=== PATIENT | male | born 1940 | race Caucasian/White ===

== ENCOUNTER 2018-11-22 15:42 | Inpatient (IN) | payer OTHER ==
[~2018-11-22] VITALS: Ht 175.3 cm; Wt 72.1 kg
[~2018-11-22 15:42] MED LIST: ASA81 MG; Acetaminophen PO; Acetaminophen/Hydrocodone PO; Albuterol Sulf NEB; Aspirin PO; BP; CEFAZOLIN1 GM/50 ML IVP; CRESTOR; DIABETES; GLIPIZIDE; INSULIN REGULAR HUMAN SQ; Insulin Detemir SQ; Ipratropium Bromide NEB; METFORMIN; METFORMIN HCL500 MG PO; NORVASC5 MG PO; Z NIACIN PO; Z.0.LISINOPRIL10 MG PO; Z.0.LYRICA150 MG PO; Z.0.METOPROLOL SUCC5 PO; Z.0.PLAVIX75 MG PO; Z.0.VASOTEC10 MG PO; Z.0.ZOCOR40 MG PO; [UNRECOGNIZED DRUG - OTHER] PO
--- OUTSIDE RECORDS SUMMARY | 2018-11-22 15:49 | XMS REPORT ---
Author Author [facility] [place] Address Unknown Phone Unavailable Care Team Providers Care Field Agent Name Role Phone JAS ABREUILLOMICHAEL Unavailable Unavailable Payers Payer Name Policy Type Policy Number Effective Date Expiration Date Problems This patient has no known problems. Allergies, Adverse Reactions, Alerts Allergy Name Allergy Type Status Severity Reaction(s) Onset Date Inactive Date Treating Clinician Comments No Known Allergies DA Active U 2018-07-27 00:00:00 No Known Allergies DA Active U 2017-10-23 00:00:00 No Known Allergies DA Active U 2016-10-13 00:00:00 Medications This patient has no known medications. Results Test Description Test Time Test Comments Text Results Atomic Results Result Comments BLOOD CULTURE 2018-10-14 02:00:00 CULTURE (BEAKER) (test rrim=9677) No growth in 5 days BLOOD [id number] 02:00:00* Test Item Value Reference Range Comments CULTURE (BEAKER) (test juxt=3765) No growth in 5 days [id number] 11:39:00* Test Item Value Reference Range Comments PROSTATE SPECIFIC ANTIGEN (BEAKER) (test rkaa=725) 1.2 ng/mL 0.0-4.0 CBC W/PLT COUNT & AUTO [id number] 10:01:00* Test Item Value Reference Range Comments WHITE BLOOD CELL COUNT (BEAKER) (test rkcl=923) 104.4 K/ L 3.5-10.5 RED BLOOD CELL COUNT (BEAKER) (test ziaj=960) 2.55 M/ L 4.63-6.08 HEMOGLOBIN (BEAKER) (test vrzq=396) 7.5 GM/DL 13.7-17.5 HEMATOCRIT (BEAKER) (test admx=182) 25.4 % 40.1-51.0 MEAN CORPUSCULAR VOLUME (BEAKER) (test ednz=810) 99.6 fL 79.0-92.2 MEAN CORPUSCULAR HEMOGLOBIN (BEAKER) (test zxmy=492) 29.4 pg 25.7-32.2 MEAN CORPUSCULAR HEMOGLOBIN CONC (BEAKER) (test jfxb=817) 29.5 GM/DL 32.3-36.5 RED CELL DISTRIBUTION WIDTH (BEAKER) (test lxgs=929) 16.6 % 11.6-14.4 PLATELET COUNT (BEAKER) (test szlo=180) 217 K/CU MM 150-450 MEAN PLATELET VOLUME (BEAKER) (test acss=944) 10.5 fL 9.4-12.4 NUCLEATED RED BLOOD CELLS (BEAKER) (test gifw=021) 0 /100 WBC 0-0 (MANUAL DIFFERENTIAL)2018-10-11 10:01:00* Test Item Value Reference Range Comments NEUTROPHILS - REL (DIFF) (BEAKER) (test oexl=0684) 5 % LYMPHOCYTES - REL (DIFF) (BEAKER) (test jpwd=9146) 94 % MONOCYTES - REL (DIFF) (BEAKER) (test xlma=2462) 1 % NEUTROPHILS - ABS (DIFF) (BEAKER) (test alet=4148) 5.22 K/ L 1.80-8.00 LYMPHOCYTES - ABS (DIFF) (BEAKER) (test cflh=9365) 98.14 K/ L 1.48-4.50 MONOCYTES - ABS (DIFF) (BEAKER) (test gtzy=5541) 1.04 K/ L 0.00-1.30 TOTAL COUNTED (BEAKER) (test wixc=1445) 100 PLT MORPHOLOGY (BEAKER) (test xwrp=389) Normal ATYPICAL LYMPHS(BEAKER) (test xrbm=1420) Present SMUDGE CELLS (BEAKER) (test fgwl=9081) Present STOMATOCYTES (BEAKER) (test fiki=481) Present POCT-GLUCOSE [id number] 08:48:00* Test Item Value Reference Range Comments POC-GLUCOSE METER (BEAKER) (test fhmj=0071) 167 mg/dL 70-110 TESTED AT [address] [address] [id number] 06:41:00* Test Item Value Reference Range Comments PHOSPHORUS (BEAKER) (test aeoj=418) 3.0 mg/dL 2.3-4.7 BASIC METABOLIC [id number] 06:41:00* Test Item Value Reference Range Comments SODIUM (BEAKER) (test rltx=007) 133 meq/L 136-145 POTASSIUM (BEAKER) (test zekw=978) 4.8 meq/L 3.5-5.1 CHLORIDE (BEAKER) (test hmjw=365) 99 meq/L 98-107 CO2 (BEAKER) (test eqoj=193) 25 meq/L 22-29 BLOOD UREA NITROGEN (BEAKER) (test ahbk=755) 14 mg/dL 7-21 CREATININE (BEAKER) (test ohev=162) 0.97 mg/dL 0.57-1.25 GLUCOSE RANDOM (BEAKER) (test xugj=689) 119 mg/dL 70-105 CALCIUM (BEAKER) (test dgrb=848) 8.4 mg/dL 8.4-10.2 EGFR (BEAKER) (test urmh=7676) 75 mL/min/1.73 sq m ESTIMATED GFR IS NOT ACCURATE CREATININE CLEARANCE IN PREDICTING GLOMERULAR FILTRATION RATE. ESTIMATED GFR IS NOT APPLICABLE FOR DIALYSIS PATIENTS. POCT-GLUCOSE [id number] 22:24:00* Test Item Value Reference Range Comments POC-GLUCOSE METER (BEAKER) (test uezi=5249) 264 mg/dL 70-110 TESTED AT [address] [address] POCT-GLUCOSE [id number] 21:43:00* Test Item Value Reference Range Comments POC-GLUCOSE METER (BEAKER) (test bvdd=1841) 273 mg/dL 70-110 TESTED AT [address] [address] POCT-GLUCOSE [id number] 18:09:00* Test Item Value Reference Range Comments POC-GLUCOSE METER (BEAKER) (test chao=4958) 85 mg/dL 70-110 TESTED AT [address] [address] POCT-GLUCOSE [id number] 12:11:00* Test Item Value Reference Range Comments POC-GLUCOSE METER (BEAKER) (test bxzv=4024) 273 mg/dL 70-110 TESTED AT [facility] [address] [address] POCT-GLUCOSE [id number] 09:34:00* Test Item Value Reference Range Comments POC-GLUCOSE METER (BEAKER) (test nffx=6279) 114 mg/dL 70-110 TESTED AT [facility] [address] [facility] [address] CBC W/PLT COUNT & AUTO [id number] 09:20:00* Test Item Value Reference Range Comments WHITE BLOOD CELL COUNT (BEAKER) (test lack=355) 72.9 K/ L 3.5-10.5 RED BLOOD CELL COUNT (BEAKER) (test kiej=484) 3.41 M/ L 4.63-6.08 HEMOGLOBIN (BEAKER) (test mkwv=697) 10.3 GM/DL 13.7-17.5 HEMATOCRIT (BEAKER) (test uwbl=090) 32.6 % 40.1-51.0 MEAN CORPUSCULAR VOLUME (BEAKER) (test mgti=682) 95.6 fL 79.0-92.2 MEAN CORPUSCULAR HEMOGLOBIN (BEAKER) (test mbse=113) 30.2 pg 25.7-32.2 MEAN CORPUSCULAR HEMOGLOBIN CONC (BEAKER) (test nzlm=550) 31.6 GM/DL 32.3-36.5 RED CELL DISTRIBUTION WIDTH (BEAKER) (test mzwc=880) 16.4 % 11.6-14.4 PLATELET COUNT (BEAKER) (test essy=029) 145 K/CU MM 150-450 MEAN PLATELET VOLUME (BEAKER) (test fhgj=298) 10.3 fL 9.4-12.4 NUCLEATED RED BLOOD CELLS (BEAKER) (test bpuz=200) 0 /100 WBC 0-0 (CELLAVISION MANUAL DIFF)2018 09:20:00* Test Item Value Reference Range Comments NEUTROPHILS - REL (CELLAVISION)(BEAKER) (test ykbi=4839) 1 % LYMPHOCYTES - REL (CELLAVISION)(BEAKER) (test okqo=6689) 98 % MONOCYTES - REL (CELLAVISION)(BEAKER) (test qtjj=6013) 1 % NEUTROPHILS - ABS (CELLAVISION)(BEAKER) (test gdpq=4210) 0.73 K/ul 1.78-5.38 LYMPHOCYTES - ABS (CELLAVISION)(BEAKER) (test zxes=4846) 71.44 K/ul 1.32-3.57 MONOCYTES - ABS (CELLAVISION)(BEAKER) (test ceqb=6734) 0.73 K/uL 0.30-0.82 TOTAL COUNTED (BEAKER) (test bnij=1957) 100 RBC MORPHOLOGY (BEAKER) (test cjgi=604) Normal WBC MORPHOLOGY (BEAKER) (test eqhb=474) Normal PLT MORPHOLOGY (BEAKER) (test zjtv=109) Normal MISCELLANEOUS LAB [id number] 08:08:00* Test Item Value Reference Range Comments SCAN RESULT (test woam=7487146) BLOOD GAS, [id number] 06:27:00* Test Item Value Reference Range Comments PH VENOUS (BEAKER) (test eggx=477) 7.44 7.32-7.42 PCO2 VENOUS (BEAKER) (test bfoa=757) 45 mmHg 41-51 PO2 VENOUS (BEAKER) (test gkhv=341) 45 mmHg 25-40 O2 SATURATION VENOUS (BEAKER) (test foke=183) 82.5 % 40.0-70.0 HCO3 VENOUS (BEAKER) (test ujhd=018) 30 mmol/L 21-29 BASE EXCESS VENOUS (BEAKER) (test ysry=119) 4.9 mmol/L -2.0-3.0 PATIENT TEMPERATURE (BEAKER) (test tpiy=4679) 37.0 C FIO2 (BEAKER) (test clkx=1652) 21.0 % BASIC METABOLIC [id number] 05:20:00* Test Item Value Reference Range Comments SODIUM (BEAKER) (test fumy=633) 133 meq/L 136-145 POTASSIUM (BEAKER) (test hyxu=691) 4.2 meq/L 3.5-5.1 CHLORIDE (BEAKER) (test tsyq=243) 98 meq/L 98-107 CO2 (BEAKER) (test yhui=315) 26 meq/L 22-29 BLOOD UREA NITROGEN (BEAKER) (test gehs=279) 15 mg/dL 7-21 CREATININE (BEAKER) (test sjko=515) 0.92 mg/dL 0.57-1.25 GLUCOSE RANDOM (BEAKER) (test yjpb=868) 87 mg/dL 70-105 CALCIUM (BEAKER) (test vuff=199) 7.8 mg/dL 8.4-10.2 EGFR (BEAKER) (test gdtl=0315) 80 mL/min/1.73 sq m ESTIMATED GFR IS NOT ACCURATE CREATININE CLEARANCE IN PREDICTING GLOMERULAR FILTRATION RATE. ESTIMATED GFR IS NOT APPLICABLE FOR DIALYSIS PATIENTS. [id number] 05:14:00* Test Item Value Reference Range Comments PHOSPHORUS (BEAKER) (test qpmd=990) 2.7 mg/dL 2.3-4.7 IMMUNOGLOBULIN G (IGG)2018 05:12:00* Test Item Value Reference Range Comments IMMUNOGLOBULIN G (IGG) (BEAKER) (test hamu=460) 397 mg/dL 540-1,822 IMMUNOGLOBULIN M (IGM)2018 05:12:00* Test Item Value Reference Range Comments IMMUNOGLOBULIN M (IGM) (BEAKER) (test rzzp=130) 29 mg/dL 22-293 IMMUNOGLOBULIN A (IGA)2018 05:12:00* Test Item Value Reference Range Comments IMMUNOGLOBULIN A (IGA) (BEAKER) (test ddey=087) 47 mg/dL 63-484 VANCOMYCIN LEVEL, [id number] 04:58:00* Test Item Value Reference Range Comments VANCOMYCIN RANDOM (BEAKER) (test lxzb=857) 18.2 ug/mL Reference Range: No NormalsBASIC METABOLIC [id number] 00:41:00* Test Item Value Reference Range Comments SODIUM (BEAKER) (test evci=666) 132 meq/L 136-145 POTASSIUM (BEAKER) (test insh=934) 3.8 meq/L 3.5-5.1 CHLORIDE (BEAKER) (test peqv=154) 97 meq/L 98-107 CO2 (BEAKER) (test cevf=762) 27 meq/L 22-29 BLOOD UREA NITROGEN (BEAKER) (test ybqd=440) 17 mg/dL 7-21 CREATININE (BEAKER) (test rian=918) 0.99 mg/dL 0.57-1.25 GLUCOSE RANDOM (BEAKER) (test xzms=181) 114 mg/dL 70-105 CALCIUM (BEAKER) (test avsr=048) 7.8 mg/dL 8.4-10.2 EGFR (BEAKER) (test hxwd=5551) 73 mL/min/1.73 sq m ESTIMATED GFR IS NOT ACCURATE CREATININE CLEARANCE IN PREDICTING GLOMERULAR FILTRATION RATE. ESTIMATED GFR IS NOT APPLICABLE FOR DIALYSIS PATIENTS. HEMOGLOBIN [id number] 19:51:00* Test Item Value Reference Range Comments HEMOGLOBIN A1C (BEAKER) (test lspe=834) 10.5 % 4.3-6.1 POCT-GLUCOSE [id number] 17:36:00* Test Item Value Reference Range Comments POC-GLUCOSE METER (BEAKER) (test uvwe=1164) 240 mg/dL 70-110 TESTED AT [address] [address] BASIC METABOLIC [id number] 15:36:00* Test Item Value Reference Range Comments SODIUM (BEAKER) (test sgkw=523) 131 meq/L 136-145 POTASSIUM (BEAKER) (test imws=550) 4.3 meq/L 3.5-5.1 CHLORIDE (BEAKER) (test skvg=741) 97 meq/L 98-107 CO2 (BEAKER) (test dqdz=821) 27 meq/L 22-29 BLOOD UREA NITROGEN (BEAKER) (test nkmp=915) 16 mg/dL 7-21 CREATININE (BEAKER) (test atio=686) 1.09 mg/dL 0.57-1.25 GLUCOSE RANDOM (BEAKER) (test gstr=050) 283 mg/dL 70-105 CALCIUM (BEAKER) (test vmwo=877) 7.8 mg/dL 8.4-10.2 EGFR (BEAKER) (test gowj=2444) 66 mL/min/1.73 sq m ESTIMATED GFR IS NOT ACCURATE CREATININE CLEARANCE IN PREDICTING GLOMERULAR FILTRATION RATE. ESTIMATED GFR IS NOT APPLICABLE FOR DIALYSIS PATIENTS. POCT-GLUCOSE [id number] 14:58:00* Test Item Value Reference Range Comments POC-GLUCOSE METER (BEAKER) (test ucwm=2525) 325 mg/dL 70-110 Notified [facility]EN [place]/TESTED AT [address] [address] CBC W/PLT COUNT & AUTO [id number] 12:38:00* Test Item Value Reference Range Comments WHITE BLOOD CELL COUNT (BEAKER) (test dymy=256) 109.8 K/ L 3.5-10.5 RED BLOOD CELL COUNT (BEAKER) (test flfe=905) 2.60 M/ L 4.63-6.08 HEMOGLOBIN (BEAKER) (test yvyw=169) 7.8 GM/DL 13.7-17.5 HEMATOCRIT (BEAKER) (test kdjm=771) 25.6 % 40.1-51.0 MEAN CORPUSCULAR VOLUME (BEAKER) (test yniz=790) 98.5 fL 79.0-92.2 MEAN CORPUSCULAR HEMOGLOBIN (BEAKER) (test gfzu=420) 30.0 pg 25.7-32.2 MEAN CORPUSCULAR HEMOGLOBIN CONC (BEAKER) (test zijn=487) 30.5 GM/DL 32.3-36.5 RED CELL DISTRIBUTION WIDTH (BEAKER) (test ndlu=273) 17.5 % 11.6-14.4 PLATELET COUNT (BEAKER) (test qeki=065) 189 K/CU MM 150-450 MEAN PLATELET VOLUME (BEAKER) (test mfvh=479) 9.9 fL 9.4-12.4 NUCLEATED RED BLOOD CELLS (BEAKER) (test wcph=521) 0 /100 WBC 0-0 (CELLAVISION MANUAL DIFF)2018-10-09 12:38:00* Test Item Value Reference Range Comments NEUTROPHILS - REL (CELLAVISION)(BEAKER) (test ahms=1822) 7 % LYMPHOCYTES - REL (CELLAVISION)(BEAKER) (test uoap=5363) 91 % MONOCYTES - REL (CELLAVISION)(BEAKER) (test rfqw=1316) 1 % BANDS - REL (CELLAVISION)(BEAKER) (test pwit=2077) 1 % 0-10 NEUTROPHILS - ABS (CELLAVISION)(BEAKER) (test ahod=4040) 7.69 K/ul 1.78-5.38 LYMPHOCYTES - ABS (CELLAVISION)(BEAKER) (test nkyw=4968) 99.92 K/ul 1.32-3.57 MONOCYTES - ABS (CELLAVISION)(BEAKER) (test aioo=5230) 1.10 K/uL 0.30-0.82 BANDS - ABS (CELLAVISION)(BEAKER) (test qnuk=0079) 1.10 K/uL 0.00-0.80 TOTAL COUNTED (BEAKER) (test ztuh=2464) 100 PLT MORPHOLOGY (BEAKER) (test uqnb=886) Normal SMUDGE CELLS (BEAKER) (test ydmd=1964) Present ANISOCYTOSIS (BEAKER) (test pyjp=658) 1+ few MICROCYTES (BEAKER) (test fqxk=913) 1+ few ARTIFACT (CELLAVISION)(BEAKER) (test rdpe=6724) Present PLATELET CONCENTRATION (CELLAVISION)(BEAKER) (test zexe=6488) Adequate Received comment: User comments: Slide comments: POCT-GLUCOSE [id number] 12:36:00* Test Item Value Reference Range Comments POC-GLUCOSE METER (BEAKER) (test ufep=7519) 297 mg/dL 70-110 TESTED AT [place] [id number] POCT-GLUCOSE [id number] 09:24:00* Test Item Value Reference Range Comments POC-GLUCOSE METER (BEAKER) (test yspq=0524) 180 mg/dL 70-110 TESTED AT [address] [address] POCT-LACTIC ACID, [id number] 08:12:00* Test Item Value Reference Range Comments POC-LACTIC ACID, ARTERIAL (BEAKER) (test nagn=7091) 0.6 mmol/L 0.4-1.3 TESTED AT [address] [address] [id number] 08:12:00* Test Item Value Reference Range Comments POC-GLUCOSE (BEAKER) (test lxfa=8155) 148 mg/dL 70-110 TESTED AT [address] [address] POCT-CALCIUM [id number] 08:12:00* Test Item Value Reference Range Comments POC-CALCIUM IONIZED (BEAKER) (test ntue=4519) 1.13 mmol/L 1.12-1.27 TESTED AT [address] [address] [id number] 08:12:00* Test Item Value Reference Range Comments POC-HEMATOCRIT (BEAKER) (test jjzi=0817) 24 % 40-50 TESTED AT [place] [address] [id number] 08:12:00* Test Item Value Reference Range Comments POC-HEMOGLOBIN (BEAKER) (test wqrf=2925) 8.2 g/dL 13.0-16.8 TESTED AT [place] [id number] AT [place] [address] POCT-GLUCOSE [id number] 08:12:00* Test Item Value Reference Range Comments POC-GLUCOSE METER (BEAKER) (test dpjt=9785) 168 mg/dL 70-110 TESTED AT [place] [address] POCT-BLOOD GASES, [id number] 08:11:00* Test Item Value Reference Range Comments TEMP, CELSIUS-POC (BEAKER) (test ymow=8777) 37.0 FIO2-POC (BEAKER) (test vykz=4857) TESTED AT [place] [address] PH, ARTERIAL-POC (BEAKER) (test ibad=2175) 7.538 7.350-7.450 PCO2, ARTERIAL-POC (BEAKER) (test jvnd=8623) 37.8 mm Hg 35.0-45.0 PO2, ARTERIAL-POC (BEAKER) (test vvfn=2172) 96.0 mm Hg 80.0-90.0 SO2, ARTERIAL-POC (BEAKER) (test ouao=9688) 98.0 % 96.0-97.0 HCO3, ARTERIAL-POC (BEAKER) (test ctan=3207) 32.1 meq/L 21.0-29.0 BASE EXCESS, ARTERIAL-POC (BEAKER) (test rbsz=1637) 10.0 meq/L -2.0-3.0 [id number] 08:11:00* Test Item Value Reference Range Comments POC-SODIUM (BEAKER) (test hxny=2689) 133 meq/L 135-148 TESTED AT [place] [address] [id number] 08:11:00* Test Item Value Reference Range Comments POC-POTASSIUM (BEAKER) (test hoco=7940) 4.0 meq/L 3.6-5.5 TESTED AT [place] [address] BASIC METABOLIC [id number] 07:55:00* Test Item Value Reference Range Comments SODIUM (BEAKER) (test gavn=394) 134 meq/L 136-145 POTASSIUM (BEAKER) (test ogyt=948) 4.2 meq/L 3.5-5.1 CHLORIDE (BEAKER) (test ximm=168) 99 meq/L 98-107 CO2 (BEAKER) (test chnt=689) 28 meq/L 22-29 BLOOD UREA NITROGEN (BEAKER) (test tnsj=945) 14 mg/dL 7-21 CREATININE (BEAKER) (test andx=956) 0.97 mg/dL 0.57-1.25 GLUCOSE RANDOM (BEAKER) (test druf=877) 145 mg/dL 70-105 CALCIUM (BEAKER) (test obtn=358) 7.9 mg/dL 8.4-10.2 EGFR (BEAKER) (test uzbt=4429) 75 mL/min/1.73 sq m ESTIMATED GFR IS NOT ACCURATE CREATININE CLEARANCE IN PREDICTING GLOMERULAR FILTRATION RATE. ESTIMATED GFR IS NOT APPLICABLE FOR DIALYSIS PATIENTS. KETONE, [id number] 07:51:00* Test Item Value Reference Range Comments KETONES, BLOOD (BEAKER) (test rurk=2836) < mmol/L <0.4 0.3 [id number] 07:51:00* Test Item Value Reference Range Comments PHOSPHORUS (BEAKER) (test zuax=771) 2.3 mg/dL 2.3-4.7 URINALYSIS W/ REFLEX URINE [id number] 07:46:00* Test Item Value Reference Range Comments COLOR (BEAKER) (test gxam=331) Yellow CLARITY (BEAKER) (test ojgf=847) Cloudy SPECIFIC GRAVITY UA (BEAKER) (test htuj=457) 1.018 1.001-1.035 PH UA (BEAKER) (test qdnf=747) 6.5 5.0-8.0 PROTEIN UA (BEAKER) (test uqhw=424) 100 mg/dL Negative GLUCOSE UA (BEAKER) (test btjz=892) 500 mg/dL Negative KETONES UA (BEAKER) (test kxgl=419) Negative Negative BILIRUBIN UA (BEAKER) (test qaba=631) Negative Negative BLOOD UA (BEAKER) (test rdup=285) Moderate Negative NITRITE UA (BEAKER) (test qdyp=243) Negative Negative LEUKOCYTE ESTERASE UA (BEAKER) (test plzz=138) Large Negative UROBILINOGEN UA (BEAKER) (test kyin=058) 0.2 mg/dL 0.2-1.0 RBC UA (BEAKER) (test sgoe=837) 0 /HPF WBC UA (BEAKER) (test dqti=066) 3969 /HPF SOURCE(BEAKER) (test ssuz=8004) BASIC METABOLIC [id number] 01:03:00* Test Item Value Reference Range Comments SODIUM (BEAKER) (test ckfn=110) 133 meq/L 136-145 POTASSIUM (BEAKER) (test ixwb=115) 3.7 meq/L 3.5-5.1 CHLORIDE (BEAKER) (test olpw=685) 97 meq/L 98-107 CO2 (BEAKER) (test tarc=636) 27 meq/L 22-29 BLOOD UREA NITROGEN (BEAKER) (test xtfx=431) 17 mg/dL 7-21 CREATININE (BEAKER) (test cfuh=202) 1.04 mg/dL 0.57-1.25 GLUCOSE RANDOM (BEAKER) (test mmci=150) 218 mg/dL 70-105 CALCIUM (BEAKER) (test otly=131) 7.9 mg/dL 8.4-10.2 EGFR (BEAKER) (test uxxo=9369) 69 mL/min/1.73 sq m ESTIMATED GFR IS NOT ACCURATE CREATININE CLEARANCE IN PREDICTING GLOMERULAR FILTRATION RATE. ESTIMATED GFR IS NOT APPLICABLE FOR DIALYSIS PATIENTS. RAD, CHEST, 1 VIEW, NON [id number] 00:06:00Reason for exam:->assess lungs- hypoxiaShould this be performed at the bedside?->YesFINAL REPORT RAD, CHEST, 1 VIEW, NON DEPT INDICATION: assess lungs- hypoxia COMPARISON: Plain radiograph the chest dated 10/04/2018. FINDINGS: Portable frontal view of the chest. IMPRESSION: Patient is rotated.Lungs and pleura: Bandlike airspace opacity of the left base may represent atelectasis. Small bilateral pleural effusions, increased in size in the interval. No pneum othorax.Heart and mediastinum: Exaggerated by technique however grossly unchange d. Additional findings: Gaseous distention of the stomach. Postsurgical changes of the left shoulder arthroplasty. Signed: Cori [place] Verified Date/Time: 10/09/2018 00:06:41 GLOBIN AND [id number] 23:40:00* Test Item Value Reference Range Comments HEMOGLOBIN (BEAKER) (test hjjx=242) 6.9 GM/DL 13.7-17.5 HEMATOCRIT (BEAKER) (test ncmj=087) 23.1 % 40.1-51.0 LACTIC ACID, [id number] 23:31:00* Test Item Value Reference Range Comments LACTATE BLOOD VENOUS (2) (BEAKER) (test thxz=3521) 0.8 mmol/L 0.5-2.2 POCT-GLUCOSE [id number] 21:55:00* Test Item Value Reference Range Comments POC-GLUCOSE METER (BEAKER) (test ldke=6993) 230 mg/dL 70-110 TESTED AT [address] [address] BASIC METABOLIC [id number] 21:21:00* Test Item Value Reference Range Comments SODIUM (BEAKER) (test hkhy=976) 134 meq/L 136-145 POTASSIUM (BEAKER) (test zpgm=287) 4.5 meq/L 3.5-5.1 CHLORIDE (BEAKER) (test jfgt=038) 98 meq/L 98-107 CO2 (BEAKER) (test xczl=987) 27 meq/L 22-29 BLOOD UREA NITROGEN (BEAKER) (test vppm=360) 15 mg/dL 7-21 CREATININE (BEAKER) (test ytus=104) 0.99 mg/dL 0.57-1.25 GLUCOSE RANDOM (BEAKER) (test lykr=078) 177 mg/dL 70-105 CALCIUM (BEAKER) (test bttp=598) 8.1 mg/dL 8.4-10.2 EGFR (BEAKER) (test odvk=5973) 73 mL/min/1.73 sq m ESTIMATED GFR IS NOT ACCURATE CREATININE CLEARANCE IN PREDICTING GLOMERULAR FILTRATION RATE. ESTIMATED GFR IS NOT APPLICABLE FOR DIALYSIS PATIENTS. POCT-GLUCOSE [id number] 18:28:00* Test Item Value Reference Range Comments POC-GLUCOSE METER (BEAKER) (test dfmn=6414) 198 mg/dL 70-110 TESTED AT [facility] [address] [address] CBC W/PLT COUNT & AUTO [id number] 12:38:00* Test Item Value Reference Range Comments WHITE BLOOD CELL COUNT (BEAKER) (test wtlx=012) 95.8 K/ L 3.5-10.5 RED BLOOD CELL COUNT (BEAKER) (test epgq=254) 2.43 M/ L 4.63-6.08 HEMOGLOBIN (BEAKER) (test bzan=084) 7.3 GM/DL 13.7-17.5 HEMATOCRIT (BEAKER) (test rbyx=473) 24.3 % 40.1-51.0 MEAN CORPUSCULAR VOLUME (BEAKER) (test xoov=752) 100.0 fL 79.0-92.2 MEAN CORPUSCULAR HEMOGLOBIN (BEAKER) (test tzuj=014) 30.0 pg 25.7-32.2 MEAN CORPUSCULAR HEMOGLOBIN CONC (BEAKER) (test lzcq=740) 30.0 GM/DL 32.3-36.5 RED CELL DISTRIBUTION WIDTH (BEAKER) (test tjtt=869) 16.3 % 11.6-14.4 PLATELET COUNT (BEAKER) (test vxuw=397) 167 K/CU MM 150-450 MEAN PLATELET VOLUME (BEAKER) (test ytoo=960) 9.9 fL 9.4-12.4 NUCLEATED RED BLOOD CELLS (BEAKER) (test fvqo=116) 0 /100 WBC 0-0 (MANUAL DIFFERENTIAL)2018-10-08 12:38:00* Test Item Value Reference Range Comments NEUTROPHILS - REL (DIFF) (BEAKER) (test rlxx=3521) 2 % LYMPHOCYTES - REL (DIFF) (BEAKER) (test ycrx=6835) 97 % MONOCYTES - REL (DIFF) (BEAKER) (test rohz=3744) 1 % EOSINOPHILS - REL (DIFF) (BEAKER) (test doqf=9230) 0 % BASOPHILS - REL (DIFF) (BEAKER) (test pako=7386) 0 % NEUTROPHILS - ABS (DIFF) (BEAKER) (test fnju=4508) 1.92 K/ L 1.80-8.00 LYMPHOCYTES - ABS (DIFF) (BEAKER) (test itdv=6406) 92.93 K/ L 1.48-4.50 MONOCYTES - ABS (DIFF) (BEAKER) (test boyf=8239) 0.96 K/ L 0.00-1.30 EOSINOPHILS - ABS (DIFF) (BEAKER) (test xuyo=3029) 0.00 K/ L 0.00-0.50 BASOPHILS - ABS (DIFF) (BEAKER) (test ttlh=6162) 0.00 K/ L 0.00-0.20 TOTAL COUNTED (BEAKER) (test ksga=3134) 100 PLT MORPHOLOGY (BEAKER) (test dzps=866) Normal RBC MORPHOLOGY (BEAKER) (test jgep=810) Normal SMUDGE CELLS (BEAKER) (test giow=9552) Present Many smudge cells present. Albumin slide indicated. Differential performed on an albumin slide.POCT-GLUCOSE [id number] 12:22:00 * Test Item Value Reference Range Comments POC-GLUCOSE METER (BEAKER) (test rjzn=5101) 206 mg/dL 70-110 TESTED AT [address] [address] POCT-GLUCOSE [id number] 08:44:00* Test Item Value Reference Range Comments POC-GLUCOSE METER (BEAKER) (test gndg=9830) 194 mg/dL 70-110 TESTED AT [address] [address] [id number] 08:25:00* Test Item Value Reference Range Comments PHOSPHORUS (BEAKER) (test ticj=181) 2.3 mg/dL 2.3-4.7 VANCOMYCIN LEVEL, [id number] 07:25:00* Test Item Value Reference Range Comments VANCOMYCIN TROUGH (BEAKER) (test mqui=993) 13.4 ug/mL 10.0-20.0 BASIC METABOLIC [id number] 07:23:00* Test Item Value Reference Range Comments SODIUM (BEAKER) (test vuxx=389) 136 meq/L 136-145 POTASSIUM (BEAKER) (test tkru=920) 4.1 meq/L 3.5-5.1 CHLORIDE (BEAKER) (test kygl=025) 101 meq/L 98-107 CO2 (BEAKER) (test gemy=553) 24 meq/L 22-29 BLOOD UREA NITROGEN (BEAKER) (test jdgr=842) 15 mg/dL 7-21 CREATININE (BEAKER) (test ctmy=384) 0.99 mg/dL 0.57-1.25 GLUCOSE RANDOM (BEAKER) (test cwru=829) 202 mg/dL 70-105 CALCIUM (BEAKER) (test gwfs=418) 8.0 mg/dL 8.4-10.2 EGFR (BEAKER) (test fuub=4057) 73 mL/min/1.73 sq m ESTIMATED GFR IS NOT ACCURATE CREATININE CLEARANCE IN PREDICTING GLOMERULAR FILTRATION RATE. ESTIMATED GFR IS NOT APPLICABLE FOR DIALYSIS PATIENTS. KETONE, [id number] 06:18:00* Test Item Value Reference Range Comments KETONES, BLOOD (BEAKER) (test xyjl=8591) 2.3 mmol/L <0.4 BLOOD GAS, [id number] 06:00:00* Test Item Value Reference Range Comments PH VENOUS (BEAKER) (test stvp=678) 7.48 7.32-7.42 PCO2 VENOUS (BEAKER) (test umdz=232) 36 mmHg 41-51 PO2 VENOUS (BEAKER) (test kcaa=280) 155 mmHg 25-40 O2 SATURATION VENOUS (BEAKER) (test iczk=394) 99.1 % 40.0-70.0 HCO3 VENOUS (BEAKER) (test mqwc=523) 26 mmol/L 21-29 BASE EXCESS VENOUS (BEAKER) (test kazg=369) 2.1 mmol/L -2.0-3.0 PATIENT TEMPERATURE (BEAKER) (test usqc=6445) 37.0 C FIO2 (BEAKER) (test rwle=0001) 28.0 % BASIC METABOLIC [id number] 21:57:00* Test Item Value Reference Range Comments SODIUM (BEAKER) (test ifqa=765) 136 meq/L 136-145 POTASSIUM (BEAKER) (test uzds=858) 3.9 meq/L 3.5-5.1 CHLORIDE (BEAKER) (test musn=295) 103 meq/L 98-107 CO2 (BEAKER) (test gftx=241) 25 meq/L 22-29 BLOOD UREA NITROGEN (BEAKER) (test lxzn=708) 17 mg/dL 7-21 CREATININE (BEAKER) (test ubcx=293) 0.98 mg/dL 0.57-1.25 GLUCOSE RANDOM (BEAKER) (test betf=442) 203 mg/dL 70-105 CALCIUM (BEAKER) (test xofa=150) 7.9 mg/dL 8.4-10.2 EGFR (BEAKER) (test puap=9651) 74 mL/min/1.73 sq m ESTIMATED GFR IS NOT ACCURATE CREATININE CLEARANCE IN PREDICTING GLOMERULAR FILTRATION RATE. ESTIMATED GFR IS NOT APPLICABLE FOR DIALYSIS PATIENTS. POCT-GLUCOSE [id number] 21:38:00* Test Item Value Reference Range Comments POC-GLUCOSE METER (BEAKER) (test ysof=2591) 201 mg/dL 70-110 TESTED AT [facility] [address] [address] POCT-GLUCOSE [id number] 17:54:00* Test Item Value Reference Range Comments POC-GLUCOSE METER (BEAKER) (test ndhj=6711) 168 mg/dL 70-110 TESTED AT [place] [id number] [facility] [address] [id number] 15:20:00* Test Item Value Reference Range Comments PHOSPHORUS (BEAKER) (test sehe=620) 0.9 mg/dL 2.3-4.7 BASIC METABOLIC [id number] 15:17:00* Test Item Value Reference Range Comments SODIUM (BEAKER) (test uopm=751) 137 meq/L 136-145 POTASSIUM (BEAKER) (test ryzi=124) 4.0 meq/L 3.5-5.1 CHLORIDE (BEAKER) (test unvq=276) 100 meq/L 98-107 CO2 (BEAKER) (test uxsl=220) 25 meq/L 22-29 BLOOD UREA NITROGEN (BEAKER) (test jgjd=347) 15 mg/dL 7-21 CREATININE (BEAKER) (test tvxv=417) 1.09 mg/dL 0.57-1.25 GLUCOSE RANDOM (BEAKER) (test glcp=426) 199 mg/dL 70-105 CALCIUM (BEAKER) (test uvqd=326) 8.2 mg/dL 8.4-10.2 EGFR (BEAKER) (test qlwi=4183) 66 mL/min/1.73 sq m ESTIMATED GFR IS NOT ACCURATE CREATININE CLEARANCE IN PREDICTING GLOMERULAR FILTRATION RATE. ESTIMATED GFR IS NOT APPLICABLE FOR DIALYSIS PATIENTS. CBC W/PLT COUNT & AUTO [id number] 14:38:00* Test Item Value Reference Range Comments WHITE BLOOD CELL COUNT (BEAKER) (test qbuj=493) 98.2 K/ L 3.5-10.5 RED BLOOD CELL COUNT (BEAKER) (test pzgf=707) 2.41 M/ L 4.63-6.08 HEMOGLOBIN (BEAKER) (test tjlh=221) 7.2 GM/DL 13.7-17.5 HEMATOCRIT (BEAKER) (test lkim=497) 23.9 % 40.1-51.0 MEAN CORPUSCULAR VOLUME (BEAKER) (test eyuh=073) 99.2 fL 79.0-92.2 MEAN CORPUSCULAR HEMOGLOBIN (BEAKER) (test jucx=842) 29.9 pg 25.7-32.2 MEAN CORPUSCULAR HEMOGLOBIN CONC (BEAKER) (test mjbv=180) 30.1 GM/DL 32.3-36.5 RED CELL DISTRIBUTION WIDTH (BEAKER) (test mfwh=125) 16.1 % 11.6-14.4 PLATELET COUNT (BEAKER) (test ynbm=301) 169 K/CU MM 150-450 MEAN PLATELET VOLUME (BEAKER) (test nkir=049) 10.2 fL 9.4-12.4 NUCLEATED RED BLOOD CELLS (BEAKER) (test bjbc=701) 0 /100 WBC 0-0 (CELLAVISION MANUAL DIFF)2018-10-07 14:38:00* Test Item Value Reference Range Comments NEUTROPHILS - REL (CELLAVISION)(BEAKER) (test vxra=9442) 4 % LYMPHOCYTES - REL (CELLAVISION)(BEAKER) (test vlnl=0582) 93 % EOSINOPHILS - REL (CELLAVISION)(BEAKER) (test irwm=2203) 1 % BANDS - REL (CELLAVISION)(BEAKER) (test lfjs=4372) 2 % 0-10 NEUTROPHILS - ABS (CELLAVISION)(BEAKER) (test kudt=8903) 3.93 K/ul 1.78-5.38 LYMPHOCYTES - ABS (CELLAVISION)(BEAKER) (test srax=3106) 91.33 K/ul 1.32-3.57 EOSINOPHILS - ABS (CELLAVISION)(BEAKER) (test jivy=9994) 0.98 K/uL 0.04-0.54 BANDS - ABS (CELLAVISION)(BEAKER) (test zvsu=5369) 1.96 K/uL 0.00-0.80 TOTAL COUNTED (BEAKER) (test rxrh=8769) 100 PLT MORPHOLOGY (BEAKER) (test kfvq=278) Normal SMUDGE CELLS (BEAKER) (test hnhz=0842) Present HYPOCHROMIA (BEAKER) (test fdfa=548) 1+ few ANISOCYTOSIS (BEAKER) (test crbg=165) 1+ few MACROCYTES (BEAKER) (test rhuo=181) 1+ few BASOPHILIC STIPPLING (BEAKER) (test jocu=625) Present PLATELET CONCENTRATION (CELLAVISION)(BEAKER) (test engp=0926) Adequate Received comment: User comments: Slide comments: WBC: Smudge cell presentCell di fferential performed on albumin slideC. DIFFICILE GDH [id number] 13:26:00* Test Item Value Reference Range Comments CDT TOXIN (test zupd=[id number]) Negative Negative CDT GDH ANTIGEN (test oqrv=[id number]) Negative Negative No indication of Clostridium difficile infection and no colonization. Discontinue enteric isolation and therapy. Testing performed by [employer] Rapid Cassette Assay. For GDH, published sensitivity of the assay is 98.7% compared to cytotoxicity testing. For Toxin AB, published sensitivity is 87.8% and specificity 99.4% compared to cytotoxicity testing.Ve rification of kit performance was done by the [facility] prior to cl inical use.POCT-GLUCOSE [id number] 12:18:00* Test Item Value Reference Range Comments POC-GLUCOSE METER (BEAKER) (test ivkh=6195) 261 mg/dL 70-110 TESTED AT [facility] [address] [address] POCT-GLUCOSE [id number] 09:05:00* Test Item Value Reference Range Comments POC-GLUCOSE METER (BEAKER) (test nqzn=6972) 163 mg/dL 70-110 TESTED AT [facility] [address] [address] BLOOD [id number] 08:01:00* Test Item Value Reference Range Comments CULTURE (BEAKER) (test ammt=1438) No growth in 5 days BLOOD [id number] 08:01:00* Test Item Value Reference Range Comments CULTURE (BEAKER) (test bkfj=0727) No growth in 5 days IMMUNOGLOBULIN A (IGA)2018-10-07 07:12:00* Test Item Value Reference Range Comments IMMUNOGLOBULIN A (IGA) (BEAKER) (test qkww=989) 49 mg/dL 63-484 LIPID [id number] 07:08:00* Test Item Value Reference Range Comments TRIGLYCERIDES (BEAKER) (test choo=835) 220 mg/dL CHOLESTEROL (BEAKER) (test fjki=886) 107 mg/dL HDL CHOLESTEROL (BEAKER) (test nwuq=464) 17 mg/dL LDL CHOLESTEROL CALCULATED (BEAKER) (test tump=673) 46 mg/dL Triglyceride Reference Range: Low Risk <150 Borderline 150-199 High Risk 200-499 Very High Risk >=500Cholesterol Reference Range: Low Risk <200 Borderline 200-239 High Risk >240HDL Cholesterol Reference Range: Low Risk >=60 High Risk <40LDL Cholesterol Reference Range: Optimal <100 Near Optimal 100-129 Borderline 130-159 High 160-189 Very High >=190 BASIC METABOLIC [id number] 07:08:00* Test Item Value Reference Range Comments SODIUM (BEAKER) (test sehf=283) 136 meq/L 136-145 POTASSIUM (BEAKER) (test ftfr=040) 3.1 meq/L 3.5-5.1 CHLORIDE (BEAKER) (test ohrn=705) 101 meq/L 98-107 CO2 (BEAKER) (test mrsm=815) 23 meq/L 22-29 BLOOD UREA NITROGEN (BEAKER) (test idzs=233) 13 mg/dL 7-21 CREATININE (BEAKER) (test pbhi=509) 0.97 mg/dL 0.57-1.25 GLUCOSE RANDOM (BEAKER) (test enpe=530) 156 mg/dL 70-105 CALCIUM (BEAKER) (test jtlw=543) 8.0 mg/dL 8.4-10.2 EGFR (BEAKER) (test knqz=1996) 75 mL/min/1.73 sq m ESTIMATED GFR IS NOT ACCURATE CREATININE CLEARANCE IN PREDICTING GLOMERULAR FILTRATION RATE. ESTIMATED GFR IS NOT APPLICABLE FOR DIALYSIS PATIENTS. KETONE, [id number] 06:16:00* Test Item Value Reference Range Comments KETONES, BLOOD (BEAKER) (test wuhq=8904) 3.4 mmol/L <0.4 PH, [id number] 05:43:00* Test Item Value Reference Range Comments PH VENOUS (BEAKER) (test pttc=400) 7.45 7.32-7.42 BLOOD GAS, [id number] 05:40:00* Test Item Value Reference Range Comments PH VENOUS (BEAKER) (test fkls=635) 7.44 7.32-7.42 PCO2 VENOUS (BEAKER) (test tauh=845) 39 mmHg 41-51 PO2 VENOUS (BEAKER) (test mlsx=156) 60 mmHg 25-40 O2 SATURATION VENOUS (BEAKER) (test nxqt=727) 91.0 % 40.0-70.0 HCO3 VENOUS (BEAKER) (test unhw=847) 25 mmol/L 21-29 BASE EXCESS VENOUS (BEAKER) (test eqfd=826) 1.3 mmol/L -2.0-3.0 PATIENT TEMPERATURE (BEAKER) (test kxzz=9333) 37.6 C FIO2 (BEAKER) (test pike=2899) 28.0 % BASIC METABOLIC [id number] 00:11:00* Test Item Value Reference Range Comments SODIUM (BEAKER) (test cscj=346) 137 meq/L 136-145 POTASSIUM (BEAKER) (test qrfk=483) 3.2 meq/L 3.5-5.1 CHLORIDE (BEAKER) (test gfnl=490) 102 meq/L 98-107 CO2 (BEAKER) (test ysix=859) 22 meq/L 22-29 BLOOD UREA NITROGEN (BEAKER) (test reoy=485) 15 mg/dL 7-21 CREATININE (BEAKER) (test ebyn=492) 1.01 mg/dL 0.57-1.25 GLUCOSE RANDOM (BEAKER) (test tbld=499) 194 mg/dL 70-105 CALCIUM (BEAKER) (test zhkf=899) 8.0 mg/dL 8.4-10.2 EGFR (BEAKER) (test myuf=0733) 72 mL/min/1.73 sq m ESTIMATED GFR IS NOT ACCURATE CREATININE CLEARANCE IN PREDICTING GLOMERULAR FILTRATION RATE. ESTIMATED GFR IS NOT APPLICABLE FOR DIALYSIS PATIENTS. POCT-GLUCOSE [id number] 21:00:00* Test Item Value Reference Range Comments POC-GLUCOSE METER (BEAKER) (test vzbv=3532) 219 mg/dL 70-110 TESTED AT [facility] [address] [address] BASIC METABOLIC [id number] 17:54:00* Test Item Value Reference Range Comments SODIUM (BEAKER) (test axss=650) 134 meq/L 136-145 POTASSIUM (BEAKER) (test uxkj=025) 3.8 meq/L 3.5-5.1 Specimen moderately hemolyzed CHLORIDE (BEAKER) (test zajk=699) 102 meq/L 98-107 CO2 (BEAKER) (test pnpw=900) 21 meq/L 22-29 BLOOD UREA NITROGEN (BEAKER) (test rbmc=381) 16 mg/dL 7-21 CREATININE (BEAKER) (test wrhg=524) 1.04 mg/dL 0.57-1.25 Specimen moderately hemolyzed GLUCOSE RANDOM (BEAKER) (test xaze=284) 212 mg/dL 70-105 CALCIUM (BEAKER) (test wpog=985) 7.9 mg/dL 8.4-10.2 EGFR (BEAKER) (test qrka=1163) 69 mL/min/1.73 sq m ESTIMATED GFR IS NOT ACCURATE CREATININE CLEARANCE IN PREDICTING GLOMERULAR FILTRATION RATE. ESTIMATED GFR IS NOT APPLICABLE FOR DIALYSIS PATIENTS. POCT-GLUCOSE [id number] 17:02:00* Test Item Value Reference Range Comments POC-GLUCOSE METER (BEAKER) (test ywea=9205) 249 mg/dL 70-110 TESTED AT [facility] [address] [address] URINALYSIS W/ REFLEX URINE [id number] 16:39:00* Test Item Value Reference Range Comments COLOR (BEAKER) (test fxyq=383) Red CLARITY (BEAKER) (test acjk=948) Cloudy SPECIFIC GRAVITY UA (BEAKER) (test hdic=847) 1.024 1.001-1.035 PH UA (BEAKER) (test hkya=698) 5.5 5.0-8.0 PROTEIN UA (BEAKER) (test myld=491) 200 mg/dL Negative GLUCOSE UA (BEAKER) (test mrjn=180) 50 mg/dL Negative KETONES UA (BEAKER) (test rdld=215) Negative Negative BILIRUBIN UA (BEAKER) (test zaza=785) Negative Negative BLOOD UA (BEAKER) (test kisg=514) Small Negative NITRITE UA (BEAKER) (test zudc=221) Negative Negative LEUKOCYTE ESTERASE UA (BEAKER) (test xtvj=097) Large Negative UROBILINOGEN UA (BEAKER) (test btgc=463) 0.2 mg/dL 0.2-1.0 RBC UA (BEAKER) (test oliu=041) 27 /HPF WBC UA (BEAKER) (test gfru=782) 945 /HPF BACTERIA (BEAKER) (test yiwk=243) Occasional SOURCE(BEAKER) (test puag=6120) POCT-GLUCOSE [id number] 13:19:00* Test Item Value Reference Range Comments POC-GLUCOSE METER (BEAKER) (test fbca=3892) 223 mg/dL 70-110 TESTED AT [facility] [address] [address] CBC W/PLT COUNT & AUTO [id number] 12:16:00* Test Item Value Reference Range Comments WHITE BLOOD CELL COUNT (BEAKER) (test ktco=370) 97.5 K/ L 3.5-10.5 RED BLOOD CELL COUNT (BEAKER) (test qiak=738) 2.58 M/ L 4.63-6.08 HEMOGLOBIN (BEAKER) (test jjxy=218) 7.6 GM/DL 13.7-17.5 HEMATOCRIT (BEAKER) (test awsh=171) 25.8 % 40.1-51.0 MEAN CORPUSCULAR VOLUME (BEAKER) (test font=674) 100.0 fL 79.0-92.2 MEAN CORPUSCULAR HEMOGLOBIN (BEAKER) (test ajwn=746) 29.5 pg 25.7-32.2 MEAN CORPUSCULAR HEMOGLOBIN CONC (BEAKER) (test gbup=572) 29.5 GM/DL 32.3-36.5 RED CELL DISTRIBUTION WIDTH (BEAKER) (test umhq=899) 16.4 % 11.6-14.4 PLATELET COUNT (BEAKER) (test tgud=172) 144 K/CU MM 150-450 MEAN PLATELET VOLUME (BEAKER) (test ijqp=374) 9.7 fL 9.4-12.4 NUCLEATED RED BLOOD CELLS (BEAKER) (test eqlm=194) 0 /100 WBC 0-0 (CELLAVISION MANUAL DIFF)2018-10-06 12:16:00* Test Item Value Reference Range Comments NEUTROPHILS - REL (CELLAVISION)(BEAKER) (test ttir=8816) 2 % LYMPHOCYTES - REL (CELLAVISION)(BEAKER) (test cthk=1174) 98 % NEUTROPHILS - ABS (CELLAVISION)(BEAKER) (test ggkf=4006) 1.95 K/ul 1.78-5.38 LYMPHOCYTES - ABS (CELLAVISION)(BEAKER) (test fpih=1962) 95.55 K/ul 1.32-3.57 TOTAL COUNTED (BEAKER) (test bmyd=9692) 100 RBC MORPHOLOGY (BEAKER) (test ilnj=091) Normal WBC MORPHOLOGY (BEAKER) (test qlhu=531) Normal PLT MORPHOLOGY (BEAKER) (test qorl=884) Normal BASIC METABOLIC [id number] 12:15:00* Test Item Value Reference Range Comments SODIUM (BEAKER) (test zmml=159) 137 meq/L 136-145 POTASSIUM (BEAKER) (test ctmo=724) 3.5 meq/L 3.5-5.1 CHLORIDE (BEAKER) (test cesz=816) 105 meq/L 98-107 CO2 (BEAKER) (test gofx=097) 18 meq/L 22-29 BLOOD UREA NITROGEN (BEAKER) (test pbgz=539) 13 mg/dL 7-21 CREATININE (BEAKER) (test eagq=558) 1.09 mg/dL 0.57-1.25 GLUCOSE RANDOM (BEAKER) (test jdlh=714) 233 mg/dL 70-105 CALCIUM (BEAKER) (test fdgu=629) 8.1 mg/dL 8.4-10.2 EGFR (BEAKER) (test pvlf=9893) 66 mL/min/1.73 sq m ESTIMATED GFR IS NOT ACCURATE CREATININE CLEARANCE IN PREDICTING GLOMERULAR FILTRATION RATE. ESTIMATED GFR IS NOT APPLICABLE FOR DIALYSIS PATIENTS. URINALYSIS W/ REFLEX URINE [id number] 12:05:00* Test Item Value Reference Range Comments COLOR (BEAKER) (test mkhx=379) Yellow CLARITY (BEAKER) (test zlgn=796) Cloudy SPECIFIC GRAVITY UA (BEAKER) (test zysj=042) 1.010 1.001-1.035 PH UA (BEAKER) (test lcgz=497) 6.0 5.0-8.0 PROTEIN UA (BEAKER) (test oxxf=656) 100 mg/dL Negative GLUCOSE UA (BEAKER) (test gqif=131) >1000 mg/dL Negative KETONES UA (BEAKER) (test cbeh=799) 80 mg/dL Negative BILIRUBIN UA (BEAKER) (test rste=854) Negative Negative BLOOD UA (BEAKER) (test fgps=349) Moderate Negative NITRITE UA (BEAKER) (test kbmf=850) Negative Negative LEUKOCYTE ESTERASE UA (BEAKER) (test tirb=125) Large Negative UROBILINOGEN UA (BEAKER) (test qmbb=586) 0.2 mg/dL 0.2-1.0 RBC UA (BEAKER) (test mckx=977) 19 /HPF WBC UA (BEAKER) (test rcss=143) 3503 /HPF YEAST (BEAKER) (test ntbl=8599) Many SOURCE(BEAKER) (test ulqr=0140) POCT-GLUCOSE [id number] 09:20:00* Test Item Value Reference Range Comments POC-GLUCOSE METER (BEAKER) (test mzxf=5294) 143 mg/dL 70-110 TESTED AT [facility] [address] [address] BASIC METABOLIC [id number] 07:53:00* Test Item Value Reference Range Comments SODIUM (BEAKER) (test xdjm=305) 139 meq/L 136-145 POTASSIUM (BEAKER) (test udhz=678) 3.6 meq/L 3.5-5.1 CHLORIDE (BEAKER) (test mvdr=148) 106 meq/L 98-107 CO2 (BEAKER) (test yymj=130) 16 meq/L 22-29 BLOOD UREA NITROGEN (BEAKER) (test qcee=917) 11 mg/dL 7-21 CREATININE (BEAKER) (test zgkd=263) 0.98 mg/dL 0.57-1.25 GLUCOSE RANDOM (BEAKER) (test ldoe=181) 139 mg/dL 70-105 CALCIUM (BEAKER) (test cvrl=354) 8.2 mg/dL 8.4-10.2 EGFR (BEAKER) (test mizk=4839) 74 mL/min/1.73 sq m ESTIMATED GFR IS NOT ACCURATE CREATININE CLEARANCE IN PREDICTING GLOMERULAR FILTRATION RATE. ESTIMATED GFR IS NOT APPLICABLE FOR DIALYSIS PATIENTS. VANCOMYCIN LEVEL, [id number] 06:50:00* Test Item Value Reference Range Comments VANCOMYCIN TROUGH (BEAKER) (test iwon=039) 14.1 ug/mL 10.0-20.0 PH, [id number] 06:36:00* Test Item Value Reference Range Comments PH VENOUS (BEAKER) (test hsuo=679) 7.38 7.32-7.42 BLOOD GAS, [id number] 06:06:00* Test Item Value Reference Range Comments PH VENOUS (BEAKER) (test xtag=480) 7.39 7.32-7.42 PCO2 VENOUS (BEAKER) (test qyyk=287) 30 mmHg 41-51 PO2 VENOUS (BEAKER) (test buum=032) 61 mmHg 25-40 O2 SATURATION VENOUS (BEAKER) (test ibgl=903) 92.0 % 40.0-70.0 HCO3 VENOUS (BEAKER) (test ydhl=917) 18 mmol/L 21-29 BASE EXCESS VENOUS (BEAKER) (test xaey=163) -6.6 mmol/L -2.0-3.0 PATIENT TEMPERATURE (BEAKER) (test ibxi=2401) 36.8 C FIO2 (BEAKER) (test iwji=5187) 28.0 % [id number] 23:00:00* Test Item Value Reference Range Comments PHOSPHORUS (BEAKER) (test jlmw=050) 1.3 mg/dL 2.3-4.7 LACTIC ACID, [id number] 22:53:00* Test Item Value Reference Range Comments LACTATE BLOOD VENOUS (2) (BEAKER) (test wvhp=8048) 0.5 mmol/L 0.5-2.2 BASIC METABOLIC [id number] 21:36:00* Test Item Value Reference Range Comments SODIUM (BEAKER) (test wxxx=239) 137 meq/L 136-145 POTASSIUM (BEAKER) (test zwks=051) 3.5 meq/L 3.5-5.1 CHLORIDE (BEAKER) (test jfjw=663) 106 meq/L 98-107 CO2 (BEAKER) (test rlnl=759) 14 meq/L 22-29 BLOOD UREA NITROGEN (BEAKER) (test iuwc=745) 13 mg/dL 7-21 CREATININE (BEAKER) (test djzl=828) 1.04 mg/dL 0.57-1.25 GLUCOSE RANDOM (BEAKER) (test dzyz=191) 162 mg/dL 70-105 CALCIUM (BEAKER) (test krjo=270) 7.8 mg/dL 8.4-10.2 EGFR (BEAKER) (test tdfe=9652) 69 mL/min/1.73 sq m ESTIMATED GFR IS NOT ACCURATE CREATININE CLEARANCE IN PREDICTING GLOMERULAR FILTRATION RATE. ESTIMATED GFR IS NOT APPLICABLE FOR DIALYSIS PATIENTS. POCT-GLUCOSE [id number] 21:15:00* Test Item Value Reference Range Comments POC-GLUCOSE METER (BEAKER) (test ypzg=2929) 200 mg/dL 70-110 TESTED AT [address] [address] POCT-GLUCOSE [id number] 19:04:00* Test Item Value Reference Range Comments POC-GLUCOSE METER (BEAKER) (test dnyr=7929) 155 mg/dL 70-110 TESTED AT [address] [address] POCT-GLUCOSE [id number] 11:42:00* Test Item Value Reference Range Comments POC-GLUCOSE METER (BEAKER) (test woux=7831) 226 mg/dL 70-110 TESTED AT [address] [address] BASIC METABOLIC [id number] 11:36:00* Test Item Value Reference Range Comments SODIUM (BEAKER) (test vzga=797) 139 meq/L 136-145 POTASSIUM (BEAKER) (test syrn=485) 3.6 meq/L 3.5-5.1 CHLORIDE (BEAKER) (test cfge=785) 106 meq/L 98-107 CO2 (BEAKER) (test tcpi=781) 16 meq/L 22-29 BLOOD UREA NITROGEN (BEAKER) (test dxkl=963) 15 mg/dL 7-21 CREATININE (BEAKER) (test nwgt=631) 1.02 mg/dL 0.57-1.25 GLUCOSE RANDOM (BEAKER) (test dxuz=798) 231 mg/dL 70-105 CALCIUM (BEAKER) (test oxzr=010) 7.9 mg/dL 8.4-10.2 EGFR (BEAKER) (test zfrf=5777) 71 mL/min/1.73 sq m ESTIMATED GFR IS NOT ACCURATE CREATININE CLEARANCE IN PREDICTING GLOMERULAR FILTRATION RATE. ESTIMATED GFR IS NOT APPLICABLE FOR DIALYSIS PATIENTS. CBC W/PLT COUNT & AUTO [id number] 10:57:00* Test Item Value Reference Range Comments WHITE BLOOD CELL COUNT (BEAKER) (test kkhn=421) 94.9 K/ L 3.5-10.5 RED BLOOD CELL COUNT (BEAKER) (test wnlv=151) 2.47 M/ L 4.63-6.08 HEMOGLOBIN (BEAKER) (test fvty=816) 7.3 GM/DL 13.7-17.5 HEMATOCRIT (BEAKER) (test gkvg=760) 24.0 % 40.1-51.0 MEAN CORPUSCULAR VOLUME (BEAKER) (test twbh=188) 97.2 fL 79.0-92.2 MEAN CORPUSCULAR HEMOGLOBIN (BEAKER) (test gyyu=397) 29.6 pg 25.7-32.2 MEAN CORPUSCULAR HEMOGLOBIN CONC (BEAKER) (test qlic=120) 30.4 GM/DL 32.3-36.5 RED CELL DISTRIBUTION WIDTH (BEAKER) (test xsop=204) 15.5 % 11.6-14.4 PLATELET COUNT (BEAKER) (test ogmb=153) 124 K/CU MM 150-450 MEAN PLATELET VOLUME (BEAKER) (test dvsn=370) 9.5 fL 9.4-12.4 NUCLEATED RED BLOOD CELLS (BEAKER) (test uxol=854) 0 /100 WBC 0-0 (MANUAL DIFFERENTIAL)2018-10-05 10:57:00* Test Item Value Reference Range Comments NEUTROPHILS - REL (DIFF) (BEAKER) (test sybe=8334) 3 % LYMPHOCYTES - REL (DIFF) (BEAKER) (test hvcu=7760) 95 % MONOCYTES - REL (DIFF) (BEAKER) (test gapv=3478) 2 % NEUTROPHILS - ABS (DIFF) (BEAKER) (test zmlg=2182) 2.85 K/ L 1.80-8.00 LYMPHOCYTES - ABS (DIFF) (BEAKER) (test zape=9425) 90.16 K/ L 1.48-4.50 MONOCYTES - ABS (DIFF) (BEAKER) (test avbw=2755) 1.90 K/ L 0.00-1.30 TOTAL COUNTED (BEAKER) (test bwlb=2087) 100 PLT MORPHOLOGY (BEAKER) (test ahgh=047) Normal RBC MORPHOLOGY (BEAKER) (test cbkl=536) Normal ATYPICAL LYMPHS(BEAKER) (test abci=2447) Present SMUDGE CELLS (BEAKER) (test ruqk=7083) Present WOUND CULTURE + GRAM [id number] 08:56:00* Test Item Value Reference Range Comments CULTURE (BEAKER) (test nmob=6954) 4+ Same organism has been isolated from cultures(s) of the same body site within 3 days. Repeat identification and susceptibility testing performed only after consultation with the clinical microbiology laboratory.Refer to previous culture ofEnterococcus species POCT-GLUCOSE [id number] 08:18:00* Test Item Value Reference Range Comments POC-GLUCOSE METER (BEAKER) (test wtlw=2966) 123 mg/dL 70-110 TESTED AT [facility] [address] [address] BASIC METABOLIC [id number] 05:54:00* Test Item Value Reference Range Comments SODIUM (BEAKER) (test jsyk=091) 141 meq/L 136-145 POTASSIUM (BEAKER) (test oept=803) 3.8 meq/L 3.5-5.1 Specimen slightly hemolyzed CHLORIDE (BEAKER) (test ibik=168) 108 meq/L 98-107 CO2 (BEAKER) (test rtlz=500) 20 meq/L 22-29 BLOOD UREA NITROGEN (BEAKER) (test ypya=893) 16 mg/dL 7-21 CREATININE (BEAKER) (test zdzk=100) 1.00 mg/dL 0.57-1.25 Specimen slightly hemolyzed GLUCOSE RANDOM (BEAKER) (test dhbs=095) 130 mg/dL 70-105 CALCIUM (BEAKER) (test wuln=108) 7.9 mg/dL 8.4-10.2 EGFR (BEAKER) (test pfbk=4434) 73 mL/min/1.73 sq m ESTIMATED GFR IS NOT ACCURATE CREATININE CLEARANCE IN PREDICTING GLOMERULAR FILTRATION RATE. ESTIMATED GFR IS NOT APPLICABLE FOR DIALYSIS PATIENTS. [id number] 05:43:00* Test Item Value Reference Range Comments PHOSPHORUS (BEAKER) (test gnfk=218) 1.8 mg/dL 2.3-4.7 Specimen slightly hemolyzed PH, [id number] 04:43:00* Test Item Value Reference Range Comments PH VENOUS (BEAKER) (test pztb=730) 7.44 7.32-7.42 POCT-GLUCOSE [id number] 02:13:00* Test Item Value Reference Range Comments POC-GLUCOSE METER (BEAKER) (test vvhc=4453) 173 mg/dL 70-110 TESTED AT [place] [id number] [facility] [id number] POCT-GLUCOSE [id number] 22:33:00* Test Item Value Reference Range Comments POC-GLUCOSE METER (BEAKER) (test lqvh=6654) 167 mg/dL 70-110 TESTED AT [address] [address] BASIC METABOLIC [id number] 21:01:00* Test Item Value Reference Range Comments SODIUM (BEAKER) (test dqfs=123) 140 meq/L 136-145 POTASSIUM (BEAKER) (test gvxi=306) 4.4 meq/L 3.5-5.1 Specimen slightly hemolyzed CHLORIDE (BEAKER) (test btbl=502) 110 meq/L 98-107 CO2 (BEAKER) (test fiwh=519) 22 meq/L 22-29 BLOOD UREA NITROGEN (BEAKER) (test sujg=015) 16 mg/dL 7-21 CREATININE (BEAKER) (test dgta=346) 0.98 mg/dL 0.57-1.25 Specimen slightly hemolyzed GLUCOSE RANDOM (BEAKER) (test htzr=211) 154 mg/dL 70-105 CALCIUM (BEAKER) (test bdap=648) 7.5 mg/dL 8.4-10.2 EGFR (BEAKER) (test jvoq=3270) 74 mL/min/1.73 sq m ESTIMATED GFR IS NOT ACCURATE CREATININE CLEARANCE IN PREDICTING GLOMERULAR FILTRATION RATE. ESTIMATED GFR IS NOT APPLICABLE FOR DIALYSIS PATIENTS. PH, [id number] 18:47:00* Test Item Value Reference Range Comments PH VENOUS (BEAKER) (test osyo=497) 7.44 7.32-7.42 POCT-GLUCOSE [id number] 13:47:00* Test Item Value Reference Range Comments POC-GLUCOSE METER (BEAKER) (test nfes=4694) 245 mg/dL 70-110 TESTED AT [address] [address] BASIC METABOLIC [id number] 13:41:00* Test Item Value Reference Range Comments SODIUM (BEAKER) (test qjxj=020) 134 meq/L 136-145 POTASSIUM (BEAKER) (test pwbd=491) 3.8 meq/L 3.5-5.1 Specimen slightly hemolyzed CHLORIDE (BEAKER) (test vcck=247) 107 meq/L 98-107 CO2 (BEAKER) (test pkug=284) 14 meq/L 22-29 BLOOD UREA NITROGEN (BEAKER) (test mvvd=393) 15 mg/dL 7-21 CREATININE (BEAKER) (test iwka=823) 1.15 mg/dL 0.57-1.25 Specimen slightly hemolyzed GLUCOSE RANDOM (BEAKER) (test mqmm=340) 285 mg/dL 70-105 CALCIUM (BEAKER) (test hbpn=139) 7.6 mg/dL 8.4-10.2 EGFR (BEAKER) (test nsab=7559) 62 mL/min/1.73 sq m ESTIMATED GFR IS NOT ACCURATE CREATININE CLEARANCE IN PREDICTING GLOMERULAR FILTRATION RATE. ESTIMATED GFR IS NOT APPLICABLE FOR DIALYSIS PATIENTS. CBC W/PLT COUNT & AUTO [id number] 13:07:00* Test Item Value Reference Range Comments WHITE BLOOD CELL COUNT (BEAKER) (test cnae=293) 97.8 K/ L 3.5-10.5 RED BLOOD CELL COUNT (BEAKER) (test ttva=742) 2.53 M/ L 4.63-6.08 HEMOGLOBIN (BEAKER) (test lepc=306) 7.6 GM/DL 13.7-17.5 HEMATOCRIT (BEAKER) (test taxf=522) 24.9 % 40.1-51.0 MEAN CORPUSCULAR VOLUME (BEAKER) (test vhhp=455) 98.4 fL 79.0-92.2 MEAN CORPUSCULAR HEMOGLOBIN (BEAKER) (test thct=051) 30.0 pg 25.7-32.2 MEAN CORPUSCULAR HEMOGLOBIN CONC (BEAKER) (test fzwq=897) 30.5 GM/DL 32.3-36.5 RED CELL DISTRIBUTION WIDTH (BEAKER) (test iube=655) 15.9 % 11.6-14.4 PLATELET COUNT (BEAKER) (test jxfl=903) 131 K/CU MM 150-450 MEAN PLATELET VOLUME (BEAKER) (test dzbn=675) 9.4 fL 9.4-12.4 NUCLEATED RED BLOOD CELLS (BEAKER) (test xdnt=761) 0 /100 WBC 0-0 (MANUAL DIFFERENTIAL)2018-10-04 13:07:00* Test Item Value Reference Range Comments NEUTROPHILS - REL (DIFF) (BEAKER) (test gxci=9983) 5 % LYMPHOCYTES - REL (DIFF) (BEAKER) (test mzyu=2462) 95 % MONOCYTES - REL (DIFF) (BEAKER) (test nhys=5777) 0 % EOSINOPHILS - REL (DIFF) (BEAKER) (test xqtx=2957) 0 % BASOPHILS - REL (DIFF) (BEAKER) (test cyaf=9507) 0 % NEUTROPHILS - ABS (DIFF) (BEAKER) (test yrap=3445) 4.89 K/ L 1.80-8.00 LYMPHOCYTES - ABS (DIFF) (BEAKER) (test rzek=1367) 92.91 K/ L 1.48-4.50 MONOCYTES - ABS (DIFF) (BEAKER) (test jfyv=5111) 0.00 K/ L 0.00-1.30 EOSINOPHILS - ABS (DIFF) (BEAKER) (test ghhb=6799) 0.00 K/ L 0.00-0.50 BASOPHILS - ABS (DIFF) (BEAKER) (test wfrh=7882) 0.00 K/ L 0.00-0.20 TOTAL COUNTED (BEAKER) (test drld=2835) 100 PLT MORPHOLOGY (BEAKER) (test ksvh=090) Normal RBC MORPHOLOGY (BEAKER) (test crzj=601) Normal SMUDGE CELLS (BEAKER) (test vpps=8479) Present Differential performed on an albumin slide.WOUND CULTURE + GRAM [id number] 12:32:00* Test Item Value Reference Range Comments CULTURE (BEAKER) (test auze=6096) STAPHYLOCOCCUS AUREUS 3+ Staphylococcus aureus Clindamycin (test code=10) Erythromycin (test code=4) Linezolid (test code=40) Nitrofurantoin (test code=23) Oxacillin (test code=14) Rifampin (test code=43) Tetracycline (test code=2) Trimethoprim + Sulfamethoxazole (test code=47) Vancomycin (test code=13) CULTURE (BEAKER) (test yyyb=1906) ENTEROCOCCUS SPECIES 3+ Enterococcus species Ampicillin (test code=26) Linezolid (test code=40) Vancomycin (test code=13) GRAM STAIN RESULT (BEAKER) (test hgdm=6037) 3+ WBCs GRAM STAIN RESULT (BEAKER) (test mapp=672548) 2+ gram positive cocci in pairs and clusters GRAM STAIN RESULT (BEAKER) (test ykmo=007406) 2+ yeast Please disregard yeast reported on gram stain. No yeast present on gram stain no r growing on culture. HEMOGLOBIN AND [id number] 12:26:00* Test Item Value Reference Range Comments HEMOGLOBIN (BEAKER) (test jjba=896) 7.9 GM/DL 13.7-17.5 HEMATOCRIT (BEAKER) (test jqai=640) 25.8 % 40.1-51.0 POCT-GLUCOSE [id number] 09:35:00* Test Item Value Reference Range Comments POC-GLUCOSE METER (BEAKER) (test jaxe=0597) 195 mg/dL 70-110 TESTED AT [address] [address] SPUTUM CULTURE + GRAM [id number] 09:22:00* Test Item Value Reference Range Comments CULTURE (BEAKER) (test ltgv=5495) No growth GRAM STAIN RESULT (BEAKER) (test fcfz=7854) 2+ WBCs GRAM STAIN RESULT (BEAKER) (test nsvg=08268) 0-5 epithelial cells GRAM STAIN RESULT (BEAKER) (test vzbk=44121) No organisms seen POCT-GLUCOSE [id number] 08:12:00* Test Item Value Reference Range Comments POC-GLUCOSE METER (BEAKER) (test jxgb=4372) 168 mg/dL 70-110 TESTED AT [address] [address] RAD, CHEST, 1 VIEW, NON [id number] 08:08:00Reason for exam:->ETTShould this be performed at the bedside?->YesFINAL REPORT RAD, CHEST, 1 VIEW, NON DEPT INDICATION: ETT COMPARISON: Prior day's exam FINDINGS: Portable frontal view of the chest. IMPRESSION: Support Lines: Endotracheal and enteric tubes have been removed. Left IJ central venous catheter is no longer present. Lungs and pleura: No consolidation or effusion. No pneumothorax.Heart and mediastinum: Stable contours. Additional findings: None. Signed: JR Praful, Eve CARROLLeport Verified Date/Time: 10/04/2018 08:08:53 Reading Location: [facility] Reading Room -GLUCOSE [id number] 06:34:00* Test Item Value Reference Range Comments POC-GLUCOSE METER (BEAKER) (test ddnz=0854) 133 mg/dL 70-110 TESTED AT [address] [address] BASIC METABOLIC [id number] 06:04:00* Test Item Value Reference Range Comments SODIUM (BEAKER) (test eqrr=991) 136 meq/L 136-145 POTASSIUM (BEAKER) (test xdqf=246) 3.8 meq/L 3.5-5.1 CHLORIDE (BEAKER) (test qfsq=631) 109 meq/L 98-107 CO2 (BEAKER) (test gnru=990) 18 meq/L 22-29 BLOOD UREA NITROGEN (BEAKER) (test gpfv=212) 15 mg/dL 7-21 CREATININE (BEAKER) (test hemf=068) 1.05 mg/dL 0.57-1.25 GLUCOSE RANDOM (BEAKER) (test nwsx=944) 133 mg/dL 70-105 CALCIUM (BEAKER) (test uqmv=266) 7.7 mg/dL 8.4-10.2 EGFR (BEAKER) (test brdg=7126) 69 mL/min/1.73 sq m ESTIMATED GFR IS NOT ACCURATE CREATININE CLEARANCE IN PREDICTING GLOMERULAR FILTRATION RATE. ESTIMATED GFR IS NOT APPLICABLE FOR DIALYSIS PATIENTS. VANCOMYCIN LEVEL, [id number] 05:43:00* Test Item Value Reference Range Comments VANCOMYCIN TROUGH (BEAKER) (test ajgr=504) 5.7 ug/mL 10.0-20.0 POCT-GLUCOSE [id number] 05:18:00* Test Item Value Reference Range Comments POC-GLUCOSE METER (BEAKER) (test weez=3409) 258 mg/dL 70-110 TESTED AT [address] [address] POCT-GLUCOSE [id number] 02:02:00* Test Item Value Reference Range Comments POC-GLUCOSE METER (BEAKER) (test eoke=3888) 168 mg/dL 70-110 TESTED AT [facility] [address] [facility] [address] POCT-GLUCOSE [id number] 00:07:00* Test Item Value Reference Range Comments POC-GLUCOSE METER (BEAKER) (test xfpd=1600) 188 mg/dL 70-110 TESTED AT [address] [address] BASIC METABOLIC [id number] 22:32:00* Test Item Value Reference Range Comments SODIUM (BEAKER) (test mmtn=110) 137 meq/L 136-145 POTASSIUM (BEAKER) (test rmcd=125) 4.3 meq/L 3.5-5.1 CHLORIDE (BEAKER) (test dvpw=948) 109 meq/L 98-107 CO2 (BEAKER) (test jkgy=931) 12 meq/L 22-29 BLOOD UREA NITROGEN (BEAKER) (test tqgk=122) 19 mg/dL 7-21 CREATININE (BEAKER) (test jxbv=723) 1.31 mg/dL 0.57-1.25 GLUCOSE RANDOM (BEAKER) (test zqcq=083) 177 mg/dL 70-105 CALCIUM (BEAKER) (test rqld=114) 7.7 mg/dL 8.4-10.2 EGFR (BEAKER) (test jltc=2501) 53 mL/min/1.73 sq m ESTIMATED GFR IS NOT ACCURATE CREATININE CLEARANCE IN PREDICTING GLOMERULAR FILTRATION RATE. ESTIMATED GFR IS NOT APPLICABLE FOR DIALYSIS PATIENTS. POCT-GLUCOSE [id number] 22:06:00* Test Item Value Reference Range Comments POC-GLUCOSE METER (BEAKER) (test yihk=9779) 182 mg/dL 70-110 TESTED AT [place] [id number] [facility] [address] POCT-GLUCOSE [id number] 21:11:00* Test Item Value Reference Range Comments POC-GLUCOSE METER (BEAKER) (test sfwo=9097) 179 mg/dL 70-110 TESTED AT [place] [id number] [facility] [address] U/S, ABDOMINAL, [id number] 20:54:00Reason for exam:->RUQ US to eval for gallstones Should this be performed at the bedside?->YesFINAL REPORT Abdominal ultrasound dated 10/03/2018 Comment: Real-time transabdominal ultrasound of the right upper quadrant abdomen was performed. Liver is enlarged and measures 18 cm in length. The echogenicity of the liver is increased. No focal lesion is noted in the liver. Gallbladder is surgically absent. No biliary dilatation is seen. Common bile duct measures 6 mm in diameter. Main portal vein measures 12 mm in diameter. Pancreas is suboptimally visualized. Right kidney measures 11.8 x 5.6 x 5.6 cm. Echogenicity of the right kidney is normal. No ascites is present in the abdomen. Abdominal aorta is normal in caliber. IVC and Hepatic veins are patent. Impression: 1. Hepatome luis alfredo with fatty hepatic infiltrate.2. Suboptimal visualization the pancreas seco ndary to overlying gas. Signed: Qamar Florez Verified Date/Time: 2018 20:54:14 Reading Location: [address] Consult Reading Room [facility] signed by: QAMAR FLOREZ M.D. on 10/03/2018 08:54 PM POCT-GLUCOSE METER 2018-10-03 20:15:00* Test Item Value Reference Range Comments POC-GLUCOSE METER (BEAKER) (test uncm=6941) 156 mg/dL 70-110 TESTED AT [place] [id number] [facility] [address] POCT-GLUCOSE [id number] 18:33:00* Test Item Value Reference Range Comments POC-GLUCOSE METER (BEAKER) (test krlw=0507) 142 mg/dL 70-110 TESTED AT [place] [id number] [facility] [address] POCT-GLUCOSE [id number] 17:40:00* Test Item Value Reference Range Comments POC-GLUCOSE METER (BEAKER) (test ohhq=4871) 126 mg/dL 70-110 TESTED AT [place] [id number] [facility] [address] POCT-GLUCOSE [id number] 17:05:00* Test Item Value Reference Range Comments POC-GLUCOSE METER (BEAKER) (test kqdd=4066) 142 mg/dL 70-110 TESTED AT [place] [id number] [facility] [address] POCT-GLUCOSE [id number] 16:07:00* Test Item Value Reference Range Comments POC-GLUCOSE METER (BEAKER) (test lxvf=7852) 154 mg/dL 70-110 TESTED AT [facility] [address] [facility] [address] POCT-GLUCOSE [id number] 14:50:00* Test Item Value Reference Range Comments POC-GLUCOSE METER (BEAKER) (test qhem=4981) 177 mg/dL 70-110 TESTED AT [place] [id number] [facility] [address] BASIC METABOLIC [id number] 13:58:00* Test Item Value Reference Range Comments SODIUM (BEAKER) (test ncpp=995) 139 meq/L 136-145 POTASSIUM (BEAKER) (test drrz=009) 4.5 meq/L 3.5-5.1 CHLORIDE (BEAKER) (test nywn=683) 113 meq/L 98-107 CO2 (BEAKER) (test lxyp=622) 10 meq/L 22-29 BLOOD UREA NITROGEN (BEAKER) (test vccm=205) 19 mg/dL 7-21 CREATININE (BEAKER) (test afro=760) 1.30 mg/dL 0.57-1.25 GLUCOSE RANDOM (BEAKER) (test cjdy=509) 170 mg/dL 70-105 CALCIUM (BEAKER) (test esxb=556) 8.3 mg/dL 8.4-10.2 EGFR (BEAKER) (test oyff=5413) 54 mL/min/1.73 sq m ESTIMATED GFR IS NOT ACCURATE CREATININE CLEARANCE IN PREDICTING GLOMERULAR FILTRATION RATE. ESTIMATED GFR IS NOT APPLICABLE FOR DIALYSIS PATIENTS. Please add [id number] 13:58:00* Test Item Value Reference Range Comments PHOSPHORUS (BEAKER) (test izci=899) 1.5 mg/dL 2.3-4.7 Please add onPOCT-GLUCOSE [id number] 13:57:00* Test Item Value Reference Range Comments POC-GLUCOSE METER (BEAKER) (test cwwq=9383) 162 mg/dL 70-110 TESTED AT [facility] [address] [facility] [address] CBC W/PLT COUNT & AUTO [id number] 13:06:00* Test Item Value Reference Range Comments WHITE BLOOD CELL COUNT (BEAKER) (test haqt=984) 133.3 K/ L 3.5-10.5 RED BLOOD CELL COUNT (BEAKER) (test vbhr=800) 3.09 M/ L 4.63-6.08 HEMOGLOBIN (BEAKER) (test viru=829) 9.2 GM/DL 13.7-17.5 HEMATOCRIT (BEAKER) (test nmgp=118) 31.0 % 40.1-51.0 MEAN CORPUSCULAR VOLUME (BEAKER) (test fvvv=254) 100.3 fL 79.0-92.2 MEAN CORPUSCULAR HEMOGLOBIN (BEAKER) (test wols=380) 29.8 pg 25.7-32.2 MEAN CORPUSCULAR HEMOGLOBIN CONC (BEAKER) (test uzpi=265) 29.7 GM/DL 32.3-36.5 RED CELL DISTRIBUTION WIDTH (BEAKER) (test hxvj=252) 16.6 % 11.6-14.4 PLATELET COUNT (BEAKER) (test gnci=102) 177 K/CU MM 150-450 MEAN PLATELET VOLUME (BEAKER) (test evij=828) 9.3 fL 9.4-12.4 NUCLEATED RED BLOOD CELLS (BEAKER) (test uplz=429) 0 /100 WBC 0-0 (CELLAVISION MANUAL DIFF)2018-10-03 13:06:00* Test Item Value Reference Range Comments NEUTROPHILS - REL (CELLAVISION)(BEAKER) (test nytu=2945) 4 % LYMPHOCYTES - REL (CELLAVISION)(BEAKER) (test xrwi=1792) 95 % MONOCYTES - REL (CELLAVISION)(BEAKER) (test nlwx=8459) 1 % NEUTROPHILS - ABS (CELLAVISION)(BEAKER) (test zrgq=6493) 5.33 K/ul 1.78-5.38 LYMPHOCYTES - ABS (CELLAVISION)(BEAKER) (test sekf=2424) 126.64 K/ul 1.32-3.57 MONOCYTES - ABS (CELLAVISION)(BEAKER) (test apmj=5658) 1.33 K/uL 0.30-0.82 TOTAL COUNTED (BEAKER) (test wcvp=4591) 100 RBC MORPHOLOGY (BEAKER) (test anye=070) Normal WBC MORPHOLOGY (BEAKER) (test pplo=573) Normal PLT MORPHOLOGY (BEAKER) (test foda=102) Normal BLOOD GAS, [id number] 12:50:00* Test Item Value Reference Range Comments PH ARTERIAL (BEAKER) (test ziyv=942) 7.38 7.35-7.45 PCO2 ARTERIAL (BEAKER) (test tpmx=386) 19 mmHg 35-45 PO2 ARTERIAL (BEAKER) (test llxl=531) 96 mmHg 80-90 O2 SATURATION ARTERIAL (BEAKER) (test blvy=183) 97.2 % 96.0-97.0 HCO3 ARTERIAL (BEAKER) (test rhix=550) 11 mmol/L 21-29 BASE EXCESS ARTERIAL (BEAKER) (test eqlg=911) -11.9 mmol/L -2.0-3.0 PATIENT TEMPERATURE (BEAKER) (test snhk=6862) 37.8 C FIO2 (BEAKER) (test poup=2500) 30.0 % CREATINE KINASE (CK)2018-10-03 12:22:00* Test Item Value Reference Range Comments CREATINE KINASE TOTAL (BEAKER) (test rruy=278) 67 U/L 29-200 POCT-GLUCOSE [id number] 12:02:00* Test Item Value Reference Range Comments POC-GLUCOSE METER (BEAKER) (test uler=8872) 162 mg/dL 70-110 TESTED AT [facility] [address] [facility] [address] KETONE, [id number] 10:16:00* Test Item Value Reference Range Comments KETONES, BLOOD (BEAKER) (test pumr=4568) 4.1 mmol/L <0.4 BASIC METABOLIC [id number] 10:08:00* Test Item Value Reference Range Comments SODIUM (BEAKER) (test edbu=811) 140 meq/L 136-145 POTASSIUM (BEAKER) (test uoqf=164) 4.6 meq/L 3.5-5.1 CHLORIDE (BEAKER) (test iovf=799) 113 meq/L 98-107 CO2 (BEAKER) (test vsqo=458) 9 meq/L 22-29 BLOOD UREA NITROGEN (BEAKER) (test isey=102) 20 mg/dL 7-21 CREATININE (BEAKER) (test mkrr=252) 1.39 mg/dL 0.57-1.25 GLUCOSE RANDOM (BEAKER) (test evzf=135) 239 mg/dL 70-105 CALCIUM (BEAKER) (test ntnd=444) 8.1 mg/dL 8.4-10.2 EGFR (BEAKER) (test hnpj=0556) 50 mL/min/1.73 sq m ESTIMATED GFR IS NOT ACCURATE CREATININE CLEARANCE IN PREDICTING GLOMERULAR FILTRATION RATE. ESTIMATED GFR IS NOT APPLICABLE FOR DIALYSIS PATIENTS. POCT-GLUCOSE [id number] 10:04:00* Test Item Value Reference Range Comments POC-GLUCOSE METER (LULU) (test kvda=8890) 207 mg/dL 70-110 TESTED AT [facility] [address] [facility] [address] FLOW CYTOMETRY [id number] 09:32:00* Test Item Value Reference Range Comments FLOW CYTOMETRY RESULT POINTER (LULU) (test tbzo=7083) See Separate Report FLOW CYTOMETRY AP CASE # (LULU) (test ffen=4810) [id number] POCT-GLUCOSE [id number] 08:57:00* Test Item Value Reference Range Comments POC-GLUCOSE METER (LULU) (test opie=0782) 215 mg/dL 70-110 TESTED AT [facility] [address] [facility] [address] POCT-GLUCOSE [id number] 08:32:00* Test Item Value Reference Range Comments POC-GLUCOSE METER (LULU) (test tbyy=9515) 208 mg/dL 70-110 TESTED AT [facility] [address] [facility] [address] RAD, CHEST, 1 VIEW, NON [id number] 07:00:00Reason for exam:->ETTShould this be performed at the bedside?->YesFINAL REPORT RAD, CHEST, 1 VIEW, NON DEPT INDICATION: ETT COMPARISON: Prior day's exam FINDINGS: Portable frontal view of the chest. IMPRESSION: Support Lines: Endotracheal tube has been advanced, now projecting 6 cm above the moy. Enteric tube and left IJ central venous catheters are stable. Lungs and pleura: No consolidation has developed. Costophrenic sulci are sharp. No pneumothorax.Heart and mediastinum: Stable contours.Additional findings: None. Signed: JR Basilio Robert MDReport Verified Date/Time: 10/03/2018 07:00:29 Reading Location: [facility] Radiology Reading Room C METABOLIC [id number] 06:51:00* Test Item Value Reference Range Comments SODIUM (BEAKER) (test qmtq=081) 139 meq/L 136-145 POTASSIUM (BEAKER) (test tuib=679) 4.0 meq/L 3.5-5.1 CHLORIDE (BEAKER) (test gzjd=499) 114 meq/L 98-107 CO2 (BEAKER) (test bpws=402) 8 meq/L 22-29 BLOOD UREA NITROGEN (BEAKER) (test womt=911) 22 mg/dL 7-21 CREATININE (BEAKER) (test qdwe=360) 1.31 mg/dL 0.57-1.25 GLUCOSE RANDOM (BEAKER) (test tqeg=944) 165 mg/dL 70-105 CALCIUM (BEAKER) (test wpvs=052) 8.2 mg/dL 8.4-10.2 EGFR (BEAKER) (test eluq=8052) 53 mL/min/1.73 sq m ESTIMATED GFR IS NOT ACCURATE CREATININE CLEARANCE IN PREDICTING GLOMERULAR FILTRATION RATE. ESTIMATED GFR IS NOT APPLICABLE FOR DIALYSIS PATIENTS. [id number] 06:48:00* Test Item Value Reference Range Comments LIPASE (BEAKER) (test glpc=293) 406 U/L 8-78 POCT-GLUCOSE [id number] 06:46:00* Test Item Value Reference Range Comments POC-GLUCOSE METER (BEAKER) (test axeq=0383) 165 mg/dL 70-110 TESTED AT [address] [address] BLOOD GAS, [id number] 05:31:00* Test Item Value Reference Range Comments PH ARTERIAL (BEAKER) (test krlj=868) 7.37 7.35-7.45 PCO2 ARTERIAL (BEAKER) (test ylii=813) 16 mmHg 35-45 PO2 ARTERIAL (BEAKER) (test njng=744) 166 mmHg 80-90 O2 SATURATION ARTERIAL (BEAKER) (test klsg=368) 99.1 % 96.0-97.0 HCO3 ARTERIAL (BEAKER) (test qcev=876) 9 mmol/L 21-29 BASE EXCESS ARTERIAL (BEAKER) (test ehgg=548) -13.8 mmol/L -2.0-3.0 PATIENT TEMPERATURE (BEAKER) (test cfde=0982) 37.5 C FIO2 (BEAKER) (test aqbq=4773) 30.0 % POCT-GLUCOSE [id number] 05:20:00* Test Item Value Reference Range Comments POC-GLUCOSE METER (BEAKER) (test axxz=5721) 149 mg/dL 70-110 TESTED AT [address] [address] POCT-GLUCOSE [id number] 03:47:00* Test Item Value Reference Range Comments POC-GLUCOSE METER (BEAKER) (test ladr=5224) 117 mg/dL 70-110 TESTED AT [address] [address] POCT-GLUCOSE [id number] 02:15:00* Test Item Value Reference Range Comments POC-GLUCOSE METER (BEAKER) (test inin=2284) 132 mg/dL 70-110 TESTED AT [address] [address] POCT-GLUCOSE [id number] 02:15:00* Test Item Value Reference Range Comments POC-GLUCOSE METER (BEAKER) (test ycpx=7466) 156 mg/dL 70-110 TESTED AT [address] [address] POCT-GLUCOSE [id number] 00:21:00* Test Item Value Reference Range Comments POC-GLUCOSE METER (BEAKER) (test ivha=9696) 134 mg/dL 70-110 TESTED AT [address] [address] BASIC METABOLIC [id number] 00:11:00* Test Item Value Reference Range Comments SODIUM (BEAKER) (test zfgo=471) 138 meq/L 136-145 POTASSIUM (BEAKER) (test vnyq=137) 4.6 meq/L 3.5-5.1 CHLORIDE (BEAKER) (test daqw=341) 113 meq/L 98-107 CO2 (BEAKER) (test xpbs=395) 10 meq/L 22-29 BLOOD UREA NITROGEN (BEAKER) (test eejk=707) 22 mg/dL 7-21 CREATININE (BEAKER) (test vzgf=158) 1.34 mg/dL 0.57-1.25 GLUCOSE RANDOM (BEAKER) (test exdl=503) 149 mg/dL 70-105 CALCIUM (BEAKER) (test ymsh=317) 7.9 mg/dL 8.4-10.2 EGFR (BEAKER) (test bwdg=2556) 52 mL/min/1.73 sq m ESTIMATED GFR IS NOT ACCURATE CREATININE CLEARANCE IN PREDICTING GLOMERULAR FILTRATION RATE. ESTIMATED GFR IS NOT APPLICABLE FOR DIALYSIS PATIENTS. POCT-GLUCOSE [id number] 22:27:00* Test Item Value Reference Range Comments POC-GLUCOSE METER (BEAKER) (test xkoy=4583) 154 mg/dL 70-110 TESTED AT [address] [address] BASIC METABOLIC [id number] 22:24:00* Test Item Value Reference Range Comments SODIUM (BEAKER) (test paxl=263) 138 meq/L 136-145 POTASSIUM (BEAKER) (test grgn=050) 4.4 meq/L 3.5-5.1 CHLORIDE (BEAKER) (test ddki=519) 113 meq/L 98-107 CO2 (BEAKER) (test slyz=934) 11 meq/L 22-29 BLOOD UREA NITROGEN (BEAKER) (test ffwy=640) 23 mg/dL 7-21 CREATININE (BEAKER) (test wezw=335) 1.35 mg/dL 0.57-1.25 GLUCOSE RANDOM (BEAKER) (test dmkx=656) 150 mg/dL 70-105 CALCIUM (BEAKER) (test ohcl=089) 8.1 mg/dL 8.4-10.2 EGFR (BEAKER) (test wcti=1259) 51 mL/min/1.73 sq m ESTIMATED GFR IS NOT ACCURATE CREATININE CLEARANCE IN PREDICTING GLOMERULAR FILTRATION RATE. ESTIMATED GFR IS NOT APPLICABLE FOR DIALYSIS PATIENTS. POCT-GLUCOSE [id number] 21:56:00* Test Item Value Reference Range Comments POC-GLUCOSE METER (BEAKER) (test ldtq=0917) 140 mg/dL 70-110 TESTED AT [address] [address] POCT-GLUCOSE [id number] 21:23:00* Test Item Value Reference Range Comments POC-GLUCOSE METER (BEAKER) (test mewg=5481) 151 mg/dL 70-110 TESTED AT [address] [address] POCT-GLUCOSE [id number] 20:10:00* Test Item Value Reference Range Comments POC-GLUCOSE METER (BEAKER) (test sybg=6962) 176 mg/dL 70-110 TESTED AT [address] [address] POCT-GLUCOSE [id number] 20:01:00* Test Item Value Reference Range Comments POC-GLUCOSE METER (BEAKER) (test nwor=8938) 172 mg/dL 70-110 TESTED AT [facility] [address] [facility] [address] POCT-GLUCOSE [id number] 19:18:00* Test Item Value Reference Range Comments POC-GLUCOSE METER (BEAKER) (test xgjq=8458) 185 mg/dL 70-110 TESTED AT [address] [address] BASIC METABOLIC [id number] 17:54:00* Test Item Value Reference Range Comments SODIUM (BEAKER) (test wjlf=972) 141 meq/L 136-145 POTASSIUM (BEAKER) (test dwfn=842) 4.7 meq/L 3.5-5.1 Specimen slightly hemolyzed CHLORIDE (BEAKER) (test lppu=680) 115 meq/L 98-107 CO2 (BEAKER) (test biuu=298) 10 meq/L 22-29 BLOOD UREA NITROGEN (BEAKER) (test ebsy=446) 27 mg/dL 7-21 CREATININE (BEAKER) (test isms=264) 1.43 mg/dL 0.57-1.25 Specimen slightly hemolyzed GLUCOSE RANDOM (BEAKER) (test fkus=253) 210 mg/dL 70-105 CALCIUM (BEAKER) (test bjbf=925) 8.3 mg/dL 8.4-10.2 EGFR (BEAKER) (test pghh=8798) 48 mL/min/1.73 sq m ESTIMATED GFR IS NOT ACCURATE CREATININE CLEARANCE IN PREDICTING GLOMERULAR FILTRATION RATE. ESTIMATED GFR IS NOT APPLICABLE FOR DIALYSIS PATIENTS. POCT-GLUCOSE [id number] 16:26:00* Test Item Value Reference Range Comments POC-GLUCOSE METER (BEAKER) (test akmp=8465) 214 mg/dL 70-110 TESTED AT [facility] [address] [facility] [address] U/S, RENAL, [id number] 16:21:00Reason for exam:->AKIFINAL REPORT Renal ultrasound, 10/02/2018. History: Acute kidney injury. Findings:Sonographic evaluation of the kidneys was performed. Right kidney: 11.3 cm in length, normal in size, with cortical thickness of 1.0 cm. Normal cortical echogenicity. A 2.1 cm anechoic cyst is present in the interpolar aspect of the right kidney. No calculus. No hydronephrosis. Left kidney: 11.9 cm in length, normal in size, with cortical thickness of 1.1 cm. Normal cortical echogenicity. A 1.1 cm anechoic cyst is present in the lower pole left kidney. No calculus. No hydronephrosis. Urinary bladder: Unremarkable. Vascu lature: Color Doppler survey demonstrates patency of main renal artery and vein bilaterally. Impression:Renal cysts. Otherwise unremarkable renal ultrasound. 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 The morphologic findings of the peripheral smear as well as the values of the automated CBC analyzer were inclu ded in the overall evaluation of this flow cytometry studies. The peripheral sme ar demonstrates numerous small mature lymphocytes with occasional larger forms. Abundant smudge cells are presence. The CBC analyzer identifies a white cell cou nt of over 100 k/ul. The morphologic and immunophenotypic findings are those of peripheral blood involvement by a CD5 positive B cell lymphoma. The high white c ount and large proportion of monoclonal B cells in the flow cytometry studies ex clude the presence of a monoclonal B cell lymphocytosis. The immunoprofile is mo st compatible with and likely represents a chronic lymphocytic leukemia/small ly mphocytic lymphoma, however the presence of a peripheralized CD5 positive lympho ma of a different etiology cannot be completely excluded.The findings of this ca se were discussed with Dr. Shaun Varghese, clinical cisco certified network professional. [id number] osis. Peripheral bloodCD8, surface-[place], CD56, surface-Lambda, CD5, CD19, CD10, CD3, CD20, CD4, CD45, CD14, CD13, CD33, CD117, CD34, CD23, CD49d, CD38, [id number] ecimen Viability: 93.6%Abnormal B cell population identified (85.20% of total c ellularity)POSITIVE: CD19, CD20, CD5 (DIM), KAPPA, CD200, [id number]: CD10, LA MBDA, CD38, CD49In addition, the following populations are identified:Blasts: No t identified. Lymphocytes: Bright CD45+ lymphocytes comprise 91.3% of total cell s. T cells show a CD4:CD8 ratio of 1.5. B cells population as described above. M yeloid/monocytic populations: As identified by CD45 and light scatter characteri stics, granulocytes comprise the majority of cells analyzed, and monocytes compr ise 0.20% of total cells.The remaining events analyzed represent nonviable cells , non-hematolymphoid cells, and debrisThese tests were developed and their perfo rmance characteristics determined by [facility]. They have not been cleared or approved by the U.S. Food and Drug Administration. The FDA has determined th at such clearance or approval is not necessary. It should not be regarded as inv estigational or for research. This laboratory is certified under the Clinical La boratory Improvement Amendments of 1988 ("CLIA") as qualified to perform high-co mplexity clinical testing.POCT-GLUCOSE [id number] 15:07:00* Test Item Value Reference Range Comments POC-GLUCOSE METER ([employer]) (test gyqf=2393) 180 mg/dL 70-110 TESTED AT [facility] [address] [id number] CREATININE, RANDOM [id number] 14:30:00* Test Item Value Reference Range Comments CREATININE URINE ([employer]) (test fhbi=729) 44.8 mg/dL Reference Range: No NormalsSODIUM, RANDOM [id number] 14:30:00* Test Item Value Reference Range Comments SODIUM URINE ([employer]) (test ernu=789) 55 meq/L Reference Range: No NormalsPOCT-GLUCOSE [id number] 14:04:00* Test Item Value Reference Range Comments POC-GLUCOSE METER (BEAKER) (test jyke=8380) 140 mg/dL 70-110 TESTED AT [facility] [address] [address] OSMOLALITY, [id number] 14:00:00* Test Item Value Reference Range Comments OSMOLALITY URINE (BEAKER) (test arpj=397) 549 mOsm/kg 40-1,400 UREA NITROGEN, RANDOM [id number] 13:46:00* Test Item Value Reference Range Comments UREA NITROGEN URINE (BEAKER) (test alwg=032) 505 mg/dL Reference Range: No NormalsPOCT-GLUCOSE [id number] 13:17:00* Test Item Value Reference Range Comments POC-GLUCOSE METER (BEAKER) (test tmzs=4903) 173 mg/dL 70-110 TESTED AT [facility] [address] [address] CBC W/MANUAL [id number] 13:04:00* Test Item Value Reference Range Comments WHITE BLOOD CELL (test code=WBC) 295.4 K/mm3 4.5-12.5 RESULT VERIFIED BY REPEAT ANALYSIS"Path Review" been performed on patient's currentadmission?If yes, please insert path review specimen here N If not, please order "Path Review" for the followingcriteria:1/ WBC count over 40,000/mm3 or below 2,000/mm32/ Platelet counts over 1,000,000/mm3, or below 10,000/mm3, or with abnormal morphology.3/ Abnormal red cell morphology or inclusions which are severe (> 3+) , widespread, or difficult to classify.4/ Abnormal white blood cell morphology: Blasts present in peripheral blood of any patient as a new finding. Abnormal cells suspected of being blasts. Patients with large numbers of immature cells in peripheral blood. Unusual cells or cells not easily classified in peripheral blood.5/ Any smear in which the technologist is uncertain of the classification or the disease. RED BLOOD CELL (test code=RBC) 4.34 mill/mm3 4.0-5.8 HEMOGLOBIN (test code=HGB) 12.4 gram/dL 13.0-17.5 HEMATOCRIT (test code=HCT) 47.5 % 42.0-52.0 MEAN CELL VOLUME (test code=MCV) 109.4 fL 80-98 MEAN CELL HGB (test code=MCH) 28.6 picogram 27.0-33.0 MEAN CELL HGB CONCETRATION (test code=MCHC) 26.1 gram/dL 33.0-36.0 RED CELL DISTRIBUTION WIDTH (test code=RDW) 17.7 % 11.6-16.2 RED CELL DISTRIBUTION WIDTH SD (test code=RDW-SD) 60.2 fL 37.0-51.0 PLATELET COUNT (test code=PLT) 401 K/mm3 150-450 MEAN PLATELET VOLUME (test code=MPV) 9.5 fL 6.7-11.0 IMMATURE GRANULOCYTE % (test code=IG%) 0.6 % 0.0-5.0 NUCLEATED RBC % (test code=NRBC%) 0.0 % 0-0 NEUTROPHIL # (test code=NT#) 11.06 K/mm3 1.8-7.7 IMMATURE GRANULOCYTE # (test code=IG#) 1.72 x10 3/uL 0-0.03 LYMPHOCYTE # (test code=LY#) 281.56 K/mm3 1.0-5.0 MONOCYTE # (test code=MO#) 0.97 K/mm3 0-0.8 EOSINOPHIL # (test code=EO#) 0.00 K/mm3 0.0-0.5 BASOPHIL # (test code=BA#) 0.04 K/mm3 0.0-0.2 NUCLEATED RBC # (test code=NRBC#) 0.00 K/mm3 0.0-0.1 MANUAL DIFF REQUIRED (test code=MDIFF) YES STAIN ACCEPTABILITY (test code=STN ACCEPTABLE) STAIN ACCEPTABLE TOTAL CELLS COUNTED (test code=TCC) 115 #CELLS SEGMENTED NEUTROPHILS (test code=SEG) 2.6 % 39-69 BAND NEUTROPHIL (test code=BAND) 0 % 0-10 LYMPHOCYTE (test code=LYMPH) 93.9 % 25-55 REACTIVE LYMPH (test code=RELYMPH) 0 % MONOCYTE (test code=MON) 0 % 0-10 EOSINOPHIL (test code=EOS) 0 % 0.0-5.0 BASOPHIL (test code=BASO) 0 % 0-1.0 METAMYELOCYTE (test code=META) 0 % 0-0 MYELOCYTE (test code=MYELO) 0 % 0.0-0.0 PROMYELOCYTE (test code=PROM) 0 % 0-0 POIKILOCYTOSIS (test code=POIK) 3+ ANISOCYTOSIS (test code=ANISO) 2+ MACROCYTOSIS (test code=MACR) 1+ JOSY CELLS (test code=JOSY) 1+ NONE OVALOCYTES (test code=OVAL) 1+ SMUDGE CELLS (test code=SMUDG) 3+ PLATELET ESTIMATE (test code=PLTEST) ADEQUATE PLATELET MORPHOLOGY (test code=PLTMORPH) NORMAL IMMATURE FORMS (test code=IMMAT) 3.5 % 0-0 PATHOLOGISTS [id number] 13:04:00* Test Item Value Reference Range Comments PATHOLOGISTS FINDINGS (test code=PATH) YES PATH NOTES LEUKOCYTOSIS, MARKEDLYMPHOCYTOSIS, MARKED (CLL) SUGGEST FLOW CYTOMETRY IF CLINICALLY INDICATED. REVIEWED BY CHEYANNE GRANGER M.D.10/02/18SLITAE REVIEWED BY PATHOLOGIST [id number] 12:40:00* Test Item Value Reference Range Comments POTASSIUM (BEAKER) (test ador=656) 5.3 meq/L 3.5-5.1 BASIC METABOLIC [id number] 12:40:00* Test Item Value Reference Range Comments SODIUM (BEAKER) (test pbrc=904) 138 meq/L 136-145 POTASSIUM (BEAKER) (test ppen=179) 5.3 meq/L 3.5-5.1 CHLORIDE (BEAKER) (test vqoq=206) 114 meq/L 98-107 CO2 (BEAKER) (test ungv=985) 12 meq/L 22-29 BLOOD UREA NITROGEN (BEAKER) (test cuoj=373) 30 mg/dL 7-21 CREATININE (BEAKER) (test ovdq=714) 1.41 mg/dL 0.57-1.25 GLUCOSE RANDOM (BEAKER) (test sflf=222) 154 mg/dL 70-105 CALCIUM (BEAKER) (test indz=128) 8.2 mg/dL 8.4-10.2 EGFR (BEAKER) (test nqwm=0874) 49 mL/min/1.73 sq m ESTIMATED GFR IS NOT ACCURATE CREATININE CLEARANCE IN PREDICTING GLOMERULAR FILTRATION RATE. ESTIMATED GFR IS NOT APPLICABLE FOR DIALYSIS PATIENTS. PERIPHERAL BLOOD SMEAR - HOLD [id number] 12:09:00* Test Item Value Reference Range Comments PERIPHERAL SMEAR SAVE (BEAKER) (test qqle=2291) saved POCT-GLUCOSE [id number] 12:06:00* Test Item Value Reference Range Comments POC-GLUCOSE METER (BEAKER) (test xsmb=6825) 187 mg/dL 70-110 TESTED AT [address] [address] POCT-GLUCOSE [id number] 11:40:00* Test Item Value Reference Range Comments POC-GLUCOSE METER (BEAKER) (test ozkh=1684) 182 mg/dL 70-110 TESTED AT [address] [address] [id number] 10:41:00* Test Item Value Reference Range Comments TRIGLYCERIDES (BEAKER) (test athh=369) 188 mg/dL TRIGLYCERIDE REFERENCE RANGELow Risk <150Borderline Risk 150-199High Risk 200- 499Very High Risk >=500POCT-GLUCOSE [id number] 10:09:00* Test Item Value Reference Range Comments POC-GLUCOSE METER (BEAKER) (test eeev=5165) 226 mg/dL 70-110 TESTED AT [address] [address] POCT-GLUCOSE [id number] 10:09:00* Test Item Value Reference Range Comments POC-GLUCOSE METER (BEAKER) (test ujsd=8394) 212 mg/dL 70-110 TESTED AT [address] [address] [id number] 09:20:00* Test Item Value Reference Range Comments MAGNESIUM (BEAKER) (test zwow=291) 2.2 mg/dL 1.6-2.6 [id number] 09:20:00* Test Item Value Reference Range Comments PHOSPHORUS (BEAKER) (test jhrq=726) 2.3 mg/dL 2.3-4.7 POCT-GLUCOSE [id number] 08:04:00* Test Item Value Reference Range Comments POC-GLUCOSE METER (BEAKER) (test adxo=5607) 211 mg/dL 70-110 TESTED AT [address] [address] CBC W/PLT COUNT & AUTO [id number] 07:52:00* Test Item Value Reference Range Comments WHITE BLOOD CELL COUNT (BEAKER) (test jxff=110) 130.0 K/ L 3.5-10.5 RED BLOOD CELL COUNT (BEAKER) (test przc=839) 3.02 M/ L 4.63-6.08 HEMOGLOBIN (BEAKER) (test yrmo=906) 8.9 GM/DL 13.7-17.5 HEMATOCRIT (BEAKER) (test ffkr=853) 30.1 % 40.1-51.0 MEAN CORPUSCULAR VOLUME (BEAKER) (test ckro=840) 99.7 fL 79.0-92.2 MEAN CORPUSCULAR HEMOGLOBIN (BEAKER) (test vqtn=421) 29.5 pg 25.7-32.2 MEAN CORPUSCULAR HEMOGLOBIN CONC (BEAKER) (test wuey=764) 29.6 GM/DL 32.3-36.5 RED CELL DISTRIBUTION WIDTH (BEAKER) (test mbbf=823) 15.6 % 11.6-14.4 PLATELET COUNT (BEAKER) (test lyxt=422) 208 K/CU MM 150-450 MEAN PLATELET VOLUME (BEAKER) (test wwmh=949) 9.4 fL 9.4-12.4 NUCLEATED RED BLOOD CELLS (BEAKER) (test ryxc=367) 0 /100 WBC 0-0 (CELLAVISION MANUAL DIFF)2018-10-02 07:52:00* Test Item Value Reference Range Comments NEUTROPHILS - REL (CELLAVISION)(BEAKER) (test zobz=4569) 19 % LYMPHOCYTES - REL (CELLAVISION)(BEAKER) (test ckcc=0664) 79 % MONOCYTES - REL (CELLAVISION)(BEAKER) (test lfjg=3786) 2 % NEUTROPHILS - ABS (CELLAVISION)(BEAKER) (test mzzw=4806) 24.70 K/ul 1.78-5.38 LYMPHOCYTES - ABS (CELLAVISION)(BEAKER) (test whdr=9764) 102.70 K/ul 1.32-3.57 MONOCYTES - ABS (CELLAVISION)(BEAKER) (test ijuo=5645) 2.60 K/uL 0.30-0.82 TOTAL COUNTED (BEAKER) (test mocv=6694) 100 RBC MORPHOLOGY (BEAKER) (test iglh=636) Normal PLT MORPHOLOGY (BEAKER) (test bwrz=872) Normal SMUDGE CELLS (BEAKER) (test yeiq=1095) Present PLATELET CONCENTRATION (CELLAVISION)(BEAKER) (test eidk=0408) Adequate Received comment: User comments: Slide comments: POCT-GLUCOSE [id number] 07:33:00* Test Item Value Reference Range Comments POC-GLUCOSE METER (BEAKER) (test jjgx=3529) 200 mg/dL 70-110 TESTED AT [facility] [address] [facility] [address] POCT-GLUCOSE [id number] 06:05:00* Test Item Value Reference Range Comments POC-GLUCOSE METER (BEAKER) (test swqc=1903) 187 mg/dL 70-110 TESTED AT [place] [id number] [facility] [address] POCT-GLUCOSE [id number] 05:38:00* Test Item Value Reference Range Comments POC-GLUCOSE METER (BEAKER) (test sutg=7958) 145 mg/dL 70-110 TESTED AT [place] [id number] [facility] [address] [id number] 04:28:00* Test Item Value Reference Range Comments LIPASE (BEAKER) (test vzxz=409) 904 U/L 8-78 BASIC METABOLIC [id number] 04:28:00* Test Item Value Reference Range Comments SODIUM (BEAKER) (test ampz=780) 145 meq/L 136-145 POTASSIUM (BEAKER) (test kfbl=387) 3.4 meq/L 3.5-5.1 CHLORIDE (BEAKER) (test jgen=213) 118 meq/L 98-107 CO2 (BEAKER) (test ucyu=757) 12 meq/L 22-29 BLOOD UREA NITROGEN (BEAKER) (test qrig=414) 39 mg/dL 7-21 CREATININE (BEAKER) (test gcse=469) 1.58 mg/dL 0.57-1.25 GLUCOSE RANDOM (BEAKER) (test ebof=879) 141 mg/dL 70-105 CALCIUM (BEAKER) (test wstq=891) 8.5 mg/dL 8.4-10.2 EGFR (BEAKER) (test eovc=5467) 43 mL/min/1.73 sq m ESTIMATED GFR IS NOT ACCURATE CREATININE CLEARANCE IN PREDICTING GLOMERULAR FILTRATION RATE. ESTIMATED GFR IS NOT APPLICABLE FOR DIALYSIS PATIENTS. LACTIC ACID, [id number] 04:23:00* Test Item Value Reference Range Comments LACTATE BLOOD VENOUS (2) (BEAKER) (test opwx=5128) 1.1 mmol/L 0.5-2.2 Collect with next bmpPOCT-GLUCOSE [id number] 04:18:00* Test Item Value Reference Range Comments POC-GLUCOSE METER (BEAKER) (test rdtl=0306) 153 mg/dL 70-110 TESTED AT [facility] [address] [facility] [address] POCT-GLUCOSE [id number] 04:10:00* Test Item Value Reference Range Comments POC-GLUCOSE METER (BEAKER) (test urgb=7532) 144 mg/dL 70-110 TESTED AT [place] [id number] [facility] [address] POCT-GLUCOSE [id number] 04:10:00* Test Item Value Reference Range Comments POC-GLUCOSE METER (BEAKER) (test yvrt=8513) 119 mg/dL 70-110 TESTED AT [address] [address] BLOOD GAS, [id number] 03:59:00* Test Item Value Reference Range Comments PH VENOUS (BEAKER) (test kbwr=692) 7.37 7.32-7.42 PCO2 VENOUS (BEAKER) (test ueoa=550) 20 mmHg 41-51 PO2 VENOUS (BEAKER) (test wljs=542) 74 mmHg 25-40 O2 SATURATION VENOUS (BEAKER) (test awwb=192) 94.9 % 40.0-70.0 HCO3 VENOUS (BEAKER) (test otez=306) 11 mmol/L 21-29 BASE EXCESS VENOUS (BEAKER) (test uykl=399) -12.1 mmol/L -2.0-3.0 PATIENT TEMPERATURE (BEAKER) (test ucmg=3552) 37.2 C FIO2 (BEAKER) (test mvrn=7381) 30.0 % Collect with next [facility] W/PLT COUNT & AUTO [id number] 02:35:00* Test Item Value Reference Range Comments WHITE BLOOD CELL COUNT (BEAKER) (test wlgl=361) 169.9 K/ L 3.5-10.5 RED BLOOD CELL COUNT (BEAKER) (test nzjf=535) 3.38 M/ L 4.63-6.08 HEMOGLOBIN (BEAKER) (test ijqs=080) 10.6 GM/DL 13.7-17.5 HEMATOCRIT (BEAKER) (test jcym=189) 34.4 % 40.1-51.0 MEAN CORPUSCULAR VOLUME (BEAKER) (test qhzr=220) 101.8 fL 79.0-92.2 MEAN CORPUSCULAR HEMOGLOBIN (BEAKER) (test fbgw=815) 31.4 pg 25.7-32.2 MEAN CORPUSCULAR HEMOGLOBIN CONC (BEAKER) (test xgzh=389) 30.8 GM/DL 32.3-36.5 RED CELL DISTRIBUTION WIDTH (BEAKER) (test onzj=383) 16.0 % 11.6-14.4 PLATELET COUNT (BEAKER) (test zmqy=647) 235 K/CU MM 150-450 MEAN PLATELET VOLUME (BEAKER) (test cdoi=209) 9.3 fL 9.4-12.4 NUCLEATED RED BLOOD CELLS (BEAKER) (test jift=994) 0 /100 WBC 0-0 (CELLAVISION MANUAL DIFF)2018-10-02 02:35:00* Test Item Value Reference Range Comments NEUTROPHILS - REL (CELLAVISION)(BEAKER) (test gjrd=0091) 11 % LYMPHOCYTES - REL (CELLAVISION)(BEAKER) (test jpdj=2034) 83 % MONOCYTES - REL (CELLAVISION)(BEAKER) (test rldx=0551) 1 % BANDS - REL (CELLAVISION)(BEAKER) (test ztfl=8122) 2 % 0-10 BLASTS - REL (CELLAVISION)(BEAKER) (test mdlo=7123) 3 % 0-0 NEUTROPHILS - ABS (CELLAVISION)(BEAKER) (test roze=3741) 18.69 K/ul 1.78-5.38 LYMPHOCYTES - ABS (CELLAVISION)(BEAKER) (test jwnx=0508) 141.02 K/ul 1.32-3.57 MONOCYTES - ABS (CELLAVISION)(BEAKER) (test buko=5739) 1.70 K/uL 0.30-0.82 BANDS - ABS (CELLAVISION)(BEAKER) (test xyzm=4763) 3.40 K/uL 0.00-0.80 BLASTS - ABS (CELLAVISION)(BEAKER) (test eqix=6307) 5.10 K/uL 0.00-0.00 TOTAL COUNTED (BEAKER) (test duks=7024) 100 SMUDGE CELLS (BEAKER) (test jhhh=6048) Present GIANT PLATELETS (BEAKER) (test uvbc=238) Present POLYCHROMATOPHILLIC RBCS(BEAKER) (test xmhh=414) 1+ few HYPOCHROMIA (BEAKER) (test iqyl=124) 1+ few ANISOCYTOSIS (BEAKER) (test rgex=605) 1+ few MICROCYTES (BEAKER) (test ucyb=186) 1+ few MACROCYTES (BEAKER) (test vspu=339) 1+ few POIKILOCYTES (BEAKER) (test fven=300) 2+ moderate SCHISTOCYTES (BEAKER) (test ozyn=143) 1+ few SPHEROCYTES (BEAKER) (test jsec=383) 1+ few ELLIPTOCYTES (BEAKER) (test vapr=699) 1+ few OVALOCYTES (BEAKER) (test hkvq=788) 1+ few STOMATOCYTES (BEAKER) (test hiwl=482) 1+ few ACANTHOCYTES (BEAKER) (test lyig=423) 1+ few JOSY CELLS (BEAKER) (test zewf=789) 1+ few ARTIFACT (CELLAVISION)(BEAKER) (test xacb=8903) Present PLATELET CONCENTRATION (CELLAVISION)(BEAKER) (test ioqr=8130) Adequate Received comment: User comments: Slide comments: RAD, CHEST, 1 VIEW, NON DEPT 2018-10-02 01:57:00Reason for exam:->New admission ICU IntubatedShould this be performed at the bedside?->YesFINAL REPORT EXAMINATION: AP PORTABLE CHEST RADIOGRAPH CLINICAL INDICATION: Intubated IMPRESSION: No comparison studies are available. The tip of the endotracheal tube projects over the midline at the level the clavicles approximately 8 cm superior to the moy. The tip of the nasogastric tube extends below the diaphragm and inferior margin of today's study. Tip of the left jugular central line projects over the junction of the left innominate vein and superior vena cava. Thin curvilinear opacities are noted in both lungs, most conspicuous along the heart borders, atelectasis favored. No evidence of a discrete pneumonia, pulmonary edema, large pleural effusion or pneumothorax. The heart size is normal. Mediastinal contours are sharp and smooth. Left shoulder incompletely visualized arthroplasty. No definite evidence of an acute osseous abnormality. Signed: Stan Isidro MDReport Verified Date/Time: 10/02/2018 01:57:34 Reading Location: [address] Reading Room -GLUCOSE [id number] 01:46:00* Test Item Value Reference Range Comments POC-GLUCOSE METER (RENNYAKER) (test xrbm=6866) 126 mg/dL 70-110 TESTED AT [facility] [address] [address] CT, BRAIN, WITHOUT [id number] 01:38:00FINAL REPORT EXAMINATION NONCONTRAST HEAD CT SCAN CLINICAL HISTORY:Focal neurologic deficit COMPARISON CT: None EPISODE OF CARE: Initial TECHNIQUE: Axial tomographic images were obtained through the brain from the vertex to the skull base without intravenous contrast. The exam was performed according to our departmental dose optimization program which includes automated exposure control, adjustment of the mA and/or kV according to patient's size and/or use of iterative reconstructive technique. FINDINGS: No evidence of acute int racranial hemorrhage, mass effect, midline shift, hydrocephalus or abnormal extr a-axial fluid collection. No definitive findings to suggest evolving ischemia, however, CT is not sensitive for the detection of early or small infarcts. Intra cranial calcific atherosclerosis and generalized volume loss are noted. Mild per iventricular deep white matter changes are also noted, nonspecific but likely re lated to chronic microvascular disease. Small scattered subcortical radiolucenc ies are also noted, chronicity indeterminate but also possibly reflecting sequel a from chronic ischemia. Acute ischemia cannot be excluded. No definite evidence of an acute orbital process. The paranasal sinuses, tympanic cavities and masto id air cells are well pneumatized. The mandibular condyles project anatomically . No evidence of an acute skull fracture. Debris within the posterior nasopharyn x and oral pharynx is likely related to the indwelling endotracheal and nasogast murphy tubes. Consider suction if appropriate. IMPRESSION: No evidence of acute int racranial hemorrhage, mass effect or hydrocephalus. Deep white matter and subco rtical radiolucencies as detailed. If there is persistent clinical concern, cons ider MRI. Results discussed with Dr. Shrestha the ICU class b driver caring for the patient at the time of dictation. Signed: Stan Isidro MDReport Verified Date/Ti me: 10/02/2018 01:38:34 Reading Location: [address] Reading Room [place], [id number] 01:13:00* Test Item Value Reference Range Comments KETONES, BLOOD (BEAKER) (test kvzn=0195) 0.1 mmol/L <0.4 COMPREHENSIVE METABOLIC [id number] 00:51:00* Test Item Value Reference Range Comments TOTAL PROTEIN (BEAKER) (test wxhv=451) 6.9 gm/dL 6.0-8.3 ALBUMIN (BEAKER) (test umnn=5954) 4.0 g/dL 3.5-5.0 ALKALINE PHOSPHATASE (BEAKER) (test bikp=461) 93 U/L 40-150 BILIRUBIN TOTAL (BEAKER) (test wwpm=099) 0.2 mg/dL 0.2-1.2 SODIUM (BEAKER) (test weoq=999) 144 meq/L 136-145 POTASSIUM (BEAKER) (test rnev=867) 4.1 meq/L 3.5-5.1 CHLORIDE (BEAKER) (test xfcw=757) 116 meq/L 98-107 CO2 (BEAKER) (test xiat=175) 9 meq/L 22-29 BLOOD UREA NITROGEN (BEAKER) (test cufn=219) 44 mg/dL 7-21 CREATININE (BEAKER) (test mmuq=475) 1.96 mg/dL 0.57-1.25 GLUCOSE RANDOM (BEAKER) (test milo=514) 149 mg/dL 70-105 CALCIUM (BEAKER) (test qrcb=993) 9.0 mg/dL 8.4-10.2 AST (SGOT) (BEAKER) (test qstz=439) 17 U/L 5-34 ALT (SGPT) (BEAKER) (test pzbf=409) 11 U/L 6-55 EGFR (BEAKER) (test qjhi=3700) 33 mL/min/1.73 sq m ESTIMATED GFR IS NOT ACCURATE CREATININE CLEARANCE IN PREDICTING GLOMERULAR FILTRATION RATE. ESTIMATED GFR IS NOT APPLICABLE FOR DIALYSIS PATIENTS. If last glucose was less than 500, may do bedside glucose instead of serum gluco se.POCT-GLUCOSE [id number] 00:47:00* Test Item Value Reference Range Comments POC-GLUCOSE METER (LULU) (test dpgu=4157) 121 mg/dL 70-110 TESTED AT [facility] [address] [facility] [facility] [address] URIC [id number] 00:43:00* Test Item Value Reference Range Comments URIC ACID (BEAKER) (test hguu=947) 5.8 mg/dL 2.6-7.2 If last glucose was less than 500, may do bedside glucose instead of serum gluco se.[id number] 00:43:00* Test Item Value Reference Range Comments POTASSIUM (BEAKER) (test vieb=028) 4.1 meq/L 3.5-5.1 If last glucose was less than 500, may do bedside glucose instead of serum gluco se.[id number] 00:43:00* Test Item Value Reference Range Comments GLUCOSE RANDOM (RENNYAKER) (test xodv=448) 149 mg/dL 70-105 If last glucose was less than 500, may do bedside glucose instead of serum gluco se.LACTATE DEHYDROGENASE (LDH)2018-10-02 00:43:00* Test Item Value Reference Range Comments LACTATE DEHYDROGENASE (RENNYAKER) (test kkde=148) 179 U/L 125-220 If last glucose was less than 500, may do bedside glucose instead of serum gluco se.PROTHROMBIN TIME/[id number] 00:30:00* Test Item Value Reference Range Comments PROTIME (LULU) (test fnpn=827) 15.6 seconds 11.9-14.2 INR (BEAKER) (test pnjd=337) 1.3 <=5.9 Effective 07/19/2018: PT Reference Range ChangeNew: 11.9-14.2 Previous: 11.7-14. 7RECOMMENDED COUMADIN/WARFARIN INR THERAPY RANGESSTANDARD DOSE: 2.0-3.0 Include s: PROPHYLAXIS for venous thrombosis, systemic embolization; TREATMENT for venou s thrombosis and/or pulmonary embolus.HIGH RISK: Target INR is 2.5-3.5 for patie nts wiht mechanical heart valves.BLOOD GAS, [id number] 00:28:00* Test Item Value Reference Range Comments PH ARTERIAL (BEAKER) (test xfvg=074) 7.34 7.35-7.45 PCO2 ARTERIAL (BEAKER) (test qyti=605) 19 mmHg 35-45 PO2 ARTERIAL (BEAKER) (test xthf=213) 198 mmHg 80-90 O2 SATURATION ARTERIAL (BEAKER) (test mdae=554) 99.3 % 96.0-97.0 HCO3 ARTERIAL (BEAKER) (test lijy=483) 10 mmol/L 21-29 BASE EXCESS ARTERIAL (BEAKER) (test utgp=533) -13.6 mmol/L -2.0-3.0 PATIENT TEMPERATURE (BEAKER) (test jrow=5162) 37.5 C FIO2 (BEAKER) (test xwqa=5115) 40.0 % POCT-GLUCOSE [id number] 23:02:00* Test Item Value Reference Range Comments POC-GLUCOSE METER (BEAKER) (test rufz=0552) 233 mg/dL 70-110 TESTED AT [facility] [address] [facility] [address] [id number] 20:34:00* Test Item Value Reference Range Comments GLUBED (test code=GLUBED) 340 mg/dL 74-106 Performed by certified news wire photo operator at [facility] [id number] 20:34:00* Test Item Value Reference Range Comments GLUBED (test code=GLUBED) 413 mg/dL 74-106 Performed by certified news wire photo operator at [facility] BASIC METABOLIC [id number] 19:52:00* Test Item Value Reference Range Comments SODIUM (test code=NA) 141 mmol/L 136-145 RESULT VERIFIED BY REPEAT ANALYSIS POTASSIUM (test code=K) 4.8 mmol/L 3.5-5.1 RESULT VERIFIED BY REPEAT ANALYSIS CHLORIDE (test code=CL) 113.0 mmol/L 98-107 CARBON DIOXIDE (test code=CO2) 7.0 mmol/L 21-32 Previously reported result: 7.0 mmol/LEdited by: RUBI on 10/01/18:1951 ANION GAP (test code=GAP) 25.8 10-20 GLUCOSE (test code=GLU) 542 mg/dL 74-106 Results called to [place] [id number] by RUBI 10/01/181918Critical results verified and read back by Nurse? Y BLOOD UREA NITROGEN (test code=BUN) 52 mg/dL 7-18 GLOMERULAR FILTRATION RATE (test code=GFR) 24 mL/min >=60 Estimated GFR by using Modified MDRD formula.Chronic kidney disease is defined as either kidney damageor GFR <60 mL/min/1.73 m2 for >3 months. CREATININE (test code=CREAT) 2.60 mg/dL 0.7-1.3 BUN/CREATININE RATIO (test code=BUN/CREA) 19.9 10-20 CALCIUM (test code=CA) 9.6 mg/dL 8.5-10.1 SPECIMEN COMMENTS: Q4H while on insulin dripBASIC METABOLIC [id number] 19:19:00* Test Item Value Reference Range Comments SODIUM (test code=NA) 141 mmol/L 136-145 RESULT VERIFIED BY REPEAT ANALYSIS POTASSIUM (test code=K) 4.8 mmol/L 3.5-5.1 RESULT VERIFIED BY REPEAT ANALYSIS CHLORIDE (test code=CL) 113.0 mmol/L 98-107 CARBON DIOXIDE (test code=CO2) 7.0 mmol/L 21-32 ANION GAP (test code=GAP) 10-20 GLUCOSE (test code=GLU) 542 mg/dL 74-106 Results called to [id number] by [email or web address] 10/01/181918Critical results verified and read back by Nurse? Y BLOOD UREA NITROGEN (test code=BUN) 52 mg/dL 7-18 GLOMERULAR FILTRATION RATE (test code=GFR) 24 mL/min >=60 Estimated GFR by using Modified MDRD formula.Chronic kidney disease is defined as either kidney damageor GFR <60 mL/min/1.73 m2 for >3 months. CREATININE (test code=CREAT) 2.60 mg/dL 0.7-1.3 BUN/CREATININE RATIO (test code=BUN/CREA) 19.9 10-20 CALCIUM (test code=CA) 9.6 mg/dL 8.5-10.1 SPECIMEN COMMENTS: Q4H while on insulin drip- CT ABD PELVIS W/O [id number] 19:08:00 Name: YANIQUE DYE J [facility] : 1940 Age/S: 77 / M [address] [facility] Unit #: [id number] Loc: [place] [address] Phys: Ulisses Jones MD Acct: [id number] Dis Date: Status: REG ER PHONE #: [phone] Exam Date: 10/01/20181899 FAX #: [phone] Reason: CODE SEPSIS EXAMS: CPT CODE: [id number] CT ABD PELVIS W/O CONT 10809 EXAM: CT of the abdomen and pelvis without contrast; INFORMATION: Code sepsis; TECHNIQUE AND FINDINGS: CT dose reduction protocol; 5 mm cuts through the abdomen and pelvis without contrast. Liver and spleen are of normal size and shape; no focal lesions. Status post cholecystectomy; no biliary dilatation. Pancreas, adrenal glands and kidneys unremarkable; no hydronephrosis or stones. No acute bowel abnormalities. Sigmoid diverticula are present; no evidence of diverticulitis. Calcified plaques in the abdominal aorta, visceral arteries and iliofemoral arteries. Lung bases are clear with mild bilateral pleural thickening. IMPRESSION: 1. No acute abdominal or pelvic abnormalities. 2. Mild wall thickening of the urinary bladder. This could be due to cystitis; recommend clinical correlation. A Maldonado catheter is positioned within the urinary bladder. There is mild wall thickening of the bladder. at 1908 Reported and signed by: Warren Zayas M.D. CC: Lane Vela Jr, MD; Reyes Mercedes; Ulisses Jones MD Technologist:Kamille James RT(R),CT CTDI: DLP: Trnscb Date/Time: 10/01/2018 (1907) MikeW Orig Print D/T: S: 10/01/2018 (1911) PAGE 1 Signed Report - CT HEAD/BRAIN W/O [id number] 19:05:00 Name: YANIQUE DYE [facility] : 1940 Age/S: 77 [facility] [address] [facility] [id number] Loc: [place] [address] Phys: Virginia Jones MD Acct: [id number] Di s Date: Status: REG ER PHONE #: [phone] Exam Date: 10/01/20181899 FAX #: Reason: Hyperviscosity SRO, AMS EXAMS: CPT CODE: [id number] CT HEAD/BRAIN W/O CONT 34691 EXAM: CT of the head with out contrast; INFORMATION: Altered mental status; TE CHNIQUE AND FINDINGS: CT dose reduction protocol; 2.5 mm axial scans . There is no evidence of intra or extra-axial hemorrhage, mass lesions or midline shift. Mild periventricular and deep white matter hypodensi ties; otherwise, unremarkable murguia/white matter differentiation. Melvin tricles are symmetric and of normal diameter; sulci and basilar cisterns a re intact. Calcifications of the internal carotid and vertebral arteries. The calvarium is intact. Paranasal sinuses and mastoid air cells are well aerated. IMPRESSION: 1. No evidence of intracrani al hemorrhage or acute territorial infarction. 2. Mild chronic ischemic white matter changes. at 1905 Reported and signed by: Warren Zayas M.D. CC: Lane Vela Jr, MD; Reyes Belcher; Uilsses Jones MD Technologist:Mariposa James RT(R),CT CTDI: DLP: Trnscb Date/Time: 2018 (1904) Divine Orig Print D/T: S: 10/01/2018 (1907 ) PAGE 1 Signed Report CBC W/MANUAL [id number] 19:01:00* Test Item Value Reference Range Comments WHITE BLOOD CELL (test code=WBC) 295.4 K/mm3 4.5-12.5 RESULT VERIFIED BY REPEAT ANALYSIS"Path Review" been performed on patient's currentadmission?If yes, please insert path review specimen here N If not, please order "Path Review" for the followingcriteria:1/ WBC count over 40,000/mm3 or below 2,000/mm32/ Platelet counts over 1,000,000/mm3, or below 10,000/mm3, or with abnormal morphology.3/ Abnormal red cell morphology or inclusions which are severe (> 3+) , widespread, or difficult to classify.4/ Abnormal white blood cell morphology: Blasts present in peripheral blood of any patient as a new finding. Abnormal cells suspected of being blasts. Patients with large numbers of immature cells in peripheral blood. Unusual cells or cells not easily classified in peripheral blood.5/ Any smear in which the technologist is uncertain of the classification or the disease. RED BLOOD CELL (test code=RBC) 4.34 mill/mm3 4.0-5.8 HEMOGLOBIN (test code=HGB) 12.4 gram/dL 13.0-17.5 HEMATOCRIT (test code=HCT) 47.5 % 42.0-52.0 MEAN CELL VOLUME (test code=MCV) 109.4 fL 80-98 MEAN CELL HGB (test code=MCH) 28.6 picogram 27.0-33.0 MEAN CELL HGB CONCETRATION (test code=MCHC) 26.1 gram/dL 33.0-36.0 RED CELL DISTRIBUTION WIDTH (test code=RDW) 17.7 % 11.6-16.2 RED CELL DISTRIBUTION WIDTH SD (test code=RDW-SD) 60.2 fL 37.0-51.0 PLATELET COUNT (test code=PLT) 401 K/mm3 150-450 MEAN PLATELET VOLUME (test code=MPV) 9.5 fL 6.7-11.0 IMMATURE GRANULOCYTE % (test code=IG%) 0.6 % 0.0-5.0 NUCLEATED RBC % (test code=NRBC%) 0.0 % 0-0 NEUTROPHIL # (test code=NT#) 11.06 K/mm3 1.8-7.7 IMMATURE GRANULOCYTE # (test code=IG#) 1.72 x10 3/uL 0-0.03 LYMPHOCYTE # (test code=LY#) 281.56 K/mm3 1.0-5.0 MONOCYTE # (test code=MO#) 0.97 K/mm3 0-0.8 EOSINOPHIL # (test code=EO#) 0.00 K/mm3 0.0-0.5 BASOPHIL # (test code=BA#) 0.04 K/mm3 0.0-0.2 NUCLEATED RBC # (test code=NRBC#) 0.00 K/mm3 0.0-0.1 MANUAL DIFF REQUIRED (test code=MDIFF) YES STAIN ACCEPTABILITY (test code=STN ACCEPTABLE) STAIN ACCEPTABLE TOTAL CELLS COUNTED (test code=TCC) 115 #CELLS SEGMENTED NEUTROPHILS (test code=SEG) 2.6 % 39-69 BAND NEUTROPHIL (test code=BAND) 0 % 0-10 LYMPHOCYTE (test code=LYMPH) 93.9 % 25-55 REACTIVE LYMPH (test code=RELYMPH) 0 % MONOCYTE (test code=MON) 0 % 0-10 EOSINOPHIL (test code=EOS) 0 % 0.0-5.0 BASOPHIL (test code=BASO) 0 % 0-1.0 METAMYELOCYTE (test code=META) 0 % 0-0 MYELOCYTE (test code=MYELO) 0 % 0.0-0.0 PROMYELOCYTE (test code=PROM) 0 % 0-0 POIKILOCYTOSIS (test code=POIK) 3+ ANISOCYTOSIS (test code=ANISO) 2+ MACROCYTOSIS (test code=MACR) 1+ JOSY CELLS (test code=JOSY) 1+ NONE OVALOCYTES (test code=OVAL) 1+ SMUDGE CELLS (test code=SMUDG) 3+ PLATELET ESTIMATE (test code=PLTEST) ADEQUATE PLATELET MORPHOLOGY (test code=PLTMORPH) NORMAL IMMATURE FORMS (test code=IMMAT) 3.5 % 0-0 PATHOLOGISTS [id number] 19:01:00* Test Item Value Reference Range Comments PATHOLOGISTS FINDINGS (test code=PATH) PATH NOTES BASIC METABOLIC [id number] 18:39:00* Test Item Value Reference Range Comments SODIUM (test code=NA) 141 mmol/L 136-145 RESULT VERIFIED BY REPEAT ANALYSIS POTASSIUM (test code=K) 4.8 mmol/L 3.5-5.1 RESULT VERIFIED BY REPEAT ANALYSIS CHLORIDE (test code=CL) 113.0 mmol/L 98-107 CARBON DIOXIDE (test code=CO2) mmol/L 21-32 ANION GAP (test code=GAP) 10-20 GLUCOSE (test code=GLU) mg/dL 74-106 BLOOD UREA NITROGEN (test code=BUN) mg/dL 7-18 GLOMERULAR FILTRATION RATE (test code=GFR) mL/min >=60 CREATININE (test code=CREAT) mg/dL 0.7-1.3 BUN/CREATININE RATIO (test code=BUN/CREA) 10-20 CALCIUM (test code=CA) mg/dL 8.5-10.1 SPECIMEN COMMENTS: Q4H while on insulin drip- XR CHEST 1 [id number] 17:59:00 FAX: Lane Corbin Jr [phone] [place]: St: REG FAX: Reyes Hobson [phone] FAX: Ulisses Jones MD --------- Name: YANIQUE DYE [facility] : 1940 Age/S: 77/M [address] [facility] it #: [id number] Loc: [place] [address] Phys: Ulisses Jones MD Acct: [id number] Dis Date: Status: REG ER PH ONE #: [phone] Exam Date: 10/01/2018 174 FAX #: [phone] Reason: RESPIRATORY FAILURE EXAMS: CPT CODE: [id number] XR CHEST 1 V 20291 EXAM: Chest x- ray, one view; INFORMATION: Respiratory failure; I MPRESSION: 1. The tip of an endotracheal tube is positioned 6 cm above the moy. 2. Nasogastric tube has been advanced into the stom ach; its tip is in the gastric fundus. 3. The tip of a left IJ central line/temp HD cath is positioned in the SVC. 4. Otherwis e, no change compared with the study obtained earlier today. No evidenc e of acute cardiothoracic abnormalities. Electronically Sig chavo by Priyanka Zayas on 10/01/2018 at 1759 Reported and signed by: Warren Zayas M.D. CC: Lane Vela Jr, MD; Reyes Belcher; Ulisses Jones MD Technologist: Eve LEVY(R) Trnscrd Date/Time/By: 10/01/2018 (9900) : By: Divine Orig Print D/T: S: 12/2018 (6095) PAGE 1 Signed Repo rt BASIC METABOLIC [id number] 17:57:00* Test Item Value Reference Range Comments SODIUM (test code=NA) 134 mmol/L 136-145 POTASSIUM (test code=K) 6.2 mmol/L 3.5-5.1 Results called to [id number] by [facility] 10/01/18 1756Critical results verified and read back by Nurse? Y CHLORIDE (test code=CL) 108.0 mmol/L 98-107 CARBON DIOXIDE (test code=CO2) 5.0 mmol/L 21-32 ANION GAP (test code=GAP) 27.2 10-20 GLUCOSE (test code=GLU) 592 mg/dL 74-106 Results called to [id number] by [facility] 10/01/18 1757Critical results verified and read back by Nurse? Y BLOOD UREA NITROGEN (test code=BUN) 55 mg/dL 7-18 GLOMERULAR FILTRATION RATE (test code=GFR) 22 mL/min >=60 Estimated GFR by using Modified MDRD formula.Chronic kidney disease is defined as either kidney damageor GFR <60 mL/min/1.73 m2 for >3 months. CREATININE (test code=CREAT) 2.80 mg/dL 0.7-1.3 BUN/CREATININE RATIO (test code=BUN/CREA) 19.6 10-20 CALCIUM (test code=CA) 10.2 mg/dL 8.5-10.1 SPECIMEN COMMENTS: Q4H while on insulin dripSPECIMEN COMMENTS: Q8H while on insu aakash [id number] 17:57:00* Test Item Value Reference Range Comments MAGNESIUM (test code=MAG) 3.0 mg/dL 1.8-2.4 SPECIMEN COMMENTS: Q4H while on insulin dripSPECIMEN COMMENTS: Q8H while on insu aakash dripLACTIC [id number] 17:56:00* Test Item Value Reference Range Comments LACTIC ACID (test code=LACT) 2.8 mmol/L 0.4-1.9 Results called to [id number] by [facility] 10/01/18 1754Critical results verified and read back by Nurse? Y VENOUS BLOOD [id number] 17:54:00* Test Item Value Reference Range Comments VENOUS BLOOD GAS PH (test code=PHV) 6.95 7.30-7.40 Results called to and read back by 17:47 - 10/01/2018; by OLIVA VENOUS BLOOD GAS PCO2 (test code=PCO2V) 29.7 mm Hg 39.0-51.0 Results called to and read back by 17:47 - 10/01/2018; by OLIVA VENOUS BLOOD GAS PO2 (test code=PO2V) 102.4 mm Hg 30.0-50.0 VBG HCO3 (test code=HCO3V) 6.4 mmol/L 17.0-30.0 Results called to and read back by 17:47 - 10/01/2018; by OLIVA VBG BASE EXCESS (test code=SANJAY) -24.6 mmol/L -5.0-5.0 VENOUS BLOOD GAS O2 SAT. (test code=O2SATV) 96 % 94-98 VENOUS BLOOD GAS FIO2 (test code=FIO2V) 60.0 VBG VENT MODE (test code=MODEV) Assist Control MELVIN. BLOOD GAS RESP. RATE (test code=RRV) 20.0 per min VBG TIDAL VOLUME (test code=TVV) 450.0 VENOUS BLOOD GAS PEEP (test code=PEEPV) 5.0 cmH2O PT. HGB (test code=PHGBVBG) 12.0 gram/dL 13.0-17.5 VENOUS BLOOD GAS SITE (test code=SITEV) IVC HEMATOCRIT (test code=HCT/VBG) 35 % 42-52 HGB O2 SAT (test code=HBOSAT) 95.2 % 94.00-98.00 CARBOXYHEMOGLOBIN (test code=HOHGBT) 0.9 %totalHg 0.5-1.5 METHEMOGLOBIN (test code=METHGB) 0.3 % 0.0-1.50 CHEMISTRY 8 [id number] 17:50:00* Test Item Value Reference Range Comments ISTAT-SODIUM (test code=NAP) mmol/L 135-148 ISTAT-POTASSIUM (test code=KP) mmol/L 3.5-5.5 ISTAT-CHLORIDE (test code=CLP) mmol/L 101-109 ISTAT CARBON DIOXIDE (test code=ISTAT-CO2) mmol/L 21-32 ISTAT CALCIUM IONIZED (test code=ISTAT-ADNREW) mg/dL 1.12-1.32 ISTAT-ANION GAP (test code=GAPP) MEQ/L 10-20 ISTAT-GLUCOSE (test code=GLUP) mg/dL 74-106 ISTAT-BUN (test code=BUNP) mg/dL 3-21 BEDSIDE CREATININE (test code=CREATBED) mg/dL 0.7-1.3 GLOMERULAR FILTRATION RATE POC (test code=GFRBED) 29 >60 CHEMISTRY 8 [id number] 17:50:00* Test Item Value Reference Range Comments ISTAT-SODIUM (test code=NAP) 141 mmol/L 135-148 ISTAT-POTASSIUM (test code=KP) 4.9 mmol/L 3.5-5.5 ISTAT-CHLORIDE (test code=CLP) 114 mmol/L 101-109 ISTAT CARBON DIOXIDE (test code=ISTAT-CO2) 11.0 mmol/L 21-32 ISTAT CALCIUM IONIZED (test code=ISTAT-ANDREW) 1.44 mg/dL 1.12-1.32 ISTAT-ANION GAP (test code=GAPP) 22.0 MEQ/L 10-20 ISTAT-GLUCOSE (test code=GLUP) 539 mg/dL 74-106 ISTAT-BUN (test code=BUNP) 49 mg/dL 3-21 BEDSIDE CREATININE (test code=CREATBED) 2.2 mg/dL 0.7-1.3 GLOMERULAR FILTRATION RATE POC (test code=GFRBED) 29 >60 [id number] 16:50:00* Test Item Value Reference Range Comments SALICYLATE (test code=ROWAN) < 1.7 mg/dL 2.8-20.0 B-TYPE NATRIURETIC [id number] 16:07:00* Test Item Value Reference Range Comments B-TYPE NATRIURETIC PEPTIDE (test code=BNP) 58.27 pgram/mL 0-100 BASIC METABOLIC [id number] 16:02:00* Test Item Value Reference Range Comments SODIUM (test code=NA) 134 mmol/L 136-145 POTASSIUM (test code=K) 6.7 mmol/L 3.5-5.1 Results called to [id number] by RUBI 10/01/18 1524Critical results verified and read back by Nurse? Y CHLORIDE (test code=CL) 105.0 mmol/L 98-107 CARBON DIOXIDE (test code=CO2) 5.0 mmol/L 21-32 Previously reported result: 5.0 mmol/LEdited by: RUBI on 10/01/18:1602 ANION GAP (test code=GAP) 30.7 10-20 GLUCOSE (test code=GLU) 556 mg/dL 74-106 Results called to [id number] by RUBI 10/01/18 1553Critical results verified and read back by Nurse? Y BLOOD UREA NITROGEN (test code=BUN) 56 mg/dL 7-18 GLOMERULAR FILTRATION RATE (test code=GFR) 21 mL/min >=60 Estimated GFR by using Modified MDRD formula.Chronic kidney disease is defined as either kidney damageor GFR <60 mL/min/1.73 m2 for >3 months. CREATININE (test code=CREAT) 2.90 mg/dL 0.7-1.3 BUN/CREATININE RATIO (test code=BUN/CREA) 19.6 10-20 CALCIUM (test code=CA) 9.9 mg/dL 8.5-10.1 HEPATIC FUNCTION [id number] 16:02:00* Test Item Value Reference Range Comments TOTAL PROTEIN (test code=PROT) 9.7 gram/dL 6.4-8.2 ALBUMIN (test code=ALB) 4.6 g/dL 3.4-5.0 GLOBULIN (test code=GLOB) 5.1 gram/dL 2.7-4.2 ALBUMIN/GLOBULIN RATIO (test code=A/G) 0.9 0.75-1.50 BILIRUBIN TOTAL (test code=BILT) 0.20 mg/dL 0.0-1.0 BILIRUBIN DIRECT (test code=BILD) 0.12 mg/dL 0.0-0.20 SGOT/AST (test code=AST) 17 IUnit/L 15-37 SGPT/ALT (test code=ALT) 22 IUnit/L 12-78 ALKALINE PHOSPHATASE TOTAL (test code=ALKP) 144 IUnit/L 45-117 Note change in reference range due to change in reagent. [id number] 16:02:00* Test Item Value Reference Range Comments LIPASE (test code=LIP) 2916 U/L 73.0-393.0 [id number] 16:02:00* Test Item Value Reference Range Comments TROPONIN-I (test code=TROPI) <0.015 ng/mL 0-0.045 BASIC METABOLIC [id number] 15:53:00* Test Item Value Reference Range Comments SODIUM (test code=NA) 134 mmol/L 136-145 POTASSIUM (test code=K) 6.7 mmol/L 3.5-5.1 Results called to [id number] by V.LAB.NM 10/01/18 1524Critical results verified and read back by Nurse? Y CHLORIDE (test code=CL) 105.0 mmol/L 98-107 CARBON DIOXIDE (test code=CO2) 5.0 mmol/L 21-32 ANION GAP (test code=GAP) 10-20 GLUCOSE (test code=GLU) 556 mg/dL 74-106 Results called to [id number] by V.LAB.[facility] 10/01/18 1553Critical results verified and read back by Nurse? Y BLOOD UREA NITROGEN (test code=BUN) 56 mg/dL 7-18 GLOMERULAR FILTRATION RATE (test code=GFR) 21 mL/min >=60 Estimated GFR by using Modified MDRD formula.Chronic kidney disease is defined as either kidney damageor GFR <60 mL/min/1.73 m2 for >3 months. CREATININE (test code=CREAT) 2.90 mg/dL 0.7-1.3 BUN/CREATININE RATIO (test code=BUN/CREA) 19.6 10-20 CALCIUM (test code=CA) 9.9 mg/dL 8.5-10.1 HEPATIC FUNCTION [id number] 15:53:00* Test Item Value Reference Range Comments TOTAL PROTEIN (test code=PROT) 9.7 gram/dL 6.4-8.2 ALBUMIN (test code=ALB) 4.6 g/dL 3.4-5.0 GLOBULIN (test code=GLOB) 5.1 gram/dL 2.7-4.2 ALBUMIN/GLOBULIN RATIO (test code=A/G) 0.9 0.75-1.50 BILIRUBIN TOTAL (test code=BILT) 0.20 mg/dL 0.0-1.0 BILIRUBIN DIRECT (test code=BILD) 0.12 mg/dL 0.0-0.20 SGOT/AST (test code=AST) 17 IUnit/L 15-37 SGPT/ALT (test code=ALT) 22 IUnit/L 12-78 ALKALINE PHOSPHATASE TOTAL (test code=ALKP) 144 IUnit/L 45-117 Note change in reference range due to change in reagent. [id number] 15:53:00* Test Item Value Reference Range Comments LIPASE (test code=LIP) 2916 U/L 73.0-393.0 [id number] 15:53:00* Test Item Value Reference Range Comments TROPONIN-I (test code=TROPI) <0.015 ng/mL 0-0.045 PROCALCITONIN (PCT)2018-10-01 15:46:00* Test Item Value Reference Range Comments PROCALCITONIN (PCT) (test code=PROCAL) 23.12 ng/ml Concentration Interpretation (ng/mL) <0.51 Sepsis is not likely. Local bacterial infection is possible. (LOW RISK for progression to Sepsis) 0.51 - 2.00 Sepsis is possible, but other conditions are known to elevate PCT as well. (MODERATE RISK for progression to Sepsis) > 2.00 Sepsis is likely, unless other causes are known. (HIGH RISK for progression to Severe Sepsis or Septic Shock) 10.00 High likelihood of Severe Sepsis or Septic or higher Shock. *Increased PCT levels may not always be related to systemic bacterial infection.*Low PCT levels do not automatically exclude the presence of bacterial infection.*All results should be interpreted taking into account the patients history. LACTIC [id number] 15:36:00* Test Item Value Reference Range Comments LACTIC ACID (test code=LACT) 2.5 mmol/L 0.4-1.9 Results called to [id number] by RUBI 10/01/18 1535Critical results verified and read back by Nurse? Y - XR CHEST 1 [id number] 15:36:00 FAX: Lane Corbin Jr [phone] [place]: B St: REG FAX: Reyes Hobson [phone] FAX: Ulisses Jones MD Name: YANIQUE DYE [facility] : 1940 Age/S: 77/M [address] [facility] Unit #: [id number] Loc: [place] [address] Phys: Ulisses Jones MD Acct: [id number] Dis Date: Status: REG ER PH ONE #: [phone] Exam Date: 10/01/2018 1451 FAX #: [phone] Reason: CODE SEPSIS EXAMS: CPT CODE: [id number] XR CHEST 1 V 70299 EXAM: Chest X- ray, 1 view; CLINICAL HISTORY: Code sepsis; FINDINGS : The lungs are clear, no infiltrates, no edema; no effusions; no pneumothorax; normal cardiomediastinal silhouette. IMPRESS ION: Normal chest x-ray. 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 at 1536 Reported and signed by: Warren Zayas M.D. CC: Beau Vela Jr, MD; Reyes Belcher; Ulisses Jones MD Technologist: Florin Llanos RT(R); PAT HEIN RT(R) Trnscrd Date/Time/By: 10/01/2018 (1535) : By: Clyde RandleGRW PAGE 1 Signed Report ARTERIAL BLOOD [id number] 15:29:00* Test Item Value Reference Range Comments ARTERIAL BLOOD GAS PH (test code=PHA) 7.06 7.35-7.45 Results called to and read back by 15:27 - 10/01/2018; by OLIVA ARTERIAL BLOOD GAS PCO2 (test code=PCO2A) < 11.9 mm Hg 35-45 Results called to and read back by 15: - 10/01/2018; by OLIVA ARTERIAL BLOOD GAS PO2 (test code=PO2A) 270.5 mmHg 80-100 ABG O2 SATURATION (test code=SATA) 99.6 % 90.0-98.0 ABG TYPE (test code=TYPEA) Arterial FIO2 (test code=FIO2A) 70.0 ABG VENT MODE (test code=MODEA) BiPAP ABG VENT RESP RATE (test code=RRA) 18.0 per min ABG PEEP (test code=PEEPA) 6.0 cmH2O ABG SITE (test code=SITEA) Rt RADIAL ARTERY MODIFIED ALLENS (test code=MODALL) Yes CHECK PERFORMED SODIUM (test code=NA/ABG) 135.4 mEq/L 135-148 POTASSIUM (test code=K/ABG) 6.5 mEq/L 3.5-4.5 CHLORIDE (test code=CL/ABG) 105 mEq/L 98-106 GLUCOSE (test code=GLU/ABG) 546 mg/dL 74-99 Results called to and read back by 15: - 10/01/2018; by OLIVA HEMATOCRIT (test code=HCT/ABG) 38 % 42-52 IONIZED CALCIUM (test code=CAIABG) 1.47 mmol/L 1.1-1.37 TOTAL HGB (test code=THB) 12.8 gram/dL 13.0-17.5 HGB O2 SAT (test code=HBOSAT) 98.6 % 94.00-98.00 CARBOXYHEMOGLOBIN (test code=HOHGBT) 0.9 %totalHg 0.5-1.5 METHEMOGLOBIN (test code=METHGB) 0.1 % 0.0-1.50 O2 CONTENT (test code=O2CT) 18.4 % vol 18.0-22.0 BASIC METABOLIC [id number] 15:24:00* Test Item Value Reference Range Comments SODIUM (test code=NA) 134 mmol/L 136-145 POTASSIUM (test code=K) 6.7 mmol/L 3.5-5.1 Results called to [id number] by [facility] 10/01/18 1524Critical results verified and read back by Nurse? Y CHLORIDE (test code=CL) 105.0 mmol/L 98-107 CARBON DIOXIDE (test code=CO2) mmol/L 21-32 ANION GAP (test code=GAP) 10-20 GLUCOSE (test code=GLU) mg/dL 74-106 BLOOD UREA NITROGEN (test code=BUN) mg/dL 7-18 GLOMERULAR FILTRATION RATE (test code=GFR) mL/min >=60 CREATININE (test code=CREAT) mg/dL 0.7-1.3 BUN/CREATININE RATIO (test code=BUN/CREA) 10-20 CALCIUM (test code=CA) mg/dL 8.5-10.1 HEPATIC FUNCTION [id number] 15:24:00* Test Item Value Reference Range Comments TOTAL PROTEIN (test code=PROT) gram/dL 6.4-8.2 ALBUMIN (test code=ALB) g/dL 3.4-5.0 GLOBULIN (test code=GLOB) gram/dL 2.7-4.2 ALBUMIN/GLOBULIN RATIO (test code=A/G) 0.75-1.50 BILIRUBIN TOTAL (test code=BILT) mg/dL 0.0-1.0 BILIRUBIN DIRECT (test code=BILD) mg/dL 0.0-0.20 SGOT/AST (test code=AST) IUnit/L 15-37 SGPT/ALT (test code=ALT) IUnit/L 12-78 ALKALINE PHOSPHATASE TOTAL (test code=ALKP) IUnit/L 45-117 [id number] 15:24:00* Test Item Value Reference Range Comments LIPASE (test code=LIP) U/L 73.0-393.0 [id number] 15:24:00* Test Item Value Reference Range Comments TROPONIN-I (test code=TROPI) ng/mL 0-0.045 PROTHROMBIN [id number] 15:22:00* Test Item Value Reference Range Comments PROTHROMBIN TIME PATIENT (test code=PTP) 13.3 seconds 9.0-14.0 INTERNATIONAL NORMAL RATIO (test code=INR) 1.1 0.8-1.2 The therapeutic range for oral anticoagulant therapy formost indications is an international normalized ratio (INR)of between 2.0 and 3.0. The recommended therapeutic INRrange for various clinical situations is listed below: Clinical Situation INR range Pulmonary e mbolism treatment (2.0-3.0)Venous thrombosis treatmentVenous thrombosis prophylaxis (high risk surgery)Prevention of systemic embolism from: Acute myocardial infarction Valvular heart disease Atrial fibrillation Mechanical prosthetic heart valves (2.5-3.5) IS PATIENT ON ANTICOAGULANTS? NTHROMBOPLASTIN TIME [id number] 15:22:00* Test Item Value Reference Range Comments THROMBOPLASTIN TIME PARTIAL (test code=PTT) 42.2 seconds 25.0-36.5 IS PATIENT ON ANTICOAGULANTS? NCBC W/MANUAL [id number] 15:10:00* Test Item Value Reference Range Comments WHITE BLOOD CELL (test code=WBC) 295.4 K/mm3 4.5-12.5 RESULT VERIFIED BY REPEAT ANALYSIS"Path Review" been performed on patient's currentadmission?If yes, please insert path review specimen here N If not, please order "Path Review" for the followingcriteria:1/ WBC count over 40,000/mm3 or below 2,000/mm32/ Platelet counts over 1,000,000/mm3, or below 10,000/mm3, or with abnormal morphology.3/ Abnormal red cell morphology or inclusions which are severe (> 3+) , widespread, or difficult to classify.4/ Abnormal white blood cell morphology: Blasts present in peripheral blood of any patient as a new finding. Abnormal cells suspected of being blasts. Patients with large numbers of immature cells in peripheral blood. Unusual cells or cells not easily classified in peripheral blood.5/ Any smear in which the technologist is uncertain of the classification or the disease. RED BLOOD CELL (test code=RBC) 4.34 mill/mm3 4.0-5.8 HEMOGLOBIN (test code=HGB) 12.4 gram/dL 13.0-17.5 HEMATOCRIT (test code=HCT) 47.5 % 42.0-52.0 MEAN CELL VOLUME (test code=MCV) 109.4 fL 80-98 MEAN CELL HGB (test code=MCH) 28.6 picogram 27.0-33.0 MEAN CELL HGB CONCETRATION (test code=MCHC) 26.1 gram/dL 33.0-36.0 RED CELL DISTRIBUTION WIDTH (test code=RDW) 17.7 % 11.6-16.2 RED CELL DISTRIBUTION WIDTH SD (test code=RDW-SD) 60.2 fL 37.0-51.0 PLATELET COUNT (test code=PLT) 401 K/mm3 150-450 MEAN PLATELET VOLUME (test code=MPV) 9.5 fL 6.7-11.0 IMMATURE GRANULOCYTE % (test code=IG%) 0.6 % 0.0-5.0 NUCLEATED RBC % (test code=NRBC%) 0.0 % 0-0 NEUTROPHIL # (test code=NT#) 11.06 K/mm3 1.8-7.7 IMMATURE GRANULOCYTE # (test code=IG#) 1.72 x10 3/uL 0-0.03 LYMPHOCYTE # (test code=LY#) 281.56 K/mm3 1.0-5.0 MONOCYTE # (test code=MO#) 0.97 K/mm3 0-0.8 EOSINOPHIL # (test code=EO#) 0.00 K/mm3 0.0-0.5 BASOPHIL # (test code=BA#) 0.04 K/mm3 0.0-0.2 NUCLEATED RBC # (test code=NRBC#) 0.00 K/mm3 0.0-0.1 MANUAL DIFF REQUIRED (test code=MDIFF) YES STAIN ACCEPTABILITY (test code=STN ACCEPTABLE) TOTAL CELLS COUNTED (test code=TCC) #CELLS SEGMENTED NEUTROPHILS (test code=SEG) % 39-69 LYMPHOCYTE (test code=LYMPH) % 25-55 MONOCYTE (test code=MON) % 0-10 MORPHOLOGY COMMENT (test code=MOC) PLATELET ESTIMATE (test code=PLTEST) PLATELET MORPHOLOGY (test code=PLTMORPH) CBC W/MANUAL [id number] 15:10:00* Test Item Value Reference Range Comments WHITE BLOOD CELL (test code=WBC) 295.4 K/mm3 4.5-12.5 RESULT VERIFIED BY REPEAT ANALYSIS"Path Review" been performed on patient's currentadmission?If yes, please insert path review specimen here N If not, please order "Path Review" for the followingcriteria:1/ WBC count over 40,000/mm3 or below 2,000/mm32/ Platelet counts over 1,000,000/mm3, or below 10,000/mm3, or with abnormal morphology.3/ Abnormal red cell morphology or inclusions which are severe (> 3+) , widespread, or difficult to classify.4/ Abnormal white blood cell morphology: Blasts present in peripheral blood of any patient as a new finding. Abnormal cells suspected of being blasts. Patients with large numbers of immature cells in peripheral blood. Unusual cells or cells not easily classified in peripheral blood.5/ Any smear in which the technologist is uncertain of the classification or the disease. RED BLOOD CELL (test code=RBC) 4.34 mill/mm3 4.0-5.8 HEMOGLOBIN (test code=HGB) 12.4 gram/dL 13.0-17.5 HEMATOCRIT (test code=HCT) 47.5 % 42.0-52.0 MEAN CELL VOLUME (test code=MCV) 109.4 fL 80-98 MEAN CELL HGB (test code=MCH) 28.6 picogram 27.0-33.0 MEAN CELL HGB CONCETRATION (test code=MCHC) 26.1 gram/dL 33.0-36.0 RED CELL DISTRIBUTION WIDTH (test code=RDW) 17.7 % 11.6-16.2 RED CELL DISTRIBUTION WIDTH SD (test code=RDW-SD) 60.2 fL 37.0-51.0 PLATELET COUNT (test code=PLT) 401 K/mm3 150-450 MEAN PLATELET VOLUME (test code=MPV) 9.5 fL 6.7-11.0 IMMATURE GRANULOCYTE % (test code=IG%) 0.6 % 0.0-5.0 NUCLEATED RBC % (test code=NRBC%) 0.0 % 0-0 NEUTROPHIL # (test code=NT#) 11.06 K/mm3 1.8-7.7 IMMATURE GRANULOCYTE # (test code=IG#) 1.72 x10 3/uL 0-0.03 LYMPHOCYTE # (test code=LY#) 281.56 K/mm3 1.0-5.0 MONOCYTE # (test code=MO#) 0.97 K/mm3 0-0.8 EOSINOPHIL # (test code=EO#) 0.00 K/mm3 0.0-0.5 BASOPHIL # (test code=BA#) 0.04 K/mm3 0.0-0.2 NUCLEATED RBC # (test code=NRBC#) 0.00 K/mm3 0.0-0.1 MANUAL DIFF REQUIRED (test code=MDIFF) YES STAIN ACCEPTABILITY (test code=STN ACCEPTABLE) TOTAL CELLS COUNTED (test code=TCC) #CELLS SEGMENTED NEUTROPHILS (test code=SEG) % 39-69 LYMPHOCYTE (test code=LYMPH) % 25-55 MONOCYTE (test code=MON) % 0-10 MORPHOLOGY COMMENT (test code=MOC) PLATELET ESTIMATE (test code=PLTEST) PLATELET MORPHOLOGY (test code=PLTMORPH) PATHOLOGISTS [id number] 15:10:00* Test Item Value Reference Range Comments PATHOLOGISTS FINDINGS (test code=PATH) PATH NOTES CBC W/MANUAL [id number] 15:06:00* Test Item Value Reference Range Comments WHITE BLOOD CELL (test code=WBC) 295.4 K/mm3 4.5-12.5 Has "Path Review" been performed on patient's currentadmission?If yes, please insert path review specimen here N If not, please order "Path Review" for the followingcriteria:1/ WBC count over 40,000/mm3 or below 2,000/mm32/ Platelet counts over 1,000,000/mm3, or below 10,000/mm3, or with abnormal morphology.3/ Abnormal red cell morphology or inclusions which are severe (> 3+) , widespread, or d ifficult to classify.4/ Abnormal white blood cell morphology: Blasts present in peripheral blood of any patient as a new finding. Abnormal cells suspected of being blasts. Patients with large numbers of immature cells in peripheral blood. Unusual cells or cells not easily classified in peripheral blood.5/ Any smear in which the technologist is uncertain of the classification or the disease. RED BLOOD CELL (test code=RBC) 4.34 mill/mm3 4.0-5.8 HEMOGLOBIN (test code=HGB) 12.4 gram/dL 13.0-17.5 HEMATOCRIT (test code=HCT) 47.5 % 42.0-52.0 MEAN CELL VOLUME (test code=MCV) 109.4 fL 80-98 MEAN CELL HGB (test code=MCH) 28.6 picogram 27.0-33.0 MEAN CELL HGB CONCETRATION (test code=MCHC) 26.1 gram/dL 33.0-36.0 RED CELL DISTRIBUTION WIDTH (test code=RDW) 17.7 % 11.6-16.2 RED CELL DISTRIBUTION WIDTH SD (test code=RDW-SD) 60.2 fL 37.0-51.0 PLATELET COUNT (test code=PLT) 401 K/mm3 150-450 MEAN PLATELET VOLUME (test code=MPV) 9.5 fL 6.7-11.0 IMMATURE GRANULOCYTE % (test code=IG%) 0.6 % 0.0-5.0 NUCLEATED RBC % (test code=NRBC%) 0.0 % 0-0 NEUTROPHIL # (test code=NT#) 11.06 K/mm3 1.8-7.7 IMMATURE GRANULOCYTE # (test code=IG#) 1.72 x10 3/uL 0-0.03 LYMPHOCYTE # (test code=LY#) 281.56 K/mm3 1.0-5.0 MONOCYTE # (test code=MO#) 0.97 K/mm3 0-0.8 EOSINOPHIL # (test code=EO#) 0.00 K/mm3 0.0-0.5 BASOPHIL # (test code=BA#) 0.04 K/mm3 0.0-0.2 NUCLEATED RBC # (test code=NRBC#) 0.00 K/mm3 0.0-0.1 MANUAL DIFF REQUIRED (test code=MDIFF) YES STAIN ACCEPTABILITY (test code=STN ACCEPTABLE) TOTAL CELLS COUNTED (test code=TCC) #CELLS SEGMENTED NEUTROPHILS (test code=SEG) % 39-69 LYMPHOCYTE (test code=LYMPH) % 25-55 MONOCYTE (test code=MON) % 0-10 EOSINOPHIL (test code=EOS) % 0.0-5.0 CABOT RINGS (test code=CAB) MORPHOLOGY COMMENT (test code=MOC) PLATELET ESTIMATE (test code=PLTEST) PLATELET MORPHOLOGY (test code=PLTMORPH) CBC W/MANUAL [id number] 15:06:00* Test Item Value Reference Range Comments WHITE BLOOD CELL (test code=WBC) 295.4 K/mm3 4.5-12.5 Has "Path Review" been performed on patient's currentadmission?If yes, please insert path review specimen here N If not, please order "Path Review" for the followingcriteria:1/ WBC count over 40,000/mm3 or below 2,000/mm32/ Platelet counts over 1,000,000/mm3, or below 10,000/mm3, or with abnormal morphology.3/ Abnormal red cell morphology or inclusions which are severe (> 3+) , widespread, or d ifficult to classify.4/ Abnormal white blood cell morphology: Blasts present in peripheral blood of any patient as a new finding. Abnormal cells suspected of being blasts. Patients with large numbers of immature cells in peripheral blood. Unusual cells or cells not easily classified in peripheral blood.5/ Any smear in which the technologist is uncertain of the classification or the disease. RED BLOOD CELL (test code=RBC) 4.34 mill/mm3 4.0-5.8 HEMOGLOBIN (test code=HGB) 12.4 gram/dL 13.0-17.5 HEMATOCRIT (test code=HCT) 47.5 % 42.0-52.0 MEAN CELL VOLUME (test code=MCV) 109.4 fL 80-98 MEAN CELL HGB (test code=MCH) 28.6 picogram 27.0-33.0 MEAN CELL HGB CONCETRATION (test code=MCHC) 26.1 gram/dL 33.0-36.0 RED CELL DISTRIBUTION WIDTH (test code=RDW) 17.7 % 11.6-16.2 RED CELL DISTRIBUTION WIDTH SD (test code=RDW-SD) 60.2 fL 37.0-51.0 PLATELET COUNT (test code=PLT) 401 K/mm3 150-450 MEAN PLATELET VOLUME (test code=MPV) 9.5 fL 6.7-11.0 IMMATURE GRANULOCYTE % (test code=IG%) 0.6 % 0.0-5.0 NUCLEATED RBC % (test code=NRBC%) 0.0 % 0-0 NEUTROPHIL # (test code=NT#) 11.06 K/mm3 1.8-7.7 IMMATURE GRANULOCYTE # (test code=IG#) 1.72 x10 3/uL 0-0.03 LYMPHOCYTE # (test code=LY#) 281.56 K/mm3 1.0-5.0 MONOCYTE # (test code=MO#) 0.97 K/mm3 0-0.8 EOSINOPHIL # (test code=EO#) 0.00 K/mm3 0.0-0.5 BASOPHIL # (test code=BA#) 0.04 K/mm3 0.0-0.2 NUCLEATED RBC # (test code=NRBC#) 0.00 K/mm3 0.0-0.1 MANUAL DIFF REQUIRED (test code=MDIFF) YES STAIN ACCEPTABILITY (test code=STN ACCEPTABLE) TOTAL CELLS COUNTED (test code=TCC) #CELLS SEGMENTED NEUTROPHILS (test code=SEG) % 39-69 LYMPHOCYTE (test code=LYMPH) % 25-55 MONOCYTE (test code=MON) % 0-10 EOSINOPHIL (test code=EOS) % 0.0-5.0 CAB[place]INGS (test code=CAB) MORPHOLOGY COMMENT (test code=MOC) PLATELET ESTIMATE (test code=PLTEST) PLATELET MORPHOLOGY (test code=PLTMORPH) CBC W/MANUAL [id number] 15:06:00* Test Item Value Reference Range Comments WHITE BLOOD CELL (test code=WBC) 295.4 K/mm3 4.5-12.5 Has "Path Review" been performed on patient's currentadmission?If yes, please insert path review specimen here N If not, please order "Path Review" for the followingcriteria:1/ WBC count over 40,000/mm3 or below 2,000/mm32/ Platelet counts over 1,000,000/mm3, or below 10,000/mm3, or with abnormal morphology.3/ Abnormal red cell morphology or inclusions which are severe (> 3+) , widespread, or d ifficult to classify.4/ Abnormal white blood cell morphology: Blasts present in peripheral blood of any patient as a new finding. Abnormal cells suspected of being blasts. Patients with large numbers of immature cells in peripheral blood. Unusual cells or cells not easily classified in peripheral blood.5/ Any smear in which the technologist is uncertain of the classification or the disease. RED BLOOD CELL (test code=RBC) 4.34 mill/mm3 4.0-5.8 HEMOGLOBIN (test code=HGB) 12.4 gram/dL 13.0-17.5 HEMATOCRIT (test code=HCT) 47.5 % 42.0-52.0 MEAN CELL VOLUME (test code=MCV) 109.4 fL 80-98 MEAN CELL HGB (test code=MCH) 28.6 picogram 27.0-33.0 MEAN CELL HGB CONCETRATION (test code=MCHC) 26.1 gram/dL 33.0-36.0 RED CELL DISTRIBUTION WIDTH (test code=RDW) 17.7 % 11.6-16.2 RED CELL DISTRIBUTION WIDTH SD (test code=RDW-SD) 60.2 fL 37.0-51.0 PLATELET COUNT (test code=PLT) 401 K/mm3 150-450 MEAN PLATELET VOLUME (test code=MPV) 9.5 fL 6.7-11.0 IMMATURE GRANULOCYTE % (test code=IG%) 0.6 % 0.0-5.0 NUCLEATED RBC % (test code=NRBC%) 0.0 % 0-0 NEUTROPHIL # (test code=NT#) 11.06 K/mm3 1.8-7.7 IMMATURE GRANULOCYTE # (test code=IG#) 1.72 x10 3/uL 0-0.03 LYMPHOCYTE # (test code=LY#) 281.56 K/mm3 1.0-5.0 MONOCYTE # (test code=MO#) 0.97 K/mm3 0-0.8 EOSINOPHIL # (test code=EO#) 0.00 K/mm3 0.0-0.5 BASOPHIL # (test code=BA#) 0.04 K/mm3 0.0-0.2 NUCLEATED RBC # (test code=NRBC#) 0.00 K/mm3 0.0-0.1 MANUAL DIFF REQUIRED (test code=MDIFF) YES STAIN ACCEPTABILITY (test code=STN ACCEPTABLE) TOTAL CELLS COUNTED (test code=TCC) #CELLS SEGMENTED NEUTROPHILS (test code=SEG) % 39-69 LYMPHOCYTE (test code=LYMPH) % 25-55 MONOCYTE (test code=MON) % 0-10 EOSINOPHIL (test code=EOS) % 0.0-5.0 MORPHOLOGY COMMENT (test code=MOC) PLATELET ESTIMATE (test code=PLTEST) PLATELET MORPHOLOGY (test code=PLTMORPH) CBC W/MANUAL [id number] 15:06:00* Test Item Value Reference Range Comments WHITE BLOOD CELL (test code=WBC) 295.4 K/mm3 4.5-12.5 Has "Path Review" been performed on patient's currentadmission?If yes, please insert path review specimen here N If not, please order "Path Review" for the followingcriteria:1/ WBC count over 40,000/mm3 or below 2,000/mm32/ Platelet counts over 1,000,000/mm3, or below 10,000/mm3, or with abnormal morphology.3/ Abnormal red cell morphology or inclusions which are severe (> 3+) , widespread, or d ifficult to classify.4/ Abnormal white blood cell morphology: Blasts present in peripheral blood of any patient as a new finding. Abnormal cells suspected of being blasts. Patients with large numbers of immature cells in peripheral blood. Unusual cells or cells not easily classified in peripheral blood.5/ Any smear in which the technologist is uncertain of the classification or the disease. RED BLOOD CELL (test code=RBC) 4.34 mill/mm3 4.0-5.8 HEMOGLOBIN (test code=HGB) 12.4 gram/dL 13.0-17.5 HEMATOCRIT (test code=HCT) 47.5 % 42.0-52.0 MEAN CELL VOLUME (test code=MCV) 109.4 fL 80-98 MEAN CELL HGB (test code=MCH) 28.6 picogram 27.0-33.0 MEAN CELL HGB CONCETRATION (test code=MCHC) 26.1 gram/dL 33.0-36.0 RED CELL DISTRIBUTION WIDTH (test code=RDW) 17.7 % 11.6-16.2 RED CELL DISTRIBUTION WIDTH SD (test code=RDW-SD) 60.2 fL 37.0-51.0 PLATELET COUNT (test code=PLT) 401 K/mm3 150-450 MEAN PLATELET VOLUME (test code=MPV) 9.5 fL 6.7-11.0 IMMATURE GRANULOCYTE % (test code=IG%) 0.6 % 0.0-5.0 NUCLEATED RBC % (test code=NRBC%) 0.0 % 0-0 NEUTROPHIL # (test code=NT#) 11.06 K/mm3 1.8-7.7 IMMATURE GRANULOCYTE # (test code=IG#) 1.72 x10 3/uL 0-0.03 LYMPHOCYTE # (test code=LY#) 281.56 K/mm3 1.0-5.0 MONOCYTE # (test code=MO#) 0.97 K/mm3 0-0.8 EOSINOPHIL # (test code=EO#) 0.00 K/mm3 0.0-0.5 BASOPHIL # (test code=BA#) 0.04 K/mm3 0.0-0.2 NUCLEATED RBC # (test code=NRBC#) 0.00 K/mm3 0.0-0.1 MANUAL DIFF REQUIRED (test code=MDIFF) YES STAIN ACCEPTABILITY (test code=STN ACCEPTABLE) TOTAL CELLS COUNTED (test code=TCC) #CELLS SEGMENTED NEUTROPHILS (test code=SEG) % 39-69 LYMPHOCYTE (test code=LYMPH) % 25-55 MONOCYTE (test code=MON) % 0-10 MORPHOLOGY COMMENT (test code=MOC) PLATELET ESTIMATE (test code=PLTEST) PLATELET MORPHOLOGY (test code=PLTMORPH) CBC W/MANUAL [id number] 15:06:00* Test Item Value Reference Range Comments WHITE BLOOD CELL (test code=WBC) 295.4 K/mm3 4.5-12.5 Has "Path Review" been performed on patient's currentadmission?If yes, please insert path review specimen here N If not, please order "Path Review" for the followingcriteria:1/ WBC count over 40,000/mm3 or below 2,000/mm32/ Platelet counts over 1,000,000/mm3, or below 10,000/mm3, or with abnormal morphology.3/ Abnormal red cell morphology or inclusions which are severe (> 3+) , widespread, or d ifficult to classify.4/ Abnormal white blood cell morphology: Blasts present in peripheral blood of any patient as a new finding. Abnormal cells suspected of being blasts. Patients with large numbers of immature cells in peripheral blood. Unusual cells or cells not easily classified in peripheral blood.5/ Any smear in which the technologist is uncertain of the classification or the disease. RED BLOOD CELL (test code=RBC) 4.34 mill/mm3 4.0-5.8 HEMOGLOBIN (test code=HGB) 12.4 gram/dL 13.0-17.5 HEMATOCRIT (test code=HCT) 47.5 % 42.0-52.0 MEAN CELL VOLUME (test code=MCV) 109.4 fL 80-98 MEAN CELL HGB (test code=MCH) 28.6 picogram 27.0-33.0 MEAN CELL HGB CONCETRATION (test code=MCHC) 26.1 gram/dL 33.0-36.0 RED CELL DISTRIBUTION WIDTH (test code=RDW) 17.7 % 11.6-16.2 RED CELL DISTRIBUTION WIDTH SD (test code=RDW-SD) 60.2 fL 37.0-51.0 PLATELET COUNT (test code=PLT) 401 K/mm3 150-450 MEAN PLATELET VOLUME (test code=MPV) 9.5 fL 6.7-11.0 IMMATURE GRANULOCYTE % (test code=IG%) 0.6 % 0.0-5.0 NUCLEATED RBC % (test code=NRBC%) 0.0 % 0-0 NEUTROPHIL # (test code=NT#) 11.06 K/mm3 1.8-7.7 IMMATURE GRANULOCYTE # (test code=IG#) 1.72 x10 3/uL 0-0.03 LYMPHOCYTE # (test code=LY#) 281.56 K/mm3 1.0-5.0 MONOCYTE # (test code=MO#) 0.97 K/mm3 0-0.8 EOSINOPHIL # (test code=EO#) 0.00 K/mm3 0.0-0.5 BASOPHIL # (test code=BA#) 0.04 K/mm3 0.0-0.2 NUCLEATED RBC # (test code=NRBC#) 0.00 K/mm3 0.0-0.1 MANUAL DIFF REQUIRED (test code=MDIFF) YES STAIN ACCEPTABILITY (test code=STN ACCEPTABLE) TOTAL CELLS COUNTED (test code=TCC) #CELLS SEGMENTED NEUTROPHILS (test code=SEG) % 39-69 LYMPHOCYTE (test code=LYMPH) % 25-55 MONOCYTE (test code=MON) % 0-10 EOSINOPHIL (test code=EOS) % 0.0-5.0 CABOT RINGS (test code=CAB) MORPHOLOGY COMMENT (test code=MOC) PLATELET ESTIMATE (test code=PLTEST) PLATELET MORPHOLOGY (test code=PLTMORPH) CHEMISTRY 8 [id number] 15:00:00* Test Item Value Reference Range Comments ISTAT-SODIUM (test code=NAP) mmol/L 135-148 ISTAT-POTASSIUM (test code=KP) mmol/L 3.5-5.5 ISTAT-CHLORIDE (test code=CLP) mmol/L 101-109 ISTAT CARBON DIOXIDE (test code=ISTAT-CO2) mmol/L 21-32 ISTAT CALCIUM IONIZED (test code=ISTAT-ANDREW) mg/dL 1.12-1.32 ISTAT-ANION GAP (test code=GAPP) MEQ/L 10-20 ISTAT-GLUCOSE (test code=GLUP) mg/dL 74-106 ISTAT-BUN (test code=BUNP) mg/dL 3-21 BEDSIDE CREATININE (test code=CREATBED) mg/dL 0.7-1.3 GLOMERULAR FILTRATION RATE POC (test code=GFRBED) 25 >60 CHEMISTRY 8 [id number] 15:00:00* Test Item Value Reference Range Comments ISTAT-SODIUM (test code=NAP) 133 mmol/L 135-148 ISTAT-POTASSIUM (test code=KP) 7.1 mmol/L 3.5-5.5 ISTAT-CHLORIDE (test code=CLP) 111 mmol/L 101-109 ISTAT CARBON DIOXIDE (test code=ISTAT-CO2) 7.0 mmol/L 21-32 ISTAT CALCIUM IONIZED (test code=ISTAT-ANDREW) 1.37 mg/dL 1.12-1.32 ISTAT-ANION GAP (test code=GAPP) 23.0 MEQ/L 10-20 ISTAT-GLUCOSE (test code=GLUP) 551 mg/dL 74-106 ISTAT-BUN (test code=BUNP) 53 mg/dL 3-21 BEDSIDE CREATININE (test code=CREATBED) 2.5 mg/dL 0.7-1.3 GLOMERULAR FILTRATION RATE POC (test code=GFRBED) 25 >60 [id number] 12:16:00* Test Item Value Reference Range Comments GLUBED (test code=GLUBED) 222 mg/dL 74-106 Performed by certified news wire photo operator at [facility] [id number] 07:54:00* Test Item Value Reference Range Comments GLUBED (test code=GLUBED) 205 mg/dL 74-106 Performed by certified news wire photo operator at [facility] CBC W/MANUAL [id number] 06:47:00* Test Item Value Reference Range Comments WHITE BLOOD CELL (test code=WBC) 54.1 K/mm3 4.5-12.5 RESULT VERIFIED BY REPEAT ANALYSISHas "Path Review" been performed on patient's currentadmission?YESIf yes, please insert path review specimen here [id number] If not, please order "Path Review" for the followingcriteria:1/ WBC count over 40,000/mm3 or below 2,000/mm32/ Platelet counts over 1,000,000/mm3, or below 10,000/mm3, or with abnormal morphology.3/ Abnormal red cell morphology or inclusions which are severe (> 3+) , widespread, or difficult to classify.4/ Abnormal white blood cell morphology: Blasts present in peripheral blood of any patient as a new finding. Abnormal cells suspected of being blasts. Patients with large numbers of immature cells in peripheral blood. Unusual cells or cells not easily classified in peripheral blood.5/ Any smear in which the technologist is uncertain of the classification or the disease. RED BLOOD CELL (test code=RBC) 3.10 mill/mm3 4.0-5.8 HEMOGLOBIN (test code=HGB) 9.6 gram/dL 13.0-17.5 HEMATOCRIT (test code=HCT) 30.7 % 42.0-52.0 MEAN CELL VOLUME (test code=MCV) 99.0 fL 80-98 MEAN CELL HGB (test code=MCH) 31.0 picogram 27.0-33.0 MEAN CELL HGB CONCETRATION (test code=MCHC) 31.3 gram/dL 33.0-36.0 RED CELL DISTRIBUTION WIDTH (test code=RDW) 12.6 % 11.6-16.2 RED CELL DISTRIBUTION WIDTH SD (test code=RDW-SD) 45.1 fL 37.0-51.0 PLATELET COUNT (test code=PLT) 134 K/mm3 150-450 MEAN PLATELET VOLUME (test code=MPV) 11.3 fL 6.7-11.0 IMMATURE GRANULOCYTE % (test code=IG%) 0.2 % 0.0-5.0 NUCLEATED RBC % (test code=NRBC%) 0.0 % 0-0 NEUTROPHIL # (test code=NT#) 2.62 K/mm3 1.8-7.7 IMMATURE GRANULOCYTE # (test code=IG#) 0.09 x10 3/uL 0-0.03 LYMPHOCYTE # (test code=LY#) 50.85 K/mm3 1.0-5.0 MONOCYTE # (test code=MO#) 0.25 K/mm3 0-0.8 EOSINOPHIL # (test code=EO#) 0.20 K/mm3 0.0-0.5 BASOPHIL # (test code=BA#) 0.06 K/mm3 0.0-0.2 NUCLEATED RBC # (test code=NRBC#) 0.00 K/mm3 0.0-0.1 MANUAL DIFF REQUIRED (test code=MDIFF) YES STAIN ACCEPTABILITY (test code=STN ACCEPTABLE) STAIN ACCEPTABLE TOTAL CELLS COUNTED (test code=TCC) 113 #CELLS SEGMENTED NEUTROPHILS (test code=SEG) 9.7 % 39-69 BAND NEUTROPHIL (test code=BAND) 0 % 0-10 LYMPHOCYTE (test code=LYMPH) 88.5 % 25-55 REACTIVE LYMPH (test code=RELYMPH) 0 % MONOCYTE (test code=MON) 1.8 % 0-10 EOSINOPHIL (test code=EOS) 0 % 0.0-5.0 BASOPHIL (test code=BASO) 0 % 0-1.0 METAMYELOCYTE (test code=META) 0 % 0-0 MYELOCYTE (test code=MYELO) 0 % 0.0-0.0 PROMYELOCYTE (test code=PROM) 0 % 0-0 MORPHOLOGY COMMENT (test code=MOC) NORMAL PLATELET ESTIMATE (test code=PLTEST) DECREASED PLATELET MORPHOLOGY (test code=PLTMORPH) NORMAL IMMATURE FORMS (test code=IMMAT) 0 % 0-0 CBC W/MANUAL [id number] 06:24:00* Test Item Value Reference Range Comments WHITE BLOOD CELL (test code=WBC) 54.1 K/mm3 4.5-12.5 RESULT VERIFIED BY REPEAT ANALYSISHas "Path Review" been performed on patient's currentadmission?YESIf yes, please insert path review specimen here [id number] If not, please order "Path Review" for the followingcriteria:1/ WBC count over 40,000/mm3 or below 2,000/mm32/ Platelet counts over 1,000,000/mm3, or below 10,000/mm3, or with abnormal morphology.3/ Abnormal red cell morphology or inclusions which are severe (> 3+) , widespread, or difficult to classify.4/ Abnormal white blood cell morphology: Blasts present in peripheral blood of any patient as a new finding. Abnormal cells suspected of being blasts. Patients with large numbers of immature cells in peripheral blood. Unusual cells or cells not easily classified in peripheral blood.5/ Any smear in which the technologist is uncertain of the classification or the disease. RED BLOOD CELL (test code=RBC) 3.10 mill/mm3 4.0-5.8 HEMOGLOBIN (test code=HGB) 9.6 gram/dL 13.0-17.5 HEMATOCRIT (test code=HCT) 30.7 % 42.0-52.0 MEAN CELL VOLUME (test code=MCV) 99.0 fL 80-98 MEAN CELL HGB (test code=MCH) 31.0 picogram 27.0-33.0 MEAN CELL HGB CONCETRATION (test code=MCHC) 31.3 gram/dL 33.0-36.0 RED CELL DISTRIBUTION WIDTH (test code=RDW) 12.6 % 11.6-16.2 RED CELL DISTRIBUTION WIDTH SD (test code=RDW-SD) 45.1 fL 37.0-51.0 PLATELET COUNT (test code=PLT) 134 K/mm3 150-450 MEAN PLATELET VOLUME (test code=MPV) 11.3 fL 6.7-11.0 IMMATURE GRANULOCYTE % (test code=IG%) 0.2 % 0.0-5.0 NUCLEATED RBC % (test code=NRBC%) 0.0 % 0-0 NEUTROPHIL # (test code=NT#) 2.62 K/mm3 1.8-7.7 IMMATURE GRANULOCYTE # (test code=IG#) 0.09 x10 3/uL 0-0.03 LYMPHOCYTE # (test code=LY#) 50.85 K/mm3 1.0-5.0 MONOCYTE # (test code=MO#) 0.25 K/mm3 0-0.8 EOSINOPHIL # (test code=EO#) 0.20 K/mm3 0.0-0.5 BASOPHIL # (test code=BA#) 0.06 K/mm3 0.0-0.2 NUCLEATED RBC # (test code=NRBC#) 0.00 K/mm3 0.0-0.1 MANUAL DIFF REQUIRED (test code=MDIFF) YES STAIN ACCEPTABILITY (test code=STN ACCEPTABLE) TOTAL CELLS COUNTED (test code=TCC) #CELLS SEGMENTED NEUTROPHILS (test code=SEG) % 39-69 LYMPHOCYTE (test code=LYMPH) % 25-55 MONOCYTE (test code=MON) % 0-10 EOSINOPHIL (test code=EOS) % 0.0-5.0 CABOT RINGS (test code=CAB) MORPHOLOGY COMMENT (test code=MOC) PLATELET ESTIMATE (test code=PLTEST) PLATELET MORPHOLOGY (test code=PLTMORPH) CBC W/MANUAL [id number] 06:24:00* Test Item Value Reference Range Comments WHITE BLOOD CELL (test code=WBC) 54.1 K/mm3 4.5-12.5 RESULT VERIFIED BY REPEAT ANALYSISHas "Path Review" been performed on patient's currentadmission?YESIf yes, please insert path review specimen here [id number] If not, please order "Path Review" for the followingcriteria:1/ WBC count over 40,000/mm3 or below 2,000/mm32/ Platelet counts over 1,000,000/mm3, or below 10,000/mm3, or with abnormal morphology.3/ Abnormal red cell morphology or inclusions which are severe (> 3+) , widespread, or difficult to classify.4/ Abnormal white blood cell morphology: Blasts present in peripheral blood of any patient as a new finding. Abnormal cells suspected of being blasts. Patients with large numbers of immature cells in peripheral blood. Unusual cells or cells not easily classified in peripheral blood.5/ Any smear in which the technologist is uncertain of the classification or the disease. RED BLOOD CELL (test code=RBC) 3.10 mill/mm3 4.0-5.8 HEMOGLOBIN (test code=HGB) 9.6 gram/dL 13.0-17.5 HEMATOCRIT (test code=HCT) 30.7 % 42.0-52.0 MEAN CELL VOLUME (test code=MCV) 99.0 fL 80-98 MEAN CELL HGB (test code=MCH) 31.0 picogram 27.0-33.0 MEAN CELL HGB CONCETRATION (test code=MCHC) 31.3 gram/dL 33.0-36.0 RED CELL DISTRIBUTION WIDTH (test code=RDW) 12.6 % 11.6-16.2 RED CELL DISTRIBUTION WIDTH SD (test code=RDW-SD) 45.1 fL 37.0-51.0 PLATELET COUNT (test code=PLT) 134 K/mm3 150-450 MEAN PLATELET VOLUME (test code=MPV) 11.3 fL 6.7-11.0 IMMATURE GRANULOCYTE % (test code=IG%) 0.2 % 0.0-5.0 NUCLEATED RBC % (test code=NRBC%) 0.0 % 0-0 NEUTROPHIL # (test code=NT#) 2.62 K/mm3 1.8-7.7 IMMATURE GRANULOCYTE # (test code=IG#) 0.09 x10 3/uL 0-0.03 LYMPHOCYTE # (test code=LY#) 50.85 K/mm3 1.0-5.0 MONOCYTE # (test code=MO#) 0.25 K/mm3 0-0.8 EOSINOPHIL # (test code=EO#) 0.20 K/mm3 0.0-0.5 BASOPHIL # (test code=BA#) 0.06 K/mm3 0.0-0.2 NUCLEATED RBC # (test code=NRBC#) 0.00 K/mm3 0.0-0.1 MANUAL DIFF REQUIRED (test code=MDIFF) YES STAIN ACCEPTABILITY (test code=STN ACCEPTABLE) TOTAL CELLS COUNTED (test code=TCC) #CELLS SEGMENTED NEUTROPHILS (test code=SEG) % 39-69 LYMPHOCYTE (test code=LYMPH) % 25-55 MONOCYTE (test code=MON) % 0-10 EOSINOPHIL (test code=EOS) % 0.0-5.0 CABOT RINGS (test code=CAB) MORPHOLOGY COMMENT (test code=MOC) PLATELET ESTIMATE (test code=PLTEST) PLATELET MORPHOLOGY (test code=PLTMORPH) CBC W/MANUAL [id number] 06:24:00* Test Item Value Reference Range Comments WHITE BLOOD CELL (test code=WBC) 54.1 K/mm3 4.5-12.5 RESULT VERIFIED BY REPEAT ANALYSISHas "Path Review" been performed on patient's currentadmission?YESIf yes, please insert path review specimen here [id number] If not, please order "Path Review" for the followingcriteria:1/ WBC count over 40,000/mm3 or below 2,000/mm32/ Platelet counts over 1,000,000/mm3, or below 10,000/mm3, or with abnormal morphology.3/ Abnormal red cell morphology or inclusions which are severe (> 3+) , widespread, or difficult to classify.4/ Abnormal white blood cell morphology: Blasts present in peripheral blood of any patient as a new finding. Abnormal cells suspected of being blasts. Patients with large numbers of immature cells in peripheral blood. Unusual cells or cells not easily classified in peripheral blood.5/ Any smear in which the technologist is uncertain of the classification or the disease. RED BLOOD CELL (test code=RBC) 3.10 mill/mm3 4.0-5.8 HEMOGLOBIN (test code=HGB) 9.6 gram/dL 13.0-17.5 HEMATOCRIT (test code=HCT) 30.7 % 42.0-52.0 MEAN CELL VOLUME (test code=MCV) 99.0 fL 80-98 MEAN CELL HGB (test code=MCH) 31.0 picogram 27.0-33.0 MEAN CELL HGB CONCETRATION (test code=MCHC) 31.3 gram/dL 33.0-36.0 RED CELL DISTRIBUTION WIDTH (test code=RDW) 12.6 % 11.6-16.2 RED CELL DISTRIBUTION WIDTH SD (test code=RDW-SD) 45.1 fL 37.0-51.0 PLATELET COUNT (test code=PLT) 134 K/mm3 150-450 MEAN PLATELET VOLUME (test code=MPV) 11.3 fL 6.7-11.0 IMMATURE GRANULOCYTE % (test code=IG%) 0.2 % 0.0-5.0 NUCLEATED RBC % (test code=NRBC%) 0.0 % 0-0 NEUTROPHIL # (test code=NT#) 2.62 K/mm3 1.8-7.7 IMMATURE GRANULOCYTE # (test code=IG#) 0.09 x10 3/uL 0-0.03 LYMPHOCYTE # (test code=LY#) 50.85 K/mm3 1.0-5.0 MONOCYTE # (test code=MO#) 0.25 K/mm3 0-0.8 EOSINOPHIL # (test code=EO#) 0.20 K/mm3 0.0-0.5 BASOPHIL # (test code=BA#) 0.06 K/mm3 0.0-0.2 NUCLEATED RBC # (test code=NRBC#) 0.00 K/mm3 0.0-0.1 MANUAL DIFF REQUIRED (test code=MDIFF) YES STAIN ACCEPTABILITY (test code=STN ACCEPTABLE) TOTAL CELLS COUNTED (test code=TCC) #CELLS SEGMENTED NEUTROPHILS (test code=SEG) % 39-69 LYMPHOCYTE (test code=LYMPH) % 25-55 MONOCYTE (test code=MON) % 0-10 EOSINOPHIL (test code=EOS) % 0.0-5.0 MORPHOLOGY COMMENT (test code=MOC) PLATELET ESTIMATE (test code=PLTEST) PLATELET MORPHOLOGY (test code=PLTMORPH) CBC W/MANUAL [id number] 06:24:00* Test Item Value Reference Range Comments WHITE BLOOD CELL (test code=WBC) 54.1 K/mm3 4.5-12.5 RESULT VERIFIED BY REPEAT ANALYSISHas "Path Review" been performed on patient's currentadmission?YESIf yes, please insert path review specimen here [id number] If not, please order "Path Review" for the followingcriteria:1/ WBC count over 40,000/mm3 or below 2,000/mm32/ Platelet counts over 1,000,000/mm3, or below 10,000/mm3, or with abnormal morphology.3/ Abnormal red cell morphology or inclusions which are severe (> 3+) , widespread, or difficult to classify.4/ Abnormal white blood cell morphology: Blasts present in peripheral blood of any patient as a new finding. Abnormal cells suspected of being blasts. Patients with large numbers of immature cells in peripheral blood. Unusual cells or cells not easily classified in peripheral blood.5/ Any smear in which the technologist is uncertain of the classification or the disease. RED BLOOD CELL (test code=RBC) 3.10 mill/mm3 4.0-5.8 HEMOGLOBIN (test code=HGB) 9.6 gram/dL 13.0-17.5 HEMATOCRIT (test code=HCT) 30.7 % 42.0-52.0 MEAN CELL VOLUME (test code=MCV) 99.0 fL 80-98 MEAN CELL HGB (test code=MCH) 31.0 picogram 27.0-33.0 MEAN CELL HGB CONCETRATION (test code=MCHC) 31.3 gram/dL 33.0-36.0 RED CELL DISTRIBUTION WIDTH (test code=RDW) 12.6 % 11.6-16.2 RED CELL DISTRIBUTION WIDTH SD (test code=RDW-SD) 45.1 fL 37.0-51.0 PLATELET COUNT (test code=PLT) 134 K/mm3 150-450 MEAN PLATELET VOLUME (test code=MPV) 11.3 fL 6.7-11.0 IMMATURE GRANULOCYTE % (test code=IG%) 0.2 % 0.0-5.0 NUCLEATED RBC % (test code=NRBC%) 0.0 % 0-0 NEUTROPHIL # (test code=NT#) 2.62 K/mm3 1.8-7.7 IMMATURE GRANULOCYTE # (test code=IG#) 0.09 x10 3/uL 0-0.03 LYMPHOCYTE # (test code=LY#) 50.85 K/mm3 1.0-5.0 MONOCYTE # (test code=MO#) 0.25 K/mm3 0-0.8 EOSINOPHIL # (test code=EO#) 0.20 K/mm3 0.0-0.5 BASOPHIL # (test code=BA#) 0.06 K/mm3 0.0-0.2 NUCLEATED RBC # (test code=NRBC#) 0.00 K/mm3 0.0-0.1 MANUAL DIFF REQUIRED (test code=MDIFF) YES STAIN ACCEPTABILITY (test code=STN ACCEPTABLE) TOTAL CELLS COUNTED (test code=TCC) #CELLS SEGMENTED NEUTROPHILS (test code=SEG) % 39-69 LYMPHOCYTE (test code=LYMPH) % 25-55 MONOCYTE (test code=MON) % 0-10 MORPHOLOGY COMMENT (test code=MOC) PLATELET ESTIMATE (test code=PLTEST) PLATELET MORPHOLOGY (test code=PLTMORPH) CBC W/MANUAL [id number] 06:24:00* Test Item Value Reference Range Comments WHITE BLOOD CELL (test code=WBC) 54.1 K/mm3 4.5-12.5 RESULT VERIFIED BY REPEAT ANALYSISHas "Path Review" been performed on patient's currentadmission?YESIf yes, please insert path review specimen here [id number];H291 If not, please order "Path Review" for the followingcriteria:1/ WBC count over 40,000/mm3 or below 2,000/mm32/ Platelet counts over 1,000,000/mm3, or below 10,000/mm3, or with abnormal morphology.3/ Abnormal red cell morphology or inclusions which are severe (> 3+) , widespread, or difficult to classify.4/ Abnormal white blood cell morphology: Blasts present in peripheral blood of any patient as a new finding. Abnormal cells suspected of being blasts. Patients with large numbers of immature cells in peripheral blood. Unusual cells or cells not easily classified in peripheral blood.5/ Any smear in which the technologist is uncertain of the classification or the disease. RED BLOOD CELL (test code=RBC) 3.10 mill/mm3 4.0-5.8 HEMOGLOBIN (test code=HGB) 9.6 gram/dL 13.0-17.5 HEMATOCRIT (test code=HCT) 30.7 % 42.0-52.0 MEAN CELL VOLUME (test code=MCV) 99.0 fL 80-98 MEAN CELL HGB (test code=MCH) 31.0 picogram 27.0-33.0 MEAN CELL HGB CONCETRATION (test code=MCHC) 31.3 gram/dL 33.0-36.0 RED CELL DISTRIBUTION WIDTH (test code=RDW) 12.6 % 11.6-16.2 RED CELL DISTRIBUTION WIDTH SD (test code=RDW-SD) 45.1 fL 37.0-51.0 PLATELET COUNT (test code=PLT) 134 K/mm3 150-450 MEAN PLATELET VOLUME (test code=MPV) 11.3 fL 6.7-11.0 IMMATURE GRANULOCYTE % (test code=IG%) 0.2 % 0.0-5.0 NUCLEATED RBC % (test code=NRBC%) 0.0 % 0-0 NEUTROPHIL # (test code=NT#) 2.62 K/mm3 1.8-7.7 IMMATURE GRANULOCYTE # (test code=IG#) 0.09 x10 3/uL 0-0.03 LYMPHOCYTE # (test code=LY#) 50.85 K/mm3 1.0-5.0 MONOCYTE # (test code=MO#) 0.25 K/mm3 0-0.8 EOSINOPHIL # (test code=EO#) 0.20 K/mm3 0.0-0.5 BASOPHIL # (test code=BA#) 0.06 K/mm3 0.0-0.2 NUCLEATED RBC # (test code=NRBC#) 0.00 K/mm3 0.0-0.1 MANUAL DIFF REQUIRED (test code=MDIFF) YES STAIN ACCEPTABILITY (test code=STN ACCEPTABLE) TOTAL CELLS COUNTED (test code=TCC) #CELLS SEGMENTED NEUTROPHILS (test code=SEG) % 39-69 LYMPHOCYTE (test code=LYMPH) % 25-55 MONOCYTE (test code=MON) % 0-10 EOSINOPHIL (test code=EOS) % 0.0-5.0 CABOT RINGS (test code=CAB) MORPHOLOGY COMMENT (test code=MOC) PLATELET ESTIMATE (test code=PLTEST) PLATELET MORPHOLOGY (test code=PLTMORPH) BASIC METABOLIC [id number] 06:21:00* Test Item Value Reference Range Comments SODIUM (test code=NA) 137 mmol/L 136-145 POTASSIUM (test code=K) 4.1 mmol/L 3.5-5.1 CHLORIDE (test code=CL) 105.0 mmol/L 98-107 CARBON DIOXIDE (test code=CO2) 26.0 mmol/L 21-32 ANION GAP (test code=GAP) 10.1 10-20 GLUCOSE (test code=GLU) 248 mg/dL 74-106 BLOOD UREA NITROGEN (test code=BUN) 13 mg/dL 7-18 GLOMERULAR FILTRATION RATE (test code=GFR) 54 mL/min >=60 Estimated GFR by using Modified MDRD formula.Chronic kidney disease is defined as either kidney damageor GFR <60 mL/min/1.73 m2 for >3 months. CREATININE (test code=CREAT) 1.30 mg/dL 0.7-1.3 BUN/CREATININE RATIO (test code=BUN/CREA) 10.0 10-20 CALCIUM (test code=CA) 8.3 mg/dL 8.5-10.1 BASIC METABOLIC [id number] 06:17:00* Test Item Value Reference Range Comments SODIUM (test code=NA) 137 mmol/L 136-145 POTASSIUM (test code=K) 4.1 mmol/L 3.5-5.1 CHLORIDE (test code=CL) 105.0 mmol/L 98-107 CARBON DIOXIDE (test code=CO2) mmol/L 21-32 ANION GAP (test code=GAP) 10-20 GLUCOSE (test code=GLU) mg/dL 74-106 BLOOD UREA NITROGEN (test code=BUN) mg/dL 7-18 GLOMERULAR FILTRATION RATE (test code=GFR) mL/min >=60 CREATININE (test code=CREAT) mg/dL 0.7-1.3 BUN/CREATININE RATIO (test code=BUN/CREA) 10-20 CALCIUM (test code=CA) mg/dL 8.5-10.1 [id number] 21:20:00* Test Item Value Reference Range Comments GLUBED (test code=GLUBED) 181 mg/dL 74-106 Performed by certified news wire photo operator at [facility] [id number] 21:19:00* Test Item Value Reference Range Comments GLUPITER (test code=GLUBED) 94 mg/dL 74-106 Performed by certified news wire photo operator at [facility] ALANNAH,[id number] 16:40:00 RUN DATE: 08/04/18 [place] - Lab PAGE 1 RUN TIME: 1640 Specimen Inqui ry RUN USER: INTERFACE PATIENT: MARNIEYANIQUE Monge ACCT #: [id number] LOC: EthelPROSPER U #: [id number] AGE/SX: 77/M ROOM: [facility] [id number] DR: Qamar Mooney MD : 41 BED: B DIS: STATUS: ADM IN TLOC: SPEC #: [id number] RECD: 08/03/18 STATUS: SOUT REQ #: [id number] KRISTEL: 08/02/[address] [facility] [address]: Bethanie Kee MD ENTERED: 06/13/19-1042 SP TYPE: BX DUODEN OTHR DR: Bety philip Jr,Reyes Liu MD, MD, Daniel Haryanto MD Gelber, David MD Hamer, David S MD Liu, Dongxin MDORDERED: [place]: [place] [address] [place] [address] Dane Swift,Lane Vega MD [address], [address] [place] [address] Reyes Belcher MD [address] [place] [address] Delbert Balderas MD [address] [place] [address] Sherman Reyes [address] [place] [address] Sherman Vyas MD [address] [place] [address] [place] [address] [facility], [address] [place] [address] * * CONTINUED ON NEXT PAGE RUN DATE: 08/04/18 [facility] PAGE 2 RUN TIME: 1640 Specimen Inquiry RUN USER: INTERFACE SPEC #: [id number] PATIENT: YANIQUE DYE #[id number] (Continued)-------- ---- PROCEDURES: GROSS (08/04/18-1320) TISSUES: 1. DUODENUM, NOS - BX 2. GASTRIC CORPUS - BX CLINICAL HISTORY COLLECTION DATE: 08/02 ABDOMINAL PAIN, NAUSEA AND VOMITING FINAL DIAGNOSIS Duodenu m, biopsy: DUODENAL MUCOSA, NO PATHOLOGIC ALTERATION Gastric bi opsy: REACTIVE GASTROPATHY NO INTESTINAL METAPLASIA SEEN N EGATIVE FOR HELICOBACTER PYLORI NEGATIVE FOR MALIGNANCY DMW/sm D [id number], [id number] MACROSCOPIC The first specimen is received in f ormalin, labeled with the patient's name, identified as "duodenum", and consis ts of downey biopsy tissue measuring 0.35 cm in aggregate, submitted as (1). The second specimen is received in formalin, labeled with the patient's name, identified as "gastric", and consists of pink-downey biopsy tissue measuring 0.3 cm in aggregate, submitted as (2) for H E and Giemsa stains. GROSS P ERFORMED AT [facility] [address] [place] [phone])[phone] MICROSCOPI C All of the stains, including any controls performed, stain appropriately. MICROSCOPIC PERFORMED AT [facility] CONTINUED ON NEXT PAGE RUN DATE: 08/04/18 [place] - Lab PAGE 3 RUN TIME: 1 640 Specimen Inquiry RUN USER: ALEKSEY VEGA ARELI Alonso #: [id number] PATIENT: YANIQUE DYE #[id number] (Gavin ontinued) MICROSCOPIC ([facility] [address] [place] [address] (P)[phone] PERFORMING SITE Diagnosis performed at: [facility], [place] [address] [place] [address] Signed SIGNATURE ON FILE Colette Wetzel MD 08/04/18 1640 END OF REPORT GLUBED 2018-08-04 11:47:00* Test Item Value Reference Range Comments GLUBED (test code=GLUBED) 106 mg/dL 74-106 Performed by certified news wire photo operator at [facility] [id number] 08:00:00* Test Item Value Reference Range Comments GLUBED (test code=GLUBED) 63 mg/dL 74-106 Performed by certified news wire photo operator at [facility] [id number] 20:44:00* Test Item Value Reference Range Comments GLUBED (test code=GLUBED) 98 mg/dL 74-106 Performed by certified news wire photo operator at [facility] [id number] 17:08:00* Test Item Value Reference Range Comments GLUBED (test code=GLUBED) 74 mg/dL 74-106 Performed by certified news wire photo operator at [facility] [id number] 11:35:00* Test Item Value Reference Range Comments GLUBED (test code=GLUBED) 71 mg/dL 74-106 Performed by certified news wire photo operator at [facility] [id number] 07:48:00* Test Item Value Reference Range Comments GLUBED (test code=GLUBED) 94 mg/dL 74-106 Performed by certified news wire photo operator at [facility] CBC W/MANUAL [id number] 07:08:00* Test Item Value Reference Range Comments WHITE BLOOD CELL (test code=WBC) 57.3 K/mm3 4.5-12.5 Has "Path Review" been performed on patient's currentadmission?If yes, please insert path review specimen here:07/27/2018;H291 If not, please order "Path Review" for the followingcriteria:1/ WBC count over 40,000/mm3 or below 2,000/mm32/ Platelet counts over 1,000,000/mm3, or below 10,000/mm3, or with abnormal morphology.3/ Abnormal red cell morphology or inclusions which are severe (> 3+) , wi despread, or difficult to classify.4/ Abnormal white blood cell morphology: Blasts present in peripheral blood of any patient as a new finding. Abnormal cells suspected of being blasts. Patients with large numbers of immature cells in peripheral blood. Unusual cells or cells not easily classified in peripheral blood.5/ Any smear in which the technologist is uncertain of the classification or the disease. RED BLOOD CELL (test code=RBC) 3.06 mill/mm3 4.0-5.8 HEMOGLOBIN (test code=HGB) 9.5 gram/dL 13.0-17.5 HEMATOCRIT (test code=HCT) 30.9 % 42.0-52.0 MEAN CELL VOLUME (test code=MCV) 101.0 fL 80-98 MEAN CELL HGB (test code=MCH) 31.0 picogram 27.0-33.0 MEAN CELL HGB CONCETRATION (test code=MCHC) 30.7 gram/dL 33.0-36.0 RED CELL DISTRIBUTION WIDTH (test code=RDW) 12.8 % 11.6-16.2 RED CELL DISTRIBUTION WIDTH SD (test code=RDW-SD) 46.6 fL 37.0-51.0 PLATELET COUNT (test code=PLT) 132 K/mm3 150-450 MEAN PLATELET VOLUME (test code=MPV) 11.1 fL 6.7-11.0 IMMATURE GRANULOCYTE % (test code=IG%) 0.1 % 0.0-5.0 NUCLEATED RBC % (test code=NRBC%) 0.0 % 0-0 NEUTROPHIL # (test code=NT#) 3.36 K/mm3 1.8-7.7 IMMATURE GRANULOCYTE # (test code=IG#) 0.08 x10 3/uL 0-0.03 LYMPHOCYTE # (test code=LY#) 53.30 K/mm3 1.0-5.0 MONOCYTE # (test code=MO#) 0.35 K/mm3 0-0.8 EOSINOPHIL # (test code=EO#) 0.19 K/mm3 0.0-0.5 BASOPHIL # (test code=BA#) 0.05 K/mm3 0.0-0.2 NUCLEATED RBC # (test code=NRBC#) 0.00 K/mm3 0.0-0.1 MANUAL DIFF REQUIRED (test code=MDIFF) YES STAIN ACCEPTABILITY (test code=STN ACCEPTABLE) STAIN ACCEPTABLE TOTAL CELLS COUNTED (test code=TCC) 115 #CELLS SEGMENTED NEUTROPHILS (test code=SEG) 6.1 % 39-69 BAND NEUTROPHIL (test code=BAND) 0 % 0-10 LYMPHOCYTE (test code=LYMPH) 91.3 % 25-55 REACTIVE LYMPH (test code=RELYMPH) 0 % MONOCYTE (test code=MON) 0.9 % 0-10 EOSINOPHIL (test code=EOS) 0.8 % 0.0-5.0 BASOPHIL (test code=BASO) 0 % 0-1.0 METAMYELOCYTE (test code=META) 0 % 0-0 MYELOCYTE (test code=MYELO) 0 % 0.0-0.0 PROMYELOCYTE (test code=PROM) 0 % 0-0 MORPHOLOGY COMMENT (test code=MOC) NORMAL PLATELET ESTIMATE (test code=PLTEST) DECREASED PLATELET MORPHOLOGY (test code=PLTMORPH) NORMAL IMMATURE FORMS (test code=IMMAT) 0.9 % 0-0 CBC W/MANUAL [id number] 06:55:00* Test Item Value Reference Range Comments WHITE BLOOD CELL (test code=WBC) 57.3 K/mm3 4.5-12.5 Has "Path Review" been performed on patient's currentadmission?If yes, please insert path review specimen here If not, please order "Path Review" for the followingcriteria:1/ WBC count over 40,000/mm3 or below 2,000/mm32/ Platelet counts over 1,000,000/mm3, or below 10,000/mm3, or with abnormal morphology.3/ Abnormal red cell morphology or inclusions which are severe (> 3+) , widespread, or difficult to classify.4/ Abnormal white blood cell morphology: Blasts present in peripheral blood of any patient as a new finding. Abnormal cells suspected of being blasts. Patients with large numbers of immature cells in peripheral blood. Unusual cells or cells not easily classified in peripheral blood.5/ Any smear in which the technologist is uncertain of the classification or the disease. RED BLOOD CELL (test code=RBC) 3.06 mill/mm3 4.0-5.8 HEMOGLOBIN (test code=HGB) 9.5 gram/dL 13.0-17.5 HEMATOCRIT (test code=HCT) 30.9 % 42.0-52.0 MEAN CELL VOLUME (test code=MCV) 101.0 fL 80-98 MEAN CELL HGB (test code=MCH) 31.0 picogram 27.0-33.0 MEAN CELL HGB CONCETRATION (test code=MCHC) 30.7 gram/dL 33.0-36.0 RED CELL DISTRIBUTION WIDTH (test code=RDW) 12.8 % 11.6-16.2 RED CELL DISTRIBUTION WIDTH SD (test code=RDW-SD) 46.6 fL 37.0-51.0 PLATELET COUNT (test code=PLT) 132 K/mm3 150-450 MEAN PLATELET VOLUME (test code=MPV) 11.1 fL 6.7-11.0 IMMATURE GRANULOCYTE % (test code=IG%) 0.1 % 0.0-5.0 NUCLEATED RBC % (test code=NRBC%) 0.0 % 0-0 NEUTROPHIL # (test code=NT#) 3.36 K/mm3 1.8-7.7 IMMATURE GRANULOCYTE # (test code=IG#) 0.08 x10 3/uL 0-0.03 LYMPHOCYTE # (test code=LY#) 53.30 K/mm3 1.0-5.0 MONOCYTE # (test code=MO#) 0.35 K/mm3 0-0.8 EOSINOPHIL # (test code=EO#) 0.19 K/mm3 0.0-0.5 BASOPHIL # (test code=BA#) 0.05 K/mm3 0.0-0.2 NUCLEATED RBC # (test code=NRBC#) 0.00 K/mm3 0.0-0.1 MANUAL DIFF REQUIRED (test code=MDIFF) YES STAIN ACCEPTABILITY (test code=STN ACCEPTABLE) STAIN ACCEPTABLE TOTAL CELLS COUNTED (test code=TCC) 115 #CELLS SEGMENTED NEUTROPHILS (test code=SEG) 6.1 % 39-69 BAND NEUTROPHIL (test code=BAND) 0 % 0-10 LYMPHOCYTE (test code=LYMPH) 91.3 % 25-55 REACTIVE LYMPH (test code=RELYMPH) 0 % MONOCYTE (test code=MON) 0.9 % 0-10 EOSINOPHIL (test code=EOS) 0.8 % 0.0-5.0 BASOPHIL (test code=BASO) 0 % 0-1.0 METAMYELOCYTE (test code=META) 0 % 0-0 MYELOCYTE (test code=MYELO) 0 % 0.0-0.0 PROMYELOCYTE (test code=PROM) 0 % 0-0 MORPHOLOGY COMMENT (test code=MOC) NORMAL PLATELET ESTIMATE (test code=PLTEST) DECREASED PLATELET MORPHOLOGY (test code=PLTMORPH) NORMAL IMMATURE FORMS (test code=IMMAT) 0.9 % 0-0 COMPREHENSIVE METABOLIC [id number] 06:36:00* Test Item Value Reference Range Comments SODIUM (test code=NA) 140 mmol/L 136-145 POTASSIUM (test code=K) 4.2 mmol/L 3.5-5.1 CHLORIDE (test code=CL) 107.0 mmol/L 98-107 CARBON DIOXIDE (test code=CO2) 26.0 mmol/L 21-32 ANION GAP (test code=GAP) 11.2 10-20 GLUCOSE (test code=GLU) 106 mg/dL 74-106 BLOOD UREA NITROGEN (test code=BUN) 12 mg/dL 7-18 GLOMERULAR FILTRATION RATE (test code=GFR) > 60 mL/min >=60 Estimated GFR by using Modified MDRD formula.Chronic kidney disease is defined as either kidney damageor GFR <60 mL/min/1.73 m2 for >3 months. CREATININE (test code=CREAT) 1.10 mg/dL 0.7-1.3 BUN/CREATININE RATIO (test code=BUN/CREA) 10.9 10-20 TOTAL PROTEIN (test code=PROT) 5.9 gram/dL 6.4-8.2 ALBUMIN (test code=ALB) 3.0 g/dL 3.4-5.0 GLOBULIN (test code=GLOB) 2.9 gram/dL 2.7-4.2 ALBUMIN/GLOBULIN RATIO (test code=A/G) 1.0 0.75-1.50 CALCIUM (test code=CA) 7.9 mg/dL 8.5-10.1 BILIRUBIN TOTAL (test code=BILT) 0.40 mg/dL 0.0-1.0 SGOT/AST (test code=AST) 21 IUnit/L 15-37 SGPT/ALT (test code=ALT) 22 IUnit/L 12-78 ALKALINE PHOSPHATASE TOTAL (test code=ALKP) 82 IUnit/L 45-117 Note change in reference range due to change in reagent. COMPREHENSIVE METABOLIC [id number] 06:25:00* Test Item Value Reference Range Comments SODIUM (test code=NA) 140 mmol/L 136-145 POTASSIUM (test code=K) 4.2 mmol/L 3.5-5.1 CHLORIDE (test code=CL) 107.0 mmol/L 98-107 CARBON DIOXIDE (test code=CO2) mmol/L 21-32 ANION GAP (test code=GAP) 10-20 GLUCOSE (test code=GLU) mg/dL 74-106 BLOOD UREA NITROGEN (test code=BUN) mg/dL 7-18 GLOMERULAR FILTRATION RATE (test code=GFR) mL/min >=60 CREATININE (test code=CREAT) mg/dL 0.7-1.3 BUN/CREATININE RATIO (test code=BUN/CREA) 10-20 TOTAL PROTEIN (test code=PROT) gram/dL 6.4-8.2 ALBUMIN (test code=ALB) g/dL 3.4-5.0 GLOBULIN (test code=GLOB) gram/dL 2.7-4.2 ALBUMIN/GLOBULIN RATIO (test code=A/G) 0.75-1.50 CALCIUM (test code=CA) mg/dL 8.5-10.1 BILIRUBIN TOTAL (test code=BILT) mg/dL 0.0-1.0 SGOT/AST (test code=AST) IUnit/L 15-37 SGPT/ALT (test code=ALT) IUnit/L 12-78 ALKALINE PHOSPHATASE TOTAL (test code=ALKP) IUnit/L 45-117 CBC W/MANUAL [id number] 06:19:00* Test Item Value Reference Range Comments WHITE BLOOD CELL (test code=WBC) 57.3 K/mm3 4.5-12.5 Has "Path Review" been performed on patient's currentadmission?If yes, please insert path review specimen here If not, please order "Path Review" for the followingcriteria:1/ WBC count over 40,000/mm3 or below 2,000/mm32/ Platelet counts over 1,000,000/mm3, or below 10,000/mm3, or with abnormal morphology.3/ Abnormal red cell morphology or inclusions which are severe (> 3+) , widespread, or difficult to classify.4/ Abnormal white blood cell morphology: Blasts present in peripheral blood of any patient as a new finding. Abnormal cells suspected of being blasts. Patients with large numbers of immature cells in peripheral blood. Unusual cells or cells not easily classified in peripheral blood.5/ Any smear in which the technologist is uncertain of the classification or the disease. RED BLOOD CELL (test code=RBC) 3.06 mill/mm3 4.0-5.8 HEMOGLOBIN (test code=HGB) 9.5 gram/dL 13.0-17.5 HEMATOCRIT (test code=HCT) 30.9 % 42.0-52.0 MEAN CELL VOLUME (test code=MCV) 101.0 fL 80-98 MEAN CELL HGB (test code=MCH) 31.0 picogram 27.0-33.0 MEAN CELL HGB CONCETRATION (test code=MCHC) 30.7 gram/dL 33.0-36.0 RED CELL DISTRIBUTION WIDTH (test code=RDW) 12.8 % 11.6-16.2 RED CELL DISTRIBUTION WIDTH SD (test code=RDW-SD) 46.6 fL 37.0-51.0 PLATELET COUNT (test code=PLT) 132 K/mm3 150-450 MEAN PLATELET VOLUME (test code=MPV) 11.1 fL 6.7-11.0 IMMATURE GRANULOCYTE % (test code=IG%) 0.1 % 0.0-5.0 NUCLEATED RBC % (test code=NRBC%) 0.0 % 0-0 NEUTROPHIL # (test code=NT#) 3.36 K/mm3 1.8-7.7 IMMATURE GRANULOCYTE # (test code=IG#) 0.08 x10 3/uL 0-0.03 LYMPHOCYTE # (test code=LY#) 53.30 K/mm3 1.0-5.0 MONOCYTE # (test code=MO#) 0.35 K/mm3 0-0.8 EOSINOPHIL # (test code=EO#) 0.19 K/mm3 0.0-0.5 BASOPHIL # (test code=BA#) 0.05 K/mm3 0.0-0.2 NUCLEATED RBC # (test code=NRBC#) 0.00 K/mm3 0.0-0.1 MANUAL DIFF REQUIRED (test code=MDIFF) YES STAIN ACCEPTABILITY (test code=STN ACCEPTABLE) TOTAL CELLS COUNTED (test code=TCC) #CELLS SEGMENTED NEUTROPHILS (test code=SEG) % 39-69 LYMPHOCYTE (test code=LYMPH) % 25-55 MONOCYTE (test code=MON) % 0-10 EOSINOPHIL (test code=EOS) % 0.0-5.0 CABOT RINGS (test code=CAB) MORPHOLOGY COMMENT (test code=MOC) PLATELET ESTIMATE (test code=PLTEST) PLATELET MORPHOLOGY (test code=PLTMORPH) CBC W/MANUAL [id number] 06:19:00* Test Item Value Reference Range Comments WHITE BLOOD CELL (test code=WBC) 57.3 K/mm3 4.5-12.5 Has "Path Review" been performed on patient's currentadmission?If yes, please insert path review specimen here If not, please order "Path Review" for the followingcriteria:1/ WBC count over 40,000/mm3 or below 2,000/mm32/ Platelet counts over 1,000,000/mm3, or below 10,000/mm3, or with abnormal morphology.3/ Abnormal red cell morphology or inclusions which are severe (> 3+) , widespread, or difficult to classify.4/ Abnormal white blood cell morphology: Blasts present in peripheral blood of any patient as a new finding. Abnormal cells suspected of being blasts. Patients with large numbers of immature cells in peripheral blood. Unusual cells or cells not easily classified in peripheral blood.5/ Any smear in which the technologist is uncertain of the classification or the disease. RED BLOOD CELL (test code=RBC) 3.06 mill/mm3 4.0-5.8 HEMOGLOBIN (test code=HGB) 9.5 gram/dL 13.0-17.5 HEMATOCRIT (test code=HCT) 30.9 % 42.0-52.0 MEAN CELL VOLUME (test code=MCV) 101.0 fL 80-98 MEAN CELL HGB (test code=MCH) 31.0 picogram 27.0-33.0 MEAN CELL HGB CONCETRATION (test code=MCHC) 30.7 gram/dL 33.0-36.0 RED CELL DISTRIBUTION WIDTH (test code=RDW) 12.8 % 11.6-16.2 RED CELL DISTRIBUTION WIDTH SD (test code=RDW-SD) 46.6 fL 37.0-51.0 PLATELET COUNT (test code=PLT) 132 K/mm3 150-450 MEAN PLATELET VOLUME (test code=MPV) 11.1 fL 6.7-11.0 IMMATURE GRANULOCYTE % (test code=IG%) 0.1 % 0.0-5.0 NUCLEATED RBC % (test code=NRBC%) 0.0 % 0-0 NEUTROPHIL # (test code=NT#) 3.36 K/mm3 1.8-7.7 IMMATURE GRANULOCYTE # (test code=IG#) 0.08 x10 3/uL 0-0.03 LYMPHOCYTE # (test code=LY#) 53.30 K/mm3 1.0-5.0 MONOCYTE # (test code=MO#) 0.35 K/mm3 0-0.8 EOSINOPHIL # (test code=EO#) 0.19 K/mm3 0.0-0.5 BASOPHIL # (test code=BA#) 0.05 K/mm3 0.0-0.2 NUCLEATED RBC # (test code=NRBC#) 0.00 K/mm3 0.0-0.1 MANUAL DIFF REQUIRED (test code=MDIFF) YES STAIN ACCEPTABILITY (test code=STN ACCEPTABLE) TOTAL CELLS COUNTED (test code=TCC) #CELLS SEGMENTED NEUTROPHILS (test code=SEG) % 39-69 LYMPHOCYTE (test code=LYMPH) % 25-55 MONOCYTE (test code=MON) % 0-10 EOSINOPHIL (test code=EOS) % 0.0-5.0 CABOT RINGS (test code=CAB) MORPHOLOGY COMMENT (test code=MOC) PLATELET ESTIMATE (test code=PLTEST) PLATELET MORPHOLOGY (test code=PLTMORPH) CBC W/MANUAL [id number] 06:19:00* Test Item Value Reference Range Comments WHITE BLOOD CELL (test code=WBC) 57.3 K/mm3 4.5-12.5 Has "Path Review" been performed on patient's currentadmission?If yes, please insert path review specimen here If not, please order "Path Review" for the followingcriteria:1/ WBC count over 40,000/mm3 or below 2,000/mm32/ Platelet counts over 1,000,000/mm3, or below 10,000/mm3, or with abnormal morphology.3/ Abnormal red cell morphology or inclusions which are severe (> 3+) , widespread, or difficult to classify.4/ Abnormal white blood cell morphology: Blasts present in peripheral blood of any patient as a new finding. Abnormal cells suspected of being blasts. Patients with large numbers of immature cells in peripheral blood. Unusual cells or cells not easily classified in peripheral blood.5/ Any smear in which the technologist is uncertain of the classification or the disease. RED BLOOD CELL (test code=RBC) 3.06 mill/mm3 4.0-5.8 HEMOGLOBIN (test code=HGB) 9.5 gram/dL 13.0-17.5 HEMATOCRIT (test code=HCT) 30.9 % 42.0-52.0 MEAN CELL VOLUME (test code=MCV) 101.0 fL 80-98 MEAN CELL HGB (test code=MCH) 31.0 picogram 27.0-33.0 MEAN CELL HGB CONCETRATION (test code=MCHC) 30.7 gram/dL 33.0-36.0 RED CELL DISTRIBUTION WIDTH (test code=RDW) 12.8 % 11.6-16.2 RED CELL DISTRIBUTION WIDTH SD (test code=RDW-SD) 46.6 fL 37.0-51.0 PLATELET COUNT (test code=PLT) 132 K/mm3 150-450 MEAN PLATELET VOLUME (test code=MPV) 11.1 fL 6.7-11.0 IMMATURE GRANULOCYTE % (test code=IG%) 0.1 % 0.0-5.0 NUCLEATED RBC % (test code=NRBC%) 0.0 % 0-0 NEUTROPHIL # (test code=NT#) 3.36 K/mm3 1.8-7.7 IMMATURE GRANULOCYTE # (test code=IG#) 0.08 x10 3/uL 0-0.03 LYMPHOCYTE # (test code=LY#) 53.30 K/mm3 1.0-5.0 MONOCYTE # (test code=MO#) 0.35 K/mm3 0-0.8 EOSINOPHIL # (test code=EO#) 0.19 K/mm3 0.0-0.5 BASOPHIL # (test code=BA#) 0.05 K/mm3 0.0-0.2 NUCLEATED RBC # (test code=NRBC#) 0.00 K/mm3 0.0-0.1 MANUAL DIFF REQUIRED (test code=MDIFF) YES STAIN ACCEPTABILITY (test code=STN ACCEPTABLE) TOTAL CELLS COUNTED (test code=TCC) #CELLS SEGMENTED NEUTROPHILS (test code=SEG) % 39-69 LYMPHOCYTE (test code=LYMPH) % 25-55 MONOCYTE (test code=MON) % 0-10 EOSINOPHIL (test code=EOS) % 0.0-5.0 MORPHOLOGY COMMENT (test code=MOC) PLATELET ESTIMATE (test code=PLTEST) PLATELET MORPHOLOGY (test code=PLTMORPH) CBC W/MANUAL [id number] 06:19:00* Test Item Value Reference Range Comments WHITE BLOOD CELL (test code=WBC) 57.3 K/mm3 4.5-12.5 Has "Path Review" been performed on patient's currentadmission?If yes, please insert path review specimen here If not, please order "Path Review" for the followingcriteria:1/ WBC count over 40,000/mm3 or below 2,000/mm32/ Platelet counts over 1,000,000/mm3, or below 10,000/mm3, or with abnormal morphology.3/ Abnormal red cell morphology or inclusions which are severe (> 3+) , widespread, or difficult to classify.4/ Abnormal white blood cell morphology: Blasts present in peripheral blood of any patient as a new finding. Abnormal cells suspected of being blasts. Patients with large numbers of immature cells in peripheral blood. Unusual cells or cells not easily classified in peripheral blood.5/ Any smear in which the technologist is uncertain of the classification or the disease. RED BLOOD CELL (test code=RBC) 3.06 mill/mm3 4.0-5.8 HEMOGLOBIN (test code=HGB) 9.5 gram/dL 13.0-17.5 HEMATOCRIT (test code=HCT) 30.9 % 42.0-52.0 MEAN CELL VOLUME (test code=MCV) 101.0 fL 80-98 MEAN CELL HGB (test code=MCH) 31.0 picogram 27.0-33.0 MEAN CELL HGB CONCETRATION (test code=MCHC) 30.7 gram/dL 33.0-36.0 RED CELL DISTRIBUTION WIDTH (test code=RDW) 12.8 % 11.6-16.2 RED CELL DISTRIBUTION WIDTH SD (test code=RDW-SD) 46.6 fL 37.0-51.0 PLATELET COUNT (test code=PLT) 132 K/mm3 150-450 MEAN PLATELET VOLUME (test code=MPV) 11.1 fL 6.7-11.0 IMMATURE GRANULOCYTE % (test code=IG%) 0.1 % 0.0-5.0 NUCLEATED RBC % (test code=NRBC%) 0.0 % 0-0 NEUTROPHIL # (test code=NT#) 3.36 K/mm3 1.8-7.7 IMMATURE GRANULOCYTE # (test code=IG#) 0.08 x10 3/uL 0-0.03 LYMPHOCYTE # (test code=LY#) 53.30 K/mm3 1.0-5.0 MONOCYTE # (test code=MO#) 0.35 K/mm3 0-0.8 EOSINOPHIL # (test code=EO#) 0.19 K/mm3 0.0-0.5 BASOPHIL # (test code=BA#) 0.05 K/mm3 0.0-0.2 NUCLEATED RBC # (test code=NRBC#) 0.00 K/mm3 0.0-0.1 MANUAL DIFF REQUIRED (test code=MDIFF) YES STAIN ACCEPTABILITY (test code=STN ACCEPTABLE) TOTAL CELLS COUNTED (test code=TCC) #CELLS SEGMENTED NEUTROPHILS (test code=SEG) % 39-69 LYMPHOCYTE (test code=LYMPH) % 25-55 MONOCYTE (test code=MON) % 0-10 MORPHOLOGY COMMENT (test code=MOC) PLATELET ESTIMATE (test code=PLTEST) PLATELET MORPHOLOGY (test code=PLTMORPH) CBC W/MANUAL [id number] 06:19:00* Test Item Value Reference Range Comments WHITE BLOOD CELL (test code=WBC) 57.3 K/mm3 4.5-12.5 Has "Path Review" been performed on patient's currentadmission?If yes, please insert path review specimen here If not, please order "Path Review" for the followingcriteria:1/ WBC count over 40,000/mm3 or below 2,000/mm32/ Platelet counts over 1,000,000/mm3, or below 10,000/mm3, or with abnormal morphology.3/ Abnormal red cell morphology or inclusions which are severe (> 3+) , widespread, or difficult to classify.4/ Abnormal white blood cell morphology: Blasts present in peripheral blood of any patient as a new finding. Abnormal cells suspected of being blasts. Patients with large numbers of immature cells in peripheral blood. Unusual cells or cells not easily classified in peripheral blood.5/ Any smear in which the technologist is uncertain of the classification or the disease. RED BLOOD CELL (test code=RBC) 3.06 mill/mm3 4.0-5.8 HEMOGLOBIN (test code=HGB) 9.5 gram/dL 13.0-17.5 HEMATOCRIT (test code=HCT) 30.9 % 42.0-52.0 MEAN CELL VOLUME (test code=MCV) 101.0 fL 80-98 MEAN CELL HGB (test code=MCH) 31.0 picogram 27.0-33.0 MEAN CELL HGB CONCETRATION (test code=MCHC) 30.7 gram/dL 33.0-36.0 RED CELL DISTRIBUTION WIDTH (test code=RDW) 12.8 % 11.6-16.2 RED CELL DISTRIBUTION WIDTH SD (test code=RDW-SD) 46.6 fL 37.0-51.0 PLATELET COUNT (test code=PLT) 132 K/mm3 150-450 MEAN PLATELET VOLUME (test code=MPV) 11.1 fL 6.7-11.0 IMMATURE GRANULOCYTE % (test code=IG%) 0.1 % 0.0-5.0 NUCLEATED RBC % (test code=NRBC%) 0.0 % 0-0 NEUTROPHIL # (test code=NT#) 3.36 K/mm3 1.8-7.7 IMMATURE GRANULOCYTE # (test code=IG#) 0.08 x10 3/uL 0-0.03 LYMPHOCYTE # (test code=LY#) 53.30 K/mm3 1.0-5.0 MONOCYTE # (test code=MO#) 0.35 K/mm3 0-0.8 EOSINOPHIL # (test code=EO#) 0.19 K/mm3 0.0-0.5 BASOPHIL # (test code=BA#) 0.05 K/mm3 0.0-0.2 NUCLEATED RBC # (test code=NRBC#) 0.00 K/mm3 0.0-0.1 MANUAL DIFF REQUIRED (test code=MDIFF) YES STAIN ACCEPTABILITY (test code=STN ACCEPTABLE) TOTAL CELLS COUNTED (test code=TCC) #CELLS SEGMENTED NEUTROPHILS (test code=SEG) % 39-69 LYMPHOCYTE (test code=LYMPH) % 25-55 MONOCYTE (test code=MON) % 0-10 EOSINOPHIL (test code=EOS) % 0.0-5.0 CABOT RINGS (test code=CAB) MORPHOLOGY COMMENT (test code=MOC) PLATELET ESTIMATE (test code=PLTEST) PLATELET MORPHOLOGY (test code=PLTMORPH) [id number] 20:28:00* Test Item Value Reference Range Comments GLUBED (test code=GLUBED) 144 mg/dL 74-106 Performed by certified news wire photo operator at [facility] - CT ABD PELVIS W/O [id number] 16:25:00 Name: YANIQUE DYE [facility] : 1940 Age/S: 77 / M [address] Unit #: [id number] Loc: [place] [address] Phys: Ann Yeh Acct: [id number] Dis Date: Status: ADM IN PHONE #: [phone] Exam Date: 08/02/2018 1611 FAX #: [phone] Reason: ABD PAIN, POSSIBLE TOXIC MEGACOLON? EXAMS: CPT CODE: [id number] CT ABD PELVIS W/O CONT 95217 REASON FOR EXAM: ABD PAIN, POSSIBLE TOXIC MEGACOLON? EXAM ORDER DATE: 08/02/2018 11:01 AM Ordering MGodwin: PATI Nash PROCEDURE: - CT ABD PELVIS W/O CONT COMPARISON: 07/29/2018 FINDINGS: CT images of the abdomen and pelvis were obtained without IV and with oral contrast at 5mm. Dose modulation, iterative reconstruction, and/or weight based adjustment of the MA/KV was utilized to reduce the radiation dose to as low as reasonably achievable. The pancreas is grossly within normal limits. The liver is nodular in appearance suggestive of cirrhosis. The spleen is slightly enlarged measuring 13 cm The patient is status post cholecystectomy The kidneys are within norm al limits. The urinary bladder is severely distended The sm all bowel and stomach are within normal limits without evidence of obstruc tion. The appendix is not seen. Previously distended stomach has resolve d. No evidence of free air or free fluid. IMPRESSI ON: Diffuse gaseous distention of the transverse colon with largest diam eter measuring 10 cm. Fluid filled slightly distended cecum with a diam eter of 8.5 cm. The wall of the colon is not inflamed or thickened. No evidence of pneumatosis. At this point, findings are not consistent wi th toxic megacolon. Severe enlargement of the urinary bladder. Recomme nd placement of Maldonado catheter and short interval follow-up. at 1625 Reported and signed by: Scott Domniguez M.D. PAGE 1 Signed Report (CONTINUED) Name: YANIQUE DYE [facility] : 1940 Age/S: 77 / M [address] Unit #: [id number] Loc: N[place]varez [address] Phys: Ann Yeh Acct: [id number] Dis Date: Status: ADM IN PHONE #: [phone] Exam Date: 08/02/2018 1611 FAX #: [phone] Reason: ABD PAIN, POSSIBLE TOXIC MEGACOLON? EXAMS: CPT CODE: [id number] CT ABD PELVIS W/O CONT 72651 <Continued> CC: Lane Vela Jr, MD; Reyes Belcher; Ann Yeh James Le Thanh Technologist:Johnna Rosales CTDI: DLP: Trnscb Date/Time: 08/02/2018 (988) t.SDR.VTL Orig Print D/T: S: 08/02/2018 (6880) PAGE 2 Signed Report [id number] 16:14:00* Test Item Value Reference Range Comments GLUBED (test code=GLUBED) 136 mg/dL 74-106 Performed by certified news wire photo operator at [facility] [id number] 11:51:00* Test Item Value Reference Range Comments GLUBED (test code=GLUBED) 159 mg/dL 74-106 Performed by certified news wire photo operator at [facility] [id number] 07:47:00* Test Item Value Reference Range Comments GLUBED (test code=GLUBED) 159 mg/dL 74-106 Performed by certified news wire photo operator at [facility] [id number] 21:24:00* Test Item Value Reference Range Comments GLUBED (test code=GLUBED) 215 mg/dL 74-106 Performed by certified news wire photo operator at [facility] [id number] 16:33:00* Test Item Value Reference Range Comments GLUBED (test code=GLUBED) 71 mg/dL 74-106 Performed by certified news wire photo operator at [facility] - XR ABDOMEN AP 1 [id number] 14:21:00 FAX: Lane Corbin Jr [phone] [place]: B St: ADM FAX: Reyes Hobson [phone] FAX: Ann Yeh [phone] FAX: Qamar Mooney [phone] Name: ROGELIO DYE [facility] : 1940 Age/S: 77/M [address] Unit #: [id number] Loc: V.3 [address] [place] [address] Phys: Ann Yeh Acct: [id number] Dis Date: Status: ADM IN PHONE #: [phone] Exam D ate: 08/01/2018 1340 FAX #: [phone] Reason: I LEUS - CHECK STATUS EXAMS: CPT CODE: [id number] XR ABDOMEN AP 1 V 19074 HISTORY: Ileus COMPARISON: Pre vious day. Worsening distention of the transverse colon. This coul d represent toxic megacolon. Mild distention of the small bowel. The pelvi s is incompletely included. Patient is post cholecystectomy. IMPRESSION: Worsening transverse colonic distention with st ool and air which could represent toxic megacolon. Mild small bowel dist ention noted as well. at 1421 Reported and signed by: Varinder De Oliveira M.D. CC: Lane Vela Jr, MD; Reyes Belcher; Ann Yeh James Le Thanh Technologist: RT NNEKA(R) T rnscrd Date/Time/By: 08/01/2018 (1421) : By: [email or web address] Orig Print D/T: S: 08/01/2018 (5050) PAGE 1 Sign ed Report [id number] 11:43:00* Test Item Value Reference Range Comments GLUBED (test code=GLUBED) 220 mg/dL 74-106 Performed by certified news wire photo operator at [facility] [id number] 07:51:00* Test Item Value Reference Range Comments GLUBED (test code=GLUBED) 214 mg/dL 74-106 Performed by certified news wire photo operator at [facility] CBC W/MANUAL [id number] 07:01:00* Test Item Value Reference Range Comments WHITE BLOOD CELL (test code=WBC) 59.8 K/mm3 4.5-12.5 Has "Path Review" been performed on patient's currentadmission?If yes, please insert path review specimen here If not, please order "Path Review" for the followingcriteria:1/ WBC count over 40,000/mm3 or below 2,000/mm32/ Platelet counts over 1,000,000/mm3, or below 10,000/mm3, or with abnormal morphology.3/ Abnormal red cell morphology or inclusions which are severe (> 3+) , widespread, or difficult to classify.4/ Abnormal white blood cell morphology: Blasts present in peripheral blood of any patient as a new finding. Abnormal cells suspected of being blasts. Patients with large numbers of immature cells in peripheral blood. Unusual cells or cells not easily classified in peripheral blood.5/ Any smear in which the technologist is uncertain of the classification or the disease. RED BLOOD CELL (test code=RBC) 3.19 mill/mm3 4.0-5.8 HEMOGLOBIN (test code=HGB) 10.2 gram/dL 13.0-17.5 HEMATOCRIT (test code=HCT) 33.6 % 42.0-52.0 MEAN CELL VOLUME (test code=MCV) 105.3 fL 80-98 MEAN CELL HGB (test code=MCH) 32.0 picogram 27.0-33.0 MEAN CELL HGB CONCETRATION (test code=MCHC) 30.4 gram/dL 33.0-36.0 RED CELL DISTRIBUTION WIDTH (test code=RDW) 13.2 % 11.6-16.2 RED CELL DISTRIBUTION WIDTH SD (test code=RDW-SD) 50.6 fL 37.0-51.0 PLATELET COUNT (test code=PLT) 138 K/mm3 150-450 MEAN PLATELET VOLUME (test code=MPV) 10.8 fL 6.7-11.0 IMMATURE GRANULOCYTE % (test code=IG%) 0.1 % 0.0-5.0 NUCLEATED RBC % (test code=NRBC%) 0.0 % 0-0 NEUTROPHIL # (test code=NT#) 3.54 K/mm3 1.8-7.7 IMMATURE GRANULOCYTE # (test code=IG#) 0.08 x10 3/uL 0-0.03 LYMPHOCYTE # (test code=LY#) 55.56 K/mm3 1.0-5.0 MONOCYTE # (test code=MO#) 0.35 K/mm3 0-0.8 EOSINOPHIL # (test code=EO#) 0.23 K/mm3 0.0-0.5 BASOPHIL # (test code=BA#) 0.04 K/mm3 0.0-0.2 NUCLEATED RBC # (test code=NRBC#) 0.00 K/mm3 0.0-0.1 MANUAL DIFF REQUIRED (test code=MDIFF) YES STAIN ACCEPTABILITY (test code=STN ACCEPTABLE) STAIN ACCEPTABLE TOTAL CELLS COUNTED (test code=TCC) 111 #CELLS SEGMENTED NEUTROPHILS (test code=SEG) 4.5 % 39-69 BAND NEUTROPHIL (test code=BAND) 0 % 0-10 LYMPHOCYTE (test code=LYMPH) 92.8 % 25-55 REACTIVE LYMPH (test code=RELYMPH) 0 % MONOCYTE (test code=MON) 2.7 % 0-10 EOSINOPHIL (test code=EOS) 0 % 0.0-5.0 BASOPHIL (test code=BASO) 0 % 0-1.0 METAMYELOCYTE (test code=META) 0 % 0-0 MYELOCYTE (test code=MYELO) 0 % 0.0-0.0 PROMYELOCYTE (test code=PROM) 0 % 0-0 PLATELET ESTIMATE (test code=PLTEST) DECREASED PLATELET MORPHOLOGY (test code=PLTMORPH) NORMAL IMMATURE FORMS (test code=IMMAT) 0 % 0-0 CBC W/MANUAL [id number] 05:19:00* Test Item Value Reference Range Comments WHITE BLOOD CELL (test code=WBC) 59.8 K/mm3 4.5-12.5 Has "Path Review" been performed on patient's currentadmission?If yes, please insert path review specimen here If not, please order "Path Review" for the followingcriteria:1/ WBC count over 40,000/mm3 or below 2,000/mm32/ Platelet counts over 1,000,000/mm3, or below 10,000/mm3, or with abnormal morphology.3/ Abnormal red cell morphology or inclusions which are severe (> 3+) , widespread, or difficult to classify.4/ Abnormal white blood cell morphology: Blasts present in peripheral blood of any patient as a new finding. Abnormal cells suspected of being blasts. Patients with large numbers of immature cells in peripheral blood. Unusual cells or cells not easily classified in peripheral blood.5/ Any smear in which the technologist is uncertain of the classification or the disease. RED BLOOD CELL (test code=RBC) 3.19 mill/mm3 4.0-5.8 HEMOGLOBIN (test code=HGB) 10.2 gram/dL 13.0-17.5 HEMATOCRIT (test code=HCT) 33.6 % 42.0-52.0 MEAN CELL VOLUME (test code=MCV) 105.3 fL 80-98 MEAN CELL HGB (test code=MCH) 32.0 picogram 27.0-33.0 MEAN CELL HGB CONCETRATION (test code=MCHC) 30.4 gram/dL 33.0-36.0 RED CELL DISTRIBUTION WIDTH (test code=RDW) 13.2 % 11.6-16.2 RED CELL DISTRIBUTION WIDTH SD (test code=RDW-SD) 50.6 fL 37.0-51.0 PLATELET COUNT (test code=PLT) 138 K/mm3 150-450 MEAN PLATELET VOLUME (test code=MPV) 10.8 fL 6.7-11.0 IMMATURE GRANULOCYTE % (test code=IG%) 0.1 % 0.0-5.0 NUCLEATED RBC % (test code=NRBC%) 0.0 % 0-0 NEUTROPHIL # (test code=NT#) 3.54 K/mm3 1.8-7.7 IMMATURE GRANULOCYTE # (test code=IG#) 0.08 x10 3/uL 0-0.03 LYMPHOCYTE # (test code=LY#) 55.56 K/mm3 1.0-5.0 MONOCYTE # (test code=MO#) 0.35 K/mm3 0-0.8 EOSINOPHIL # (test code=EO#) 0.23 K/mm3 0.0-0.5 BASOPHIL # (test code=BA#) 0.04 K/mm3 0.0-0.2 NUCLEATED RBC # (test code=NRBC#) 0.00 K/mm3 0.0-0.1 MANUAL DIFF REQUIRED (test code=MDIFF) YES STAIN ACCEPTABILITY (test code=STN ACCEPTABLE) TOTAL CELLS COUNTED (test code=TCC) #CELLS SEGMENTED NEUTROPHILS (test code=SEG) % 39-69 LYMPHOCYTE (test code=LYMPH) % 25-55 MONOCYTE (test code=MON) % 0-10 EOSINOPHIL (test code=EOS) % 0.0-5.0 CABOT RINGS (test code=CAB) MORPHOLOGY COMMENT (test code=MOC) PLATELET ESTIMATE (test code=PLTEST) PLATELET MORPHOLOGY (test code=PLTMORPH) CBC W/MANUAL [id number] 05:19:00* Test Item Value Reference Range Comments WHITE BLOOD CELL (test code=WBC) 59.8 K/mm3 4.5-12.5 Has "Path Review" been performed on patient's currentadmission?If yes, please insert path review specimen here If not, please order "Path Review" for the followingcriteria:1/ WBC count over 40,000/mm3 or below 2,000/mm32/ Platelet counts over 1,000,000/mm3, or below 10,000/mm3, or with abnormal morphology.3/ Abnormal red cell morphology or inclusions which are severe (> 3+) , widespread, or difficult to classify.4/ Abnormal white blood cell morphology: Blasts present in peripheral blood of any patient as a new finding. Abnormal cells suspected of being blasts. Patients with large numbers of immature cells in peripheral blood. Unusual cells or cells not easily classified in peripheral blood.5/ Any smear in which the technologist is uncertain of the classification or the disease. RED BLOOD CELL (test code=RBC) 3.19 mill/mm3 4.0-5.8 HEMOGLOBIN (test code=HGB) 10.2 gram/dL 13.0-17.5 HEMATOCRIT (test code=HCT) 33.6 % 42.0-52.0 MEAN CELL VOLUME (test code=MCV) 105.3 fL 80-98 MEAN CELL HGB (test code=MCH) 32.0 picogram 27.0-33.0 MEAN CELL HGB CONCETRATION (test code=MCHC) 30.4 gram/dL 33.0-36.0 RED CELL DISTRIBUTION WIDTH (test code=RDW) 13.2 % 11.6-16.2 RED CELL DISTRIBUTION WIDTH SD (test code=RDW-SD) 50.6 fL 37.0-51.0 PLATELET COUNT (test code=PLT) 138 K/mm3 150-450 MEAN PLATELET VOLUME (test code=MPV) 10.8 fL 6.7-11.0 IMMATURE GRANULOCYTE % (test code=IG%) 0.1 % 0.0-5.0 NUCLEATED RBC % (test code=NRBC%) 0.0 % 0-0 NEUTROPHIL # (test code=NT#) 3.54 K/mm3 1.8-7.7 IMMATURE GRANULOCYTE # (test code=IG#) 0.08 x10 3/uL 0-0.03 LYMPHOCYTE # (test code=LY#) 55.56 K/mm3 1.0-5.0 MONOCYTE # (test code=MO#) 0.35 K/mm3 0-0.8 EOSINOPHIL # (test code=EO#) 0.23 K/mm3 0.0-0.5 BASOPHIL # (test code=BA#) 0.04 K/mm3 0.0-0.2 NUCLEATED RBC # (test code=NRBC#) 0.00 K/mm3 0.0-0.1 MANUAL DIFF REQUIRED (test code=MDIFF) YES STAIN ACCEPTABILITY (test code=STN ACCEPTABLE) TOTAL CELLS COUNTED (test code=TCC) #CELLS SEGMENTED NEUTROPHILS (test code=SEG) % 39-69 LYMPHOCYTE (test code=LYMPH) % 25-55 MONOCYTE (test code=MON) % 0-10 EOSINOPHIL (test code=EOS) % 0.0-5.0 CABOT RINGS (test code=CAB) MORPHOLOGY COMMENT (test code=MOC) PLATELET ESTIMATE (test code=PLTEST) PLATELET MORPHOLOGY (test code=PLTMORPH) CBC W/MANUAL [id number] 05:19:00* Test Item Value Reference Range Comments WHITE BLOOD CELL (test code=WBC) 59.8 K/mm3 4.5-12.5 Has "Path Review" been performed on patient's currentadmission?If yes, please insert path review specimen here If not, please order "Path Review" for the followingcriteria:1/ WBC count over 40,000/mm3 or below 2,000/mm32/ Platelet counts over 1,000,000/mm3, or below 10,000/mm3, or with abnormal morphology.3/ Abnormal red cell morphology or inclusions which are severe (> 3+) , widespread, or difficult to classify.4/ Abnormal white blood cell morphology: Blasts present in peripheral blood of any patient as a new finding. Abnormal cells suspected of being blasts. Patients with large numbers of immature cells in peripheral blood. Unusual cells or cells not easily classified in peripheral blood.5/ Any smear in which the technologist is uncertain of the classification or the disease. RED BLOOD CELL (test code=RBC) 3.19 mill/mm3 4.0-5.8 HEMOGLOBIN (test code=HGB) 10.2 gram/dL 13.0-17.5 HEMATOCRIT (test code=HCT) 33.6 % 42.0-52.0 MEAN CELL VOLUME (test code=MCV) 105.3 fL 80-98 MEAN CELL HGB (test code=MCH) 32.0 picogram 27.0-33.0 MEAN CELL HGB CONCETRATION (test code=MCHC) 30.4 gram/dL 33.0-36.0 RED CELL DISTRIBUTION WIDTH (test code=RDW) 13.2 % 11.6-16.2 RED CELL DISTRIBUTION WIDTH SD (test code=RDW-SD) 50.6 fL 37.0-51.0 PLATELET COUNT (test code=PLT) 138 K/mm3 150-450 MEAN PLATELET VOLUME (test code=MPV) 10.8 fL 6.7-11.0 IMMATURE GRANULOCYTE % (test code=IG%) 0.1 % 0.0-5.0 NUCLEATED RBC % (test code=NRBC%) 0.0 % 0-0 NEUTROPHIL # (test code=NT#) 3.54 K/mm3 1.8-7.7 IMMATURE GRANULOCYTE # (test code=IG#) 0.08 x10 3/uL 0-0.03 LYMPHOCYTE # (test code=LY#) 55.56 K/mm3 1.0-5.0 MONOCYTE # (test code=MO#) 0.35 K/mm3 0-0.8 EOSINOPHIL # (test code=EO#) 0.23 K/mm3 0.0-0.5 BASOPHIL # (test code=BA#) 0.04 K/mm3 0.0-0.2 NUCLEATED RBC # (test code=NRBC#) 0.00 K/mm3 0.0-0.1 MANUAL DIFF REQUIRED (test code=MDIFF) YES STAIN ACCEPTABILITY (test code=STN ACCEPTABLE) TOTAL CELLS COUNTED (test code=TCC) #CELLS SEGMENTED NEUTROPHILS (test code=SEG) % 39-69 LYMPHOCYTE (test code=LYMPH) % 25-55 MONOCYTE (test code=MON) % 0-10 EOSINOPHIL (test code=EOS) % 0.0-5.0 MORPHOLOGY COMMENT (test code=MOC) PLATELET ESTIMATE (test code=PLTEST) PLATELET MORPHOLOGY (test code=PLTMORPH) CBC W/MANUAL [id number] 05:19:00* Test Item Value Reference Range Comments WHITE BLOOD CELL (test code=WBC) 59.8 K/mm3 4.5-12.5 Has "Path Review" been performed on patient's currentadmission?If yes, please insert path review specimen here If not, please order "Path Review" for the followingcriteria:1/ WBC count over 40,000/mm3 or below 2,000/mm32/ Platelet counts over 1,000,000/mm3, or below 10,000/mm3, or with abnormal morphology.3/ Abnormal red cell morphology or inclusions which are severe (> 3+) , widespread, or difficult to classify.4/ Abnormal white blood cell morphology: Blasts present in peripheral blood of any patient as a new finding. Abnormal cells suspected of being blasts. Patients with large numbers of immature cells in peripheral blood. Unusual cells or cells not easily classified in peripheral blood.5/ Any smear in which the technologist is uncertain of the classification or the disease. RED BLOOD CELL (test code=RBC) 3.19 mill/mm3 4.0-5.8 HEMOGLOBIN (test code=HGB) 10.2 gram/dL 13.0-17.5 HEMATOCRIT (test code=HCT) 33.6 % 42.0-52.0 MEAN CELL VOLUME (test code=MCV) 105.3 fL 80-98 MEAN CELL HGB (test code=MCH) 32.0 picogram 27.0-33.0 MEAN CELL HGB CONCETRATION (test code=MCHC) 30.4 gram/dL 33.0-36.0 RED CELL DISTRIBUTION WIDTH (test code=RDW) 13.2 % 11.6-16.2 RED CELL DISTRIBUTION WIDTH SD (test code=RDW-SD) 50.6 fL 37.0-51.0 PLATELET COUNT (test code=PLT) 138 K/mm3 150-450 MEAN PLATELET VOLUME (test code=MPV) 10.8 fL 6.7-11.0 IMMATURE GRANULOCYTE % (test code=IG%) 0.1 % 0.0-5.0 NUCLEATED RBC % (test code=NRBC%) 0.0 % 0-0 NEUTROPHIL # (test code=NT#) 3.54 K/mm3 1.8-7.7 IMMATURE GRANULOCYTE # (test code=IG#) 0.08 x10 3/uL 0-0.03 LYMPHOCYTE # (test code=LY#) 55.56 K/mm3 1.0-5.0 MONOCYTE # (test code=MO#) 0.35 K/mm3 0-0.8 EOSINOPHIL # (test code=EO#) 0.23 K/mm3 0.0-0.5 BASOPHIL # (test code=BA#) 0.04 K/mm3 0.0-0.2 NUCLEATED RBC # (test code=NRBC#) 0.00 K/mm3 0.0-0.1 MANUAL DIFF REQUIRED (test code=MDIFF) YES STAIN ACCEPTABILITY (test code=STN ACCEPTABLE) TOTAL CELLS COUNTED (test code=TCC) #CELLS SEGMENTED NEUTROPHILS (test code=SEG) % 39-69 LYMPHOCYTE (test code=LYMPH) % 25-55 MONOCYTE (test code=MON) % 0-10 MORPHOLOGY COMMENT (test code=MOC) PLATELET ESTIMATE (test code=PLTEST) PLATELET MORPHOLOGY (test code=PLTMORPH) CBC W/MANUAL [id number] 05:19:00* Test Item Value Reference Range Comments WHITE BLOOD CELL (test code=WBC) 59.8 K/mm3 4.5-12.5 Has "Path Review" been performed on patient's currentadmission?If yes, please insert path review specimen here If not, please order "Path Review" for the followingcriteria:1/ WBC count over 40,000/mm3 or below 2,000/mm32/ Platelet counts over 1,000,000/mm3, or below 10,000/mm3, or with abnormal morphology.3/ Abnormal red cell morphology or inclusions which are severe (> 3+) , widespread, or difficult to classify.4/ Abnormal white blood cell morphology: Blasts present in peripheral blood of any patient as a new finding. Abnormal cells suspected of being blasts. Patients with large numbers of immature cells in peripheral blood. Unusual cells or cells not easily classified in peripheral blood.5/ Any smear in which the technologist is uncertain of the classification or the disease. RED BLOOD CELL (test code=RBC) 3.19 mill/mm3 4.0-5.8 HEMOGLOBIN (test code=HGB) 10.2 gram/dL 13.0-17.5 HEMATOCRIT (test code=HCT) 33.6 % 42.0-52.0 MEAN CELL VOLUME (test code=MCV) 105.3 fL 80-98 MEAN CELL HGB (test code=MCH) 32.0 picogram 27.0-33.0 MEAN CELL HGB CONCETRATION (test code=MCHC) 30.4 gram/dL 33.0-36.0 RED CELL DISTRIBUTION WIDTH (test code=RDW) 13.2 % 11.6-16.2 RED CELL DISTRIBUTION WIDTH SD (test code=RDW-SD) 50.6 fL 37.0-51.0 PLATELET COUNT (test code=PLT) 138 K/mm3 150-450 MEAN PLATELET VOLUME (test code=MPV) 10.8 fL 6.7-11.0 IMMATURE GRANULOCYTE % (test code=IG%) 0.1 % 0.0-5.0 NUCLEATED RBC % (test code=NRBC%) 0.0 % 0-0 NEUTROPHIL # (test code=NT#) 3.54 K/mm3 1.8-7.7 IMMATURE GRANULOCYTE # (test code=IG#) 0.08 x10 3/uL 0-0.03 LYMPHOCYTE # (test code=LY#) 55.56 K/mm3 1.0-5.0 MONOCYTE # (test code=MO#) 0.35 K/mm3 0-0.8 EOSINOPHIL # (test code=EO#) 0.23 K/mm3 0.0-0.5 BASOPHIL # (test code=BA#) 0.04 K/mm3 0.0-0.2 NUCLEATED RBC # (test code=NRBC#) 0.00 K/mm3 0.0-0.1 MANUAL DIFF REQUIRED (test code=MDIFF) YES STAIN ACCEPTABILITY (test code=STN ACCEPTABLE) TOTAL CELLS COUNTED (test code=TCC) #CELLS SEGMENTED NEUTROPHILS (test code=SEG) % 39-69 LYMPHOCYTE (test code=LYMPH) % 25-55 MONOCYTE (test code=MON) % 0-10 EOSINOPHIL (test code=EOS) % 0.0-5.0 CABOT RINGS (test code=CAB) MORPHOLOGY COMMENT (test code=MOC) PLATELET ESTIMATE (test code=PLTEST) PLATELET MORPHOLOGY (test code=PLTMORPH) BASIC METABOLIC [id number] 05:12:00* Test Item Value Reference Range Comments SODIUM (test code=NA) 139 mmol/L 136-145 POTASSIUM (test code=K) 4.4 mmol/L 3.5-5.1 CHLORIDE (test code=CL) 108.0 mmol/L 98-107 CARBON DIOXIDE (test code=CO2) 23.0 mmol/L 21-32 ANION GAP (test code=GAP) 12.4 10-20 GLUCOSE (test code=GLU) 214 mg/dL 74-106 BLOOD UREA NITROGEN (test code=BUN) 25 mg/dL 7-18 RESULT VERIFIED BY REPEAT ANALYSIS GLOMERULAR FILTRATION RATE (test code=GFR) 49 mL/min >=60 Estimated GFR by using Modified MDRD formula.Chronic kidney disease is defined as either kidney damageor GFR <60 mL/min/1.73 m2 for >3 months. CREATININE (test code=CREAT) 1.40 mg/dL 0.7-1.3 BUN/CREATININE RATIO (test code=BUN/CREA) 17.9 10-20 CALCIUM (test code=CA) 8.4 mg/dL 8.5-10.1 BASIC METABOLIC [id number] 05:02:00* Test Item Value Reference Range Comments SODIUM (test code=NA) 139 mmol/L 136-145 POTASSIUM (test code=K) 4.4 mmol/L 3.5-5.1 CHLORIDE (test code=CL) 108.0 mmol/L 98-107 CARBON DIOXIDE (test code=CO2) mmol/L 21-32 ANION GAP (test code=GAP) 10-20 GLUCOSE (test code=GLU) mg/dL 74-106 BLOOD UREA NITROGEN (test code=BUN) mg/dL 7-18 GLOMERULAR FILTRATION RATE (test code=GFR) mL/min >=60 CREATININE (test code=CREAT) mg/dL 0.7-1.3 BUN/CREATININE RATIO (test code=BUN/CREA) 10-20 CALCIUM (test code=CA) mg/dL 8.5-10.1 [id number] 21:46:00* Test Item Value Reference Range Comments GLUBED (test code=GLUBED) 174 mg/dL 74-106 Performed by certified news wire photo operator at [facility] [id number] 17:00:00* Test Item Value Reference Range Comments GLUBED (test code=GLUBED) 177 mg/dL 74-106 Performed by certified news wire photo operator at [facility] - [facility] PERF [id number] 15:26:00 FAX: Lane Corbin Jr [phone] [place]: St: ADM FAX: Reyes Hobson [phone] FAX: Ha Lancaster MD [phone] FAX: Qamar Mooneyh [phone] Name: MARNIEROGELIO [facility] : 1940 Age/S: 77/M [address] [facility] Unit #: [id number] Loc: V.[address] [place] [address] Phys: Ha Neumann MD Acct: [id number] Dis Date: Status: ADM IN PHONE #: [phone] Exam D ate: 07/31/2018 1530 FAX #: [phone] Reason: s hortness of breath, chest pain EXAMS: CPT CODE: [id number] PULM VENT PERF IMAG 34891 REASON FOR EXAM: shortness of breath, chest pain Exam Order Date: 07/31/2018 9:35 PM Procedure: - PULM VENT PERF IMAG FINDINGS: The patient was injected with 5.3 mCi of technetium 99m MAA. Unremarkable radiotracer uptake in the sheila gs in the perfusion phase. The patient was then inhaled 11.8 mCi of xenon- 133. Unremarkable inhalation uptake seen. IMPRESSION: Low probability of pulmonary embolus at 1526 Reported and signed by: Scott Dominguez M.D. CC: Lane Vela Jr, MD; Reyes Belcher; Ha Neumann MD; Qamar Mooneyh Technologist: Andre Vanegas [facility] Trnscrd Date/Time/By: 07/31/2018 (1526) : By: Clyde.VTL Orig Print D/T : S: 07/31/2018 (6173) PAGE 1 Sig chavo Report LIPID PROFILE (CORONARY RISK)2018-07-31 15:11:00* Test Item Value Reference Range Comments TRIGLYCERIDES (test code=TRIG) 625 mg/dL 20-150 CHOLESTEROL (test code=CHOL) 206 mg/dL 0-200 CHOLESTEROL/HDL RATIO (test code=CHOLHDL) 7.0 RATIO 0-4.9 RISK ASSOCIATED WITH CHOL/HDL RATIOS: Risk Male Female1/2 AVERAGE 3.43 3.27AVERAGE 4.97 4.442X AVERAGE 9.55 7.053X AVERAGE 23.39 11.04 REFERENCE VALUE IS RELATED TO RISK LEVELS ASRECOMMENDED BY THE [facility]. HEART, LUNG, AND BLOOD INST. HDL CHOLESTEROL (test code=HDL) 26 mg/dL 40-60 LIPOPROTEIN LDL (test code=LDL) 98 mg/dL 100-129 Reference Interval: mg/dL mmol/L Optimal <100 <2.6Near/above optimal 100-129 2.6- 3.3Borderline High 130-159 3.4-4.1High 160-189 4.1-4.9Very High >=190 >=4.9=========This LDL result is a direct measurement.========= PT WENT TO CT SCAN PER ALLEN SANDHU @e|tabLAB.SP3 [id number] FUNCTION [id number] 15:11:00* Test Item Value Reference Range Comments TOTAL PROTEIN (test code=PROT) 7.7 gram/dL 6.4-8.2 ALBUMIN (test code=ALB) 4.1 g/dL 3.4-5.0 GLOBULIN (test code=GLOB) 3.6 gram/dL 2.7-4.2 ALBUMIN/GLOBULIN RATIO (test code=A/G) 1.1 0.75-1.50 BILIRUBIN TOTAL (test code=BILT) 0.50 mg/dL 0.0-1.0 BILIRUBIN DIRECT (test code=BILD) 0.09 mg/dL 0.0-0.20 SGOT/AST (test code=AST) 35 IUnit/L 15-37 SGPT/ALT (test code=ALT) 30 IUnit/L 12-78 ALKALINE PHOSPHATASE TOTAL (test code=ALKP) 91 IUnit/L 45-117 Note change in reference range due to change in reagent. PT WENT TO CT SCAN PER ALLEN SANDHU @Ceon.3 [id number] 15:11:00* Test Item Value Reference Range Comments PHOSPHORUS (test code=PHOS) 3.2 mg/dL 2.5-4.[address] SCAN PER ALLEN SANDHU @e|tabLAB.3 [id number] 15:11:00* Test Item Value Reference Range Comments URIC ACID (test code=URIC) 5.2 mg/dL 2.6-7.[address] SCAN PER ALLEN SANDHU @e|tabLAB.3 [id number] 15:11:00* Test Item Value Reference Range Comments LIPASE (test code=LIP) 160 U/L 73.0-393.[address] SCAN PER ALLEN SANDHU @e|tabLAB.3 [id number] 15:11:00* Test Item Value Reference Range Comments MAGNESIUM (test code=MAG) 2.3 mg/dL 1.8-2.[address] SCAN PER ALLEN SANDHU @e|tabLAB.3 [id number] STIMULATING [id number] 15:11:00* Test Item Value Reference Range Comments THYROID STIMULATING HORMONE (test code=TSH) 1.820 uIU/mL 0.36-3.74 TSH REFERENCE RANGES: EUTHYROID: 0.35 - 4.3 mIU/mL HYPO : > 5.5 mIU/mL HYPER : < 0.35 mIU/mL PT WENT TO CT SCAN PER ALLEN SANDHU @e|tabLAB.SP3 [id number] D 1,32-[id number] 15:11:00* Test Item Value Reference Range Comments VITAMIN D 1,25-DIHYDROXY (test hlmh=BCHI453) 38.0 pg/mL 19.9-79.3 Performed At: [facility] [address] [id number] Sanjai MD Ph:[phone] performed at: [facility] [address] [place] [address] [address] SCAN PER ALLEN SANDHU @e|tabLAB.SP3 [id number] 12:17:00* Test Item Value Reference Range Comments GLUBED (test code=GLUBED) 237 mg/dL 74-106 Performed by certified news wire photo operator at [facility] - XR ABDOMEN AP 1 [id number] 11:29:00 FAX: Lane Corbin Jr [phone] [place]: B St: ADM FAX: Reyes Hobson [phone] FAX: Ann Yeh [phone] FAX: Qamar Mooney [phone] Name: ROGELIO DYE [facility] : 1940 Age/S: 77/M [facility] Unit #: [id number] Loc: V.3 [address] [place] [address] Phys: Ann Yeh Acct: [id number] Dis Date: Status: ADM IN PHONE #: [phone] Exam D ate: 07/31/2018 1050 FAX #: [phone] Reason: D ISTENDED ABD EXAMS: CPT CODE: [id number] XR ABDOMEN AP 1 V [id number] HISTORY: Distended abdomen. CO MPARISON: CT scan from 2018. Persistent moderate distention of the transverse colon with stool and air while the rest of the abdomen appe ars mostly gasless. No pathologic calcifications. DJD of the lumbar spine. Patient is post cholecystectomy. IMPRESSION: Persistent moderate distention of the transverse colon with stool and air likely ileus. Continued follow-up. Rest of the abdomen is gasless. at 1129 Reported and signed by: Varinder De Oliveira M.D. CC: Lane Vela Jr, MD; Reyes Belcher; Ann Yeh James Le Thanh Technologist: RT NNEKA([place]) Trnscrd Date/Time/By: 019 (1129) : By: Clyde.TH4 Orig Print D/T: S: 07/31/2018 (5925) PAGE 1 Signed Report CBC W/MANUAL [id number] 08:09:00* Test Item Value Reference Range Comments WHITE BLOOD CELL (test code=WBC) 61.0 K/mm3 4.5-12.5 Has "Path Review" been performed on patient's currentadmission?If yes, please insert path review specimen here 0606 H291 If not, please order "Path Review" for the followingcriteria:1/ WBC count over 40,000/mm3 or below 2,000/mm32/ Platelet counts over 1,000,000/mm3, or below 10,000/mm3, or with abnormal morphology.3/ Abnormal red cell morphology or inclusions which are severe (> 3+) , widespread, or difficult to classify.4/ Abnormal white blood cell morphology: Blasts present in peripheral blood of any patient as a new finding. Abnormal cells suspected of being blasts. Patients with large numbers of immature cells in peripheral blood. Unusual cells or cells not easily classified in peripheral blood.5/ Any smear in which the technologist is uncertain of the classification or the disease. RED BLOOD CELL (test code=RBC) 3.27 mill/mm3 4.0-5.8 HEMOGLOBIN (test code=HGB) 10.3 gram/dL 13.0-17.5 HEMATOCRIT (test code=HCT) 33.1 % 42.0-52.0 MEAN CELL VOLUME (test code=MCV) 101.2 fL 80-98 MEAN CELL HGB (test code=MCH) 31.5 picogram 27.0-33.0 MEAN CELL HGB CONCETRATION (test code=MCHC) 31.1 gram/dL 33.0-36.0 RED CELL DISTRIBUTION WIDTH (test code=RDW) 13.3 % 11.6-16.2 RED CELL DISTRIBUTION WIDTH SD (test code=RDW-SD) 49.1 fL 37.0-51.0 PLATELET COUNT (test code=PLT) 147 K/mm3 150-450 MEAN PLATELET VOLUME (test code=MPV) 10.9 fL 6.7-11.0 IMMATURE GRANULOCYTE % (test code=IG%) 0.1 % 0.0-5.0 NUCLEATED RBC % (test code=NRBC%) 0.0 % 0-0 NEUTROPHIL # (test code=NT#) 3.29 K/mm3 1.8-7.7 IMMATURE GRANULOCYTE # (test code=IG#) 0.09 x10 3/uL 0-0.03 LYMPHOCYTE # (test code=LY#) 56.95 K/mm3 1.0-5.0 MONOCYTE # (test code=MO#) 0.39 K/mm3 0-0.8 EOSINOPHIL # (test code=EO#) 0.23 K/mm3 0.0-0.5 BASOPHIL # (test code=BA#) 0.06 K/mm3 0.0-0.2 NUCLEATED RBC # (test code=NRBC#) 0.00 K/mm3 0.0-0.1 MANUAL DIFF REQUIRED (test code=MDIFF) YES STAIN ACCEPTABILITY (test code=STN ACCEPTABLE) STAIN ACCEPTABLE TOTAL CELLS COUNTED (test code=TCC) 114 #CELLS SEGMENTED NEUTROPHILS (test code=SEG) 6.1 % 39-69 BAND NEUTROPHIL (test code=BAND) 0 % 0-10 LYMPHOCYTE (test code=LYMPH) 93.9 % 25-55 REACTIVE LYMPH (test code=RELYMPH) 0 % MONOCYTE (test code=MON) 0 % 0-10 EOSINOPHIL (test code=EOS) 0 % 0.0-5.0 BASOPHIL (test code=BASO) 0 % 0-1.0 METAMYELOCYTE (test code=META) 0 % 0-0 MYELOCYTE (test code=MYELO) 0 % 0.0-0.0 PROMYELOCYTE (test code=PROM) 0 % 0-0 MORPHOLOGY COMMENT (test code=MOC) NORMAL PLATELET ESTIMATE (test code=PLTEST) DECREASED PLATELET MORPHOLOGY (test code=PLTMORPH) NORMAL IMMATURE FORMS (test code=IMMAT) 0 % 0-0 [id number] 07:52:00* Test Item Value Reference Range Comments GLUBED (test code=GLUBED) 105 mg/dL 74-106 Performed by certified news wire photo operator at [facility] BASIC METABOLIC [id number] 07:34:00* Test Item Value Reference Range Comments SODIUM (test code=NA) 139 mmol/L 136-145 POTASSIUM (test code=K) 3.9 mmol/L 3.5-5.1 CHLORIDE (test code=CL) 110.0 mmol/L 98-107 CARBON DIOXIDE (test code=CO2) 22.0 mmol/L 21-32 ANION GAP (test code=GAP) 10.9 10-20 GLUCOSE (test code=GLU) 112 mg/dL 74-106 BLOOD UREA NITROGEN (test code=BUN) 37 mg/dL 7-18 GLOMERULAR FILTRATION RATE (test code=GFR) 46 mL/min >=60 Estimated GFR by using Modified MDRD formula.Chronic kidney disease is defined as either kidney damageor GFR <60 mL/min/1.73 m2 for >3 months. CREATININE (test code=CREAT) 1.50 mg/dL 0.7-1.3 BUN/CREATININE RATIO (test code=BUN/CREA) 24.7 10-20 CALCIUM (test code=CA) 8.4 mg/dL 8.5-10.1 CBC W/MANUAL [id number] 07:16:00* Test Item Value Reference Range Comments WHITE BLOOD CELL (test code=WBC) 61.0 K/mm3 4.5-12.5 Has "Path Review" been performed on patient's currentadmission?If yes, please insert path review specimen here 0606 H291 If not, please order "Path Review" for the followingcriteria:1/ WBC count over 40,000/mm3 or below 2,000/mm32/ Platelet counts over 1,000,000/mm3, or below 10,000/mm3, or with abnormal morphology.3/ Abnormal red cell morphology or inclusions which are severe (> 3+) , widespread, or difficult to classify.4/ Abnormal white blood cell morphology: Blasts present in peripheral blood of any patient as a new finding. Abnormal cells suspected of being blasts. Patients with large numbers of immature cells in peripheral blood. Unusual cells or cells not easily classified in peripheral blood.5/ Any smear in which the technologist is uncertain of the classification or the disease. RED BLOOD CELL (test code=RBC) 3.27 mill/mm3 4.0-5.8 HEMOGLOBIN (test code=HGB) 10.3 gram/dL 13.0-17.5 HEMATOCRIT (test code=HCT) 33.1 % 42.0-52.0 MEAN CELL VOLUME (test code=MCV) 101.2 fL 80-98 MEAN CELL HGB (test code=MCH) 31.5 picogram 27.0-33.0 MEAN CELL HGB CONCETRATION (test code=MCHC) 31.1 gram/dL 33.0-36.0 RED CELL DISTRIBUTION WIDTH (test code=RDW) 13.3 % 11.6-16.2 RED CELL DISTRIBUTION WIDTH SD (test code=RDW-SD) 49.1 fL 37.0-51.0 PLATELET COUNT (test code=PLT) 147 K/mm3 150-450 MEAN PLATELET VOLUME (test code=MPV) 10.9 fL 6.7-11.0 IMMATURE GRANULOCYTE % (test code=IG%) 0.1 % 0.0-5.0 NUCLEATED RBC % (test code=NRBC%) 0.0 % 0-0 NEUTROPHIL # (test code=NT#) 3.29 K/mm3 1.8-7.7 IMMATURE GRANULOCYTE # (test code=IG#) 0.09 x10 3/uL 0-0.03 LYMPHOCYTE # (test code=LY#) 56.95 K/mm3 1.0-5.0 MONOCYTE # (test code=MO#) 0.39 K/mm3 0-0.8 EOSINOPHIL # (test code=EO#) 0.23 K/mm3 0.0-0.5 BASOPHIL # (test code=BA#) 0.06 K/mm3 0.0-0.2 NUCLEATED RBC # (test code=NRBC#) 0.00 K/mm3 0.0-0.1 MANUAL DIFF REQUIRED (test code=MDIFF) YES STAIN ACCEPTABILITY (test code=STN ACCEPTABLE) TOTAL CELLS COUNTED (test code=TCC) #CELLS SEGMENTED NEUTROPHILS (test code=SEG) % 39-69 LYMPHOCYTE (test code=LYMPH) % 25-55 MONOCYTE (test code=MON) % 0-10 EOSINOPHIL (test code=EOS) % 0.0-5.0 CABOT RINGS (test code=CAB) MORPHOLOGY COMMENT (test code=MOC) PLATELET ESTIMATE (test code=PLTEST) PLATELET MORPHOLOGY (test code=PLTMORPH) CBC W/MANUAL [id number] 07:16:00* Test Item Value Reference Range Comments WHITE BLOOD CELL (test code=WBC) 61.0 K/mm3 4.5-12.5 Has "Path Review" been performed on patient's currentadmission?If yes, please insert path review specimen here 0606 H2 If not, please order "Path Review" for the followingcriteria:1/ WBC count over 40,000/mm3 or below 2,000/mm32/ Platelet counts over 1,000,000/mm3, or below 10,000/mm3, or with abnormal morphology.3/ Abnormal red cell morphology or inclusions which are severe (> 3+) , widespread, or difficult to classify.4/ Abnormal white blood cell morphology: Blasts present in peripheral blood of any patient as a new finding. Abnormal cells suspected of being blasts. Patients with large numbers of immature cells in peripheral blood. Unusual cells or cells not easily classified in peripheral blood.5/ Any smear in which the technologist is uncertain of the classification or the disease. RED BLOOD CELL (test code=RBC) 3.27 mill/mm3 4.0-5.8 HEMOGLOBIN (test code=HGB) 10.3 gram/dL 13.0-17.5 HEMATOCRIT (test code=HCT) 33.1 % 42.0-52.0 MEAN CELL VOLUME (test code=MCV) 101.2 fL 80-98 MEAN CELL HGB (test code=MCH) 31.5 picogram 27.0-33.0 MEAN CELL HGB CONCETRATION (test code=MCHC) 31.1 gram/dL 33.0-36.0 RED CELL DISTRIBUTION WIDTH (test code=RDW) 13.3 % 11.6-16.2 RED CELL DISTRIBUTION WIDTH SD (test code=RDW-SD) 49.1 fL 37.0-51.0 PLATELET COUNT (test code=PLT) 147 K/mm3 150-450 MEAN PLATELET VOLUME (test code=MPV) 10.9 fL 6.7-11.0 IMMATURE GRANULOCYTE % (test code=IG%) 0.1 % 0.0-5.0 NUCLEATED RBC % (test code=NRBC%) 0.0 % 0-0 NEUTROPHIL # (test code=NT#) 3.29 K/mm3 1.8-7.7 IMMATURE GRANULOCYTE # (test code=IG#) 0.09 x10 3/uL 0-0.03 LYMPHOCYTE # (test code=LY#) 56.95 K/mm3 1.0-5.0 MONOCYTE # (test code=MO#) 0.39 K/mm3 0-0.8 EOSINOPHIL # (test code=EO#) 0.23 K/mm3 0.0-0.5 BASOPHIL # (test code=BA#) 0.06 K/mm3 0.0-0.2 NUCLEATED RBC # (test code=NRBC#) 0.00 K/mm3 0.0-0.1 MANUAL DIFF REQUIRED (test code=MDIFF) YES STAIN ACCEPTABILITY (test code=STN ACCEPTABLE) TOTAL CELLS COUNTED (test code=TCC) #CELLS SEGMENTED NEUTROPHILS (test code=SEG) % 39-69 LYMPHOCYTE (test code=LYMPH) % 25-55 MONOCYTE (test code=MON) % 0-10 EOSINOPHIL (test code=EOS) % 0.0-5.0 MORPHOLOGY COMMENT (test code=MOC) PLATELET ESTIMATE (test code=PLTEST) PLATELET MORPHOLOGY (test code=PLTMORPH) CBC W/MANUAL [id number] 07:16:00* Test Item Value Reference Range Comments WHITE BLOOD CELL (test code=WBC) 61.0 K/mm3 4.5-12.5 Has "Path Review" been performed on patient's currentadmission?If yes, please insert path review specimen here 0606 H291 If not, please order "Path Review" for the followingcriteria:1/ WBC count over 40,000/mm3 or below 2,000/mm32/ Platelet counts over 1,000,000/mm3, or below 10,000/mm3, or with abnormal morphology.3/ Abnormal red cell morphology or inclusions which are severe (> 3+) , widespread, or difficult to classify.4/ Abnormal white blood cell morphology: Blasts present in peripheral blood of any patient as a new finding. Abnormal cells suspected of being blasts. Patients with large numbers of immature cells in peripheral blood. Unusual cells or cells not easily classified in peripheral blood.5/ Any smear in which the technologist is uncertain of the classification or the disease. RED BLOOD CELL (test code=RBC) 3.27 mill/mm3 4.0-5.8 HEMOGLOBIN (test code=HGB) 10.3 gram/dL 13.0-17.5 HEMATOCRIT (test code=HCT) 33.1 % 42.0-52.0 MEAN CELL VOLUME (test code=MCV) 101.2 fL 80-98 MEAN CELL HGB (test code=MCH) 31.5 picogram 27.0-33.0 MEAN CELL HGB CONCETRATION (test code=MCHC) 31.1 gram/dL 33.0-36.0 RED CELL DISTRIBUTION WIDTH (test code=RDW) 13.3 % 11.6-16.2 RED CELL DISTRIBUTION WIDTH SD (test code=RDW-SD) 49.1 fL 37.0-51.0 PLATELET COUNT (test code=PLT) 147 K/mm3 150-450 MEAN PLATELET VOLUME (test code=MPV) 10.9 fL 6.7-11.0 IMMATURE GRANULOCYTE % (test code=IG%) 0.1 % 0.0-5.0 NUCLEATED RBC % (test code=NRBC%) 0.0 % 0-0 NEUTROPHIL # (test code=NT#) 3.29 K/mm3 1.8-7.7 IMMATURE GRANULOCYTE # (test code=IG#) 0.09 x10 3/uL 0-0.03 LYMPHOCYTE # (test code=LY#) 56.95 K/mm3 1.0-5.0 MONOCYTE # (test code=MO#) 0.39 K/mm3 0-0.8 EOSINOPHIL # (test code=EO#) 0.23 K/mm3 0.0-0.5 BASOPHIL # (test code=BA#) 0.06 K/mm3 0.0-0.2 NUCLEATED RBC # (test code=NRBC#) 0.00 K/mm3 0.0-0.1 MANUAL DIFF REQUIRED (test code=MDIFF) YES STAIN ACCEPTABILITY (test code=STN ACCEPTABLE) TOTAL CELLS COUNTED (test code=TCC) #CELLS SEGMENTED NEUTROPHILS (test code=SEG) % 39-69 LYMPHOCYTE (test code=LYMPH) % 25-55 MONOCYTE (test code=MON) % 0-10 MORPHOLOGY COMMENT (test code=MOC) PLATELET ESTIMATE (test code=PLTEST) PLATELET MORPHOLOGY (test code=PLTMORPH) CBC W/MANUAL [id number] 07:15:00* Test Item Value Reference Range Comments WHITE BLOOD CELL (test code=WBC) 61.0 K/mm3 4.5-12.5 Has "Path Review" been performed on patient's currentadmission?If yes, please insert path review specimen here 0606 H291 If not, please order "Path Review" for the followingcriteria:1/ WBC count over 40,000/mm3 or below 2,000/mm32/ Platelet counts over 1,000,000/mm3, or below 10,000/mm3, or with abnormal morphology.3/ Abnormal red cell morphology or inclusions which are severe (> 3+) , widespread, or difficult to classify.4/ Abnormal white blood cell morphology: Blasts present in peripheral blood of any patient as a new finding. Abnormal cells suspected of being blasts. Patients with large numbers of immature cells in peripheral blood. Unusual cells or cells not easily classified in peripheral blood.5/ Any smear in which the technologist is uncertain of the classification or the disease. RED BLOOD CELL (test code=RBC) 3.27 mill/mm3 4.0-5.8 HEMOGLOBIN (test code=HGB) 10.3 gram/dL 13.0-17.5 HEMATOCRIT (test code=HCT) 33.1 % 42.0-52.0 MEAN CELL VOLUME (test code=MCV) 101.2 fL 80-98 MEAN CELL HGB (test code=MCH) 31.5 picogram 27.0-33.0 MEAN CELL HGB CONCETRATION (test code=MCHC) 31.1 gram/dL 33.0-36.0 RED CELL DISTRIBUTION WIDTH (test code=RDW) 13.3 % 11.6-16.2 RED CELL DISTRIBUTION WIDTH SD (test code=RDW-SD) 49.1 fL 37.0-51.0 PLATELET COUNT (test code=PLT) 147 K/mm3 150-450 MEAN PLATELET VOLUME (test code=MPV) 10.9 fL 6.7-11.0 IMMATURE GRANULOCYTE % (test code=IG%) 0.1 % 0.0-5.0 NUCLEATED RBC % (test code=NRBC%) 0.0 % 0-0 NEUTROPHIL # (test code=NT#) 3.29 K/mm3 1.8-7.7 IMMATURE GRANULOCYTE # (test code=IG#) 0.09 x10 3/uL 0-0.03 LYMPHOCYTE # (test code=LY#) 56.95 K/mm3 1.0-5.0 MONOCYTE # (test code=MO#) 0.39 K/mm3 0-0.8 EOSINOPHIL # (test code=EO#) 0.23 K/mm3 0.0-0.5 BASOPHIL # (test code=BA#) 0.06 K/mm3 0.0-0.2 NUCLEATED RBC # (test code=NRBC#) 0.00 K/mm3 0.0-0.1 MANUAL DIFF REQUIRED (test code=MDIFF) YES STAIN ACCEPTABILITY (test code=STN ACCEPTABLE) TOTAL CELLS COUNTED (test code=TCC) #CELLS SEGMENTED NEUTROPHILS (test code=SEG) % 39-69 LYMPHOCYTE (test code=LYMPH) % 25-55 MONOCYTE (test code=MON) % 0-10 EOSINOPHIL (test code=EOS) % 0.0-5.0 CABOT RINGS (test code=CAB) MORPHOLOGY COMMENT (test code=MOC) PLATELET ESTIMATE (test code=PLTEST) PLATELET MORPHOLOGY (test code=PLTMORPH) CBC W/MANUAL [id number] 07:15:00* Test Item Value Reference Range Comments WHITE BLOOD CELL (test code=WBC) 61.0 K/mm3 4.5-12.5 Has "Path Review" been performed on patient's currentadmission?If yes, please insert path review specimen here 0606 H291 If not, please order "Path Review" for the followingcriteria:1/ WBC count over 40,000/mm3 or below 2,000/mm32/ Platelet counts over 1,000,000/mm3, or below 10,000/mm3, or with abnormal morphology.3/ Abnormal red cell morphology or inclusions which are severe (> 3+) , widespread, or difficult to classify.4/ Abnormal white blood cell morphology: Blasts present in peripheral blood of any patient as a new finding. Abnormal cells suspected of being blasts. Patients with large numbers of immature cells in peripheral blood. Unusual cells or cells not easily classified in peripheral blood.5/ Any smear in which the technologist is uncertain of the classification or the disease. RED BLOOD CELL (test code=RBC) 3.27 mill/mm3 4.0-5.8 HEMOGLOBIN (test code=HGB) 10.3 gram/dL 13.0-17.5 HEMATOCRIT (test code=HCT) 33.1 % 42.0-52.0 MEAN CELL VOLUME (test code=MCV) 101.2 fL 80-98 MEAN CELL HGB (test code=MCH) 31.5 picogram 27.0-33.0 MEAN CELL HGB CONCETRATION (test code=MCHC) 31.1 gram/dL 33.0-36.0 RED CELL DISTRIBUTION WIDTH (test code=RDW) 13.3 % 11.6-16.2 RED CELL DISTRIBUTION WIDTH SD (test code=RDW-SD) 49.1 fL 37.0-51.0 PLATELET COUNT (test code=PLT) 147 K/mm3 150-450 MEAN PLATELET VOLUME (test code=MPV) 10.9 fL 6.7-11.0 IMMATURE GRANULOCYTE % (test code=IG%) 0.1 % 0.0-5.0 NUCLEATED RBC % (test code=NRBC%) 0.0 % 0-0 NEUTROPHIL # (test code=NT#) 3.29 K/mm3 1.8-7.7 IMMATURE GRANULOCYTE # (test code=IG#) 0.09 x10 3/uL 0-0.03 LYMPHOCYTE # (test code=LY#) 56.95 K/mm3 1.0-5.0 MONOCYTE # (test code=MO#) 0.39 K/mm3 0-0.8 EOSINOPHIL # (test code=EO#) 0.23 K/mm3 0.0-0.5 BASOPHIL # (test code=BA#) 0.06 K/mm3 0.0-0.2 NUCLEATED RBC # (test code=NRBC#) 0.00 K/mm3 0.0-0.1 MANUAL DIFF REQUIRED (test code=MDIFF) YES STAIN ACCEPTABILITY (test code=STN ACCEPTABLE) TOTAL CELLS COUNTED (test code=TCC) #CELLS SEGMENTED NEUTROPHILS (test code=SEG) % 39-69 LYMPHOCYTE (test code=LYMPH) % 25-55 MONOCYTE (test code=MON) % 0-10 EOSINOPHIL (test code=EOS) % 0.0-5.0 CABOT RINGS (test code=CAB) MORPHOLOGY COMMENT (test code=MOC) PLATELET ESTIMATE (test code=PLTEST) PLATELET MORPHOLOGY (test code=PLTMORPH) [id number] 20:33:00* Test Item Value Reference Range Comments GLUBED (test code=GLUBED) 226 mg/dL 74-106 Performed by certified news wire photo operator at [facility] [id number] 10:43:00* Test Item Value Reference Range Comments GLUBED (test code=GLUBED) 188 mg/dL 74-106 Performed by certified news wire photo operator at [facility] [id number] 07:47:00* Test Item Value Reference Range Comments GLUBED (test code=GLUBED) 131 mg/dL 74-106 Performed by certified news wire photo operator at [facility] BASIC METABOLIC [id number] 06:41:00* Test Item Value Reference Range Comments SODIUM (test code=NA) 136 mmol/L 136-145 POTASSIUM (test code=K) 4.4 mmol/L 3.5-5.1 CHLORIDE (test code=CL) 105.0 mmol/L 98-107 CARBON DIOXIDE (test code=CO2) 24.0 mmol/L 21-32 ANION GAP (test code=GAP) 11.4 10-20 GLUCOSE (test code=GLU) 182 mg/dL 74-106 BLOOD UREA NITROGEN (test code=BUN) 56 mg/dL 7-18 GLOMERULAR FILTRATION RATE (test code=GFR) 29 mL/min >=60 Estimated GFR by using Modified MDRD formula.Chronic kidney disease is defined as either kidney damageor GFR <60 mL/min/1.73 m2 for >3 months. CREATININE (test code=CREAT) 2.20 mg/dL 0.7-1.3 BUN/CREATININE RATIO (test code=BUN/CREA) 25.5 10-20 CALCIUM (test code=CA) 8.5 mg/dL 8.5-10.1 BASIC METABOLIC [id number] 06:22:00* Test Item Value Reference Range Comments SODIUM (test code=NA) 136 mmol/L 136-145 POTASSIUM (test code=K) 4.4 mmol/L 3.5-5.1 CHLORIDE (test code=CL) 105.0 mmol/L 98-107 CARBON DIOXIDE (test code=CO2) mmol/L 21-32 ANION GAP (test code=GAP) 10-20 GLUCOSE (test code=GLU) mg/dL 74-106 BLOOD UREA NITROGEN (test code=BUN) mg/dL 7-18 GLOMERULAR FILTRATION RATE (test code=GFR) mL/min >=60 CREATININE (test code=CREAT) mg/dL 0.7-1.3 BUN/CREATININE RATIO (test code=BUN/CREA) 10-20 CALCIUM (test code=CA) mg/dL 8.5-10.1 CBC W/MANUAL [id number] 06:16:00* Test Item Value Reference Range Comments WHITE BLOOD CELL (test code=WBC) 87.3 K/mm3 4.5-12.5 RESULT VERIFIED BY REPEAT ANALYSISHas "Path Review" been performed on patient's currentadmission?YIf yes, please insert path review specimen here [id number] If not, please order "Path Review" for the followingcriteria:1/ WBC count over 40,000/mm3 or below 2,000/mm32/ Platelet counts over 1,000,000/mm3, or below 10,000/mm3, or with abnormal morphology.3/ Abnormal red cell morphology or inclusions which are severe (> 3+) , widespread, or difficult to classify.4/ Abnormal white blood cell morphology: Blasts present in peripheral blood of any patient as a new finding. Abnormal cells suspected of being blasts. Patients with large numbers of immature cells in peripheral blood. Unusual cells or cells not easily classified in peripheral blood.5/ Any smear in which the technologist is uncertain of the classification or the disease. RED BLOOD CELL (test code=RBC) 3.30 mill/mm3 4.0-5.8 HEMOGLOBIN (test code=HGB) 10.3 gram/dL 13.0-17.5 HEMATOCRIT (test code=HCT) 34.9 % 42.0-52.0 MEAN CELL VOLUME (test code=MCV) 105.8 fL 80-98 MEAN CELL HGB (test code=MCH) 31.2 picogram 27.0-33.0 MEAN CELL HGB CONCETRATION (test code=MCHC) 29.5 gram/dL 33.0-36.0 RED CELL DISTRIBUTION WIDTH (test code=RDW) 13.7 % 11.6-16.2 RED CELL DISTRIBUTION WIDTH SD (test code=RDW-SD) 52.6 fL 37.0-51.0 PLATELET COUNT (test code=PLT) 190 K/mm3 150-450 MEAN PLATELET VOLUME (test code=MPV) 11.0 fL 6.7-11.0 IMMATURE GRANULOCYTE % (test code=IG%) 0.2 % 0.0-5.0 NUCLEATED RBC % (test code=NRBC%) 0.0 % 0-0 NEUTROPHIL # (test code=NT#) 5.13 K/mm3 1.8-7.7 IMMATURE GRANULOCYTE # (test code=IG#) 0.16 x10 3/uL 0-0.03 LYMPHOCYTE # (test code=LY#) 80.43 K/mm3 1.0-5.0 MONOCYTE # (test code=MO#) 1.25 K/mm3 0-0.8 EOSINOPHIL # (test code=EO#) 0.26 K/mm3 0.0-0.5 BASOPHIL # (test code=BA#) 0.06 K/mm3 0.0-0.2 NUCLEATED RBC # (test code=NRBC#) 0.00 K/mm3 0.0-0.1 MANUAL DIFF REQUIRED (test code=MDIFF) YES STAIN ACCEPTABILITY (test code=STN ACCEPTABLE) STAIN ACCEPTABLE TOTAL CELLS COUNTED (test code=TCC) 115 #CELLS SEGMENTED NEUTROPHILS (test code=SEG) 9.5 % 39-69 BAND NEUTROPHIL (test code=BAND) 0 % 0-10 LYMPHOCYTE (test code=LYMPH) 89.6 % 25-55 REACTIVE LYMPH (test code=RELYMPH) 0 % MONOCYTE (test code=MON) 0.9 % 0-10 EOSINOPHIL (test code=EOS) 0 % 0.0-5.0 BASOPHIL (test code=BASO) 0 % 0-1.0 METAMYELOCYTE (test code=META) 0 % 0-0 MYELOCYTE (test code=MYELO) 0 % 0.0-0.0 PROMYELOCYTE (test code=PROM) 0 % 0-0 MORPHOLOGY COMMENT (test code=MOC) NORMAL PLATELET ESTIMATE (test code=PLTEST) ADEQUATE PLATELET MORPHOLOGY (test code=PLTMORPH) NORMAL IMMATURE FORMS (test code=IMMAT) 0 % 0-0 CBC W/MANUAL [id number] 05:40:00* Test Item Value Reference Range Comments WHITE BLOOD CELL (test code=WBC) 87.3 K/mm3 4.5-12.5 RESULT VERIFIED BY REPEAT ANALYSISHas "Path Review" been performed on patient's currentadmission?YIf yes, please insert path review specimen here 0606;[id number] If not, please order "Path Review" for the followingcriteria:1/ WBC count over 40,000/mm3 or below 2,000/mm32/ Platelet counts over 1,000,000/mm3, or below 10,000/mm3, or with abnormal morphology.3/ Abnormal red cell morphology or inclusions which are severe (> 3+) , widespread, or difficult to classify.4/ Abnormal white blood cell morphology: Blasts present in peripheral blood of any patient as a new finding. Abnormal cells suspected of being blasts. Patients with large numbers of immature cells in peripheral blood. Unusual cells or cells not easily classified in peripheral blood.5/ Any smear in which the technologist is uncertain of the classification or the disease. RED BLOOD CELL (test code=RBC) 3.30 mill/mm3 4.0-5.8 HEMOGLOBIN (test code=HGB) 10.3 gram/dL 13.0-17.5 HEMATOCRIT (test code=HCT) 34.9 % 42.0-52.0 MEAN CELL VOLUME (test code=MCV) 105.8 fL 80-98 MEAN CELL HGB (test code=MCH) 31.2 picogram 27.0-33.0 MEAN CELL HGB CONCETRATION (test code=MCHC) 29.5 gram/dL 33.0-36.0 RED CELL DISTRIBUTION WIDTH (test code=RDW) 13.7 % 11.6-16.2 RED CELL DISTRIBUTION WIDTH SD (test code=RDW-SD) 52.6 fL 37.0-51.0 PLATELET COUNT (test code=PLT) 190 K/mm3 150-450 MEAN PLATELET VOLUME (test code=MPV) 11.0 fL 6.7-11.0 IMMATURE GRANULOCYTE % (test code=IG%) 0.2 % 0.0-5.0 NUCLEATED RBC % (test code=NRBC%) 0.0 % 0-0 NEUTROPHIL # (test code=NT#) 5.13 K/mm3 1.8-7.7 IMMATURE GRANULOCYTE # (test code=IG#) 0.16 x10 3/uL 0-0.03 LYMPHOCYTE # (test code=LY#) 80.43 K/mm3 1.0-5.0 MONOCYTE # (test code=MO#) 1.25 K/mm3 0-0.8 EOSINOPHIL # (test code=EO#) 0.26 K/mm3 0.0-0.5 BASOPHIL # (test code=BA#) 0.06 K/mm3 0.0-0.2 NUCLEATED RBC # (test code=NRBC#) 0.00 K/mm3 0.0-0.1 MANUAL DIFF REQUIRED (test code=MDIFF) YES STAIN ACCEPTABILITY (test code=STN ACCEPTABLE) TOTAL CELLS COUNTED (test code=TCC) #CELLS SEGMENTED NEUTROPHILS (test code=SEG) % 39-69 LYMPHOCYTE (test code=LYMPH) % 25-55 MONOCYTE (test code=MON) % 0-10 EOSINOPHIL (test code=EOS) % 0.0-5.0 CABOT RINGS (test code=CAB) MORPHOLOGY COMMENT (test code=MOC) PLATELET ESTIMATE (test code=PLTEST) PLATELET MORPHOLOGY (test code=PLTMORPH) CBC W/MANUAL [id number] 05:40:00* Test Item Value Reference Range Comments WHITE BLOOD CELL (test code=WBC) 87.3 K/mm3 4.5-12.5 RESULT VERIFIED BY REPEAT ANALYSISHas "Path Review" been performed on patient's currentadmission?YIf yes, please insert path review specimen here 0606;[id number] If not, please order "Path Review" for the followingcriteria:1/ WBC count over 40,000/mm3 or below 2,000/mm32/ Platelet counts over 1,000,000/mm3, or below 10,000/mm3, or with abnormal morphology.3/ Abnormal red cell morphology or inclusions which are severe (> 3+) , widespread, or difficult to classify.4/ Abnormal white blood cell morphology: Blasts present in peripheral blood of any patient as a new finding. Abnormal cells suspected of being blasts. Patients with large numbers of immature cells in peripheral blood. Unusual cells or cells not easily classified in peripheral blood.5/ Any smear in which the technologist is uncertain of the classification or the disease. RED BLOOD CELL (test code=RBC) 3.30 mill/mm3 4.0-5.8 HEMOGLOBIN (test code=HGB) 10.3 gram/dL 13.0-17.5 HEMATOCRIT (test code=HCT) 34.9 % 42.0-52.0 MEAN CELL VOLUME (test code=MCV) 105.8 fL 80-98 MEAN CELL HGB (test code=MCH) 31.2 picogram 27.0-33.0 MEAN CELL HGB CONCETRATION (test code=MCHC) 29.5 gram/dL 33.0-36.0 RED CELL DISTRIBUTION WIDTH (test code=RDW) 13.7 % 11.6-16.2 RED CELL DISTRIBUTION WIDTH SD (test code=RDW-SD) 52.6 fL 37.0-51.0 PLATELET COUNT (test code=PLT) 190 K/mm3 150-450 MEAN PLATELET VOLUME (test code=MPV) 11.0 fL 6.7-11.0 IMMATURE GRANULOCYTE % (test code=IG%) 0.2 % 0.0-5.0 NUCLEATED RBC % (test code=NRBC%) 0.0 % 0-0 NEUTROPHIL # (test code=NT#) 5.13 K/mm3 1.8-7.7 IMMATURE GRANULOCYTE # (test code=IG#) 0.16 x10 3/uL 0-0.03 LYMPHOCYTE # (test code=LY#) 80.43 K/mm3 1.0-5.0 MONOCYTE # (test code=MO#) 1.25 K/mm3 0-0.8 EOSINOPHIL # (test code=EO#) 0.26 K/mm3 0.0-0.5 BASOPHIL # (test code=BA#) 0.06 K/mm3 0.0-0.2 NUCLEATED RBC # (test code=NRBC#) 0.00 K/mm3 0.0-0.1 MANUAL DIFF REQUIRED (test code=MDIFF) YES STAIN ACCEPTABILITY (test code=STN ACCEPTABLE) TOTAL CELLS COUNTED (test code=TCC) #CELLS SEGMENTED NEUTROPHILS (test code=SEG) % 39-69 LYMPHOCYTE (test code=LYMPH) % 25-55 MONOCYTE (test code=MON) % 0-10 EOSINOPHIL (test code=EOS) % 0.0-5.0 MORPHOLOGY COMMENT (test code=MOC) PLATELET ESTIMATE (test code=PLTEST) PLATELET MORPHOLOGY (test code=PLTMORPH) CBC W/MANUAL [id number] 05:40:00* Test Item Value Reference Range Comments WHITE BLOOD CELL (test code=WBC) 87.3 K/mm3 4.5-12.5 RESULT VERIFIED BY REPEAT ANALYSISHas "Path Review" been performed on patient's currentadmission?YIf yes, please insert path review specimen here 0606;[id number] If not, please order "Path Review" for the followingcriteria:1/ WBC count over 40,000/mm3 or below 2,000/mm32/ Platelet counts over 1,000,000/mm3, or below 10,000/mm3, or with abnormal morphology.3/ Abnormal red cell morphology or inclusions which are severe (> 3+) , widespread, or difficult to classify.4/ Abnormal white blood cell morphology: Blasts present in peripheral blood of any patient as a new finding. Abnormal cells suspected of being blasts. Patients with large numbers of immature cells in peripheral blood. Unusual cells or cells not easily classified in peripheral blood.5/ Any smear in which the technologist is uncertain of the classification or the disease. RED BLOOD CELL (test code=RBC) 3.30 mill/mm3 4.0-5.8 HEMOGLOBIN (test code=HGB) 10.3 gram/dL 13.0-17.5 HEMATOCRIT (test code=HCT) 34.9 % 42.0-52.0 MEAN CELL VOLUME (test code=MCV) 105.8 fL 80-98 MEAN CELL HGB (test code=MCH) 31.2 picogram 27.0-33.0 MEAN CELL HGB CONCETRATION (test code=MCHC) 29.5 gram/dL 33.0-36.0 RED CELL DISTRIBUTION WIDTH (test code=RDW) 13.7 % 11.6-16.2 RED CELL DISTRIBUTION WIDTH SD (test code=RDW-SD) 52.6 fL 37.0-51.0 PLATELET COUNT (test code=PLT) 190 K/mm3 150-450 MEAN PLATELET VOLUME (test code=MPV) 11.0 fL 6.7-11.0 IMMATURE GRANULOCYTE % (test code=IG%) 0.2 % 0.0-5.0 NUCLEATED RBC % (test code=NRBC%) 0.0 % 0-0 NEUTROPHIL # (test code=NT#) 5.13 K/mm3 1.8-7.7 IMMATURE GRANULOCYTE # (test code=IG#) 0.16 x10 3/uL 0-0.03 LYMPHOCYTE # (test code=LY#) 80.43 K/mm3 1.0-5.0 MONOCYTE # (test code=MO#) 1.25 K/mm3 0-0.8 EOSINOPHIL # (test code=EO#) 0.26 K/mm3 0.0-0.5 BASOPHIL # (test code=BA#) 0.06 K/mm3 0.0-0.2 NUCLEATED RBC # (test code=NRBC#) 0.00 K/mm3 0.0-0.1 MANUAL DIFF REQUIRED (test code=MDIFF) YES STAIN ACCEPTABILITY (test code=STN ACCEPTABLE) TOTAL CELLS COUNTED (test code=TCC) #CELLS SEGMENTED NEUTROPHILS (test code=SEG) % 39-69 LYMPHOCYTE (test code=LYMPH) % 25-55 MONOCYTE (test code=MON) % 0-10 MORPHOLOGY COMMENT (test code=MOC) PLATELET ESTIMATE (test code=PLTEST) PLATELET MORPHOLOGY (test code=PLTMORPH) CBC W/MANUAL [id number] 05:39:00* Test Item Value Reference Range Comments WHITE BLOOD CELL (test code=WBC) 87.3 K/mm3 4.5-12.5 RESULT VERIFIED BY REPEAT ANALYSISHas "Path Review" been performed on patient's currentadmission?YIf yes, please insert path review specimen here 0606;[id number] If not, please order "Path Review" for the followingcriteria:1/ WBC count over 40,000/mm3 or below 2,000/mm32/ Platelet counts over 1,000,000/mm3, or below 10,000/mm3, or with abnormal morphology.3/ Abnormal red cell morphology or inclusions which are severe (> 3+) , widespread, or difficult to classify.4/ Abnormal white blood cell morphology: Blasts present in peripheral blood of any patient as a new finding. Abnormal cells suspected of being blasts. Patients with large numbers of immature cells in peripheral blood. Unusual cells or cells not easily classified in peripheral blood.5/ Any smear in which the technologist is uncertain of the classification or the disease. RED BLOOD CELL (test code=RBC) 3.30 mill/mm3 4.0-5.8 HEMOGLOBIN (test code=HGB) 10.3 gram/dL 13.0-17.5 HEMATOCRIT (test code=HCT) 34.9 % 42.0-52.0 MEAN CELL VOLUME (test code=MCV) 105.8 fL 80-98 MEAN CELL HGB (test code=MCH) 31.2 picogram 27.0-33.0 MEAN CELL HGB CONCETRATION (test code=MCHC) 29.5 gram/dL 33.0-36.0 RED CELL DISTRIBUTION WIDTH (test code=RDW) 13.7 % 11.6-16.2 RED CELL DISTRIBUTION WIDTH SD (test code=RDW-SD) 52.6 fL 37.0-51.0 PLATELET COUNT (test code=PLT) 190 K/mm3 150-450 MEAN PLATELET VOLUME (test code=MPV) 11.0 fL 6.7-11.0 IMMATURE GRANULOCYTE % (test code=IG%) 0.2 % 0.0-5.0 NUCLEATED RBC % (test code=NRBC%) 0.0 % 0-0 NEUTROPHIL # (test code=NT#) 5.13 K/mm3 1.8-7.7 IMMATURE GRANULOCYTE # (test code=IG#) 0.16 x10 3/uL 0-0.03 LYMPHOCYTE # (test code=LY#) 80.43 K/mm3 1.0-5.0 MONOCYTE # (test code=MO#) 1.25 K/mm3 0-0.8 EOSINOPHIL # (test code=EO#) 0.26 K/mm3 0.0-0.5 BASOPHIL # (test code=BA#) 0.06 K/mm3 0.0-0.2 NUCLEATED RBC # (test code=NRBC#) 0.00 K/mm3 0.0-0.1 MANUAL DIFF REQUIRED (test code=MDIFF) YES STAIN ACCEPTABILITY (test code=STN ACCEPTABLE) TOTAL CELLS COUNTED (test code=TCC) #CELLS SEGMENTED NEUTROPHILS (test code=SEG) % 39-69 LYMPHOCYTE (test code=LYMPH) % 25-55 MONOCYTE (test code=MON) % 0-10 EOSINOPHIL (test code=EOS) % 0.0-5.0 CABOT RINGS (test code=CAB) MORPHOLOGY COMMENT (test code=MOC) PLATELET ESTIMATE (test code=PLTEST) PLATELET MORPHOLOGY (test code=PLTMORPH) CBC W/MANUAL [id number] 05:39:00* Test Item Value Reference Range Comments WHITE BLOOD CELL (test code=WBC) 87.3 K/mm3 4.5-12.5 RESULT VERIFIED BY REPEAT ANALYSISHas "Path Review" been performed on patient's currentadmission?YIf yes, please insert path review specimen here 0606;[id number] If not, please order "Path Review" for the followingcriteria:1/ WBC count over 40,000/mm3 or below 2,000/mm32/ Platelet counts over 1,000,000/mm3, or below 10,000/mm3, or with abnormal morphology.3/ Abnormal red cell morphology or inclusions which are severe (> 3+) , widespread, or difficult to classify.4/ Abnormal white blood cell morphology: Blasts present in peripheral blood of any patient as a new finding. Abnormal cells suspected of being blasts. Patients with large numbers of immature cells in peripheral blood. Unusual cells or cells not easily classified in peripheral blood.5/ Any smear in which the technologist is uncertain of the classification or the disease. RED BLOOD CELL (test code=RBC) 3.30 mill/mm3 4.0-5.8 HEMOGLOBIN (test code=HGB) 10.3 gram/dL 13.0-17.5 HEMATOCRIT (test code=HCT) 34.9 % 42.0-52.0 MEAN CELL VOLUME (test code=MCV) 105.8 fL 80-98 MEAN CELL HGB (test code=MCH) 31.2 picogram 27.0-33.0 MEAN CELL HGB CONCETRATION (test code=MCHC) 29.5 gram/dL 33.0-36.0 RED CELL DISTRIBUTION WIDTH (test code=RDW) 13.7 % 11.6-16.2 RED CELL DISTRIBUTION WIDTH SD (test code=RDW-SD) 52.6 fL 37.0-51.0 PLATELET COUNT (test code=PLT) 190 K/mm3 150-450 MEAN PLATELET VOLUME (test code=MPV) 11.0 fL 6.7-11.0 IMMATURE GRANULOCYTE % (test code=IG%) 0.2 % 0.0-5.0 NUCLEATED RBC % (test code=NRBC%) 0.0 % 0-0 NEUTROPHIL # (test code=NT#) 5.13 K/mm3 1.8-7.7 IMMATURE GRANULOCYTE # (test code=IG#) 0.16 x10 3/uL 0-0.03 LYMPHOCYTE # (test code=LY#) 80.43 K/mm3 1.0-5.0 MONOCYTE # (test code=MO#) 1.25 K/mm3 0-0.8 EOSINOPHIL # (test code=EO#) 0.26 K/mm3 0.0-0.5 BASOPHIL # (test code=BA#) 0.06 K/mm3 0.0-0.2 NUCLEATED RBC # (test code=NRBC#) 0.00 K/mm3 0.0-0.1 MANUAL DIFF REQUIRED (test code=MDIFF) YES STAIN ACCEPTABILITY (test code=STN ACCEPTABLE) TOTAL CELLS COUNTED (test code=TCC) #CELLS SEGMENTED NEUTROPHILS (test code=SEG) % 39-69 LYMPHOCYTE (test code=LYMPH) % 25-55 MONOCYTE (test code=MON) % 0-10 EOSINOPHIL (test code=EOS) % 0.0-5.0 CABOT RINGS (test code=CAB) MORPHOLOGY COMMENT (test code=MOC) PLATELET ESTIMATE (test code=PLTEST) PLATELET MORPHOLOGY (test code=PLTMORPH) [id number] 21:12:00* Test Item Value Reference Range Comments GLUBED (test code=GLUBED) 288 mg/dL 74-106 Performed by certified news wire photo operator at [facility] [id number] 16:12:00* Test Item Value Reference Range Comments GLUBED (test code=GLUBED) 292 mg/dL 74-106 Performed by certified news wire photo operator at [facility] [id number] 11:44:00* Test Item Value Reference Range Comments GLUBED (test code=GLUBED) 289 mg/dL 74-106 Performed by certified news wire photo operator at [facility] [id number] 09:42:00* Test Item Value Reference Range Comments GLUBED (test code=GLUBED) 260 mg/dL 74-106 Performed by certified news wire photo operator at [facility] - CT ABD PELVIS W/O [id number] 09:39:00 Name: YANIQUE DYE [facility] : 1940 Age/S: 77 / M [address] [facility] Unit #: [id number] Loc: [place] [address] Phys: Qamar Mooney MD Acct: [id number] Dis Date: Status: ADM IN PHONE #: [phone] Exam Date: 07/29/2018909 FAX #: [phone] Reason: PAIN EXAMS: CPT CODE: [id number] CT ABD PELVIS W/O CONT 08973 REASON FOR EXAM: PAIN EXAM ORDER DATE: 07/29/2018 11:39 PM Ordering M.D.: Qamar Hannon MD PROCEDURE: - CT ABD PELVIS W/O CONT noncontrast enhanced axial CT images were acquired through the abdomen/pelvis at 5 mm intervals. Sagittal and coronal reformatted images were generated. Automated exposure control was utilized for this reduction. COMPARISON: October 26, 2017. FINDINGS: The absence of IV contrast limits sensitivity of this exam for the detection of soft tissue pathology. The lung bases show bilateral lower lobe atelecta sis/consolidation. No evidence of pleural or pericardial effusion. Coronar y artery calcifications/stent are partially visualized. The liver shows punctate calcifications adjacent prior granulomatous infection . Prior cholecystectomy. The spleen, adrenals and the pancreas appear norm al. No hydronephrosis or nephrolithiasis is seen. Extensive calci fications are seen in the abdominal aorta and its branches. Extensive dive rticulosis with no evidence of diverticulitis is seen in the sigmoid colon . Small retroperitoneal lymph nodes are seen (2/62). No pelvic or inguinal adenopathy seen. No evidence of free fluid or air is seen in the abdomen or pelvis. There is gas and stools seen in the colon and the rectum. The stomach is distended with fluid and gas. There is gas eous distention of the transverse colon measuring approximately 7.8 cm (60 1/37). The urinary bladder is distended. Consider acute urinary r etention. The seminal vesicles and prostate appear normal. Extensive degenerative changes are seen in the spine. Heterotopic ossifica tion is seen adjacent to the right pubic bone. IMPRESSION: Limi jay study due to absence of IV contrast. PAGE 1 Sign ed Report (CONTINUED) Name: YANIQUE DYE [facility] : 1940 Age/S: 77 / M [address] Unit #: [id number] Loc: [place] [address] Phys: Qamar Mooney MD Acct: [id number] Dis Date: Status: ADM IN PHONE #: [phone] Exam Date: 07/29/2018909 FAX #: [phone] Reason: PAIN EXAMS: CPT CODE: [id number] CT ABD PELVIS W/O CONT 51212 <Continued> Nonspecific gaseous distention of the stomach and the transverse colon. No definite evidence of bowel obstruction. Extensive atherosclerotic calcifications are seen in the abdominal aorta and its branches and degenerative changes are seen in the spine. Cholecystectomy. Bilateral lower lobe consolidation/atelectasis. Distended urinary bladder, consider acute urinary retention. Sigmoid diverticulosis with no definite diverticulitis. at 0939 Reported and signed by: Adria Gonzalez M.D. CC: Lane Vela Jr, MD; Qamar Mooney Technologist:Kamille James RT(R),CT CTDI: DLP: Trnscb Date/Time: 07/29/2018 (39) [id number] Orig Print D/T: S: 07/29/2018 (0942) PAGE 2 Signed Report [id number] 07:33:00* Test Item Value Reference Range Comments GLUBED (test code=GLUBED) 296 mg/dL 74-106 Performed by certified news wire photo operator at [facility] [id number] 04:58:00* Test Item Value Reference Range Comments GLUBED (test code=GLUBED) 320 mg/dL 74-106 Performed by certified news wire photo operator at [facility] [id number] 21:03:00* Test Item Value Reference Range Comments GLUBED (test code=GLUBED) 222 mg/dL 74-106 Performed by certified news wire photo operator at [facility] CBC W/O [id number] 16:55:00* Test Item Value Reference Range Comments WHITE BLOOD CELL (test code=WBC) 80.8 K/mm3 4.5-12.5 Has "Path Review" been performed on patient's currentadmission?If yes, please insert path review specimen here If not, please order "Path Review" for the followingcriteria:1/ WBC count over 40,000/mm3 or below 2,000/mm32/ Platelet counts over 1,000,000/mm3, or below 10,000/mm3, or with abnormal morphology.3/ Abnormal red cell morphology or inclusions which are severe (> 3+) , widespread, or difficult to classify.4/ Abnormal white blood cell morphology: Blasts present in peripheral blood of any patient as a new finding. Abnormal cells suspected of being blasts. Patients with large numbers of immature cells in peripheral blood. Unusual cells or cells not easily classified in peripheral blood.5/ Any smear in which the technologist is uncertain of the classification or the disease. RED BLOOD CELL (test code=RBC) 3.52 mill/mm3 4.0-5.8 HEMOGLOBIN (test code=HGB) 11.1 gram/dL 13.0-17.5 HEMATOCRIT (test code=HCT) 34.7 % 42.0-52.0 MEAN CELL VOLUME (test code=MCV) 98.6 fL 80-98 MEAN CELL HGB (test code=MCH) 31.5 picogram 27.0-33.0 MEAN CELL HGB CONCETRATION (test code=MCHC) 32.0 gram/dL 33.0-36.0 RED CELL DISTRIBUTION WIDTH (test code=RDW) 13.2 % 11.6-16.2 PLATELET COUNT (test code=PLT) 160 K/mm3 150-450 MEAN PLATELET VOLUME (test code=MPV) 10.8 fL 6.7-11.0 PATHOLOGISTS [id number] 16:55:00* Test Item Value Reference Range Comments PATHOLOGISTS FINDINGS (test code=PATH) PATH NOTES LEUKOCYTOSISLYMPHOCYTOSISANEMIANO SIGNIFICANT INCREASE IN BLASTS SEEN. SUGGEST FLOWCYTOMETRY IF CLINICALLY INDICATED. Reviewed by CHEYANNE Gutierrez WBC [id number] 16:55:00* Test Item Value Reference Range Comments STAIN ACCEPTABILITY (test code=STN ACCEPTABLE) STAIN ACCEPTABLE TOTAL CELLS COUNTED (test code=TCC) 98 #CELLS SEGMENTED NEUTROPHILS (test code=SEG) 21.4 % 39-69 BAND NEUTROPHIL (test code=BAND) 0 % 0-10 LYMPHOCYTE (test code=LYMPH) 78.6 % 25-55 REACTIVE LYMPH (test code=RELYMPH) 0 % MONOCYTE (test code=MON) 0 % 0-10 EOSINOPHIL (test code=EOS) 0 % 0.0-5.0 BASOPHIL (test code=BASO) 0 % 0-1.0 METAMYELOCYTE (test code=META) 0 % 0-0 MYELOCYTE (test code=MYELO) 0 % 0.0-0.0 PROMYELOCYTE (test code=PROM) 0 % 0-0 MORPHOLOGY COMMENT (test code=MOC) NORMAL PLATELET ESTIMATE (test code=PLTEST) ADEQUATE PLATELET MORPHOLOGY (test code=PLTMORPH) NORMAL IMMATURE FORMS (test code=IMMAT) 0 % 0-0 [id number] 16:39:00* Test Item Value Reference Range Comments GLUBED (test code=GLUBED) 197 mg/dL 74-106 Performed by certified news wire photo operator at [facility] SED RATE [id number] 15:40:00* Test Item Value Reference Range Comments SED RATE WESTERGREN (test code=SEDW) 29 mm/hr 0-15 SED [id number] 15:40:00* Test Item Value Reference Range Comments SED RATE (test code=SEDW) 29 mm/hr 0-15 WINTROBE METHOD: NORMAL RANGE FOR MEN: 0-9 MM/HR WOMAN: 0-20 MM/HR [id number] 15:01:00* Test Item Value Reference Range Comments GLUBED (test code=GLUBED) 273 mg/dL 74-106 Performed by certified news wire photo operator at [facility] [id number] 13:35:00* Test Item Value Reference Range Comments GLUBED (test code=GLUBED) 286 mg/dL 74-106 Performed by certified news wire photo operator at [facility] [id number] 12:34:00* Test Item Value Reference Range Comments GLUBED (test code=GLUBED) 323 mg/dL 74-106 Performed by certified news wire photo operator at [facility] [id number] 12:03:00* Test Item Value Reference Range Comments GLUBED (test code=GLUBED) 274 mg/dL 74-106 Performed by certified news wire photo operator at [facility] B-TYPE NATRIURETIC [id number] 11:04:00* Test Item Value Reference Range Comments B-TYPE NATRIURETIC PEPTIDE (test code=BNP) 28.7 pg/mL 0-[address] SCAN PER ALLEN SANDHU @V.LAB.SP3 [id number] PROFILE (CORONARY RISK)2018-07-28 10:44:00* Test Item Value Reference Range Comments TRIGLYCERIDES (test code=TRIG) 625 mg/dL 20-150 CHOLESTEROL (test code=CHOL) 206 mg/dL 0-200 CHOLESTEROL/HDL RATIO (test code=CHOLHDL) 7.0 RATIO 0-4.9 RISK ASSOCIATED WITH CHOL/HDL RATIOS: Risk Male Female1/2 AVERAGE 3.43 3.27AVERAGE 4.97 4.442X AVERAGE 9.55 7.053X AVERAGE 23.39 11.04 REFERENCE VALUE IS RELATED TO RISK LEVELS ASRECOMMENDED BY THE [facility]. HEART, LUNG, AND BLOOD INST. HDL CHOLESTEROL (test code=HDL) 26 mg/dL 40-60 LIPOPROTEIN LDL (test code=LDL) 98 mg/dL 100-129 Reference Interval: mg/dL mmol/L Optimal <100 <2.6Near/above optimal 100-129 2.6- 3.3Borderline High 130-159 3.4-4.1High 160-189 4.1-4.9Very High >=190 >=4.9=========This LDL result is a direct measurement.========= PT WENT TO CT SCAN PER ALLEN SANDHU @e|tabLAB.SP3 [id number] FUNCTION [id number] 10:44:00* Test Item Value Reference Range Comments TOTAL PROTEIN (test code=PROT) 7.7 gram/dL 6.4-8.2 ALBUMIN (test code=ALB) 4.1 g/dL 3.4-5.0 GLOBULIN (test code=GLOB) 3.6 gram/dL 2.7-4.2 ALBUMIN/GLOBULIN RATIO (test code=A/G) 1.1 0.75-1.50 BILIRUBIN TOTAL (test code=BILT) 0.50 mg/dL 0.0-1.0 BILIRUBIN DIRECT (test code=BILD) 0.09 mg/dL 0.0-0.20 SGOT/AST (test code=AST) 35 IUnit/L 15-37 SGPT/ALT (test code=ALT) 30 IUnit/L 12-78 ALKALINE PHOSPHATASE TOTAL (test code=ALKP) 91 IUnit/L 45-117 Note change in reference range due to change in reagent. PT WENT TO CT SCAN PER ALLEN SANDHU @[employer] [id number] 10:44:00* Test Item Value Reference Range Comments PHOSPHORUS (test code=PHOS) 3.2 mg/dL 2.5-4.[address] SCAN PER ALLEN SANDHU @e|tabLAB.[facility] [id number] 10:44:00* Test Item Value Reference Range Comments URIC ACID (test code=URIC) 5.2 mg/dL 2.6-7.[address] SCAN PER ALLEN SANDHU @e|tabLAB.3 [id number] 10:44:00* Test Item Value Reference Range Comments LIPASE (test code=LIP) 160 U/L 73.0-393.[address] SCAN PER ALLEN SANDHU @e|tabLAB.3 [id number] 10:44:00* Test Item Value Reference Range Comments MAGNESIUM (test code=MAG) 2.3 mg/dL 1.8-2.[address] SCAN PER ALLEN SANDHU @e|tabLAB.[facility] [id number] STIMULATING [id number] 10:44:00* Test Item Value Reference Range Comments THYROID STIMULATING HORMONE (test code=TSH) 1.820 uIU/mL 0.36-3.74 TSH REFERENCE RANGES: EUTHYROID: 0.35 - 4.3 mIU/mL HYPO : > 5.5 mIU/mL HYPER : < 0.35 mIU/mL PT WENT TO CT SCAN PER ALLEN SANDHU @7write.LAB.SP3 [id number] D 1,61-[id number] 10:44:00* Test Item Value Reference Range Comments VITAMIN D 1,25-DIHYDROXY (test tuns=[id number]) pgram/mL PT WENT TO CT SCAN PER ALLEN SANDHU @V.LAB.SP3 [id number] 10:13:00* Test Item Value Reference Range Comments GLYCOSYLATED HEMOGLOBIN (HA1C) (test code=GLYHGB) 13.5 % HbA1 4.8-6.0 ESTIMATED AVERAGE GLUCOSE (test code=EAG) 341 MG/DL - CT CHEST W/O [id number] 08:59:00 Name: YANIQUE DYE [facility] : 1940 Age/S: 77 / M [address] [facility] Unit #: [id number] Loc: [place] [address] Phys: Qamar Mooney MD Acct: [id number] Dis Date: Status: ADM IN PHONE #: [phone] Exam Date: 07/28/2018813 FAX #: [phone] Reason: cp EXAMS: CPT CODE: [id number] CT CHEST W/O CONTRAST 34643 HISTORY: Chest pain. COMPARISON: CT chest from October 27, 2017 and February 27, 2017. CT chest without contrast: Automated exposure control. Bibasal subsegmental atelectasis. No infiltrates, effusion or congestion. 5 mm nodule in the right upper lobe in subpleural location anterolaterally. It is unchanged from previous 2 exams. 4 mm lingular nodule anterolaterally is pleural- based and unchanged from previous 2 exams. No bronchiectasis, honeycombing or fibrosis or endobronchial lesions. Normal caliber unopacified aorta and pulmonary arteries. Thyroid glands are normal. Esophageal wall is not thickened. No pathologic adenopathy. Cardiac silh ouette is mildly enlarged without pericardial effusion. Atherosclerotic ca lcifications of the coronary arteries. Visualized upper abdomen is unremarkable. The subcutaneous tissues and the musculature are normal in appearance. DJD. No lytic or blastic lesions visible within the bony skele ton. Shoulder prosthesis on the left resulting in extensive artifact. IMPRESSION: Bibasal subsegmental atelectasis witho ut infiltrates or congestion. Punctate 5 mm subpleural nodule in the rig ht upper lobe anterolaterally and lingular nodule measures 4 mm anterola terally is pleural-based. These are unchanged going back to previous 2 e xams of February 27 and October 29, 2017 demonstrating 1 1/2 year stabili ty. Follow-up according to Fleischner's criteria ( The [employer] y guidelines for followup of an incidentally detected 4 to 6 mm pulmonary nodule are as follows: If the patient is a low risk patient ( non-smoker and no known tumor), a 4 to 6 mm nodule should be followed wi th a chest CT followup at 12 months. If unchanged, no further follow-up is needed. If the patient is a high risk patient (smoker), initial akira st CT follow up at 6 to 12 months, then at 18 to 24 months if not change d. If the patient has a primary extra thoracic tumor or hematogenous in fection, nodule(s) cannot be ignored as it/they could represent metastas is or septic embolus). at 0859 Reported and signed by: Varinder ambriz M.D. PAGE 1 Signed Report (CO NTINUED) Name: YANIQUE DYE [facility] : 1940 Age/S: 77 / M [address] [facility] Unit #: [id number] Loc: [place] [address] Phys: Qamar Waite MD Acct: [id number] Dis Date: Status: ADM IN P NEELAM #: [phone] Exam Date: 07/28/2018813 FAX #: [phone] Reason: cp EX AMS: CPT CODE: [id number] CT C HEST W/O CONTRAST 97192 <Continued> CC: Lane Vela Jr, MD; Qamar Mooney Technologist:SHIVAM LEE RT(R) CTDI: DLP: Trnscb Date/Time: 07/28/2018 (0859) Clyde.[email or web address] Orig Print D/T: S: 07/28/2018 (0902) PAGE 2 Signed Report [id number] 07:34:00* Test Item Value Reference Range Comments GLUBED (test code=GLUBED) 231 mg/dL 74-106 Performed by certified news wire photo operator at [facility] [id number] 03:58:00* Test Item Value Reference Range Comments TROPONIN-I (test code=TROPI) <0.015 ng/mL 0-0.045 COMMENTS TO EASTER BUNNY: COLLECT 3 HOURS AFTER PREVIOUS [id number] 01:26:00* Test Item Value Reference Range Comments TROPONIN-I (test code=TROPI) <0.015 ng/mL 0-0.045 COMMENTS TO EASTER BUNNY: COLLECT 3 HOURS AFTER PREVIOUS [id number] 22:33:00* Test Item Value Reference Range Comments GLUBED (test code=GLUBED) 338 mg/dL 74-106 Performed by certified news wire photo operator at [facility] [id number] 20:10:00* Test Item Value Reference Range Comments GLUBED (test code=GLUBED) 379 mg/dL 74-106 Performed by certified news wire photo operator at [facility] CBC W/O [id number] 18:15:00* Test Item Value Reference Range Comments WHITE BLOOD CELL (test code=WBC) 80.8 K/mm3 4.5-12.5 Has "Path Review" been performed on patient's currentadmission?If yes, please insert path review specimen here If not, please order "Path Review" for the followingcriteria:1/ WBC count over 40,000/mm3 or below 2,000/mm32/ Platelet counts over 1,000,000/mm3, or below 10,000/mm3, or with abnormal morphology.3/ Abnormal red cell morphology or inclusions which are severe (> 3+) , widespread, or difficult to classify.4/ Abnormal white blood cell morphology: Blasts present in peripheral blood of any patient as a new finding. Abnormal cells suspected of being blasts. Patients with large numbers of immature cells in peripheral blood. Unusual cells or cells not easily classified in peripheral blood.5/ Any smear in which the technologist is uncertain of the classification or the disease. RED BLOOD CELL (test code=RBC) 3.52 mill/mm3 4.0-5.8 HEMOGLOBIN (test code=HGB) 11.1 gram/dL 13.0-17.5 HEMATOCRIT (test code=HCT) 34.7 % 42.0-52.0 MEAN CELL VOLUME (test code=MCV) 98.6 fL 80-98 MEAN CELL HGB (test code=MCH) 31.5 picogram 27.0-33.0 MEAN CELL HGB CONCETRATION (test code=MCHC) 32.0 gram/dL 33.0-36.0 RED CELL DISTRIBUTION WIDTH (test code=RDW) 13.2 % 11.6-16.2 PLATELET COUNT (test code=PLT) 160 K/mm3 150-450 MEAN PLATELET VOLUME (test code=MPV) 10.8 fL 6.7-11.0 PATHOLOGISTS [id number] 18:15:00* Test Item Value Reference Range Comments PATHOLOGISTS FINDINGS (test code=PATH) PATH NOTES WBC [id number] 18:15:00* Test Item Value Reference Range Comments STAIN ACCEPTABILITY (test code=STN ACCEPTABLE) STAIN ACCEPTABLE TOTAL CELLS COUNTED (test code=TCC) 98 #CELLS SEGMENTED NEUTROPHILS (test code=SEG) 21.4 % 39-69 BAND NEUTROPHIL (test code=BAND) 0 % 0-10 LYMPHOCYTE (test code=LYMPH) 78.6 % 25-55 REACTIVE LYMPH (test code=RELYMPH) 0 % MONOCYTE (test code=MON) 0 % 0-10 EOSINOPHIL (test code=EOS) 0 % 0.0-5.0 BASOPHIL (test code=BASO) 0 % 0-1.0 METAMYELOCYTE (test code=META) 0 % 0-0 MYELOCYTE (test code=MYELO) 0 % 0.0-0.0 PROMYELOCYTE (test code=PROM) 0 % 0-0 MORPHOLOGY COMMENT (test code=MOC) NORMAL PLATELET ESTIMATE (test code=PLTEST) ADEQUATE PLATELET MORPHOLOGY (test code=PLTMORPH) NORMAL IMMATURE FORMS (test code=IMMAT) 0 % 0-0 [id number] 17:19:00* Test Item Value Reference Range Comments GLUBED (test code=GLUBED) 399 mg/dL 74-106 Performed by certified news wire photo operator at [facility] BASIC METABOLIC [id number] 16:30:00* Test Item Value Reference Range Comments SODIUM (test code=NA) 131 mmol/L 136-145 POTASSIUM (test code=K) 4.3 mmol/L 3.5-5.1 CHLORIDE (test code=CL) 102.0 mmol/L 98-107 CARBON DIOXIDE (test code=CO2) 20.0 mmol/L 21-32 ANION GAP (test code=GAP) 13.3 10-20 GLUCOSE (test code=GLU) 457 mg/dL 74-106 BLOOD UREA NITROGEN (test code=BUN) 28 mg/dL 7-18 GLOMERULAR FILTRATION RATE (test code=GFR) 42 mL/min >=60 Estimated GFR by using Modified MDRD formula.Chronic kidney disease is defined as either kidney damageor GFR <60 mL/min/1.73 m2 for >3 months. CREATININE (test code=CREAT) 1.60 mg/dL 0.7-1.3 BUN/CREATININE RATIO (test code=BUN/CREA) 17.5 10-20 CALCIUM (test code=CA) 8.6 mg/dL 8.5-10.1 [id number] 16:30:00* Test Item Value Reference Range Comments TROPONIN-I (test code=TROPI) <0.015 ng/mL 0-0.045 BASIC METABOLIC [id number] 16:16:00* Test Item Value Reference Range Comments SODIUM (test code=NA) 131 mmol/L 136-145 POTASSIUM (test code=K) 4.3 mmol/L 3.5-5.1 CHLORIDE (test code=CL) 102.0 mmol/L 98-107 CARBON DIOXIDE (test code=CO2) mmol/L 21-32 ANION GAP (test code=GAP) 10-20 GLUCOSE (test code=GLU) mg/dL 74-106 BLOOD UREA NITROGEN (test code=BUN) mg/dL 7-18 GLOMERULAR FILTRATION RATE (test code=GFR) mL/min >=60 CREATININE (test code=CREAT) mg/dL 0.7-1.3 BUN/CREATININE RATIO (test code=BUN/CREA) 10-20 CALCIUM (test code=CA) mg/dL 8.5-10.1 [id number] 16:16:00* Test Item Value Reference Range Comments TROPONIN-I (test code=TROPI) ng/mL 0-0.045 CBC W/O [id number] 16:11:00* Test Item Value Reference Range Comments WHITE BLOOD CELL (test code=WBC) 80.8 K/mm3 4.5-12.5 Has "Path Review" been performed on patient's currentadmission?If yes, please insert path review specimen here If not, please order "Path Review" for the followingcriteria:1/ WBC count over 40,000/mm3 or below 2,000/mm32/ Platelet counts over 1,000,000/mm3, or below 10,000/mm3, or with abnormal morphology.3/ Abnormal red cell morphology or inclusions which are severe (> 3+) , widespread, or difficult to classify.4/ Abnormal white blood cell morphology: Blasts present in peripheral blood of any patient as a new finding. Abnormal cells suspected of being blasts. Patients with large numbers of immature cells in peripheral blood. Unusual cells or cells not easily classified in peripheral blood.5/ Any smear in which the technologist is uncertain of the classification or the disease. RED BLOOD CELL (test code=RBC) 3.52 mill/mm3 4.0-5.8 HEMOGLOBIN (test code=HGB) 11.1 gram/dL 13.0-17.5 HEMATOCRIT (test code=HCT) 34.7 % 42.0-52.0 MEAN CELL VOLUME (test code=MCV) 98.6 fL 80-98 MEAN CELL HGB (test code=MCH) 31.5 picogram 27.0-33.0 MEAN CELL HGB CONCETRATION (test code=MCHC) 32.0 gram/dL 33.0-36.0 RED CELL DISTRIBUTION WIDTH (test code=RDW) 13.2 % 11.6-16.2 PLATELET COUNT (test code=PLT) 160 K/mm3 150-450 MEAN PLATELET VOLUME (test code=MPV) 10.8 fL 6.7-11.0 PATHOLOGISTS [id number] 16:11:00* Test Item Value Reference Range Comments PATHOLOGISTS FINDINGS (test code=PATH) PATH NOTES WBC [id number] 16:11:00* Test Item Value Reference Range Comments STAIN ACCEPTABILITY (test code=STN ACCEPTABLE) TOTAL CELLS COUNTED (test code=TCC) #CELLS SEGMENTED NEUTROPHILS (test code=SEG) % 39-69 LYMPHOCYTE (test code=LYMPH) % 25-55 MONOCYTE (test code=MON) % 0-10 MORPHOLOGY COMMENT (test code=MOC) PLATELET ESTIMATE (test code=PLTEST) PLATELET MORPHOLOGY (test code=PLTMORPH) CBC W/O [id number] 16:09:00* Test Item Value Reference Range Comments WHITE BLOOD CELL (test code=WBC) 80.8 K/mm3 4.5-12.5 Has "Path Review" been performed on patient's currentadmission?If yes, please insert path review specimen here If not, please order "Path Review" for the followingcriteria:1/ WBC count over 40,000/mm3 or below 2,000/mm32/ Platelet counts over 1,000,000/mm3, or below 10,000/mm3, or with abnormal morphology.3/ Abnormal red cell morphology or inclusions which are severe (> 3+) , widespread, or difficult to classify.4/ Abnormal white blood cell morphology: Blasts present in peripheral blood of any patient as a new finding. Abnormal cells suspected of being blasts. Patients with large numbers of immature cells in peripheral blood. Unusual cells or cells not easily classified in peripheral blood.5/ Any smear in which the technologist is uncertain of the classification or the disease. RED BLOOD CELL (test code=RBC) 3.52 mill/mm3 4.0-5.8 HEMOGLOBIN (test code=HGB) 11.1 gram/dL 13.0-17.5 HEMATOCRIT (test code=HCT) 34.7 % 42.0-52.0 MEAN CELL VOLUME (test code=MCV) 98.6 fL 80-98 MEAN CELL HGB (test code=MCH) 31.5 picogram 27.0-33.0 MEAN CELL HGB CONCETRATION (test code=MCHC) 32.0 gram/dL 33.0-36.0 RED CELL DISTRIBUTION WIDTH (test code=RDW) 13.2 % 11.6-16.2 PLATELET COUNT (test code=PLT) 160 K/mm3 150-450 MEAN PLATELET VOLUME (test code=MPV) 10.8 fL 6.7-11.0 WBC [id number] 16:09:00* Test Item Value Reference Range Comments STAIN ACCEPTABILITY (test code=STN ACCEPTABLE) TOTAL CELLS COUNTED (test code=TCC) #CELLS SEGMENTED NEUTROPHILS (test code=SEG) % 39-69 LYMPHOCYTE (test code=LYMPH) % 25-55 MONOCYTE (test code=MON) % 0-10 EOSINOPHIL (test code=EOS) % 0.0-5.0 CABOT RINGS (test code=CAB) MORPHOLOGY COMMENT (test code=MOC) PLATELET ESTIMATE (test code=PLTEST) PLATELET MORPHOLOGY (test code=PLTMORPH) CBC W/O [id number] 16:09:00* Test Item Value Reference Range Comments WHITE BLOOD CELL (test code=WBC) 80.8 K/mm3 4.5-12.5 Has "Path Review" been performed on patient's currentadmission?If yes, please insert path review specimen here If not, please order "Path Review" for the followingcriteria:1/ WBC count over 40,000/mm3 or below 2,000/mm32/ Platelet counts over 1,000,000/mm3, or below 10,000/mm3, or with abnormal morphology.3/ Abnormal red cell morphology or inclusions which are severe (> 3+) , widespread, or difficult to classify.4/ Abnormal white blood cell morphology: Blasts present in peripheral blood of any patient as a new finding. Abnormal cells suspected of being blasts. Patients with large numbers of immature cells in peripheral blood. Unusual cells or cells not easily classified in peripheral blood.5/ Any smear in which the technologist is uncertain of the classification or the disease. RED BLOOD CELL (test code=RBC) 3.52 mill/mm3 4.0-5.8 HEMOGLOBIN (test code=HGB) 11.1 gram/dL 13.0-17.5 HEMATOCRIT (test code=HCT) 34.7 % 42.0-52.0 MEAN CELL VOLUME (test code=MCV) 98.6 fL 80-98 MEAN CELL HGB (test code=MCH) 31.5 picogram 27.0-33.0 MEAN CELL HGB CONCETRATION (test code=MCHC) 32.0 gram/dL 33.0-36.0 RED CELL DISTRIBUTION WIDTH (test code=RDW) 13.2 % 11.6-16.2 PLATELET COUNT (test code=PLT) 160 K/mm3 150-450 MEAN PLATELET VOLUME (test code=MPV) 10.8 fL 6.7-11.0 PATHOLOGISTS [id number] 16:09:00* Test Item Value Reference Range Comments PATHOLOGISTS FINDINGS (test code=PATH) PATH NOTES WBC [id number] 16:09:00* Test Item Value Reference Range Comments STAIN ACCEPTABILITY (test code=STN ACCEPTABLE) TOTAL CELLS COUNTED (test code=TCC) #CELLS SEGMENTED NEUTROPHILS (test code=SEG) % 39-69 LYMPHOCYTE (test code=LYMPH) % 25-55 MONOCYTE (test code=MON) % 0-10 EOSINOPHIL (test code=EOS) % 0.0-5.0 MORPHOLOGY COMMENT (test code=MOC) PLATELET ESTIMATE (test code=PLTEST) PLATELET MORPHOLOGY (test code=PLTMORPH) CBC W/O [id number] 16:08:00* Test Item Value Reference Range Comments WHITE BLOOD CELL (test code=WBC) 80.8 K/mm3 4.5-12.5 Has "Path Review" been performed on patient's currentadmission?If yes, please insert path review specimen here If not, please order "Path Review" for the followingcriteria:1/ WBC count over 40,000/mm3 or below 2,000/mm32/ Platelet counts over 1,000,000/mm3, or below 10,000/mm3, or with abnormal morphology.3/ Abnormal red cell morphology or inclusions which are severe (> 3+) , widespread, or difficult to classify.4/ Abnormal white blood cell morphology: Blasts present in peripheral blood of any patient as a new finding. Abnormal cells suspected of being blasts. Patients with large numbers of immature cells in peripheral blood. Unusual cells or cells not easily classified in peripheral blood.5/ Any smear in which the technologist is uncertain of the classification or the disease. RED BLOOD CELL (test code=RBC) 3.52 mill/mm3 4.0-5.8 HEMOGLOBIN (test code=HGB) 11.1 gram/dL 13.0-17.5 HEMATOCRIT (test code=HCT) 34.7 % 42.0-52.0 MEAN CELL VOLUME (test code=MCV) 98.6 fL 80-98 MEAN CELL HGB (test code=MCH) 31.5 picogram 27.0-33.0 MEAN CELL HGB CONCETRATION (test code=MCHC) 32.0 gram/dL 33.0-36.0 RED CELL DISTRIBUTION WIDTH (test code=RDW) 13.2 % 11.6-16.2 PLATELET COUNT (test code=PLT) 160 K/mm3 150-450 MEAN PLATELET VOLUME (test code=MPV) 10.8 fL 6.7-11.0 TROPONIN I [id number] 16:05:00* Test Item Value Reference Range Comments TROPONIN I RAPID (test code=TROPIRAP) 0.00 ng/mL <0.08 Please Note New Reference Range 0.00-0.079 ng/mL - Negative>or=0.08 ng/mL - Positive The use of serial sampling and testing protocol is arecommended practice.An elevated troponin level alone is often not sufficient fordiagnosis of myocardial infarction. Troponin results obtained by different assays may vary.Evaluation of the extent of myocardial damage based onincrease of troponin would be valid only if similarmethodology is used. - XR CHEST 1 [id number] 15:12:00 FAX: Db Brooks DO [place]: St: REG Name: YANIQUE BOOTHE [facility] : [birth year] Age/S: 77/M [address] [facility] Unit #: [id number] Loc: [place] [address] Phys: Db Brooks DO Acct: [id number] Dis Date: Status: REG ER PHONE #: [phone] Exam Date: 07/27/2018 1550 FAX #: [phone] Reason: CHEST PAIN EXAMS: CPT CODE: [id number] XR CHEST 1 V 75375 REASON FOR EXAM: CHEST PAIN EXAM ORDER DATE: 07/27/2018 2:52 PM Ordering Priyanka: Db Brooks DO PROCEDURE: - XR CHEST 1 V COMPARISON: 01/23/2018 FINDINGS: Portable AP frontal view of the chest obt ained at 3:09 PM shows clear lungs without evidence of consolidation. Ther e is no evidence of effusion. The heart size is within normal limits. Pulmonary vasculatures are unremarkable. IMPRESSION: No active disease. at 1512 Reported and signed by: Scott Dominguez M.D. CC: Db Brooks DO Technologist: MANUEL EARLY) Ronald Date/Time/By: (8909) : By: Gigi Orig Print D/T: S: 07/27/2018 (2959) PAGE 1 Signed Report FINGER/TOES AMP.,[id number] 13:22:00 RUN DATE: 02/01/18 [facility] PAGE 1 RUN TIME: 1322 Specimen Inqui ry RUN USER: INTERFACE PATIENT: YANIQUE DYE ACCT #: V [id number] [facility] [id number] AGE/SX: 77/M ROOM: [facility] RE01/23/18JASMINA DR: Qamar Mooney MD : 42 BED: B DIS: STATUS: ADM IN TLOC: SPEC #: [id number] RECD: 01/27/18 STATUS: ANIL BONILLA #: [id number] KRISTEL: 01/27/18- DR: Qamar Mooney MD ENTERED: 01/27/18 SP TYPE: FINGER/TOE OTHR DR: Jey Gomez DPM, Dongxin MD S Fidencio rockwell MDORDERED: GROSS COPIES TO: Jey Gomez DPNima [address] [facility] [place] [address] [place] [address] [place] [address] [facility] [address] [place], [place] [id number] Fidenico Sharp MD [address] [facility] [address] [place] [address] Qamar Mooney MD [address] [place] [address] PROCEDURES: GROSS (02/01/181312) TISSUES: 1. TOE, NOS - 2 nd RIGHT 2. TOE, NOS - RIGHT P OXIMAL MARGIN CLINICAL HISTORY COLLECTION DATE: 01/27/18 FINAL DIAGNOSIS Second digit, right, amputation: ULCERATION WITH MARKED ACU TE INFLAMMATION AND FAT NECROSIS SOFT TISSUE AT MARGIN WITH ACUTE INFLAM MATION BONE AT MARGIN WITH NO SIGNIFICANT INFLAMMATION NEGATIVE FO R MALIGNANCY CONTINUED ON NEXT PAGE --- ---------RUN DATE: 02/01/18 [facility] RUN TIME: 1322 Specimen Inquiry RUN USER: INTERFACE SPEC #: [id number] PATIENT: YANIQUE DYE #[id number] (Continued) FINAL DIAGNOSIS (Continued) Bone and soft tissue, proximal margin, excision: S OFT TISSUE WITH ACUTE INFLAMMATION AND INFLAMED GRANULATION TISSUE BONE W ITH NO SIGNIFICANT INFLAMMATION NEGATIVE FOR MALIGNANCY FA / D [phone], [phone] MACROSCOPIC The first specimen is re ceived in formalin, labeled with the patient's name, and identified as "amputa tion 2nd digit right" and the specimen measures 4.0 X 2.5 X 3.0 cm with a disc olored nail measuring 2.0 X 1.0 cm and adjacent ulcer measuring 1.0 cm. Section Code: 1A- soft tissue at margin, 1B- ulcerated lesion, soft tissue and bone and 1C- bone at margin. The second specimen is received in formalin, labeled with the patient's name, and identified as "proximal margin". It co nsists of a portion of bone with attached soft tissue measuring 1.5 X 1.5 X 1. 3 cm. Pulmonary Disease Specialist section is submitted as (2). GROSS PERFORM ED AT [facility] [address] [place] [phone] MICROSCOPIC The patient shows ulce ration with marked inflammatory infiltrate extending to the subcutaneous tissu e with fat necrosis and ................ inflammatory debris. Sections of ba ne at margin show no inflammation. No ......... elements are present. Sectio ns of soft tissue at margin show acute inflammation, necrosis, ............... ..... inflammation tissue and fat necrosis. No malignancy is identified. In second specimen sections show bone and cartilage with rare foci of resi dual matter elements. There is a focus of neutrophilic collection adjacent to the bone with no obvious infiltration to marrow space. No malignancy is iden tified. CONTINUED ON NEXT PAGE ------ ------RUN DATE: 02/01/18 [facility] PAGE 3 RUN TIME: 1322 Specimen Inquiry RUN USER: INTERFACE SPEC #: [id number] PATIENT: YANIQUE DYE #[id number] (Continued) MICROSCOPIC (Continued) MICROSCOPIC PERFORMED AT [facility] All of the stains, including any controls performed, stain appropriately. [facility] [address] [facility] [place] [address] [phone] PER[address] Diagnosis performed at: [facility] Dominguezu ltPATI gonzalez [address] [place] [address] [phone] Signed SIGNATURE ON FILE Cheyanne Granger D 02/01/18 1322 END OF REPORT FINGER/TOES AMP.,[id number] 13:22:00 RUN DATE: 02/02/18 [facility] PAGE 1 RUN TIME: 32 Specimen Inqui ry RUN USER: INTERFACE PATIENT: YANIQUE DYE ACCT #: V [id number] LOC: [facility] U #: [id number] AGE/SX: 77/M ROOM: [facility] RE01/23/18REG DR: Qamar Mooney MD : 42 BED: B DIS: 02/01/18 STATUS: DIS IN TLOC: SPEC #: [id number] RECD: 01/27/18 STATUS: ANIL BONILLA #: [id number] KRISTEL: 01/27/18 DR: Qamar Mooney MD ENTERED: 01/27/18 SP TYPE: FINGER/TOE OTHR DR: Jey Gomez DPM, Dongxin MD S Fidencio rockwell MDORDERED: GROSS COPIES TO: Jey Gomez DPNima [address] [facility] [place] [address] [place] [address] [place] [address] [facility] [address] [place] [address] Fidencio Sharp MD [address] [facility] [address] [place] [address] Qamar Mooney MD [address] [place] [address] PROCEDURES: GROSS (02/01/181312) TISSUES: 1. TOE, NOS - 2 nd RIGHT 2. TOE, NOS - RIGHT P OXIMAL MARGIN ADDENDUM FINDINGS Addendum #1 Entered: THE ADDENDUM IS ISSUED TO CORRECT MICROSCOPIC DESCRIPTION OF THE FIRST SPECIMEN. THE FINAL DIAGNOSIS REMAINS UNCHANGED. Sections of the first spe cimen show ulceration with marked inflammatory infiltrate extending to the subc utaneous tissue with fat necrosis and necroinflammatory debris. Sections of b one at margin show no inflammation. No marrow elements are present. Sections of soft tissue at margin show acute inflammation and fat necrosis. CONTINUED ON NEXT PAGE RUN DATE: 02/02/18 [place] [facility] Lab PAGE 2 RUN TIME: 0832 Specimen Inquiry RUN USER: INTERFACE SPEC #: [id number] PATIENT: YANIQUE DYE #[id number] (Continued) ADDENDUM FINDINGS (Continued) No davis gnancy is identified. Addendum Signed SIGNATURE ON FILE Memo Granger MD 02/02/18 0832 CLINICAL HISTORY COLLECTION DA TE: 01/27/18 FINAL DIAGNOSIS Second digit, right, amputation: U LCERATION WITH MARKED ACUTE INFLAMMATION AND FAT NECROSIS SOFT TISSUE AT MARGIN WITH ACUTE INFLAMMATION BONE AT MARGIN WITH NO SIGNIFICANT INFLAM MATION NEGATIVE FOR MALIGNANCY Bone and soft tissue, proximal shelton n, excision: SOFT TISSUE WITH ACUTE INFLAMMATION AND INFLAMED GRANULATION TISSUE BONE WITH NO SIGNIFICANT INFLAMMATION NEGATIVE FOR MALIGN BERNIE FA/sm D [phone], [phone] MACROSCOPIC The first specimen is received in formalin, labeled with the patient's name, and identified as "amputation 2nd digit right" and the specimen measures 4.0 X 2.5 X 3.0 cm with a discolored nail measuring 2.0 X 1.0 cm and adjacent ulcer ervin suring 1.0 cm. Section Code: 1A- soft tissue at margin, 1B- ulcerated les ion, soft tissue and bone and 1C- bone at margin. The second specimen is received in formalin, labeled with the patient's name, and identified as "pro ximal margin". It consists of a portion of bone with attached soft tissue ervin suring 1.5 X 1.5 X 1.3 cm. Pulmonary Disease Specialist section is submitted as (2). GROSS PERFORMED AT [facility] CONTINUED ON NEXT PAGE RUN DATE: 02/02/18 [facility] PAGE 3 RUN TIME: 32 Specimen Inquiry RUN USER: INTERFACE SPEC #: [id number] PATIENT: YANIQUE DYE #[id number] (Continued)------ ------ MACROSCOPIC (Continued) [facility] [address] [id number] (P)[phone] MICROSCOPIC The patient shows ulceration with marked inflammatory infiltrate extending to the subcutaneous tissue with fat necrosis and ................ inflammatory debris. Sections of bone at margin show no inflammation. No ......... little shell tribe ents are present. Sections of soft tissue at margin show acute inflammation, necrosis, .................... inflammation tissue and fat necrosis. No malig leticia is identified. In second specimen sections show bone and cartilage with rare foci of residual matter elements. There is a focus of neutrophilic collection adjacent to the bone with no obvious infiltration to marrow space. No malignancy is identified. MICROSCOPIC PERFORMED AT [facility] All of the stains, including any controls performed, stain appr opriately. [facility] [address] [place] [address] (p)[phone] PERFORMING SITE Diagnosis performed at: [facility] [address] [address] Signed SIGNATURE ON FILE Cheyanne Granger MD 02/01/18 1322 END OF REPORT
[2018-11-22] MEDS ORDERED: ASPIRIN 81 MG CHEW TAB PO ONE ×2 (16:00→18:00)
--- NOTE | 2018-11-22 16:32 | NUR ---
RT NOTIFIED OF NEED FOR BIPAP
[2018-11-22 16:34] LABS: BASOPHILS # (AUTO) 0.1 (0.0-0.1); EOSINOPHILS # (AUTO) 0.1 (0.0-0.4); HEMATOCRIT 34.7 % (38.2-49.6); HEMOGLOBIN 10.1 g/dL (14.0-18.0); LYMPHOCYTES # (AUTO) 175.8 (1.0-3.2); LYMPHOCYTES % 94.2 % (18.0-39.1); MEAN CORPUSCULAR HEMOGLOBIN 29.5 pg (28-32); MEAN CORPUSCULAR HGB CONC 29.1 g/dL (31-35); MEAN CORPUSCULAR VOLUME 101.5 fL (81-99); MONOCYTES # (AUTO) 0.7 (0.2-0.8); MONOCYTES % 0.4 % (4.4-11.3); NEUTROPHILS # (AUTO) 9.5 (2.1-6.9); NEUTROPHILS % 5.1 % (38.7-80.0); PLATELET COUNT 284 x10e3/uL (140-360); RED BLOOD COUNT 3.42 x10e6/uL (4.3-5.7); RED CELL DISTRIBUTION WIDTH 16.5 % (11.7-14.4)
[2018-11-22 16:43] LABS: INR 1.14; PROTHROMBIN TIME 15.2 seconds (11.9-14.5)
[2018-11-22 16:54] LABS: ALBUMIN 3.6 g/dL (3.5-5.0); ALBUMIN/GLOBULIN RATIO 0.8 (0.8-2.0); ANION GAP 19.3 mmol/L (8-16); CALCIUM 9.5 mg/dL (8.4-10.2); CREATININE, SERUM 2.93 mg/dL (0.72-1.25); POTASSIUM 4.3 mmol/L (3.5-5.1)
[2018-11-22 16:59] LABS: CREATINE KINASE MB 1.5 ng/mL (0-5.0)
[2018-11-22] MEDS ORDERED: MORPHINE SULFATE INJ 4 MG/ML INJ 1ML IV PRN (17:15)
--- NOTE | 2018-11-22 17:16 | Diagnostic Imaging Report ---
EXAMINATION: CHEST SINGLE (PORTABLE) INDICATION: Chest pain COMPARISON: Chest radiograph 10/13/2011 FINDINGS: LINES/TUBES:EKG leads overlie the chest. LUNGS:The lungs are well-inflated. No focal consolidation or pulmonary edema. PLEURA:No pleural effusion or pneumothorax. MEDIASTINUM:The cardiomediastinal silhouette appears normal in size and shape. BONES/SOFT TISSUES:No acute osseous injury. Partially visualized left shoulder arthroplasty hardware. ABDOMEN:No free air under the diaphragm. IMPRESSION: No focal pneumonia or pulmonary edema. Signed by: Hoa Borden MD on 11/22/2018 5:13 PM
[2018-11-22 17:34] LABS: ABG HCO3 6 mmol/L (23-28); ABG PCO2 16 mmHg (41-51); ABG PH 7.18 (7.31-7.41); ABG PO2 158 mmHg (80-105)
[2018-11-22] MEDS ORDERED: POTASSIUM CHLORIDE 20MEQ/100ML 200 ML IV PRN (18:00)
[2018-11-22] MEDS ORDERED: MAGNESIUM SULF 1GRAM/DEXTROSE 100 ML IV PRN (18:00)
[2018-11-22] MEDS ORDERED: INSULIN REGULAR, HUMAN 3ML VL 100 UNIT in SODIUM CHLORIDE 0.9% 99 ML IV SCH ×2 (18:30)
[2018-11-22 19:17] LABS: LYMPHOCYTES % (MANUAL) 92 % (19-48); MONOCYTES % (MANUAL) 2 % (3.4-9.0); NEUTROPHILS % (MANUAL) 6 % (40-74)
[2018-11-22 19:18] LABS: HYPOCHROMASIA SLIGHT; PLATELET ESTIMATE ADEQUATE; PLATELET MORPHOLOGY COMMENT NORMAL; RBC MORPHOLOGY COMMENT NORMAL
[2018-11-22 19:19] LABS: ANISOCYTOSIS SLIGHT
--- NOTE | 2018-11-22 19:20 | NUR ---
PT STATES "I DON'T NEED THE BIPAP ANYMORE. I DON'T WANT TO WEAR IT" ; PT TAKEN OFF OF BIPAP, PLACED BACK ON 3L NC, AND INSTRUCTED PT TO CALL IF SOB; PT CURRENTLY DENIES SOB
[2018-11-22] MEDS: SODIUM CHLORIDE 0.9% 1000ML 1,000 ML IV SCH ×3 (19:22→21:46)
[2018-11-22] MEDS: INSULIN REGULAR, HUMAN 3ML VL 100 UNIT in SODIUM CHLORIDE 0.9% 99 ML IV SCH ×2 (19:23)
[2018-11-22 19:44] LABS: CALCIUM 10.1 mg/dL (8.4-10.2); CREATININE, SERUM 2.81 mg/dL (0.72-1.25); MAGNESIUM 2.5 MG/DL (1.3-2.1)
[2018-11-22] MEDS: CEFEPIME 1GM/NS 0.9% 50 ML 50 ML IV SCH (20:53)
[2018-11-22] MEDS: MORPHINE SULFATE INJ 4 MG/ML INJ 1ML IV PRN (21:01)
[2018-11-22] MEDS: ONDANSETRON HCL INJ 2MG/ML 2ML 2 MG/ML VIAL IV PRN (21:01)
[2018-11-22] MEDS ORDERED: NIFEDIPINE CR 30 MG TAB PO ONE (21:15)
[2018-11-22] MEDS: DEXTROSE 5%/0.45% SOD CHL 1,000 ML IV SCH (21:59)
--- NOTE | 2018-11-22 22:00 | NUR ---
BG 124 - IVF CHANGED FROM NS @ 250MLS/HR TO D5%/0.45% NS @ 100MLS/HR
[2018-11-22 23:45] VITALS: BP 171/79
[2018-11-23] VITALS (25 sets, daily range): BP systolic 107–172; BP diastolic 66–124
--- NOTE | 2018-11-23 00:07 | NUR ---
SPOKE WITH DR BURNS REGARDING PT'S BLOODY URINE - NO NEW ORDERS ON CHART
[2018-11-23 00:23] LABS: ANION GAP 15.5 mmol/L (8-16); CALCIUM 9.4 mg/dL (8.4-10.2); CREATININE, SERUM 2.21 mg/dL (0.72-1.25); MAGNESIUM 2.1 MG/DL (1.3-2.1)
[2018-11-23 00:25] LABS: POTASSIUM 3.5 mmol/L (3.5-5.1)
[2018-11-23] MEDS ORDERED: DEXTROSE 50% SYRINGE 50 ML IV ONE (00:32)
[2018-11-23 00:53] LABS: CREATINE KINASE MB 1.3 ng/mL (0-5.0)
[2018-11-23] MEDS: SODIUM CHLORIDE 0.9% 1000ML 1,000 ML IV SCH ×5 (01:46→18:01)
[2018-11-23] MEDS: MORPHINE SULFATE INJ 4 MG/ML INJ 1ML IV PRN ×5 (01:58→17:48)
[2018-11-23 04:38] LABS: HEMATOCRIT 31.6 % (38.2-49.6); HEMOGLOBIN 9.5 g/dL (14.0-18.0); LYMPHOCYTES # (AUTO) 136.6 (1.0-3.2); LYMPHOCYTES % 90.4 % (18.0-39.1); MEAN CORPUSCULAR HEMOGLOBIN 29.9 pg (28-32); MEAN CORPUSCULAR HGB CONC 30.1 g/dL (31-35); MEAN CORPUSCULAR VOLUME 99.4 fL (81-99); MONOCYTES # (AUTO) 0.7 (0.2-0.8); MONOCYTES % 0.4 % (4.4-11.3); NEUTROPHILS # (AUTO) 13.2 (2.1-6.9); NEUTROPHILS % 8.8 % (38.7-80.0); PLATELET COUNT 269 x10e3/uL (140-360); RED BLOOD COUNT 3.18 x10e6/uL (4.3-5.7); RED CELL DISTRIBUTION WIDTH 15.9 % (11.7-14.4)
[2018-11-23] MEDS: DEXTROSE 5%/0.45% SOD CHL 1,000 ML IV SCH ×2 (04:50→23:08)
[2018-11-23] MEDS: INSULIN REGULAR, HUMAN 3ML VL 100 UNIT in SODIUM CHLORIDE 0.9% 99 ML IV SCH ×2 (04:52)
--- NOTE | 2018-11-23 06:53 | NUR ---
Consult called to Dr Neumann. I spoke to Ella who placed a page out to him
[2018-11-23 07:17] LABS: ANION GAP 13.8 mmol/L (8-16); CALCIUM 9.6 mg/dL (8.4-10.2); CREATININE, SERUM 2.07 mg/dL (0.72-1.25); MAGNESIUM 2.2 MG/DL (1.3-2.1); POTASSIUM 3.8 mmol/L (3.5-5.1)
[2018-11-23] MEDS: ONDANSETRON HCL INJ 2MG/ML 2ML 2 MG/ML VIAL IV PRN ×2 (07:59→13:44)
[2018-11-23] MEDS: FAMOTIDINE 20 MG TAB PO SCH ×2 (09:00→17:59)
[2018-11-23] MEDS: PREGABALIN 75 MG CAP PO SCH ×2 (09:00→17:59)
[2018-11-23] MEDS: NIFEDIPINE CR 30 MG TAB PO SCH (09:00)
[2018-11-23] MEDS: METOPROLOL SUCCINATE 50 MG TAB XL PO SCH ×2 (09:00→18:00)
--- NOTE | 2018-11-23 09:26 | NUR ---
Consult called to Dr Fields.
[2018-11-23] MEDS: METOCLOPRAMIDE HCL 10 MG/2ML VIAL IV SCH ×3 (09:45→20:45)
[2018-11-23] MEDS: CEFEPIME 1GM/NS 0.9% 50 ML 50 ML IV SCH ×2 (09:46→20:45)
--- NOTE | 2018-11-23 09:50 | NUR ---
Consult called to Dr Alfred Lane, [facility].
--- NOTE | 2018-11-23 09:52 | NUR ---
Consult called to Dr Immanuel Porter.
[2018-11-23] MEDS ORDERED: SODIUM BICARBONATE 8.4% 150 ML in SODIUM CHLORIDE 0.45% 1,000 ML IV SCH (10:00)
[2018-11-23] MEDS ORDERED: DIATRIZOATE MEGL/DIATRIZOA SOD 30 ML BTL PO ONE (10:30)
[2018-11-23] MEDS ORDERED: DEXTROSE 5%/0.45% SOD CHL 1,000 ML IV ONE (10:45)
[2018-11-23 12:25] LABS: CREATINE KINASE MB 1.9 ng/mL (0-5.0)
--- NOTE | 2018-11-23 13:00 | NUR ---
Dr Tian Porter to bedside; per request; bladder scan performed post void; no residual.
[2018-11-23 13:35] LABS: CREATINE KINASE MB 1.7 ng/mL (0-5.0)
[2018-11-23] MEDS ORDERED: DEXTROSE 50% SYRINGE 50 ML IV PRN (14:15)
--- NOTE | 2018-11-23 14:18 | Diagnostic Imaging Report ---
CT of the chest, abdomen, and pelvis, without contrast, 11/23/2018. History: Leukocytosis. Comparison: Chest x-ray from 11/22/2018. Technique: Technique: Multidetector CT scanning of the chest, abdomen, and pelvis was performed from the level of the lung apices to the inferior pubic rami without intravenous contrast. Oral contrast was administered. Coronal and sagittal multiplanar reformations were obtained. RADIATION DOSE: Total DLP: 989 mGy*cm Dose modulation, iterative reconstruction, and/or weight based adjustment of the mA/kV was utilized to reduce the radiation dose to as low as reasonably achievable. Discussion: Evaluation is limited without IV contrast. CHEST: The heart, aorta, and main pulmonary artery are normal in size. The thyroid is unremarkable. There is no evidence of axillary or mediastinal adenopathy. Linear opacities are scattered bilaterally. Minimal patchy groundglass opacities are noted in the inferior aspect of the right upper lobe. There is no evidence of consolidation, mass, or pleural effusion. ABDOMEN: There is no evidence of nephrolithiasis. There is mild bilateral hydronephrosis and hydroureter down to the bladder without visible obstructing ureteral stone. Cholecystectomy clips are present. The liver, biliary tree, spleen, pancreas, and adrenal glands are unremarkable. The abdominal aorta is within normal limits for size. The stomach and small bowel are unremarkable. Multiple diverticuli are present within the sigmoid colon without evidence of adjacent inflammation. There is no evidence of adenopathy or free fluid. PELVIS: There is mild diffuse thickening of the bladder wall. No stones are seen within the bladder. The prostate is at the upper limits of normal measuring 4.8 cm in transverse diameter. A small fat-containing left inguinal hernia is present. There is no evidence of free fluid or adenopathy. BONES AND SOFT TISSUES: Advanced degenerative changes are present throughout the lumbar spine without evidence of lytic or sclerotic lesion. Deformity of the right pubic ramus is suggestive of old trauma. Left shoulder prosthesis is noted. IMPRESSION: 1. Minimal right upper lobe patchy opacities may represent early infectious process, not visible on the portable chest. This may be followed with 2 view chest. 2. Mild bilateral hydronephrosis and hydroureter without visible stone. Diffuse bladder wall thickening is noted which may represent cystitis. Consider urologic consultation. 3. Colonic diverticulosis without evidence of diverticulitis. Signed by: Be Miguel on 11/23/2018 2:15 PM
[2018-11-23 14:41] LABS: FREE T4 (FREE THYROXINE) 1.07 ng/dL (0.8-1.8); THYROID STIMULATING HORMONE 0.71 uIU/mL (0.350-4.940)
--- NOTE | 2018-11-23 15:00 | NUR ---
Dr Alfred Bueno to bedside; orders rec'd. Patient continues to vomit with oral intake.
--- NOTE | 2018-11-23 16:11 | Consultation ---
DATE OF CONSULTATION: 11/23/2018 ICU consultation REASON FOR CONSULT: ICU management. I was notified of the consult this morning at 8:45 a.m. The patient came in yesterday afternoon at 1745 hours. HISTORY OF PRESENT ILLNESS: Mr. Rivera is a 78-year-old male who has a history of chronic myeloid leukemia. The patient is a regular patient of Dr. Vela, has seen Dr. Mooney in the past. He came in with chest pain which was progressively getting worse. It was substernal, not radiating anywhere. It started when he was watching TV, lasted for a few hours until he reached the emergency room. He reports that the chest pain has improved. In emergency room, the patient was found to have a white count of 151,000 and platelets 269 with a bicarbonate of 8 and anion gap 13. His blood glucose was 405 when he came in. He has a problem with noncompliance. His chest pain was relieved in 4-5 hours, it did not radiate anywhere and did not get worse. No pleuritic component. His bicarb is still 8. REVIEW OF SYSTEMS: GENERAL: Denies any fever or chills. HEAD: Denies any head trauma. ENT: Denies any earache. CVS: Had chest pain, but is resolved. GI: Denies any nausea vomiting. The rest of the review of systems are negative except as in HPI. 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 PAST SURGICAL HISTORY: Neck fusion surgery, low back fusion surgery, right hand surgery, left knee replacement, and gallbladder cholecystectomy. The patient was here in 2014 with uncontrolled diabetes and noncompliance as well. PHYSICAL EXAMINATION: VITAL SIGNS: Temperature 98.5, pulse of 100, blood pressure 114/72, respiratory rate is 18 to 20, and O2 saturation 100% on 3 L. HEENT: Head is atraumatic and normocephalic. NECK: Supple. CHEST: Clear to auscultation bilaterally. No wheezing. HEART: S1, S2 audible. ABDOMEN: Soft, nontender. EXTREMITIES: No pedal edema. NEUROLOGICAL: He is awake and alert, following commands. Responds to questions appropriately. LABORATORY DATA: PH of 7.18, pCO2 of 16, and PO2 of 158. Chemistry sodium 132, potassium 3.8, and bicarb of 8. This was at 7:00 a.m. This morning, his bicarb was 8 at 2359 hours, creatinine of 2.07, blood glucose was 156. The patient is on insulin drip. ASSESSMENT: Mr. Rivera is a 78-year-old male with chronic myeloid leukemia. The patient does not want treatment has history of noncompliance with diabetes, came in with severe metabolic acidosis, likely DKA. The patient's anion gap on admission was 19 and a bicarbonate is still 8. Chest x-ray is not showing any focal infiltrate. No urinalysis was done. PLAN: 1. I will start the patient on insulin drip. Dr. Fields has been consulted. 2. Hematology consultation for CML has been done. 3. Bicarbonate infusion. The patient's bicarbonate is still 8. 4. No apparent source of infection. Chest x-ray is not showing any evidence of pneumonia. 5. The patient's blood pressure has been stable. Continue nebulizer treatment as needed. The patient has a questionable history of COPD. Critical care time spent 50 minutes. 6. Thank you for this consult MD BRONWYN Hernandez/MALLIKA /[id number]
--- NOTE | 2018-11-23 16:16 | History and Physical ---
PRIMARY CARE PHYSICIAN: Lane Vela MD. CONSULTANTS: 1. Dr. Ha Neumann. 2. Dr. Yoli Christianson. 3. Dr. Delfino Fields. CHIEF COMPLAINT: DKA. Severe leukocytosis secondary to CML. SUMMARY: The patient is a 78-year-old male, who has CML, but refused treatment. The patient has also diabetes type 2, on insulin. He is noncompliant with his medications. He came in with basically metabolic acidosis associated with DKA. He also has a WBC of 186,000. The patient has dehydration with acute kidney injury secondary to DKA. The patient is otherwise stable in ICU. Blood pressure in the 110/77. The patient is receiving insulin drip. PAST MEDICAL HISTORY: 1. Diabetes, on insulin therapy, noncompliant. 2. Hypertension. 3. Diabetic complication with neuropathy. 4. Chronic kidney disease. 5. CML and refused treatment. 6. Chronic facial lesion. SOCIAL HISTORY: The patient does not smoke or use alcohol. No regular drug. ALLERGIES: NO KNOWN ALLERGIES. HOME MEDICATIONS: Norvasc, enalapril, Pepcid, metformin, metoprolol succinate, Lyrica, [place], albuterol, aspirin, Crestor, glipizide, Levemir, regular insulin, and nebulizer treatment. PHYSICAL EXAMINATION: VITAL SIGNS: Temperature is 98, blood pressure 114/72, pulse rate is 100, and respirations 22. GENERAL: The patient is awake, communicating, but he seemed quite weak and dehydrated. HEENT: Normocephalic and atraumatic. Facial lesion on the left chronically. PULMONARY: Diminished breath sounds without any wheezing or rales. CARDIOVASCULAR: Tachycardia. ABDOMEN: Soft. EXTREMITIES: No cyanosis or edema. NEUROLOGIC: No gross focal deficit. Only generalized weakness and moving all extremities. LABORATORY DATA: Sodium is 127, potassium 4.3, chloride 104, bicarb 8, BUN is 72, creatinine 2.9, and glucose is 405. INR is 1.14. WBC is 186, hemoglobin 10.1, hematocrit 34.7, and platelets is 284. IMAGING TESTS: Chest x-ray showed no focal pneumonia or pulmonary edema. IMPRESSION: 1. Diabetic ketoacidosis with metabolic acidosis, severely. 2. Chronic myeloid leukemia with dehydration, increase in WBC. 3. Multiple chronic baseline problem including chronic anemia, chronic kidney disease, stage not available at this time due to dehydration and metabolic acidosis. PLAN: Continue with IV fluids, insulin drip. Consultations with Dr. Delfino Fields; Critical Care, Dr. Yoli Christianson; and magnet valve assembler, Dr. Ha Neumann. Repeated lab work. Check lab. Antibiotics. Supportive measure due to the patient wishes. MD YONI Morales/MALLIKA /[id number]
[2018-11-23 16:40] LABS: ANION GAP 13.5 mmol/L (8-16); CALCIUM 9.5 mg/dL (8.4-10.2); CREATININE, SERUM 1.94 mg/dL (0.72-1.25); POTASSIUM 3.5 mmol/L (3.5-5.1)
--- NOTE | 2018-11-23 18:00 | NUR ---
Dr Thony Neumann to bedside; discussed patient condition and plan of care in depth with patient's son, Meet.
[2018-11-23] MEDS ORDERED: DEXTROSE 5%/0.45% SOD CHL 1,000 ML IV SCH (18:15)
[2018-11-23] MEDS: INSULIN REGULAR, HUMAN 3ML VL 100 UNIT in SODIUM CHLORIDE 0.9% 100 ML IV SCH ×2 (18:39)
--- NOTE | 2018-11-23 20:43 | Consultation ---
DATE OF CONSULTATION: 11/23/2018 Endocrine Consultation This is a patient of Dr. Christianson. Thank you very much for referring this patient. HISTORY OF PRESENT ILLNESS: This is a 78-year-old white male gentleman, who is referred to me for evaluation of uncontrolled diabetes mellitus and diabetic ketoacidosis. The patient came to the hospital with history of abdominal pain and urinary tract infection. On further evaluation, his blood sugar was found to be 405. His anion gap was 19.3. The patient also is a known diabetic for last almost 10 to 15 years and takes a combination of the insulins at home 70/30 with each meal and 70 at bedtime. He also has chronic myeloid leukemia and hypertension. PHYSICAL EXAMINATION: GENERAL: Today, the patient is alert, awake, little bit apprehensive. VITAL SIGNS: His heart rate is around 100 and blood pressure 130/80 mmHg. HEENT: Essentially unremarkable. NECK: Thyroid is palpable. Clinically, he is near euthyroid. CHEST: Bilateral vesicular breathing. He has mild bronchospasm. CARDIOVASCULAR: First and second heart sounds. There are no third or fourth heart sounds. There is ejection systolic murmur grade 2/6. 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 CLINICAL IMPRESSION: Diabetes mellitus type 2, uncontrolled with complications, diabetic ketoacidosis, urinary tract infection, hypertension, and CLL. PLAN: The plan at this time is to adjust his IV fluids. Monitor his blood sugars closely. We will also do a hemoglobin A1c and thyroid function tests. Thanks for referring this patient. I will be following this patient with you. MD ANGIE Burch/MALLIKA /[id number] FOZIA
[2018-11-24] VITALS (23 sets, daily range): BP systolic 115–172; BP diastolic 64–99
--- NOTE | 2018-11-24 00:28 | Consultation ---
DATE OF CONSULTATION: 11/23/2018 HISTORY OF PRESENT ILLNESS: This is a 78-year-old patient, who was admitted to the hospital for severe leukocytosis secondary to chronic CML. The patient has a history of recent hematuria. He did not have any instrumentation or placement of a Maldonado catheter and does not complain of a significant gross hematuria. However, he does have some dysuria and frequency of urination. PAST MEDICAL HISTORY: Significant for, 1. Diabetes mellitus, insulin therapy. 2. Hypertension. 3. Diabetic complication with neuropathy. 4. Chronic kidney disease. 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 SOCIAL HISTORY: The patient does not smoke or use alcohol. No use of illicit drugs. ALLERGIES: TO MEDICATIONS, NOT KNOWN MEDICATIONS, SEE MAR. REVIEW OF SYSTEMS: Twelve systems reviewed. Except of what mentions, the rest is negative. PHYSICAL EXAMINATION: GENERAL: Alert and oriented. VITAL SIGNS: Blood pressure 115/71, pulse 92, temperature 98, respirations 20. HEENT: Head, symmetric. Eyes, normal. NECK: No JVD. CHEST: Clear. HEART: Regular. ABDOMEN: Soft. No palpable masses. GENITOURINARY: External genitalia, uncircumcised. No testicular masses. Prostate enlarged. LOWER EXTREMITIES: Move all. LABORATORY DATA: White count 185,000, hemoglobin 10.1. Sodium 132, potassium 3.8, chloride 134, bicarb 8, creatinine 2.07, BUN 54. Urinalysis, hematuria. INR 1.14. IMPRESSION: 1. Hematuria. 2. Chronic leukemia. 3. Diabetic ketoacidosis. 4. Diabetes mellitus. 5. Renal failure, mild. 6. Dysuria. 7. Frequency. 8. Hypertension. 9. Chronic facial lesion. 10. Diabetic complication with neuropathy. PLAN: In the future, he will need a diagnostic cystoscopy. At the present time, we will follow with you as needed. Marika Porter MD [place]/MODL /[id number]
[2018-11-24 00:57] LABS: ANION GAP 13.1 mmol/L (8-16); CALCIUM 8.1 mg/dL (8.4-10.2); CREATININE, SERUM 1.67 mg/dL (0.72-1.25); POTASSIUM 3.1 mmol/L (3.5-5.1)
[2018-11-24] MEDS: METOCLOPRAMIDE HCL 10 MG/2ML VIAL IV SCH ×4 (03:40→20:39)
[2018-11-24 05:47] LABS: EOSINOPHILS # (AUTO) 0.1 (0.0-0.4); HEMATOCRIT 28.9 % (38.2-49.6); HEMOGLOBIN 8.7 g/dL (14.0-18.0); LYMPHOCYTES # (AUTO) 129.9 (1.0-3.2); LYMPHOCYTES % 91.4 % (18.0-39.1); MEAN CORPUSCULAR HGB CONC 30.1 g/dL (31-35); MEAN CORPUSCULAR VOLUME 99.7 fL (81-99); MONOCYTES # (AUTO) 0.9 (0.2-0.8); MONOCYTES % 0.6 % (4.4-11.3); NEUTROPHILS % 7.7 % (38.7-80.0); PLATELET COUNT 242 x10e3/uL (140-360); RED CELL DISTRIBUTION WIDTH 15.7 % (11.7-14.4)
[2018-11-24 05:55] LABS: CREATININE, SERUM 1.76 mg/dL (0.72-1.25)
[2018-11-24] MEDS: ONDANSETRON HCL INJ 2MG/ML 2ML 2 MG/ML VIAL IV PRN (06:17)
[2018-11-24] MEDS: MORPHINE SULFATE INJ 4 MG/ML INJ 1ML IV PRN ×5 (06:18→23:43)
[2018-11-24 06:33] LABS: MAGNESIUM 2.1 MG/DL (1.3-2.1)
[2018-11-24 06:59] LABS: FOLATE > 20.0 ng/mL (7.0-15.4)
[2018-11-24] MEDS: DEXTROSE 5%/0.45% SOD CHL 1,000 ML IV SCH ×3 (08:29→23:27)
[2018-11-24 08:32] LABS: ANISOCYTOSIS SLIGHT; PLATELET ESTIMATE ADEQUATE; RBC MORPHOLOGY COMMENT NORMAL
[2018-11-24 08:33] LABS: LYMPHOCYTES % (MANUAL) 95 % (19-48); MONOCYTES % (MANUAL) 1 % (3.4-9.0); NEUTROPHILS % (MANUAL) 4 % (40-74); PLATELET MORPHOLOGY COMMENT NORMAL
[2018-11-24] MEDS: NIFEDIPINE CR 30 MG TAB PO SCH ×2 (09:00→16:43)
[2018-11-24] MEDS: PREGABALIN 75 MG CAP PO SCH ×2 (09:00→16:43)
--- NOTE | 2018-11-24 09:01 | NUR ---
patient sitting with urinal nearly full and running over. Complete bed bath done. skin care. all linen changed Addendum: 11/24/18 at 0902 by Tatyana Sapp RN Amended: Links added.
[2018-11-24] MEDS: CEFEPIME 1GM/NS 0.9% 50 ML 50 ML IV SCH ×2 (09:04→19:42)
[2018-11-24] MEDS: METOPROLOL SUCCINATE 50 MG TAB XL PO SCH ×2 (09:11→16:43)
[2018-11-24] MEDS: FAMOTIDINE 20 MG TAB PO SCH ×2 (09:11→16:43)
--- NOTE | 2018-11-24 09:28 | NUR ---
patient complains of burning pain when he urinates
[2018-11-24] MEDS ORDERED: POTASSIUM CHLORIDE 20MEQ/100ML 100 ML IV ONE (09:30)
[2018-11-24 12:25] LABS: ANION GAP 13.1 mmol/L (8-16); CALCIUM 8.6 mg/dL (8.4-10.2); CREATININE, SERUM 1.59 mg/dL (0.72-1.25); POTASSIUM 3.1 mmol/L (3.5-5.1)
[2018-11-24] MEDS: INSULIN REGULAR, HUMAN 3ML VL 100 UNIT in SODIUM CHLORIDE 0.9% 100 ML IV SCH ×2 (13:46)
--- NOTE | 2018-11-24 15:32 | NUR ---
Nutrition Screen Note RD Recommendation for Physician: -ADAT to ADA 1800 per MD. -Consider renal diet pending lab trends. Plan of Care: RD following, monitoring for tolerance and adequacy. Nutrition reason for involvement: MST-2 Primary Diagnose(s): chronic leukemia, DKA PMH: 1. Diabetes mellitus, insulin therapy. 2. Hypertension. 3. Diabetic complication with neuropathy. 4. Chronic kidney disease. 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 Ht: 69 in Wt:166 lb BMI: 24.5 kg/m2 IBW: [address] Assessment: (11/24) 78 YOM admitted for DKA, chronic leukemia with PMH listed above. Pt was observed very fatigued and within the ICU, pt is off of the insulin drip. Pt reported he has been tolerating his full liquid diet and he does have a good appetite. Pt denied N/V/C/D/chewing or swallowing issues as well as denied any food allergies. Pt was unsure if he had lost any weight recently. No past weights within his EMR. A1c: 8.6, POC GM: 214. Chart reviewed. Labs and meds reviewed. Will continue to monitor. Current Diet: full liquids Malnutrition Evaluation (11/24) The patient does not meet criteria for a specified degree of malnutrition at this time. Will re-evaluate at follow-up as appropriate. Muslce loss: Mild-temporal, clavicle Diet Education Needs Assessment: Diet education indicated, pt on transition diet and not appropriate at this time. Nutrition Care Level: low Signed: Jana Juan, RD, LD
--- NOTE | 2018-11-24 16:30 | NUR ---
saturated pad with pink tinged urine. Dr. Dionicio Porter at bedside and explained the need for Circumcision. Will need cardiac clearance.
--- NOTE | 2018-11-24 17:53 | Consultation ---
DATE OF CONSULTATION: 11/24/2018 Cardiology Consultation. REASON FOR CONSULTATION: Chest pain. HISTORY OF PRESENT ILLNESS: This is a 78-year-old man with CML, not on treatment, who presented to the emergency department with lethargy, fatigue, atypical chest discomfort, some shortness of breath. His chest pain was mild, not exertional, occurred at rest, substernal, no radiation, no other exacerbating or relieving factors. He was noted to be in DKA with severe leukocytosis and dehydration with acute kidney injury. His troponin values have remained within normal limits. No significant cardiac history per his report. The patient is slightly confused, lethargic, cannot provide me the exact details of his medical history or presenting symptoms. REVIEW OF SYSTEMS: Unable to be obtained due to altered mental status. PAST MEDICAL HISTORY: CML, chronic kidney disease, hypertension, and hyperlipidemia. PAST FAMILY HISTORY: Noncontributory. PAST SURGICAL HISTORY: None recently. SOCIAL HISTORY: No illicit drug or active tobacco use. ALLERGIES: NO KNOWN DRUG ALLERGIES. MEDICATIONS: See medications reconciliation form. PHYSICAL EXAMINATION: VITAL SIGNS: Temperature is 98.4, heart rate is 98, respirations are 20, blood pressure is 137/80, oxygen saturation 99% on 3 L nasal cannula. GENERAL: He is a chronically ill-appearing elderly male, lying comfortably in bed, in no apparent distress. HEAD: Normocephalic, atraumatic. EYES: Extraocular muscles are intact. Conjunctivae clear. NECK: No JVD. No bruits. CARDIOVASCULAR: Regular rate and rhythm. LUNGS: Clear to auscultation. ABDOMEN: Soft, nontender, nondistended. EXTREMITIES: No clubbing, cyanosis, or edema. VASCULAR: 2+ pulses. SKIN: Warm, dry, intact. LABORATORY DATA: Reviewed. Troponins negative x3. Creatinine 1.76, potassium 3, sodium 135. White blood cell count is 142, hemoglobin is 8.7. Electrocardiogram showed sinus tachycardia. IMPRESSION: 1. Chest pain. 2. Diabetic ketoacidosis. 3. Leukocytosis. 4. Chronic myeloid leukemia. 5. Dehydration. 6. Acute on chronic kidney disease. 7. Hypertension. 8. Hyperlipidemia. 9. Diabetes mellitus. RECOMMENDATIONS: The patient ruled out for acute myocardial infarction. His chest pain is atypical and likely noncardiac related. Continue to monitor closely on telemetry. We will obtain a 2D echocardiogram to assess left ventricular function. Resume home antihypertensives. Replace potassium to keep around four. Intravenous fluids for acute kidney injury. We will continue to follow along with you. DO BARB Faulkner/MODL /[id number]
[2018-11-24 18:47] LABS: ANION GAP 15.1 mmol/L (8-16); CALCIUM 8.9 mg/dL (8.4-10.2); CREATININE, SERUM 1.54 mg/dL (0.72-1.25); POTASSIUM 3.1 mmol/L (3.5-5.1)
[2018-11-24] MEDS ORDERED: INSULIN LISPRO 100 UNIT/1 ML 3ML VIAL SQ ONE (21:00)
[2018-11-24] MEDS ORDERED: INSULIN GLARGINE 100 UNITS/ML VIAL SQ ONE (21:00)
[2018-11-25] VITALS (9 sets, daily range): BP systolic 112–140; BP diastolic 64–76
--- NOTE | 2018-11-25 00:54 | Progress Note ---
DATE: 11/24/2018 CHIEF COMPLAINT: Gross hematuria. HISTORY OF PRESENT ILLNESS: Meet Rivera is a 78-year-old man, who was noted to have hematuria, was admitted for diabetic ketoacidosis. He does report some dysuria. MEDICATIONS: Reviewed. ALLERGIES: REVIEWED. REVIEW OF SYSTEMS: Discussed as above history of present illness includes the improvement of his diabetic ketoacidosis, otherwise consistent with the prior notes in the chart. PHYSICAL EXAMINATION: GENERAL: Very pleasant man lying in bed, in no apparent distress. VITAL SIGNS: He is currently afebrile. Vital signs are currently stable. ABDOMEN: Soft, nondistended, and nontender. GENITOURINARY: Severe phimosis with some pus at the meatus of the phimosis. I cannot see the urethral meatus and I cannot see the glans penis. LABORATORY STUDIES: The patient's creatinine is down to 1.76. His potassium is low at 3. Sodium is low at 135. CT showed bilateral hydroureteronephrosis and BPH and also left inguinal hernia. ASSESSMENT: 1. Hematuria. 2. Leukocytosis. 3. Anemia. 4. Dysuria. 5. Hypokalemia. 6. Hyponatremia. 7. Acute renal failure that is improving. 8. Bilateral hydroureteronephrosis. 9. BPH. 10. Severe phimosis. 11. Left inguinal hernia by CT. PLAN: 1. Once the patient is better, he needs to have a circumcision, cystoscopy, and retrograde. 2. His cardiac clearance will be necessary for anesthesia. 3. Continue multidisciplinary care. 4. Hematological and electrolyte abnormalities by the admitting physician. 5. Continue multidisciplinary care. Dionicio MD [place]/MODL /[id number] cc: Lane Vela MD
[2018-11-25] MEDS: METOCLOPRAMIDE HCL 10 MG/2ML VIAL IV SCH ×4 (02:43→20:55)
[2018-11-25] MEDS: MORPHINE SULFATE INJ 4 MG/ML INJ 1ML IV PRN ×3 (04:47→12:52)
[2018-11-25 05:24] LABS: EOSINOPHILS # (AUTO) 0.3 (0.0-0.4); EOSINOPHILS % 0.2 % (0.0-6.0); HEMATOCRIT 29.2 % (38.2-49.6); HEMOGLOBIN 8.6 g/dL (14.0-18.0); LYMPHOCYTES # (AUTO) 145.5 (1.0-3.2); LYMPHOCYTES % 92.9 % (18.0-39.1); MEAN CORPUSCULAR HEMOGLOBIN 29.5 pg (28-32); MEAN CORPUSCULAR HGB CONC 29.5 g/dL (31-35); MONOCYTES # (AUTO) 0.8 (0.2-0.8); MONOCYTES % 0.5 % (4.4-11.3); NEUTROPHILS # (AUTO) 9.6 (2.1-6.9); NEUTROPHILS % 6.1 % (38.7-80.0); PLATELET COUNT 224 x10e3/uL (140-360); RED BLOOD COUNT 2.92 x10e6/uL (4.3-5.7); RED CELL DISTRIBUTION WIDTH 16.4 % (11.7-14.4)
[2018-11-25 05:47] LABS: ANION GAP 14.3 mmol/L (8-16); CALCIUM 8.8 mg/dL (8.4-10.2); CREATININE, SERUM 1.5 mg/dL (0.72-1.25); POTASSIUM 3.3 mmol/L (3.5-5.1)
[2018-11-25 07:22] LABS: LYMPHOCYTES % (MANUAL) 89 % (19-48); MONOCYTES % (MANUAL) 2 % (3.4-9.0); NEUTROPHILS % (MANUAL) 9 % (40-74)
[2018-11-25] MEDS: DEXTROSE 5%/0.45% SOD CHL 1,000 ML IV SCH ×2 (07:22→19:08)
[2018-11-25 07:25] LABS: PLATELET ESTIMATE ADEQUATE; PLATELET MORPHOLOGY COMMENT NORMAL
[2018-11-25 07:26] LABS: SMUDGE CELLS MODERATE
--- NOTE | 2018-11-25 08:08 | NUR ---
assessment completed and patient request pain medication despite . Encouraged patient to stay awake for breakfast.
[2018-11-25] MEDS: METOPROLOL SUCCINATE 50 MG TAB XL PO SCH ×2 (08:31→17:04)
[2018-11-25] MEDS: FAMOTIDINE 20 MG TAB PO SCH ×2 (08:31→17:04)
[2018-11-25] MEDS: NIFEDIPINE CR 30 MG TAB PO SCH (08:31)
[2018-11-25] MEDS: PREGABALIN 75 MG CAP PO SCH ×2 (08:31→17:04)
[2018-11-25] MEDS: CEFEPIME 1GM/NS 0.9% 50 ML 50 ML IV SCH ×2 (08:35→20:47)
[2018-11-25] MEDS: ACETAMINOPHEN 325 MG TAB PO PRN (09:02)
[2018-11-25] MEDS ORDERED: CLINDAMYCIN 600MG / 50ML 50 ML IV SCH (10:00)
[2018-11-25 10:43] LABS: FERRITIN 411.13 ng/mL (21.81-274.66)
[2018-11-25] MEDS: CLINDAMYCIN 600MG / 50ML 50 ML IV SCH ×4 (11:07→23:47)
[2018-11-25] MEDS ORDERED: INSULIN LISPRO 100 UNIT/1 ML 3ML VIAL SQ NR (14:15)
[2018-11-25] MEDS: INSULIN LISPRO 100 UNIT/1 ML 3ML VIAL SQ SCH ×3 (17:06→20:51)
[2018-11-25] MEDS ORDERED: ACETAMINOPHEN 1000 MG/100 ML IV NR (19:45)
[2018-11-25] MEDS ORDERED: ACETAMINOPHEN 1000 MG/100 ML IV PRN (19:45)
[2018-11-25] MEDS ORDERED: SODIUM CHLORIDE 0.9% 1000ML 1,000 ML ONE (19:49)
[2018-11-25] MEDS ORDERED: SODIUM CHLORIDE 0.9% IV ONE (20:30)
[2018-11-25 20:48] LABS: EOSINOPHILS # (AUTO) 0.1 (0.0-0.4); EOSINOPHILS % 0.1 % (0.0-6.0); HEMATOCRIT 22.7 % (38.2-49.6); LYMPHOCYTES # (AUTO) 117.6 (1.0-3.2); LYMPHOCYTES % 92.7 % (18.0-39.1); MEAN CORPUSCULAR HEMOGLOBIN 29.4 pg (28-32); MEAN CORPUSCULAR VOLUME 98.3 fL (81-99); MONOCYTES # (AUTO) 0.6 (0.2-0.8); MONOCYTES % 0.5 % (4.4-11.3); NEUTROPHILS # (AUTO) 8.2 (2.1-6.9); NEUTROPHILS % 6.5 % (38.7-80.0); PLATELET COUNT 179 x10e3/uL (140-360); RED BLOOD COUNT 2.31 x10e6/uL (4.3-5.7); RED CELL DISTRIBUTION WIDTH 16.2 % (11.7-14.4)
[2018-11-25] MEDS: INSULIN GLARGINE 100 UNITS/ML VIAL SQ SCH (20:51)
[2018-11-25 21:08] LABS: HEMOGLOBIN 6.8 g/dL (14.0-18.0)
[2018-11-25 21:12] LABS: ALBUMIN/GLOBULIN RATIO 0.6 (0.8-2.0); ANION GAP 12.3 mmol/L (8-16); CALCIUM 8.2 mg/dL (8.4-10.2); CREATININE, SERUM 1.5 mg/dL (0.72-1.25); POTASSIUM 3.3 mmol/L (3.5-5.1)
--- NOTE | 2018-11-25 22:18 | Diagnostic Imaging Report ---
EXAM: CT Abdomen and Pelvis WITHOUT contrast INDICATION: Abdominal distention, sepsis COMPARISON: Abdominal CT 11/23/2018. TECHNIQUE: Abdomen and pelvis were scanned utilizing a multidetector helical scanner from the lung base to the pubic symphysis without administration of IV contrast. Absence of intravenous contrast decreases sensitivity for detection of focal lesions and vascular pathology. Coronal and sagittal reformations were obtained. Routine protocol was performed. IV CONTRAST: None ORAL CONTRAST: None COMPLICATIONS: None RADIATION DOSE: Total DLP: 96 mGy*cm Estimated effective dose: (DLP x 0.015 x size factor) mSv CTDIvol has been reviewed. It is below the limits set by the Radiation Protocol Committee (RPC). Dose modulation, iterative reconstruction, and/or weight based adjustment of the mA/kV was utilized to reduce the radiation dose to as low as reasonably achievable. FINDINGS: LINES and TUBES: None. LOWER THORAX: Trace right pleural effusion with right basilar atelectasis. Right coronary artery calcifications. Low blood hypodensity in the left ventricular chamber consistent with anemia. HEPATOBILIARY: No focal hepatic lesions. No biliary ductal dilation. GALLBLADDER: There are cholecystectomy clips. SPLEEN: No splenomegaly. PANCREAS: No focal masses or ductal dilatation. ADRENALS: No adrenal nodules KIDNEYS/URETERS: Increased mild bilateral hydroureteronephrosis without obstructing calculus. Increased bilateral perinephric fat stranding compared to abdominal CT on 11/23/2018 . No cystic or solid mass lesions. No stones. GI TRACT: Distal colonic diverticuli without evidence of diverticulitis. Increased distention of the transverse colon. Appendix is normal. Enteric contrast within the colon. PELVIC ORGANS/BLADDER: Moderate urinary bladder distention and circumferential bladder wall thickening. Mild prostatic enlargement. LYMPH NODES: No lymphadenopathy. VESSELS: There is atherosclerotic disease in the aorta and major arterial branches. PERITONEUM / RETROPERITONEUM: No free air or fluid. BONES: There are degenerative changes in the lumbar spine. Heterotopic ossification anterior to the right pubic body. SOFT TISSUES: Unremarkable. IMPRESSION: 1. Findings suggestive of urinary bladder cystitis and bilateral pyelonephritis. Slight increase in mild bilateral hydroureteronephrosis, right worse than left. Layering heterogeneity in the posterior lateral may represent blood or soft tissue thickening. Recommend contrast-enhanced CT urogram, or CT angiogram. 2. Over distention of the transverse colon with air, may represent ileus or pseudoobstruction. 3. Distal colonic diverticulosis without diverticulitis. 4. Trace right pleural effusion and right basilar atelectasis. Signed by: Blair Chang DO on 11/25/2018 10:14 PM
[2018-11-25] MEDS ORDERED: BISACODYL 10 MG SUPP PR PRN (22:45)
[2018-11-25] MEDS ORDERED: BISACODYL 10 MG SUPP PR ONE (22:45)
--- NOTE | 2018-11-25 22:58 | Progress Note ---
DATE: 11/25/2018 Cardiology Progress Note SUBJECTIVE: No major events overnight. OBJECTIVE: VITAL SIGNS: Temperature 102.5, pulse 89, respiratory rate 22, blood pressure 112/70, saturating 97% on 2 L nasal cannula. GENERAL: Elderly man, in no acute distress. CARDIOVASCULAR: Regular rate and rhythm. No murmurs, rubs, or gallops. LUNGS: Clear to auscultation. Decreased breath sounds at the bases. ABDOMEN: Soft, nontender, nondistended. NEURO AND PSYCH: Alert and oriented to person, place, and time. Normal affect. INPATIENT MEDICATIONS: Reviewed. LABORATORY DATA: Reviewed. TELEMETRY DATA: Reviewed. ASSESSMENT AND PLAN: 1. Chest pain, noncardiac. 2. Diabetic ketoacidosis. 3. Leukocytosis. 4. Chronic myeloid leukemia. 5. Sepsis. 6. Acute on chronic kidney disease. 7. Hypertension. 8. Hyperlipidemia. 9. Diabetes. RECOMMENDATIONS: Chest pain is noncardiac, intermittent. Sinus tachycardia. Otherwise, no arrhythmias. We will continue to follow closely. MD GIOVANI Kendrick/MALLIKA /[id number]
[2018-11-25] MEDS: SODIUM CHLORIDE 0.9% 250ML IRRIG IR SCH (23:15)
[2018-11-25] MEDS: KCL 20MEQ/.9 SOD CHL 1,000 ML IV SCH (23:47)
[2018-11-26] VITALS (8 sets, daily range): BP systolic 113–153; BP diastolic 68–82
--- NOTE | 2018-11-26 00:12 | NUR ---
PATIENT HAS REFUSED MATHIS, NG TUBE AND STATES HE DOESN'T WANT ANY TUBES. PATIENT IS FULLY ALERT AND ORIENTED VERIFIED BY CHARGE NURSE AND BEDSIDE NURSE. PATIENT COMPLAINING OF PAIN AFTER FAILED MATHIS INSERTION ATTEMPT, ADMINISTERED REQUESTED PAIN MEDICATION ORDERED AND V/S ARE WNL.
[2018-11-26] MEDS: SODIUM CHLORIDE 0.9% 250ML IRRIG IR SCH ×2 (03:15→07:15)
[2018-11-26] MEDS: METOCLOPRAMIDE HCL 10 MG/2ML VIAL IV SCH ×4 (03:48→20:43)
[2018-11-26] MEDS: CLINDAMYCIN 600MG / 50ML 50 ML IV SCH ×4 (03:48→23:59)
[2018-11-26 05:21] LABS: FOLATE 18.9 ng/mL (7.0-15.4)
[2018-11-26 06:17] LABS: EOSINOPHILS # (AUTO) 0.2 (0.0-0.4); EOSINOPHILS % 0.1 % (0.0-6.0); HEMATOCRIT 26.4 % (38.2-49.6); HEMOGLOBIN 7.7 g/dL (14.0-18.0); LYMPHOCYTES # (AUTO) 115.8 (1.0-3.2); LYMPHOCYTES % 91.4 % (18.0-39.1); MEAN CORPUSCULAR HEMOGLOBIN 29.5 pg (28-32); MEAN CORPUSCULAR HGB CONC 29.2 g/dL (31-35); MEAN CORPUSCULAR VOLUME 101.1 fL (81-99); MONOCYTES # (AUTO) 0.8 (0.2-0.8); MONOCYTES % 0.6 % (4.4-11.3); NEUTROPHILS # (AUTO) 9.6 (2.1-6.9); NEUTROPHILS % 7.6 % (38.7-80.0); PLATELET COUNT 155 x10e3/uL (140-360); RED BLOOD COUNT 2.61 x10e6/uL (4.3-5.7); RED CELL DISTRIBUTION WIDTH 16.4 % (11.7-14.4)
[2018-11-26 06:46] LABS: ANION GAP 15.4 mmol/L (8-16); CALCIUM 8.4 mg/dL (8.4-10.2); CREATININE, SERUM 1.5 mg/dL (0.72-1.25); POTASSIUM 3.4 mmol/L (3.5-5.1)
[2018-11-26] MEDS: MORPHINE SULFATE INJ 4 MG/ML INJ 1ML IV PRN ×3 (06:57→23:20)
[2018-11-26] MEDS: INSULIN LISPRO 100 UNIT/1 ML 3ML VIAL SQ SCH ×7 (08:00→20:46)
[2018-11-26] MEDS: FERROUS SULFATE 325 MG TAB PO SCH ×3 (08:59→20:43)
[2018-11-26] MEDS: METOPROLOL SUCCINATE 50 MG TAB XL PO SCH ×2 (08:59→17:37)
[2018-11-26] MEDS: MUPIROCIN 2% OINT 22 GM TUBE TOP SCH (08:59)
[2018-11-26] MEDS: CEFEPIME 1GM/NS 0.9% 50 ML 50 ML IV SCH ×2 (08:59→20:43)
[2018-11-26] MEDS ORDERED: POTASSIUM CHLORIDE 20MEQ/100ML 200 ML IV ONE (09:30)
[2018-11-26] MEDS ORDERED: LORAZEPAM INJ 2 MG/ML VIAL IV NR (09:30)
[2018-11-26] MEDS: KCL 20MEQ/.9 SOD CHL 1,000 ML IV SCH (09:36)
--- NOTE | 2018-11-26 11:08 | NUR ---
attempted to insert bernal but was unsuccessful due uncircumcised state. cannot find the meatus to avoid infection post insertion.
--- NOTE | 2018-11-26 11:57 | NUR ---
holding extra 5 units insulin due to patient refusing to eat.
[2018-11-26] MEDS: SODIUM BICARBONATE 8.4% 150 ML in DEXTROSE 5% 1,000 ML IV SCH (13:24)
--- NOTE | 2018-11-26 17:38 | NUR ---
unable to obtain urine specimen due to patients unwillingness to cooperate and unable to straight cath.
[2018-11-26] MEDS: INSULIN GLARGINE 100 UNITS/ML VIAL SQ SCH (20:45)
[2018-11-27] MEDS: MORPHINE SULFATE INJ 4 MG/ML INJ 1ML IV PRN ×5 (03:53→21:30)
[2018-11-27] MEDS: SODIUM BICARBONATE 8.4% 150 ML in DEXTROSE 5% 1,000 ML IV SCH (03:53)
[2018-11-27] MEDS: METOCLOPRAMIDE HCL 10 MG/2ML VIAL IV SCH ×4 (03:53→20:19)
[2018-11-27] MEDS: CLINDAMYCIN 600MG / 50ML 50 ML IV SCH ×3 (04:46→18:22)
[2018-11-27 05:17] LABS: EOSINOPHILS # (AUTO) 0.2 (0.0-0.4); EOSINOPHILS % 0.2 % (0.0-6.0); HEMATOCRIT 21.4 % (38.2-49.6); LYMPHOCYTES # (AUTO) 100.5 (1.0-3.2); LYMPHOCYTES % 91.7 % (18.0-39.1); MEAN CORPUSCULAR HEMOGLOBIN 28.9 pg (28-32); MEAN CORPUSCULAR HGB CONC 30.4 g/dL (31-35); MEAN CORPUSCULAR VOLUME 95.1 fL (81-99); MONOCYTES # (AUTO) 1.3 (0.2-0.8); MONOCYTES % 1.2 % (4.4-11.3); NEUTROPHILS # (AUTO) 7.3 (2.1-6.9); NEUTROPHILS % 6.7 % (38.7-80.0); PLATELET COUNT 182 x10e3/uL (140-360); RED BLOOD COUNT 2.25 x10e6/uL (4.3-5.7); RED CELL DISTRIBUTION WIDTH 15.7 % (11.7-14.4)
[2018-11-27 05:21] LABS: HEMOGLOBIN 6.5 g/dL (14.0-18.0)
[2018-11-27 05:32] LABS: ANION GAP 14.1 mmol/L (8-16); CALCIUM 8.7 mg/dL (8.4-10.2); CREATININE, SERUM 1.32 mg/dL (0.72-1.25); POTASSIUM 3.1 mmol/L (3.5-5.1)
[2018-11-27] MEDS: INSULIN LISPRO 100 UNIT/1 ML 3ML VIAL SQ SCH ×7 (07:09→21:00)
[2018-11-27] MEDS: METOPROLOL SUCCINATE 50 MG TAB XL PO SCH ×2 (07:12→16:50)
[2018-11-27] MEDS: FERROUS SULFATE 325 MG TAB PO SCH ×3 (07:12→20:20)
[2018-11-27 07:14] VITALS: BP 138/81
[2018-11-27 07:14] LABS: LYMPHOCYTES % (MANUAL) 94 % (19-48); MONOCYTES % (MANUAL) 1 % (3.4-9.0); NEUTROPHILS % (MANUAL) 5 % (40-74); PLATELET ESTIMATE ADEQUATE; PLATELET MORPHOLOGY COMMENT FEW LARGE; RBC MORPHOLOGY COMMENT NORMAL
[2018-11-27 07:15] VITALS: BP 138/81
[2018-11-27] MEDS ORDERED: ACETAMINOPHEN 325 MG TAB PO STA (07:36)
[2018-11-27] MEDS ORDERED: SODIUM CHLORIDE 0.9% 250ML 250 ML IV ONE (07:45)
[2018-11-27] MEDS ORDERED: FUROSEMIDE INJ 10 MG/ML 2 ML VIAL IV PRN (07:45)
[2018-11-27] MEDS: CEFEPIME 1GM/NS 0.9% 50 ML 50 ML IV SCH ×2 (08:33→20:19)
[2018-11-27] MEDS: MUPIROCIN 2% OINT 22 GM TUBE TOP SCH (08:33)
[2018-11-27] MEDS: ONDANSETRON HCL INJ 2MG/ML 2ML 2 MG/ML VIAL IV PRN ×2 (08:33→16:52)
[2018-11-27] MEDS: DOCUSATE SODIUM LIQD 100 MG/10 ML UDC NG SCH ×2 (09:00→16:50)
[2018-11-27] MEDS ORDERED: CITRATE OF MAGNESIA 300ML BOTTLE PO PRN (09:00)
[2018-11-27] MEDS ORDERED: SODIUM CHLORIDE 0.9% 250ML 250 ML ONE ×2 (11:23→15:15)
--- NOTE | 2018-11-27 11:26 | Progress Note ---
DATE: 11/27/2018 Cardiology Progress Note SUBJECTIVE: The patient denies chest pain or shortness of breath. OBJECTIVE: VITAL SIGNS: Temperature 98.8 degrees, pulse 97, respiratory rate 19, blood pressure 138/81, and oxygen saturation 99% on 2 liters nasal cannula. GENERAL: Awake, alert, in no acute distress. LUNGS: Clear to auscultation bilaterally. CARDIOVASCULAR: Normal rate and regular rhythm. No murmur. Normal S1 and S2. ABDOMEN: Soft and nontender. EXTREMITIES: No edema. CARDIAC MEDICATIONS: None. LABORATORY DATA: WBC 109.54, hemoglobin 6.5, hematocrit 21.4, and platelets 182. Sodium 135, potassium 3.1, chloride 108, CO2 is 16, BUN 21, and creatinine 1.32. TELEMETRY: Normal sinus rhythm. IMPRESSION: 1. Chest pain. 2. Diabetic ketoacidosis. 3. Chronic myeloid leukemia. 4. Acute on chronic kidney disease, improving. 5. Hypertension. 6. Hyperlipidemia. 7. Diabetes mellitus. 8. Sepsis. IMPRESSION AND PLAN: The patient ruled out for myocardial infarction with serial cardiac biomarkers. Monitor closely on telemetry. Continue on current cardiac medications. We would recommend resuming home rosuvastatin. Resume ASH inhibitor if renal function is stable. Hold aspirin given current anemia. Antibiotics per primary. Thank you for this consult. We will continue to follow. Renu Vitale MD ABS/MIRIAML /[id number]
--- NOTE | 2018-11-27 11:48 | NUR ---
PT STABLE, RESTING. AT BEDSIDE. RECVING 1ST UNIT PRBC.
[2018-11-27 12:00] VITALS: BP 150/79
--- NOTE | 2018-11-27 14:25 | NUR ---
WOUND CONSULT FOR 78 YO MALE RODY OF 13 AND MODERATE TO STRICT PUP ON ALTERNATING MATTRESS LABS: WBC- 109.54, HGB- 6.5, GLUCOSE -177 NEGATIVE BLOOD CULTURES SKIN ASSESSMENT : PATIENT REFUSED TO ALLOW ME TO PERFORM A FULL SKIN ASSESSMENT HE WOULD ONLY ALLOW ME TO ASSESS WOUNDS TO THE RT AND LEFT SIDE OF HIS FACE FULL WOUND DETAILS LISTED ON WOUND FORM. PARTIAL THICKNESS WOUND LESIONS NOTED TO RIGHT AND LEFT SIDE OF PATIENTS FACE . THE WOUND BED IS RED AND HYPERGRANULATED WITH MODERATE AMOUNTS OF SEROSANGUINEOUS DRAINAGE .LARGE AMOUNTS OF DRIED CRUSTING MATERIAL CLEANED AND REMOVED FROM FACIAL HAIR NO FOUL SMELL NOTED OR ANY OUTWARD SIGNS OF INFECTION RECOMMENDATIONS: NURSING TO CONTINUE TO PROTECT AND OFFLOAD PATIENT SUPPORTING PUP PROTOCOL NURSING TO CONTINUE TO ASSIST PATIENT OUT OF BED FOR MEALS AND MUCH TOLERATED NURSING TO APPLY DAILY XEROFORM TO PARTIAL THICKNESS WOUNDS TO RIGHT AND LEFT SIDE OF FACE COVER WITH FOAM AND SECURE WITH TAPE Addendum: 11/27/18 at 1505 by Jose Daniel Aparicio RN Amended: Links added.
--- NOTE | 2018-11-27 15:24 | NUR ---
PT HAS AGREED TO ALLOW FC AND NG TUBE PLACEMENT WHILE UNDER ANESTHESIA FOR PROCEDURE. UPDATED OR NURSE, PT TO LEAVE UNIT NOW, 2ND UNIT TRANSFUSING
[2018-11-27 16:18] VITALS: BP 151/79
[2018-11-27] MEDS: DEXTROSE 5%/0.45% SOD CHL 1,000 ML IV SCH (16:19)
--- NOTE | 2018-11-27 19:58 | NUR ---
received report from am nurse, patient resting in bed with hob elevated, 02 per nc remain intact. call light in reach. will continue to monitor.
--- NOTE | 2018-11-27 19:59 | NUR ---
ATTEMPTED TO PLACE NGT PER RIGHT NARE, PATIENT REACHED FOR THE TUBE i WAS INSERTING IT AND STATED HE CAN'T, HE CAN'T DO IT, i ASKED COULD i TRY IN HIS LEFT NARE HE STATED NO YOU CAN'T i'VE HAD TOO MANY ISSUES WITH THAT SIDE. ASKED IF I COULD GET SOMEONE ELSE TO TRY HE STATED NO. WILL INFORM CHARGE NURSE.
[2018-11-27 20:00] VITALS: BP 149/82
[2018-11-27] MEDS: INSULIN GLARGINE 100 UNITS/ML VIAL SQ SCH (21:00)
[2018-11-27 21:02] VITALS: BP 149/82
[2018-11-28] VITALS: BP 152/84
[2018-11-28] MEDS: CLINDAMYCIN 600MG / 50ML 50 ML IV SCH ×5 (00:35→23:10)
[2018-11-28] MEDS: DEXTROSE 5%/0.45% SOD CHL 1,000 ML IV SCH ×3 (02:00→23:20)
[2018-11-28] MEDS: METOCLOPRAMIDE HCL 10 MG/2ML VIAL IV SCH ×4 (03:30→20:01)
[2018-11-28 05:17] VITALS: BP 153/83
[2018-11-28 05:30] LABS: ANION GAP 17.1 mmol/L (8-16); CALCIUM 8.7 mg/dL (8.4-10.2); CREATININE, SERUM 1.22 mg/dL (0.72-1.25); POTASSIUM 3.1 mmol/L (3.5-5.1)
--- NOTE | 2018-11-28 06:34 | NUR ---
PATIENT REMAIN NPO FOR PROCEDURE, NO COMPLAINTS VOICED AT THIS TIME. TEMPERATURE RECHECKED AND DOCUMENTED. INCONTINENT CARE GIVEN, PATIENT REFUSED SEVERAL TIMES TO BE TURNED TO THE SIDE, REMAIN ON 20 PER NC, REMAIN ON TELEMETRY. WILL CONTINUE TO MONITOR. CALL LIGHT IN REACH.
--- NOTE | 2018-11-28 07:09 | NUR ---
REPORT GIVEN TO ONCOMING NURSE.
[2018-11-28 07:46] VITALS: BP 158/86
--- NOTE | 2018-11-28 08:06 | Diagnostic Imaging Report ---
Exam: KUB Comparison: CT abdomen, November 25, 2018 Clinical history: Abdominal distention next Findings: Significantly dilated transverse colon is again noted measuring up to 15 cm in diameter. This may represent obstruction versus ileus. If there is clinical concern for pneumoperitoneum, CT is recommended for further assessment. Degenerative changes are again noted throughout the lumbar spine. No pathological calcifications noted. Signed by: Dr. Delbert Almeida MD on 11/28/2018 8:03 AM
[2018-11-28 08:10] LABS: BASOPHILS # (AUTO) 0.1 (0.0-0.1); EOSINOPHILS # (AUTO) 0.3 (0.0-0.4); EOSINOPHILS % 0.2 % (0.0-6.0); HEMATOCRIT 28.2 % (38.2-49.6); HEMOGLOBIN 8.5 g/dL (14.0-18.0); LYMPHOCYTES # (AUTO) 103.3 (1.0-3.2); MEAN CORPUSCULAR HEMOGLOBIN 29.1 pg (28-32); MEAN CORPUSCULAR HGB CONC 30.1 g/dL (31-35); MEAN CORPUSCULAR VOLUME 96.6 fL (81-99); MONOCYTES # (AUTO) 0.5 (0.2-0.8); MONOCYTES % 0.5 % (4.4-11.3); NEUTROPHILS # (AUTO) 5.6 (2.1-6.9); NEUTROPHILS % 5.2 % (38.7-80.0); PLATELET COUNT 175 x10e3/uL (140-360); RED BLOOD COUNT 2.92 x10e6/uL (4.3-5.7); RED CELL DISTRIBUTION WIDTH 15.8 % (11.7-14.4)
[2018-11-28] MEDS: INSULIN LISPRO 100 UNIT/1 ML 3ML VIAL SQ SCH ×7 (08:34→20:30)
[2018-11-28] MEDS: MORPHINE SULFATE INJ 4 MG/ML INJ 1ML IV PRN ×3 (08:45→23:59)
[2018-11-28] MEDS: DOCUSATE SODIUM LIQD 100 MG/10 ML UDC NG SCH ×2 (08:45→17:00)
[2018-11-28] MEDS: CEFEPIME 1GM/NS 0.9% 50 ML 50 ML IV SCH ×2 (08:45→19:58)
[2018-11-28] MEDS: METOPROLOL SUCCINATE 50 MG TAB XL PO SCH ×2 (08:46→17:00)
[2018-11-28] MEDS: FERROUS SULFATE 325 MG TAB PO SCH ×3 (08:46→19:53)
[2018-11-28 09:43] VITALS: BP 158/86
[2018-11-28] MEDS: MUPIROCIN 2% OINT 22 GM TUBE TOP SCH (09:44)
[2018-11-28 10:02] LABS: LYMPHOCYTES % (MANUAL) 92 % (19-48); MONOCYTES % (MANUAL) 1 % (3.4-9.0); NEUTROPHILS % (MANUAL) 7 % (40-74); PLATELET ESTIMATE ADEQUATE; PLATELET MORPHOLOGY COMMENT NORMAL; RBC MORPHOLOGY COMMENT NORMAL
[2018-11-28] MEDS ORDERED: POTASSIUM CHLORIDE 20MEQ/100ML 200 ML IV ONE (10:15)
[2018-11-28] MEDS ORDERED: NEOSTIGMINE 1 MG/ML 10ML VIAL ONE (14:05)
[2018-11-28] MEDS ORDERED: BUPIVACAINE 0.25% 30ML SDV INJ ONE (14:05)
[2018-11-28] MEDS ORDERED: IOPAMIDOL 300MG/ML 50ML INFUS..BTL IV ONE (14:05)
[2018-11-28] MEDS ORDERED: B&O 60MG R/S 60 MG SUPP PR ONE (14:06)
[2018-11-28] MEDS ORDERED: SODIUM CHLORIDE 0.9% 500ML 500 ML ONE (17:28)
--- NOTE | 2018-11-28 18:28 | Progress Note ---
DATE: 11/28/2018 Cardiology Progress Note SUBJECTIVE: The patient denies chest pain or shortness of breath. OBJECTIVE: VITAL SIGNS: Temperature 98.8 degrees, pulse 95, respiratory rate 18, blood pressure 150/86, and oxygen saturation 98% on 2 L nasal cannula. GENERAL: Awake, alert, in no acute distress. LUNGS: Clear to auscultation bilaterally. No wheezes or crackles. CARDIOVASCULAR: Normal rate. Regular rhythm. No murmur. Normal S1, S2. ABDOMEN: Soft, nontender. EXTREMITIES: No edema. CARDIAC MEDICATIONS: Metoprolol succinate 50 mg p.o. b.i.d. LABORATORY DATA: WBC 109.83, hemoglobin 8.5, hematocrit 28.2, platelets 175. Sodium 136, potassium 3.1, chloride 106, CO2 is 16, BUN 23, creatinine 1.22. TELEMETRY: Normal sinus rhythm. IMPRESSION: 1. Chest pain. 2. Diabetic ketoacidosis. 3. Chronic myeloid leukemia. 4. Rvvxd-dv-ctdnxvm kidney disease, improving. 5. Hypertension and hyperlipidemia. 6. Diabetes mellitus. 7. Sepsis. RECOMMENDATIONS: The patient ruled out for myocardial infarction with serial cardiac biomarkers. Continue to monitor on telemetry. Continue current cardiac medications. Resume home rosuvastatin. If renal function normalizes, we would recommend resuming home ASH inhibitor. Hold aspirin given recent anemia. Antibiotics per primary service. Thank you for this consult. We will continue to follow. Renu Vitale MD ABS/MIRIAML /[id number]
--- NOTE | 2018-11-28 18:47 | Diagnostic Imaging Report ---
EXAMINATION: CT cystogram of the pelvis with contrast. TECHNIQUE: Helical CT images of the pelvis were performed from the iliac crest to the lesser trochanter after the intravenous and administration of 50 cc of Isovue 300 and the oral administration of none. Coronal and sagittal reformatted images were obtained. COMPARISON: None. CLINICAL HISTORY:Evaluate for fistula DISCUSSION: ABDOMEN/PELVIS: PELVIC ORGANS/BLADDER: Circumferential bladder wall thickening with irregular contour. Left lateral diverticula. No fistula visualized. GI TRACT: Distention of the transverse colon. No diverticulitis. BONES AND SOFT TISSUE: No bony destructive lesions. Mature heterotopic ossification extending from the right pubis IMPRESSION: Circumferential bladder wall thickening and left lateral diverticula. No fistula. Signed by: Dr. Braulio Park M.D. on 11/28/2018 6:44 PM
[2018-11-28] MEDS ORDERED: FENTANYL CITRATE/PF 100MCG/2 ML INJ ONE (18:52)
[2018-11-28 20:00] VITALS: BP 173/95
[2018-11-28] MEDS ORDERED: INSULIN GLARGINE 100 UNITS/ML VIAL SQ SCH (21:00)
[2018-11-28 23:00] VITALS: BP 166/96
[2018-11-29] VITALS (8 sets, daily range): BP systolic 158–173; BP diastolic 89–98
--- NOTE | 2018-11-29 02:44 | Consultation ---
DATE OF CONSULTATION: 11/28/2018 HISTORY OF PRESENT ILLNESS: This is a 78 years old, who has a history of diabetes, hypertension, admitted to the hospital because of leukocytosis secondary to CML along with DKA. The patient is, however, apparently developed abdominal distension and he did have a CAT scan of abdomen and pelvis this morning, which shows distention of the transverse colon up to about 15 cm in diameters, rule out possibility of obstruction versus ileus and the CAT scan did not show any evidence of any perforations. An NG tube has been placed, which according to him, seems to help. PAST MEDICAL PROBLEM: Significant for history of CML, also history of diabetes, and history of chronic renal disease. ALLERGIES: NONE. HOME MEDICATION: Including Norvasc, enalapril, Pepcid, metformin, metoprolol, Lyrica, [place], albuterol, Crestor, glipizide, Levemir insulin, and nebulizer. SOCIAL HISTORY: Does not smoke or use alcohol. FAMILY HISTORY: Noncontributory. REVIEW OF SYSTEMS: At this point, he denies any chest pain. Denies any shortness of breath. Denies any dysphagia or odynophagia. Denies any dysuria or hematuria. PHYSICAL EXAMINATION: GENERAL: Awake, lying in bed, appears to be stable. VITAL SIGNS: Afebrile currently. HEAD, EYES, EARS, NOSE, AND THROAT: Normocephalic and atraumatic. NG tube is in place. HEART: Regular. LUNGS: Clear. ABDOMEN: Soft and distended. It is nontender at this point. EXTREMITIES: No cyanosis. No clubbing. LAB VALUES: WBC of potassium 3.1, BUN [address] and [address] A CT of the pelvis showed circumferential bladder wall thickening and also the transverse colon. IMPRESSION: 1. Abdominal distension is likely secondary to ileus. I do not think that this is an obstruction in there. 2. Diabetes. RECOMMENDATION: Continue on NG tube at this point, also get the rectal tube and follow KUB. Delbert Balderas MD DHD/MODL /[id number] cc: He Mooney MD
[2018-11-29] MEDS: METOCLOPRAMIDE HCL 10 MG/2ML VIAL IV SCH ×4 (02:55→20:45)
--- NOTE | 2018-11-29 03:01 | NUR ---
Called Dr. Porter answering service due to elevated temp of 102.2. Dr. Porter returned called at [address]344 ct report read to him. Dr. Porter ordered blood cultures x2 and Tylenol 1 gram q6 prn.
[2018-11-29] MEDS: ACETAMINOPHEN 325 MG TAB PO PRN (03:30)
[2018-11-29 04:20] LABS: BASOPHILS # (AUTO) 0.1 (0.0-0.1); EOSINOPHILS # (AUTO) 0.1 (0.0-0.4); EOSINOPHILS % 0.1 % (0.0-6.0); HEMATOCRIT 28.8 % (38.2-49.6); HEMOGLOBIN 8.9 g/dL (14.0-18.0); LYMPHOCYTES # (AUTO) 111.2 (1.0-3.2); MEAN CORPUSCULAR HEMOGLOBIN 29.3 pg (28-32); MEAN CORPUSCULAR HGB CONC 30.9 g/dL (31-35); MEAN CORPUSCULAR VOLUME 94.7 fL (81-99); MONOCYTES # (AUTO) 0.5 (0.2-0.8); MONOCYTES % 0.4 % (4.4-11.3); NEUTROPHILS # (AUTO) 6.2 (2.1-6.9); NEUTROPHILS % 5.3 % (38.7-80.0); PLATELET COUNT 143 x10e3/uL (140-360); RED BLOOD COUNT 3.04 x10e6/uL (4.3-5.7); RED CELL DISTRIBUTION WIDTH 16.3 % (11.7-14.4)
[2018-11-29] MEDS: CLINDAMYCIN 600MG / 50ML 50 ML IV SCH ×2 (05:15→12:00)
[2018-11-29 05:41] LABS: BLOOD UREA NITROGEN 20 mg/dL (7-26); BUN/CREATININE RATIO 18 (6-25); CALCIUM 8.7 mg/dL (8.4-10.2); CARBON DIOXIDE 16 mmol/L (22-29); CHLORIDE 109 mmol/L (98-107); CREATININE, SERUM 1.14 mg/dL (0.72-1.25); EST GLOMERULAR FILTRATION RATE > 60 ML/MIN (60-); GLUCOSE 259 mg/dL (74-118); SODIUM 140 mmol/L (136-145)
[2018-11-29] MEDS: MORPHINE SULFATE INJ 4 MG/ML INJ 1ML IV PRN ×5 (06:05→22:40)
--- NOTE | 2018-11-29 06:31 | Diagnostic Imaging Report ---
EXAM: ABDOMEN-1VIEW (KUB), DATE: 11/29/2018 8:49 AM INDICATION: Colonic distention. Follow-up. Chronic located. COMPARISON: 11/27/2018. FINDINGS: LINES/TUBES: NG/an orogastric tube with distal tip projected on the left upper quadrant, likely within the gastric body. The BOWEL PATTERN: Redemonstration of severe dilatation of the colon, up to 6.5 cm in the right mid abdomen. There is gas within the rectum. SOFT TISSUES: No abnormal calcifications. No mass effect. LUNG BASES: Clear. BONES: Degenerative changes of the lumbar spine. Status post lower lumbar laminectomy. IMPRESSION: Redemonstration severe colonic distention. Signed by: Dr. Karine Lewis M.D. on 11/29/2018 6:28 AM
[2018-11-29 07:04] LABS: LYMPHOCYTES % (MANUAL) 96 % (19-48); MONOCYTES % (MANUAL) 1 % (3.4-9.0); NEUTROPHILS % (MANUAL) 3 % (40-74); SMUDGE CELLS MANY
[2018-11-29 07:05] LABS: PLATELET ESTIMATE SLIGHTLY DECREASED; PLATELET MORPHOLOGY COMMENT NORMAL; RBC MORPHOLOGY COMMENT NORMAL
[2018-11-29] MEDS: INSULIN LISPRO 100 UNIT/1 ML 3ML VIAL SQ SCH ×4 (07:30→11:30)
[2018-11-29] MEDS: METOPROLOL SUCCINATE 50 MG TAB XL PO SCH ×2 (08:27→17:00)
[2018-11-29] MEDS: MUPIROCIN 2% OINT 22 GM TUBE TOP SCH (08:27)
[2018-11-29] MEDS: FERROUS SULFATE 325 MG TAB PO SCH ×2 (08:27→14:22)
[2018-11-29] MEDS: DOCUSATE SODIUM LIQD 100 MG/10 ML UDC NG SCH ×2 (08:27→17:00)
[2018-11-29] MEDS: DEXTROSE 5%/0.45% SOD CHL 1,000 ML IV SCH ×2 (08:32→20:45)
[2018-11-29] MEDS: CEFEPIME 1GM/NS 0.9% 50 ML 50 ML IV SCH ×2 (08:32→21:50)
--- NOTE | 2018-11-29 08:37 | NUR ---
discussed plan of care with dr. humphries. Patient has an ngt, bernal, iv antibiotics x2, spiked a temp last night, only sitting on the side of the bed with PT. Dr humphries states it is too early to tell, not sure about criteria meeting for LTAC, too sick for SNF. Blood cultures pending.
[2018-11-29] MEDS: ACETAMINOPHEN 1000 MG/100 ML IV PRN ×2 (08:48→20:45)
[2018-11-29] MEDS: ONDANSETRON HCL INJ 2MG/ML 2ML 2 MG/ML VIAL IV PRN ×3 (10:55→19:00)
--- NOTE | 2018-11-29 12:10 | NUR ---
Discussed in barrier rounds, cm requested flyer maker visit, possible antidepressant, palliative care referral.
--- NOTE | 2018-11-29 12:15 | NUR ---
Initial visit. Pt drifted in and out of sleep and unable to hold conversation at this time. Will follow up as able. [facility] O: [phone] Pager: [phone] ([phone] number calling from)
[2018-11-29] MEDS ORDERED: SEVOFLURANE INHAL SOLN 250 ML PEN BTL ONE (14:07)
[2018-11-29] MEDS ORDERED: LIDOCAINE HCL 2% LOCAL INJ 5 ML SDV VIAL INJ ONE (14:07)
[2018-11-29] MEDS ORDERED: SUCCINYLCHOLINE 200 MG/10 ML SYR ONE (14:07)
[2018-11-29] MEDS ORDERED: PROPOFOL IV EMULSION 10 MG/ML 20 ML VIAL ONE (14:07)
[2018-11-29] MEDS ORDERED: INSULIN REGULAR, HUMAN 3ML VL 100 UNIT in SODIUM CHLORIDE 0.9% 100 ML 100 ML IV SCH ×2 (14:30)
[2018-11-29] MEDS ORDERED: DEXTROSE 50% SYRINGE 50 ML IV PRN (15:00)
[2018-11-29] MEDS: MEROPENEM 1GM 100 ML IV SCH (18:07)
[2018-11-29] MEDS: POTASSIUM CHLORIDE 20MEQ/100ML 100 ML IV SCH ×3 (18:07→23:45)
--- NOTE | 2018-11-29 18:14 | Progress Note ---
DATE: 11/29/2018 Cardiology Progress Note SUBJECTIVE: The patient denies chest pain or shortness of breath. OBJECTIVE: VITAL SIGNS: Temperature 100 degrees, pulse 98, respiratory rate 18, blood pressure 158/93, and oxygen saturation 98% on 2 L nasal cannula. GENERAL: Chronically ill-appearing elderly man, in no acute distress. LUNGS: Clear to auscultation bilaterally. No wheezes or crackles. CARDIOVASCULAR: Normal rate. Regular rhythm. No murmur. Normal S1, S2. ABDOMEN: Soft, nontender, distended. NG tube is present. EXTREMITIES: No edema. CARDIAC MEDICATIONS: Metoprolol succinate 50 mg p.o. b.i.d. LABORATORY DATA: WBC 118.26, hemoglobin 8.9, hematocrit 28.8, platelets 143. Sodium 140, potassium 3, chloride 109, CO2 is 16, BUN 20, creatinine 1.14. TELEMETRY: Normal sinus rhythm. IMPRESSION: 1. Chest pain. 2. Ileus. 3. Diabetic ketoacidosis. 4. Chronic myeloid leukemia. 5. Jwgcx-mu-hmxhyef kidney disease, improving. 6. Hypertension and hyperlipidemia. 7. Diabetes mellitus. 8. Sepsis. RECOMMENDATIONS: The patient ruled out for myocardial infarction. Serial cardiac biomarkers. Continue to monitor on telemetry. Continue current cardiac medications. As renal function has improved, we will resume home enalapril and Crestor once able to tolerate p.o. intake. Antibiotics per primary service. Resume aspirin if H and H stable. Thank you for this consult. We will continue to follow. Renu Vitale MD ABS/MODL /[id number]
--- NOTE | 2018-11-29 18:15 | Diagnostic Imaging Report ---
Examination: Single AP view of the chest. COMPARISON: None. INDICATION: Line placement DISCUSSION: Lines/tubes: Right PICC line with tip overlying the SVC. Enteric tube with the distal tip not visualized. Lungs: The lungs are well inflated and clear. No pneumonia or pulmonary edema. Pleura: No pleural effusion or pneumothorax. Heart and mediastinum: The heart and the mediastinum are unremarkable. Bones and soft tissues: No acute bony abnormalities. IMPRESSION: Right PICC line with tip overlying the SVC Signed by: Dr. Braulio Park M.D. on 11/29/2018 6:12 PM
--- NOTE | 2018-11-29 20:00 | NUR ---
Blood sugar 250, insulin drip to remain at 3unit/hr as ordered per Dr. Fields's protocol.
--- NOTE | 2018-11-29 21:00 | NUR ---
Patient refused rectal tube.
[2018-11-29] MEDS: INSULIN REGULAR, HUMAN 3ML VL 100 UNIT in SODIUM CHLORIDE 0.9% 100 ML IV SCH ×2 (22:10)
--- NOTE | 2018-11-30 | NUR ---
Blood sugar 186 insulin drip remain at 2 units per hour
[2018-11-30] MEDS: MEROPENEM 1GM 100 ML IV SCH ×3 (00:49→16:17)
[2018-11-30] MEDS: METOCLOPRAMIDE HCL 10 MG/2ML VIAL IV SCH ×4 (02:31→20:22)
[2018-11-30] MEDS: ACETAMINOPHEN 1000 MG/100 ML IV PRN (02:32)
--- NOTE | 2018-11-30 02:32 | NUR ---
Blood sugar 149. Insulin drip continues at 2 units per hour
[2018-11-30 02:34] VITALS: BP 164/98
[2018-11-30] MEDS: MORPHINE SULFATE INJ 4 MG/ML INJ 1ML IV PRN ×4 (03:35→21:00)
[2018-11-30] MEDS: DEXTROSE 5%/0.45% SOD CHL 1,000 ML IV SCH ×2 (04:00→14:32)
--- NOTE | 2018-11-30 06:00 | NUR ---
Blood sugar 151. Insulin drip remains at 2 units per hour.
[2018-11-30 06:15] LABS: ANION GAP 13.1 mmol/L (8-16); BLOOD UREA NITROGEN 18 mg/dL (7-26); BUN/CREATININE RATIO 17 (6-25); CALCIUM 8.9 mg/dL (8.4-10.2); CARBON DIOXIDE 23 mmol/L (22-29); CHLORIDE 109 mmol/L (98-107); CREATININE, SERUM 1.04 mg/dL (0.72-1.25); EST GLOMERULAR FILTRATION RATE > 60 ML/MIN (60-); GLUCOSE 152 mg/dL (74-118); POTASSIUM 3.1 mmol/L (3.5-5.1); SODIUM 142 mmol/L (136-145)
[2018-11-30 06:47] LABS: MAGNESIUM 2.1 MG/DL (1.3-2.1); PHOSPHORUS 1.4 MG/DL (2.3-4.7)
[2018-11-30] MEDS: ONDANSETRON HCL INJ 2MG/ML 2ML 2 MG/ML VIAL IV PRN ×2 (08:01→14:20)
[2018-11-30 08:10] LABS: AMYLASE 41 U/L (25-125); LIPASE 22 U/L (8-78)
[2018-11-30 08:24] VITALS: BP 159/91
[2018-11-30 08:25] VITALS: BP 159/91
[2018-11-30] MEDS ORDERED: PANTOPRAZOLE 40 MG 10ML VIAL IV ONE (08:30)
[2018-11-30] MEDS: PANTOPRAZOLE 40 MG 10ML VIAL IV SCH (09:00)
[2018-11-30] MEDS: METOPROLOL SUCCINATE 50 MG TAB XL PO SCH ×2 (09:00→16:17)
[2018-11-30] MEDS ORDERED: POTASSIUM PHOSPHATE 20 MM in SODIUM CHLORIDE 0.9% 250ML 250 ML IV ONE (09:30)
[2018-11-30] MEDS: CEFEPIME 1GM/NS 0.9% 50 ML 50 ML IV SCH ×2 (09:46→20:22)
[2018-11-30] MEDS: POTASSIUM CHLORIDE 20MEQ/100ML 100 ML IV SCH ×3 (09:47→16:17)
[2018-11-30] MEDS: DOCUSATE SODIUM LIQD 100 MG/10 ML UDC NG SCH ×2 (09:47→16:17)
[2018-11-30] MEDS: MUPIROCIN 2% OINT 22 GM TUBE TOP SCH (09:47)
--- NOTE | 2018-11-30 12:05 | NUR ---
Pt sleeping soundly and no family present. Will follow as able. MARY VELOZ [facility] O: [phone] Pager: [phone] ([phone] number calling from)
--- NOTE | 2018-11-30 12:05 | NUR ---
discussed in rounds. Patient starting on TPN, surgical consult for possible colovesical fistula. discussed palliative care with md, not appropriate at this time.
[2018-11-30 12:28] VITALS: BP 150/83
--- NOTE | 2018-11-30 12:30 | NUR ---
Nutrition Intervention Note RD Recommendation(s) for Physician: - TPN rec's: TV 1008 ml/day, Dextrose 30% 500 ml/day (150 g/day), AA10% 500 ml (50 g/day), Lipids 25 g/day, NaCl 40 mEq/L, K Acetate 30 mEq/L, K Phos 12 mEq/L, Ca Gluconate 5 mEq/L, Mg Sulfate 10 mEq/L. Add MVI, trace, thiamine to TPN bag. (to provide 960 kcal) - Additional IVF/fluid management per MD, recommend changing to non dextrose containing IVF. - BG and insulin management per MD. - Please give additional Phos replacement prior to initiation of TPN, recommend not initiating TPN until Phos at 2 mg/dL. - Please monitor BMP with Mg and Phos daily. Check TG and LFTs weekly- draw TG with next am labs. Plan of Care: RD following, monitoring for tolerance and adequacy, TPN rec's Nutrition reason for involvement: MD consult- TPN, follow up RD Assessment 11/30: Pt re-evaluated today per TPN consult and follow up. Pt now with an ileus with plan to start TPN this evening. Pt discussed during am rounds, code status palliative care vs cancer treatment discussion on going. NGT to LIWs in place, 1200 ml output as of yesterday and pt refused rectal tube placement. Pt with elevated anion gap, started on insulin drip. Pt with PICC in place. TPN rec's and additional RD rec's discussed with RN on unit. Will monitor and continue to follow. (11/24) 78 YOM admitted for DKA, chronic leukemia with PMH listed above. Pt was observed very fatigued and within the ICU, pt is off of the insulin drip. Pt reported he has been tolerating his full liquid diet and he does have a good appetite. Pt denied N/V/C/D/chewing or swallowing issues as well as denied any food allergies. Pt was unsure if he had lost any weight recently. No past weights within his EMR. A1c: 8.6, POC GM: 214. Chart reviewed. Labs and meds reviewed. Will continue to monitor. Principal Problems/Diagnoses: chronic leukemia, DKA PMH: 1. Diabetes mellitus, insulin therapy. 2. Hypertension. 3. Diabetic complication with neuropathy. 4. Chronic kidney disease. 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 GI: + ileus, LBM 11/28. Pt refused rectal tube for decompression. + NGT to LIWS- 1200 ml output in 24 hrs per I/O documentation. Skin: R hip wound- no staging Labs: 11/30: Na 142, K 3.1, Cl 109, CO2 23, BUN 18, Cr 1.04, Gluc 152, POC Gluc 149-151 Meds: colace, zofran, protonix, abx, reglan, KCl IVPB, KPhos IVPB IVF/Drips: D5-1/2NS at 100 ml/hr Insulin drip at 2 units/hr Ht: 69 in Wt: 166 lb BMI: 24.5 kg/m2 IBW: 160 lb Malnutrition Evaluation (11/30) The patient does not meet criteria for a specified degree of malnutrition at this time. Will re-evaluate at follow-up as appropriate. Energy intake: <50% of estimated energy requirements for >5 days Weight loss: none Muslce loss: Mild-temporal, clavicle Fat loss: none Supporting Evidence: Fluid accumulation: none Functional Status: unable to evaluate Nutrition Prescription (Diet Order): NPO Estimated Nutritional Needs: calories/day (25-35 kcal/kg CBW)- per 166 lb g protein/day (1-1.5 g pro/kg CBW) Diet Adequacy: Not meeting calorie needs, Not meeting protein needs, Meeting fluid needs Diet Tolerance: N/A Diet Education Needs Assessment: Diet education not indicated, patient on temporary/transition diet. Nutrition Care Level: High- new TPN Nutrition Diagnosis: Inadequate energy and protein intake related to ileus as evidenced by NPO and requiring parenteral nutrition. Goal: Patient will meet 75-100% of estimated needs by follow up Progress: N/A Interventions: TPN- Composition, Rate, Route, IVF, Prescription medications, Recommended Modifications, Collaboration with other providers Monitoring/Evaluation: Total energy intake, Total protein intake, Formula/Solution, IVF, Prescription medication Signed: Rajani Velasco RD, LD, [facility]
--- NOTE | 2018-11-30 13:49 | Diagnostic Imaging Report ---
Chest, 1 view, 11/30/2018. History: Fever. Comparison: 11/29/2018. Findings: The cardiomediastinal silhouette and pulmonary vasculature are within normal limits for a portable exam. There is no focal consolidation or pleural effusion. Right upper extremity PICC and NG tube are unchanged in position. There are no acute osseous or soft tissue abnormalities. Impression: No acute cardiopulmonary abnormality. Signed by: Be Miguel on 11/30/2018 1:45 PM
--- NOTE | 2018-11-30 13:50 | Progress Note ---
DATE: 11/30/2018 Cardiology Progress Note SUBJECTIVE: The patient denies chest pain or shortness of breath. OBJECTIVE: VITAL SIGNS: Temperature 100 degrees, pulse 116, respiratory rate 20, blood pressure 150/83, and oxygen saturation 97% on 2 liters nasal cannula. GENERAL: Elderly man, chronically ill appearing, in no acute distress. LUNGS: Clear to auscultation bilaterally. No wheezes or crackles. CARDIOVASCULAR: Normal rate. Regular rhythm. No murmur. Normal S1 and S2. ABDOMEN: Soft, nontender, and distended. NG tube is present. EXTREMITIES: No edema. CARDIAC MEDICATIONS: Metoprolol succinate 50 mg p.o. b.i.d. LABORATORY DATA: Sodium 142, potassium 3.1, chloride 109, CO2 of 23, BUN 18, and creatinine 1.04. TELEMETRY: Normal sinus rhythm. IMPRESSION: 1. Chest pain. 2. Ileus. 3. Diabetic ketoacidosis. 4. Chronic myeloid leukemia. 5. Acute on chronic kidney disease, improving. 6. Hypertension. 7. Hyperlipidemia. 8. Diabetes mellitus. 9. Sepsis. RECOMMENDATIONS: The patient ruled out for myocardial infarction with serial cardiac biomarkers. Monitor on telemetry. Continue current cardiac medications. Resume enalapril and Crestor once able to tolerate p.o. intake. Antibiotics per Primary Service. Resume aspirin if hemoglobin and hematocrit are stable. Continue supportive care. Thank you for this consult. We will continue to follow. Renu Vitale MD ABS/MODL /[id number]
--- NOTE | 2018-11-30 13:55 | Diagnostic Imaging Report ---
Abdomen, 1 view. History: Fever. Comparison: 11/29/2018. Findings: Air-filled dilation of the proximal transverse colon in the right abdomen is again noted measuring up to 17 cm. Air remains visible in the distal colon to the level of the rectum. Nasogastric tube terminates in the region of the stomach. There are no masses or abnormal calcifications. Degenerative changes are noted throughout the lumbar spine. IMPRESSION: Unchanged colonic dilatation. Signed by: Be Miguel on 11/30/2018 1:51 PM
[2018-11-30] MEDS ORDERED: BISACODYL 10 MG SUPP PR ONE (17:55)
[2018-11-30 19:00] VITALS: BP 136/78
--- NOTE | 2018-11-30 19:10 | NUR ---
patient seen and assessed, patient is stable, pumps inspected and verified. safety and fall precautions maintained, patient is currently stable will continue to monitor.
[2018-11-30 20:00] VITALS: BP 136/78
[2018-11-30] MEDS: CENTRAL TPN FORMULA 1 BAG IV SCH (20:00)
[2018-11-30] MEDS: MAGNESIUM HYDROXIDE 30 ML UDC PO PRN (22:06)
[2018-12-01] VITALS (8 sets, daily range): BP systolic 119–154; BP diastolic 78–99
[2018-12-01] MEDS: DEXTROSE 5%/0.45% SOD CHL 1,000 ML IV SCH ×2 (00:56→10:00)
--- NOTE | 2018-12-01 02:23 | NUR ---
Call Dr. Reyes after 8am if no bowel movement.
[2018-12-01] MEDS: MEROPENEM 1GM 100 ML IV SCH ×3 (02:31→17:02)
[2018-12-01] MEDS: METOCLOPRAMIDE HCL 10 MG/2ML VIAL IV SCH ×4 (02:31→21:06)
[2018-12-01] MEDS: MORPHINE SULFATE INJ 4 MG/ML INJ 1ML IV PRN ×4 (02:53→19:10)
[2018-12-01 05:53] LABS: MAGNESIUM 2.1 MG/DL (1.3-2.1); PHOSPHORUS 1.7 MG/DL (2.3-4.7)
--- NOTE | 2018-12-01 06:00 | NUR ---
q4hrs check of fs was done, no changes was done to the rate of insulin drip based on the results of the fs.
[2018-12-01 06:07] LABS: ANION GAP 15.1 mmol/L (8-16); BLOOD UREA NITROGEN 22 mg/dL (7-26); BUN/CREATININE RATIO 19 (6-25); CALCIUM 8.6 mg/dL (8.4-10.2); CARBON DIOXIDE 21 mmol/L (22-29); CHLORIDE 112 mmol/L (98-107); CREATININE, SERUM 1.14 mg/dL (0.72-1.25); EST GLOMERULAR FILTRATION RATE > 60 ML/MIN (60-); GLUCOSE 196 mg/dL (74-118); POTASSIUM 3.1 mmol/L (3.5-5.1); SODIUM 145 mmol/L (136-145)
--- NOTE | 2018-12-01 06:30 | NUR ---
patient condition throughout the night was stable, patient bernal was irrigated as ordered, ng to suction drained well, no obstruction, patient was turned q2hrs, patient was seen by Dr. Balderas, no new orders, Wound care was done, patient endorsed to next shift for continuity of care.
--- NOTE | 2018-12-01 07:07 | NUR ---
patient endorsed to next shift for continuity of care.
[2018-12-01] MEDS: SODIUM CHLORIDE FLUSH 10 ML SYR INJ PRN ×3 (08:21→19:10)
[2018-12-01] MEDS: CEFEPIME 1GM/NS 0.9% 50 ML 50 ML IV SCH (08:23)
[2018-12-01] MEDS: PANTOPRAZOLE 40 MG 10ML VIAL IV SCH (09:12)
--- NOTE | 2018-12-01 10:20 | NUR ---
ASSESSMENT: Spiritual concern Pt reminiscing about family history. Pt recalled his grandparents plight in [place]. Intervention: Provided hospitality unhurried conversation. Outcome: Will follow as able. MARY VELOZ Channel Marketing Manager Spiritual Care Department O: [phone] Pager: [phone] ([phone] number calling from)
[2018-12-01] MEDS: DOCUSATE SODIUM LIQD 100 MG/10 ML UDC NG SCH ×2 (10:27→17:02)
[2018-12-01] MEDS: METOPROLOL SUCCINATE 50 MG TAB XL PO SCH ×2 (10:41→17:24)
[2018-12-01] MEDS: MUPIROCIN 2% OINT 22 GM TUBE TOP SCH (10:42)
[2018-12-01] MEDS: ACETAMINOPHEN 325 MG/10 ML UDC NG PRN ×2 (11:44→18:49)
--- NOTE | 2018-12-01 12:22 | NUR ---
Nutrition Intervention Note RD Recommendation(s) for Physician (12/01): - TPN rec's via PICC: Rate at 42 ml/hr, 1008 ml/day, Dextrose 20% 500 ml/day (100 g/day), AA10% 500 ml (50 g/day), Lipids 25 g/day, Na Acetate 40 mEq/L, K Acetate 30 mEq/L, K Phos 12 mEq/L, Ca Gluconate 5 mEq/L, Mg Sulfate 10 mEq/L. Add MVI, trace, thiamine, folic acid to TPN bag. (to provide 790 kcal) - Additional IVF/fluid management per MD. - BG and insulin management per MD. - Please monitor BMP with Mg and Phos daily. Check TG and LFTs weekly- draw TG with next am labs. Plan of Care: RD following, monitoring for tolerance and adequacy, TPN rec's Nutrition reason for involvement: Follow up RD Assessment 12/01: Follow up: Pt was seen resting in bed, TPN running and NGT still in place. Pt was on NS at 125 ml/hr of IVF, told nurse to decrease the rate of the NS. Pt still has insulin drip. Provided TPN recommendations, signed off on new recommendations; changed Sodium chloride to sodium acetate d/t pts high chloride. Discussed pt in rounds, pt is having very little stool output and has a distended stomach. Per case management-d/c planning will start after surgery has seen the pt. Will continue to monitor. 11/30: Pt re-evaluated today per TPN consult and follow up. Pt now with an ileus with plan to start TPN this evening. Pt discussed during am rounds, code status palliative care vs cancer treatment discussion on going. NGT to LIWs in place, 1200 ml output as of yesterday and pt refused rectal tube placement. Pt with elevated anion gap, started on insulin drip. Pt with PICC in place. TPN rec's and additional RD rec's discussed with RN on unit. Will monitor and continue to follow. (11/24) 78 YOM admitted for DKA, chronic leukemia with PMH listed above. Pt was observed very fatigued and within the ICU, pt is off of the insulin drip. Pt reported he has been tolerating his full liquid diet and he does have a good appetite. Pt denied N/V/C/D/chewing or swallowing issues as well as denied any food allergies. Pt was unsure if he had lost any weight recently. No past weights within his EMR. A1c: 8.6, POC GM: 214. Chart reviewed. Labs and meds reviewed. Will continue to monitor. Principal Problems/Diagnoses: chronic leukemia, DKA PMH: 1. Diabetes mellitus, insulin therapy. 2. Hypertension. 3. Diabetic complication with neuropathy. 4. Chronic kidney disease. 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 Intake/Output: + 1850 ml/-2200 ml GI: Abd: round, distended, flatus: absent LBM 11/28. Pt refused rectal tube for decompression. + NGT to LIWS- 100 ml output per I/O documentation. Skin: R hip wound- no staging Labs: 12/01: Na 145, K 3.1, Cl 112, CO2 21, BUN 22, Creat 1.14, Gluc 196, POC GM 181, Ca 8.6, Phos 1.7, Mg 2.1 11/30: Na 142, K 3.1, Cl 109, CO2 23, BUN 18, Cr 1.04, Gluc 152, POC Gluc 149-151 Meds: colace, zofran, protonix, abx, reglan, KCl IVPB, KPhos IVPB, milk of magnesia, insulin, magnesium citrate, bisacodly IVF/Drips: TPN at 42 ml/hr Insulin drip at 2 units/hr Ht: 69 in Wt: 166 lb BMI: 24.5 kg/m2 IBW: 160 lb Malnutrition Evaluation (11/30) The patient does not meet criteria for a specified degree of malnutrition at this time. Will re-evaluate at follow-up as appropriate. Energy intake: <50% of estimated energy requirements for >5 days Weight loss: none Muslce loss: Mild-temporal, clavicle Fat loss: none Supporting Evidence: Fluid accumulation: none Functional Status: unable to evaluate Nutrition Prescription (Diet Order): NPO Estimated Nutritional Needs: calories/day (25-35 kcal/kg CBW)- per 166 lb g protein/day (1-1.5 g pro/kg CBW) Diet Adequacy: Not meeting calorie needs, Not meeting protein needs, Meeting fluid needs Diet Tolerance: tolerating TPN Diet Education Needs Assessment: Diet education not indicated, patient on temporary/transition diet. Nutrition Care Level: High- new TPN Nutrition Diagnosis: Inadequate energy and protein intake related to ileus as evidenced by NPO and requiring parenteral nutrition. Goal: Patient will meet 75-100% of estimated needs by follow up Progress: progressing Interventions: TPN- Composition, Rate, Route, IVF, Prescription medications, Recommended Modifications, Collaboration with other providers Monitoring/Evaluation: Total energy intake, Total protein intake, Formula/Solution, IVF, Prescription medication Signed: Jana Juan RD, LD
--- NOTE | 2018-12-01 16:59 | Diagnostic Imaging Report ---
Exam: KUB - 2 views Indication: Bowel Obstruction Comparison: KUB of 11/29/2018 Findings: Again seen are markedly dilated loops of colon with the most dilated area measuring up to 16.7 cm in the proximal transverse colon. NG tube appears unchanged in position. No free air. Impression: Unchanged severely dilated loops of colon measuring up to 16.7 cm compatible with large bowel obstruction. Signed by: Hoa Borden MD on 12/01/2018 4:56 PM
--- NOTE | 2018-12-01 18:52 | Progress Note ---
DATE: 12/01/2018 Cardiology Progress Note SUBJECTIVE: The patient denies chest pain or shortness of breath. OBJECTIVE: VITAL SIGNS: Temperature 101.1, pulse 118, respiratory rate 20, blood pressure 119/99, and oxygen saturation 97% on room air. GENERAL: Chronically ill-appearing elderly man, in no acute distress. Awake and alert. LUNGS: Clear to auscultation bilaterally. No wheezes or crackles. CARDIOVASCULAR: Normal rate, regular rhythm. No murmur. Normal S1, S2. ABDOMEN: Soft, nontender. EXTREMITIES: No edema. CARDIAC MEDICATIONS: Metoprolol succinate 50 mg p.o. b.i.d. LABORATORY DATA: Sodium 145, potassium 3.1, chloride 112, CO2 of 21, BUN 22, creatinine 1.14. TELEMETRY: Sinus tachycardia. IMPRESSION: 1. Chest pain. 2. Ileus. 3. Diabetic ketoacidosis. 4. Chronic myeloid leukemia. 5. Chronic kidney disease, improving. 6. Hypertension. 7. Hyperlipidemia. 8. Diabetes mellitus. 9. Sepsis. RECOMMENDATIONS: 1. The patient ruled out for myocardial infarction with serial cardiac biomarkers. Monitor the patient closely on telemetry, notes sinus tachycardia, likely physiologic response to current illness. Would not titrate metoprolol at this time. 2. Continue current cardiac medications. 3. Resume enalapril and Crestor once able to tolerate p.o. intake. 4. Antibiotics per primary service. 5. Resume aspirin. 6. Hemoglobin and hematocrit are stable. 7. Continue supportive care. Thank you for this consult. We will continue to follow. Renu Vitale MD ABS/MODL /[id number]
--- NOTE | 2018-12-01 19:04 | NUR ---
Notified Dr. Dionicio Kahn patient's urine changed from creamy light yelena to guzman red post irrigation. Received orders, to send urine culture.
--- NOTE | 2018-12-01 19:06 | NUR ---
Handoff report oncoming nurse Rodger VILLA made aware to obtain urine culture.
[2018-12-01] MEDS: CENTRAL TPN FORMULA 1 BAG IV SCH (20:00)
--- NOTE | 2018-12-01 22:00 | NUR ---
bernal irrigated as ordered
--- NOTE | 2018-12-01 22:46 | NUR ---
fs=98, insulin drip reduced to 1 unit/hr
[2018-12-02] VITALS (10 sets, daily range): BP systolic 104–149; BP diastolic 78–111
[2018-12-02] MEDS: MEROPENEM 1GM 100 ML IV SCH ×3 (00:45→17:06)
[2018-12-02] MEDS: MORPHINE SULFATE INJ 4 MG/ML INJ 1ML IV PRN ×5 (00:46→23:50)
--- NOTE | 2018-12-02 02:00 | NUR ---
bernal irrigated as ordered
--- NOTE | 2018-12-02 02:48 | NUR ---
Patient had huge bm, watery. cleaned and made comfortable in bed, patient fs is 121 insulin drip adjusted as per protocol and verified with will Hood. patient is currently stable will continue to monitor.
[2018-12-02] MEDS: METOCLOPRAMIDE HCL 10 MG/2ML VIAL IV SCH ×4 (03:45→21:55)
--- NOTE | 2018-12-02 04:39 | NUR ---
patient rounded and stable
--- NOTE | 2018-12-02 06:11 | NUR ---
pt fs is 113, no changes to current rate of 2units/hr. bernal irrigated as ordered
--- NOTE | 2018-12-02 06:14 | NUR ---
patient had bm, cleaned and made comfortable in bed
--- NOTE | 2018-12-02 06:59 | NUR ---
patient endorsed to next shift for continuity of care.
[2018-12-02] MEDS ORDERED: POTASSIUM CHLORIDE 20MEQ/100ML 100 ML IV ONE ×5 (09:00→18:00)
--- NOTE | 2018-12-02 09:07 | NUR ---
made Dr. Filomena Mooney aware pharmacy reports that 80 MEQ is too much their potassium protocol Chloride is 60MEQ. Received orders to give 60MEQ of potassium chloride and recheck potassium if potassium is less than 4 give 20 MEQ of potassium x1 dose if levels are below 4. Addendum: 12/02/18 at 0910 by Melissa Yanez RN delete note enter in error.
[2018-12-02] MEDS: PANTOPRAZOLE 40 MG 10ML VIAL IV SCH (09:43)
[2018-12-02] MEDS: MUPIROCIN 2% OINT 22 GM TUBE TOP SCH (09:43)
[2018-12-02] MEDS: DOCUSATE SODIUM LIQD 100 MG/10 ML UDC NG SCH ×2 (09:43→17:07)
[2018-12-02] MEDS: SODIUM CHLORIDE FLUSH 10 ML SYR INJ PRN ×2 (09:44→18:40)
[2018-12-02] MEDS: ACETAMINOPHEN 325 MG/10 ML UDC NG PRN ×2 (09:44→17:06)
[2018-12-02] MEDS: METOPROLOL SUCCINATE 50 MG TAB XL PO SCH ×2 (09:50→17:30)
--- NOTE | 2018-12-02 13:11 | Progress Note ---
DATE: 12/02/2018 Cardiology Progress Note SUBJECTIVE: The patient is without any new complaints. He denies any chest pain or shortness of breath. He is just resting. OBJECTIVE: VITAL SIGNS: Temperature 98.4, pulse 100, respiratory rate 23, blood pressure 104/78, oxygen saturation 98% on room air. GENERAL: Alert and oriented x3. Resting comfortably in bed. Does not appear to be in any acute distress. LUNGS: Diminished breath sounds, anterior lower lobes, otherwise clear to auscultation. CARDIOVASCULAR: Regular rate and rhythm. ABDOMEN: Soft, nontender. EXTREMITIES: Lower extremities, no edema. CARDIOVASCULAR MEDICATIONS: Metoprolol succinate 50 mg p.o. b.i.d. TELEMETRY: Normal sinus rhythm. IMPRESSION: 1. Chest pain. 2. Ileus. 3. Diabetic ketoacidosis. 4. Chronic myeloid leukemia. 5. Chronic kidney disease. 6. Hypertension. 7. Hyperlipidemia. 8. Diabetes mellitus. 9. Sepsis. RECOMMENDATIONS: Acute coronary syndrome has been ruled out with cardiac biomarkers. We will continue to monitor this patient very closely. Continue beta krista at this time. Continue the rest of the above-listed medications. Once this patient is able to tolerate p.o. meds, we will need to reinitiate and resume enalapril and Crestor. Antimicrobial therapy per primary team and Infectious Disease. Monitor hemoglobin and hematocrit closely. Continue n.p.o. status and NG tube care. Dictated by Sherie Funes NP MD KYM Anderson/MALLIKA /[id number]
--- NOTE | 2018-12-02 15:27 | NUR ---
GI Progress Notes S: NO complaints. Having liquid stools O: VSS Abdomen: Distended. Labs: Noted Assesment: 1. Ileus: stable. Plan clamp NG tube
[2018-12-02] MEDS: MAGNESIUM HYDROXIDE 30 ML UDC PO PRN (17:06)
[2018-12-02] MEDS: CENTRAL TPN FORMULA 1 BAG IV SCH (20:43)
[2018-12-03] VITALS (9 sets, daily range): BP systolic 104–152; BP diastolic 53–92
[2018-12-03] MEDS: MEROPENEM 1GM 100 ML IV SCH ×3 (01:21→16:50)
[2018-12-03] MEDS: METOCLOPRAMIDE HCL 10 MG/2ML VIAL IV SCH ×4 (03:00→21:05)
[2018-12-03] MEDS: MORPHINE SULFATE INJ 4 MG/ML INJ 1ML IV PRN ×4 (05:01→19:30)
[2018-12-03 05:58] LABS: BASOPHILS # (AUTO) 0.1 (0.0-0.1); EOSINOPHILS # (AUTO) 0.2 (0.0-0.4); EOSINOPHILS % 0.2 % (0.0-6.0); HEMATOCRIT 31.1 % (38.2-49.6); HEMOGLOBIN 8.9 g/dL (14.0-18.0); LYMPHOCYTES # (AUTO) 105.6 (1.0-3.2); LYMPHOCYTES % 94.8 % (18.0-39.1); MEAN CORPUSCULAR HEMOGLOBIN 29.1 pg (28-32); MEAN CORPUSCULAR HGB CONC 28.6 g/dL (31-35); MEAN CORPUSCULAR VOLUME 101.6 fL (81-99); MONOCYTES # (AUTO) 0.5 (0.2-0.8); MONOCYTES % 0.4 % (4.4-11.3); NEUTROPHILS % 4.4 % (38.7-80.0); PLATELET COUNT 233 x10e3/uL (140-360); RED BLOOD COUNT 3.06 x10e6/uL (4.3-5.7); RED CELL DISTRIBUTION WIDTH 16.6 % (11.7-14.4)
[2018-12-03 06:20] LABS: INR 1.13
[2018-12-03 06:25] LABS: ALANINE AMINOTRANSFERASE 80 IU/L (0-55); ALBUMIN 2.1 g/dL (3.5-5.0); ALBUMIN/GLOBULIN RATIO 0.6 (0.8-2.0); ALKALINE PHOSPHATASE 270 IU/L (40-150); ANION GAP 13.3 mmol/L (8-16); BLOOD UREA NITROGEN 30 mg/dL (7-26); BUN/CREATININE RATIO 30 (6-25); CALCIUM 8.6 mg/dL (8.4-10.2); CARBON DIOXIDE 24 mmol/L (22-29); CHLORIDE 115 mmol/L (98-107); CREATININE, SERUM 1.01 mg/dL (0.72-1.25); EST GLOMERULAR FILTRATION RATE > 60 ML/MIN (60-); GLUCOSE 117 mg/dL (74-118); POTASSIUM 3.3 mmol/L (3.5-5.1); SODIUM 149 mmol/L (136-145)
[2018-12-03] MEDS ORDERED: POTASSIUM CHLORIDE 20MEQ/100ML 100 ML IV ONE ×2 (07:00→11:00)
--- NOTE | 2018-12-03 07:27 | NUR ---
Notified Dr. Arrieta regarding increased abdominal distention, worsening pain that is not controlled by the ordered morphine & tylenol. New orders for KUB and NG to LIWS. Orders placed & reported to day shift RN.
[2018-12-03] MEDS: SODIUM CHLORIDE 0.9% 250ML IRRIG IR SCH ×4 (07:47→19:20)
[2018-12-03] MEDS: INSULIN REGULAR, HUMAN 3ML VL 100 UNIT in SODIUM CHLORIDE 0.9% 100 ML IV SCH ×2 (08:30)
--- NOTE | 2018-12-03 08:36 | Diagnostic Imaging Report ---
Exam: KUB - 2 views Indication: Bowel Obstruction Comparison: KUB 12/01/2018. Findings: Again seen are markedly dilated loops of colon with the most dilated area measuring up to 16.7 cm in the proximal transverse colon. NG tube appears unchanged in position. No evidence of free air. Impression: Unchanged severely dilated loops of colon measuring up to 16.7 cm, which may represent large bowel obstruction or non-obstructive ileus. Signed by: Dr. Linda Lopez MD on 12/03/2018 8:33 AM
[2018-12-03] MEDS: DOCUSATE SODIUM LIQD 100 MG/10 ML UDC NG SCH ×2 (08:37→16:50)
[2018-12-03] MEDS: PANTOPRAZOLE 40 MG 10ML VIAL IV SCH (08:37)
[2018-12-03] MEDS: METOPROLOL SUCCINATE 50 MG TAB XL PO SCH ×2 (09:00→17:56)
[2018-12-03 09:05] LABS: LYMPHOCYTES % (MANUAL) 94 % (19-48); MONOCYTES % (MANUAL) 1 % (3.4-9.0); NEUTROPHILS % (MANUAL) 5 % (40-74)
[2018-12-03 09:07] LABS: HYPOCHROMASIA SLIGHT; PLATELET ESTIMATE ADEQUATE; PLATELET MORPHOLOGY COMMENT FEW LARGE
[2018-12-03 09:08] LABS: ANISOCYTOSIS SLIGHT; SMUDGE CELLS MANY
[2018-12-03] MEDS: SODIUM CHLORIDE FLUSH 10 ML SYR INJ PRN (10:10)
--- NOTE | 2018-12-03 12:28 | NUR ---
Progress Note S: No complaints O: Abdomen: distended Labs: KUB: distended colon, still unchanged. Plan Continue current RX May consider decompressive colonoscopy, will defer to Dr Balderas
[2018-12-03] MEDS: ACETAMINOPHEN 325 MG/10 ML UDC NG PRN (12:30)
--- NOTE | 2018-12-03 13:48 | Progress Note ---
DATE: 12/03/2018 Cardiology Progress Note SUBJECTIVE: The patient complains of abdominal pain in the periumbilical area. He also does complain of being thirsty. Denies any chest pain or shortness of breath. OBJECTIVE: VITAL SIGNS: Temperature 98.4, pulse 93, respiratory rate 16, blood pressure 127/53, and oxygen saturation 99% on room air. GENERAL: Alert and oriented x3. Resting in bed. Does not appear to be in acute distress. LUNGS: Diminished breath sounds in anterior lower lobes, otherwise clear to auscultation. No wheezing. No rhonchi or crackles. CARDIOVASCULAR: Irregularly irregular. Normal S1 and S2. S4 auscultated. ABDOMEN: Soft. Tenderness to the left lower quadrant, right lower quadrant, and also the periumbilical area. EXTREMITIES: No edema. CARDIOVASCULAR MEDICATIONS: Metoprolol 50 mg p.o. b.i.d. LABORATORY DATA: WBC 1111.44, hemoglobin 8.9, hematocrit 31.1, and platelets 233. Sodium 149, potassium 3.3, BUN 30, and creatinine 1.01. AST 54, ALT 80, and alkaline phosphatase 270. PT 15.0 and INR 1.13. Abdomen and chest x-ray with unchanged severe dilated loops in the colon, measuring up to 16 cm, which may now represent large bowel obstruction or nonobstructive ileus. TELEMETRY: Normal sinus rhythm. IMPRESSION: 1. Chest pain. 2. Ileus and bowel obstruction. 3. Diabetes ketoacidosis. 4. Chronic myeloid leukemia. 5. Chronic kidney disease. 6. Hypertension. 7. Hyperlipidemia. 8. Diabetes mellitus. 9. Sepsis. RECOMMENDATIONS: Acute coronary syndrome was ruled out with cardiac biomarkers. The patient at this time remains to be symptomatic. We will continue to monitor. Continue beta-krista at this time. Continue the rest of the above-listed cardiac medication. Once the patient is able to re-initiate p.o. medications, we will resume enalapril and Crestor. Antimicrobial therapy per primary team and Infectious Disease. Continue n.p.o. status NG care for above-listed conditions. Dictated by Sherie Funes NP MD KYM Anderson/MALLIKA /[id number]
--- NOTE | 2018-12-03 14:50 | NUR ---
Visit made by the Spiritual Care Department Pastoral Visitor, Sebastien Duncan. PV provided pastoral presence, prayer, hospitality, and supportive listening. Pastoral Visitor informed pt/family of the scope of Corrugator Operator Services and availability. MARY VELOZ Service Tech Spiritual Care Department O: [phone] Pager: [phone] ([phone] number calling from)
[2018-12-03] MEDS ORDERED: INSULIN LISPRO 100 UNIT/1 ML 3ML VIAL SQ ONE (17:00)
[2018-12-03] MEDS ORDERED: CENTRAL TPN FORMULA 1 BAG IV SCH (20:59)
[2018-12-03] MEDS: INSULIN LISPRO 100 UNIT/1 ML 3ML VIAL SQ SCH (21:00)
[2018-12-03] MEDS: INSULIN GLARGINE 100 UNITS/ML VIAL SQ SCH (21:05)
[2018-12-04] VITALS (8 sets, daily range): BP systolic 117–152; BP diastolic 74–99
[2018-12-04] MEDS: METOCLOPRAMIDE HCL 10 MG/2ML VIAL IV SCH ×4 (03:02→21:15)
[2018-12-04] MEDS: SODIUM CHLORIDE 0.9% 250ML IRRIG IR SCH ×7 (03:21→23:35)
[2018-12-04] MEDS: MORPHINE SULFATE INJ 4 MG/ML INJ 1ML IV PRN ×6 (04:07→22:10)
[2018-12-04 06:38] LABS: EOSINOPHILS # (AUTO) 0.2 (0.0-0.4); EOSINOPHILS % 0.1 % (0.0-6.0); HEMATOCRIT 32.8 % (38.2-49.6); HEMOGLOBIN 9.2 g/dL (14.0-18.0); LYMPHOCYTES # (AUTO) 121.8 (1.0-3.2); LYMPHOCYTES % 95.7 % (18.0-39.1); MEAN CORPUSCULAR HEMOGLOBIN 29.6 pg (28-32); MEAN CORPUSCULAR VOLUME 105.5 fL (81-99); MONOCYTES # (AUTO) 0.5 (0.2-0.8); MONOCYTES % 0.4 % (4.4-11.3); NEUTROPHILS # (AUTO) 4.6 (2.1-6.9); NEUTROPHILS % 3.7 % (38.7-80.0); PLATELET COUNT 266 x10e3/uL (140-360); RED BLOOD COUNT 3.11 x10e6/uL (4.3-5.7); RED CELL DISTRIBUTION WIDTH 17.1 % (11.7-14.4)
[2018-12-04 07:40] LABS: ALBUMIN 2.2 g/dL (3.5-5.0); ALBUMIN/GLOBULIN RATIO 0.5 (0.8-2.0); ANION GAP 19.7 mmol/L (8-16); CALCIUM 8.8 mg/dL (8.4-10.2); CREATININE, SERUM 1.28 mg/dL (0.72-1.25)
[2018-12-04 07:47] LABS: POTASSIUM 5.7 mmol/L (3.5-5.1)
[2018-12-04] MEDS: INSULIN LISPRO 100 UNIT/1 ML 3ML VIAL SQ SCH ×5 (08:02→21:25)
[2018-12-04] MEDS: MEROPENEM 1GM 100 ML IV SCH ×3 (08:26→16:07)
[2018-12-04] MEDS: PANTOPRAZOLE 40 MG 10ML VIAL IV SCH (08:26)
[2018-12-04] MEDS: METOPROLOL SUCCINATE 50 MG TAB XL PO SCH (08:27)
[2018-12-04] MEDS: DOCUSATE SODIUM LIQD 100 MG/10 ML UDC NG SCH ×2 (08:27→16:07)
[2018-12-04 08:34] LABS: EOSINOPHILS % (MANUAL) 1 % (0-7); LYMPHOCYTES % (MANUAL) 95 % (19-48); MONOCYTES % (MANUAL) 3 % (3.4-9.0); NEUTROPHILS % (MANUAL) 1 % (40-74)
[2018-12-04 08:35] LABS: ANISOCYTOSIS SLIGHT; PLATELET ESTIMATE ADEQUATE; PLATELET MORPHOLOGY COMMENT NORMAL; RBC MORPHOLOGY COMMENT NORMAL; SMUDGE CELLS MODERATE
[2018-12-04 09:37] LABS: ANION GAP 15.7 mmol/L (8-16); BLOOD UREA NITROGEN 33 mg/dL (7-26); BUN/CREATININE RATIO 29 (6-25); CALCIUM 8.6 mg/dL (8.4-10.2); CARBON DIOXIDE 23 mmol/L (22-29); CHLORIDE 115 mmol/L (98-107); CREATININE, SERUM 1.13 mg/dL (0.72-1.25); EST GLOMERULAR FILTRATION RATE > 60 ML/MIN (60-); GLUCOSE 180 mg/dL (74-118); POTASSIUM 3.7 mmol/L (3.5-5.1); SODIUM 150 mmol/L (136-145)
--- NOTE | 2018-12-04 13:02 | NUR ---
Nutrition Intervention Note RD Recommendation(s) for Physician (12/04): - Continue TPN rec's via PICC: Rate at 42 ml/hr, 1008 ml/day, Dextrose 20% 500 ml/day (100 g/day), AA10% 500 ml (50 g/day), Lipids 25 g/day, Na Acetate 40 mEq/L, K Acetate 30 mEq/L, K Phos 12 mEq/L, Ca Gluconate 5 mEq/L, Mg Sulfate 10 mEq/L. Add MVI, trace, thiamine, folic acid to TPN bag. (to provide 790 kcal) - Additional IVF/fluid management per MD. - BG and insulin management per MD. - Please monitor BMP with Mg and Phos daily. Check TG and LFTs weekly- draw TG, Mg, Phos with next am labs. Plan of Care: RD following, monitoring for tolerance and adequacy, TPN rec's Nutrition reason for involvement: Follow up RD Assessment 12/04: Follow up: Pt was seen resting in bed, NGT still in place and is suctioning. Pt has been having BMs per nurse but is still experiencing abdominal pain. Observed the pt only on the TPN at 42 ml/hr today within his room, no other IVF. Insulin drip has been d/c. Labs were drawn today but appeared to be a bad draw, new labs were drawn. Provided TPN recommendations above and an order sheet for MD to sign, kept recommendations the same for now. Will re evaluate tmrw, 12/05 to determine if advancing the rate to 60 ml/hr, lipids every day, and placing mg in the bag is appropriate. Recommend another TG, Mg and Phos draw tmrw to ensure the pt has the correct TPN order in place. KUB was done yesterday which showed nothing has changed-pt still has severely dilated loops of the colon which may represent a large bowel obstruction or non-obstructive ileus. No edema noted, pts has gained 7 lbs since 11/24 per EMR. BS still somewhat high-insulin management per MD. Will continue to monitor. 12/01: Follow up: Pt was seen resting in bed, TPN running and NGT still in place. Pt was on NS at 125 ml/hr of IVF, MD told nurse to decrease the rate of the NS. Pt still has insulin drip. Provided TPN recommendations, MD signed off on new recommendations; changed Sodium chloride to sodium acetate d/t pts high chloride. Discussed pt in rounds, pt is having very little stool output and has a distended stomach. Per case management-d/c planning will start after surgery has seen the pt. Will continue to monitor. 11/30: Pt re-evaluated today per TPN consult and follow up. Pt now with an ileus with plan to start TPN this evening. Pt discussed during am rounds, code status palliative care vs cancer treatment discussion on going. NGT to LIWs in place, 1200 ml output as of yesterday and pt refused rectal tube placement. Pt with elevated anion gap, started on insulin drip. Pt with PICC in place. TPN rec's and additional RD rec's discussed with RN on unit. Will monitor and continue to follow. (11/24) 78 YOM admitted for DKA, chronic leukemia with PMH listed above. Pt was observed very fatigued and within the ICU, pt is off of the insulin drip. Pt reported he has been tolerating his full liquid diet and he does have a good appetite. Pt denied N/V/C/D/chewing or swallowing issues as well as denied any food allergies. Pt was unsure if he had lost any weight recently. No past weights within his EMR. A1c: 8.6, POC GM: 214. Chart reviewed. Labs and meds reviewed. Will continue to monitor. Principal Problems/Diagnoses: chronic leukemia, DKA PMH: 1. Diabetes mellitus, insulin therapy. 2. Hypertension. 3. Diabetic complication with neuropathy. 4. Chronic kidney disease. 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 Intake/Output: + 814 ml/-625 ml GI: Abd: round, distended, tender, flatus: present LBM 12/03. Pt refused rectal tube for decompression. NGT gastric drainage from 12/03- 50 ml Skin: R hip wound-not pressure ulcer related Labs: 12/04: Na 150, K 3.7, Cl 115, CO2 23, BUN 33, Creat 1.13, Gluc 180, POC GM 156, Ca 8.6, Mg 2.5, TG 396, tbili 0.5 12/01: Na 145, K 3.1, Cl 112, CO2 21, BUN 22, Creat 1.14, Gluc 196, POC GM 181, Ca 8.6, Phos 1.7, Mg 2.1 11/30: Na 142, K 3.1, Cl 109, CO2 23, BUN 18, Cr 1.04, Gluc 152, POC Gluc 149-151 Meds: colace, zofran, protonix, abx, reglan, KCl IVPB, KPhos IVPB, milk of magnesia, insulin, magnesium citrate, bisacodly IVF/Drips: TPN at 42 ml/hr Ht: 69 in Wt: 166 lb 12/03: 173 lbs BMI: 24.5 kg/m2 IBW: 160 lb Malnutrition Evaluation (11/30) The patient does not meet criteria for a specified degree of malnutrition at this time. Will re-evaluate at follow-up as appropriate. Energy intake: <50% of estimated energy requirements for >5 days Weight loss: none Muslce loss: Mild-temporal, clavicle Fat loss: none Supporting Evidence: Fluid accumulation: none Functional Status: unable to evaluate Nutrition Prescription (Diet Order): NPO Estimated Nutritional Needs: 1875 -2626 calories/day (25-35 kcal/kg DBW)- per 166 lb (75 kg) 75- 112 g protein/day (1-1.5 g pro/kg DBW) (75 kg) Diet Adequacy: Not meeting calorie needs, Not meeting protein needs, Meeting fluid needs Diet Tolerance: tolerating TPN Diet Education Needs Assessment: Diet education not indicated, patient on temporary/transition diet. Nutrition Care Level: High- TPN, still not meeting needs Nutrition Diagnosis: Inadequate energy and protein intake related to ileus as evidenced by NPO and requiring parenteral nutrition. Goal: Patient will meet 75-100% of estimated needs by follow up Progress: progressing Interventions: TPN- Composition, Rate, Route, IVF, Prescription medications, Recommended Modifications, Collaboration with other providers Monitoring/Evaluation: Total energy intake, Total protein intake, Formula/Solution, IVF, Prescription medication Signed: Jana Juan RD, DEDE
--- NOTE | 2018-12-04 13:12 | NUR ---
REMAINS WITH NG TUBE KUB SHOWS CONTINUED LARGE BOWEL OBSTRUCTION TPN IV ABX X 2 WBC 127 NG TUBE
[2018-12-04] MEDS: DEXTROSE 5% 1,000 ML IV SCH (14:30)
[2018-12-04] MEDS: METOPROLOL TARTRATE 50 MG TAB PO SCH (16:56)
--- NOTE | 2018-12-04 17:09 | NUR ---
During shift report lab called to report abnormal lab values. Off going RN redrew bmp. Results from BMP still coming back abnormal. Repeat BMP ordered. Dr. Fields aware of elevated sodium. ordered D5 IV fluids. MD ordered changes to sodium and insulin in TPN. RN verified TPN orders with Dr. Fields to make sure MD wanted to decrease sodium. Dr. Mooney informed of Dr. Carmen changes to TPN orders and ordered for tonight. Patient had 1 large loose bowel movement. Pt refused physical therapy today. Patient being non compliant with NPO orders and is drinking water from melting ice pack. RN educated and patient given an alternate form of ice pack. Will continue to monitor.
--- NOTE | 2018-12-04 19:00 | NUR ---
Walking rounds, report received. Patient drowsy awaken by tactile and voice. Patient was alert and oriented once awaken. Vital signs stable no signs of distress. Patient instructed to call for assistance, patient verbalized understanding.
--- NOTE | 2018-12-04 19:30 | NUR ---
Dr. Filomena Foster walking by nurses' station and asked for POC for patient. Per MD, he saw patient Tuesday and patient refusing care including enemas.
[2018-12-04] MEDS: CENTRAL TPN FORMULA 1 BAG IV SCH (20:55)
[2018-12-04] MEDS: INSULIN GLARGINE 100 UNITS/ML VIAL SQ SCH (21:25)
[2018-12-05] MEDS: MEROPENEM 1GM 100 ML IV SCH ×3 (00:54→16:00)
[2018-12-05] MEDS: INSULIN LISPRO 100 UNIT/1 ML 3ML VIAL SQ SCH ×6 (02:15→22:31)
[2018-12-05] MEDS: DEXTROSE 5% 1,000 ML IV SCH ×2 (02:15→15:59)
[2018-12-05] MEDS: SODIUM CHLORIDE 0.9% 250ML IRRIG IR SCH ×6 (02:15→22:31)
[2018-12-05] MEDS: METOCLOPRAMIDE HCL 10 MG/2ML VIAL IV SCH ×4 (02:15→20:31)
[2018-12-05] MEDS: ACETAMINOPHEN 325 MG/10 ML UDC NG PRN (02:39)
[2018-12-05 02:43] VITALS: BP 150/83
[2018-12-05 03:25] VITALS: BP 129/76
[2018-12-05] MEDS: MORPHINE SULFATE INJ 4 MG/ML INJ 1ML IV PRN ×5 (03:30→20:30)
[2018-12-05 05:31] LABS: ANION GAP 12.2 mmol/L (8-16); BLOOD UREA NITROGEN 32 mg/dL (7-26); BUN/CREATININE RATIO 29 (6-25); CALCIUM 8.4 mg/dL (8.4-10.2); CARBON DIOXIDE 27 mmol/L (22-29); CHLORIDE 109 mmol/L (98-107); EST GLOMERULAR FILTRATION RATE > 60 ML/MIN (60-); GLUCOSE 153 mg/dL (74-118); MAGNESIUM 2.4 MG/DL (1.3-2.1); PHOSPHORUS 3.1 MG/DL (2.3-4.7); POTASSIUM 3.2 mmol/L (3.5-5.1); SODIUM 145 mmol/L (136-145)
[2018-12-05 07:31] VITALS: BP 144/78
[2018-12-05] MEDS: METOPROLOL TARTRATE 50 MG TAB PO SCH ×2 (08:05→16:00)
[2018-12-05] MEDS: PANTOPRAZOLE 40 MG 10ML VIAL IV SCH (08:05)
[2018-12-05] MEDS: DOCUSATE SODIUM LIQD 100 MG/10 ML UDC NG SCH ×2 (08:05→16:00)
[2018-12-05 09:00] VITALS: BP 144/78
--- NOTE | 2018-12-05 09:25 | NUR ---
Pt sleeping soundly and no family present. Mixing Picker Tender left a card describing availability of tool room lathe operator and instructions on how to contact a tool room lathe operator. MARY VELOZ Mixing Picker Tender Spiritual Care Department O: [phone] Pager: [phone] ([phone] number calling from)
[2018-12-05] MEDS ORDERED: POTASSIUM CHLORIDE 20MEQ/100ML 100 ML IV ONE (10:00)
--- NOTE | 2018-12-05 10:08 | NUR ---
rounding with Dr. Amaro, patient continues with NPO status, NGT, distended abd. Continues to have colon dilation on KUB. discussed with patient the possibility of a colostomy for these, asking if patient would be open to a conversation with surgeon. Patient nodded head. KALI RN notified ALLEN Higgins RN to notify surgeon Addendum: 12/05/18 at 1014 by Haezl Sanchez CM spoke to dr. westbrook, he states he will see patient and discuss with surgery with him later today. states patient is very high risk d/t leukemia.
--- NOTE | 2018-12-05 11:28 | Diagnostic Imaging Report ---
Exam: KUB - 2 views Indication: Bowel Obstruction Comparison: KUB 12/01/2018. Findings: Again seen are markedly dilated loops of colon with the most dilated area measuring up to 16 cm. NG tube appears unchanged in position. No evidence of free air. Impression: Unchanged severely dilated loops of colon measuring up to 16 cm, which may represent large bowel obstruction or non-obstructive ileus. Signed by: Hoa Borden MD on 12/05/2018 11:25 AM
[2018-12-05 11:43] VITALS: BP 148/80
--- NOTE | 2018-12-05 13:01 | NUR ---
Nutrition Intervention Note RD Recommendation(s) for Physician (12/05): - TPN rec's via PICC: Rate at 42 ml/hr, 1008 ml/day, Dextrose 20% 500 ml/day (100 g/day), AA10% 500 ml (50 g/day), Lipids 25 g/day, K Acetate 30 mEq/L, K Phos 12 mEq/L, Ca Gluconate 5 mEq/L, Mg Sulfate 5 mEq/L. Add MVI, trace, thiamine, folic acid to TPN bag. (to provide 790 kcal) - Additional IVF/fluid management per MD; D5W at 80 ml/hr provides the pt with an additional 96 gram dex and 326 kcal. - BG and insulin management per MD. (26 units of insulin in TPN bag per MD) - Please monitor BMP with Mg and Phos daily and replace low lytes as needed. -Check TG and LFTs weekly- draw LFTs, Mg, Phos with next am labs. Plan of Care: RD following, monitoring for tolerance and adequacy, TPN rec's Nutrition reason for involvement: Follow up RD Assessment 12/05: Provided new TPN recommendation above .Yesterday the MD and Senior Care Provider took out the Na Acetate and placed 26 units on insulin in the TPN bag instead of 20 units. Pt was also placed on D5W at 80 ml/hr providing the pt with an additional 96 gram of dex and 326 kcal d/t his high Na levels. Na level today was 145. Mg was also high per [facility] standards- decreased Mg by half in the bag. Recommended rate of 42 ml/hr and advancement soon once D5W is decreased or removed to provide the pt with more calories and protein. TGs were also high, lipids are okay to order, lipids are only not recommended when TGs are higher than 400. Kept recommendation of 26 units of insulin d/t pt still having high BS and the additional of 96 grams of dex. Provided recommendations and TPN order sheet to nurse. Spoke about pt in rounds, possibility of the pt receiving colostomy. K is still low, per EMR pt is being replaced as directed (20 mEq/100 ml) Will continue to monitor. 12/04: Follow up: Pt was seen resting in bed, NGT still in place and is suctioning. Pt has been having BMs per nurse but is still experiencing abdominal pain. Observed the pt only on the TPN at 42 ml/hr today within his room, no other IVF. Insulin drip has been d/c. Labs were drawn today but appeared to be a bad draw, new labs were drawn. Provided TPN recommendations above and an order sheet for MD to sign, kept recommendations the same for now. Will re evaluate tmrw, 12/05 to determine if advancing the rate to 60 ml/hr, lipids every day, and placing mg in the bag is appropriate. Recommend another TG, Mg and Phos draw tmrw to ensure the pt has the correct TPN order in place. KUB was done yesterday which showed nothing has changed-pt still has severely dilated loops of the colon which may represent a large bowel obstruction or non-obstructive ileus. No edema noted, pts has gained 7 lbs since 11/24 per EMR. BS still somewhat high-insulin management per MD. Will continue to monitor. 12/01: Follow up: Pt was seen resting in bed, TPN running and NGT still in place. Pt was on NS at 125 ml/hr of IVF, MD told nurse to decrease the rate of the NS. Pt still has insulin drip. Provided TPN recommendations, MD signed off on new recommendations; changed Sodium chloride to sodium acetate d/t pts high chloride. Discussed pt in rounds, pt is having very little stool output and has a distended stomach. Per case management-d/c planning will start after surgery has seen the pt. Will continue to monitor. 11/30: Pt re-evaluated today per TPN consult and follow up. Pt now with an ileus with plan to start TPN this evening. Pt discussed during am rounds, code status palliative care vs cancer treatment discussion on going. NGT to LIWs in place, 1200 ml output as of yesterday and pt refused rectal tube placement. Pt with elevated anion gap, started on insulin drip. Pt with PICC in place. TPN rec's and additional RD rec's discussed with RN on unit. Will monitor and continue to follow. (11/24) 78 YOM admitted for DKA, chronic leukemia with PMH listed above. Pt was observed very fatigued and within the ICU, pt is off of the insulin drip. Pt reported he has been tolerating his full liquid diet and he does have a good appetite. Pt denied N/V/C/D/chewing or swallowing issues as well as denied any food allergies. Pt was unsure if he had lost any weight recently. No past weights within his EMR. A1c: 8.6, POC GM: 214. Chart reviewed. Labs and meds reviewed. Will continue to monitor. Principal Problems/Diagnoses: chronic leukemia, DKA PMH: 1. Diabetes mellitus, insulin therapy. 2. Hypertension. 3. Diabetic complication with neuropathy. 4. Chronic kidney disease. 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 Intake/Output: + 4 ml/-2202 ml GI: Abd: round, distended, non tender, flatus: present LBM 12/05. Pt refused rectal tube for decompression. NGT gastric drainage from 12/05- 600 ml Skin: R hip wound-not pressure ulcer related Labs: 12/05: Na 145, K 3.2, Cl 109, CO2 27, BUN 32, Creat 1.10, Gluc 153, POC GM 153-163, Ca 8.4, Phos 3.1, Mg 2.4, TG 238 12/04: Na 150, K 3.7, Cl 115, CO2 23, BUN 33, Creat 1.13, Gluc 180, POC GM 156, Ca 8.6, Mg 2.5, TG 396, tbili 0.5 12/01: Na 145, K 3.1, Cl 112, CO2 21, BUN 22, Creat 1.14, Gluc 196, POC GM 181, Ca 8.6, Phos 1.7, Mg 2.1 11/30: Na 142, K 3.1, Cl 109, CO2 23, BUN 18, Cr 1.04, Gluc 152, POC Gluc 149-151 Meds: colace, zofran, protonix, abx, reglan, KCl IVPB, KPhos IVPB, milk of magnesia, insulin, magnesium citrate, bisacodly, lopressor IVF/Drips: TPN at 42 ml/hr, D5W at 80 ml/hr Ht: 69 in Wt: 166 lb 12/03: 173 lbs BMI: 24.5 kg/m2 IBW: 160 lb Malnutrition Evaluation (11/30) The patient does not meet criteria for a specified degree of malnutrition at this time. Will re-evaluate at follow-up as appropriate. Energy intake: <50% of estimated energy requirements for >5 days Weight loss: none Muslce loss: Mild-temporal, clavicle Fat loss: none Supporting Evidence: Fluid accumulation: none Functional Status: unable to evaluate Nutrition Prescription (Diet Order): NPO Estimated Nutritional Needs: 1875 -2626 calories/day (25-35 kcal/kg DBW)- per 166 lb (75 kg) 75- 112 g protein/day (1-1.5 g pro/kg DBW) (75 kg) Diet Adequacy: Not meeting calorie needs, Not meeting protein needs, Meeting fluid needs Diet Tolerance: tolerating TPN Diet Education Needs Assessment: Diet education not indicated, patient on temporary/transition diet. Nutrition Care Level: High- TPN, still not meeting needs Nutrition Diagnosis: Inadequate energy and protein intake related to ileus as evidenced by NPO and requiring parenteral nutrition. Goal: Patient will meet 75-100% of estimated needs by follow up Progress: progressing Interventions: TPN- Composition, Rate, Route, IVF, Prescription medications, Recommended Modifications, Collaboration with other providers Monitoring/Evaluation: Total energy intake, Total protein intake, Formula/Solution, IVF, Prescription medication Signed: Jana Juan RD, LD
--- NOTE | 2018-12-05 13:20 | NUR ---
Visit made by the Spiritual Care Department Pastoral Visitor, Capri Cerrato. Pt sleeping soundly and no family present. Pastoral Visitor left a card describing availability of personal consultant and instructions on how to contact a personal consultant. MARY VELOZ Senior Mechanical Estimator Spiritual Care Department O: [phone] Pager: [phone] ([phone] number calling from)
[2018-12-05 15:27] VITALS: BP 138/90
[2018-12-05] MEDS ORDERED: MAGNESIUM HYDROXIDE 30 ML UDC PO SCH (21:00)
[2018-12-05] MEDS: INSULIN GLARGINE 100 UNITS/ML VIAL SQ SCH (21:07)
[2018-12-05] MEDS: CENTRAL TPN FORMULA 1 BAG IV SCH (21:07)
[2018-12-06] VITALS (10 sets, daily range): BP systolic 119–167; BP diastolic 56–98
[2018-12-06] MEDS: MEROPENEM 1GM 100 ML IV SCH ×3 (00:08→17:07)
[2018-12-06] MEDS: INSULIN LISPRO 100 UNIT/1 ML 3ML VIAL SQ SCH ×7 (01:35→21:14)
[2018-12-06] MEDS: DEXTROSE 5% 1,000 ML IV SCH ×2 (03:13→15:46)
[2018-12-06] MEDS: SODIUM CHLORIDE 0.9% 250ML IRRIG IR SCH ×6 (03:13→23:47)
[2018-12-06] MEDS: METOCLOPRAMIDE HCL 10 MG/2ML VIAL IV SCH ×4 (03:13→21:10)
--- NOTE | 2018-12-06 04:24 | Progress Note ---
DATE: 12/04/2018 Cardiology Progress Note SUBJECTIVE: No major events overnight. OBJECTIVE: VITAL SIGNS: Temperature afebrile, pulse 98, respiratory rate 17, blood pressure 152/99, saturating 99% on room air. GENERAL: Elderly man, in no acute distress. CARDIOVASCULAR : Irregular rate and rhythm. No murmurs, rubs or gallops. LUNGS: Diminished breath sounds in bilateral bases. ABDOMEN: Soft, nontender, nondistended. NEUROLOGIC AND PSYCHIATRIC: Alert and oriented to person, place, and time. Normal affect. INPATIENT MEDICATIONS: Reviewed. LABORATORY DATA: Reviewed. TELEMETRY DATA: Reviewed, shows sinus tachycardia. ASSESSMENT AND PLAN: 1. Chest pain. 2. Ileus. 3. Diabetes. 4. Diabetic ketoacidosis. 5. Chronic myeloid leukemia. 6. Chronic kidney disease. 7. Hypertension. 8. Hyperlipidemia. 9. Sepsis. RECOMMENDATION: ACS ruled out with serial biomarkers, doing well from cardiovascular standpoint. We will change to short-acting metoprolol as long-acting metoprolol cannot cross through the NG tube. MD GIOVANI Kendrick/MALLIKA /[id number]
[2018-12-06] MEDS: MORPHINE SULFATE INJ 4 MG/ML INJ 1ML IV PRN ×4 (05:16→18:52)
[2018-12-06 06:56] LABS: ANION GAP 14.8 mmol/L (8-16); BLOOD UREA NITROGEN 24 mg/dL (7-26); BUN/CREATININE RATIO 23 (6-25); CARBON DIOXIDE 24 mmol/L (22-29); CHLORIDE 108 mmol/L (98-107); CREATININE, SERUM 1.03 mg/dL (0.72-1.25); EST GLOMERULAR FILTRATION RATE > 60 ML/MIN (60-); GLUCOSE 244 mg/dL (74-118); POTASSIUM 3.8 mmol/L (3.5-5.1); SODIUM 143 mmol/L (136-145)
[2018-12-06] MEDS: DOCUSATE SODIUM LIQD 100 MG/10 ML UDC NG SCH ×2 (09:00→17:07)
--- NOTE | 2018-12-06 09:27 | NUR ---
DR BURNS AND DR Mariposa YODER DISCUSSED PT'S PLAN OF CARE BOTH ARE AGREEABLE THAT PT NEEDS COLOSTOMY DUE TO FISTULA SO THAT TPN CAN BE DC'D AND HE CAN EAT FISTULA CAN BE FIXED AT A LATER DATE DR Mariposa YODER IS RECOMMENDING PT GO TO A SNF FOR COLOSTOMY CARE AND P.T. AND THAT HIS IV PAIN MEDS NEED TO BE WEANED TO PO DR BURNS SPOKE WITH PT AND PT IS AGREEABLE TO COLOSTOMY DR BURNS EXPLAINED THAT POST OP PT COULD GO TO A SNF OR HOME WITH HOSPICE
[2018-12-06] MEDS: METOPROLOL TARTRATE 50 MG TAB PO SCH ×2 (10:06→17:07)
[2018-12-06] MEDS: PANTOPRAZOLE 40 MG 10ML VIAL IV SCH (10:07)
[2018-12-06] MEDS ORDERED: CITRATE OF MAGNESIA 300ML BOTTLE PO ONE (12:45)
[2018-12-06] MEDS: ACETAMINOPHEN 325 MG/10 ML UDC NG PRN (16:42)
--- NOTE | 2018-12-06 19:00 | NUR ---
Received patient from day nurse, patient is stable. safety and fall precautions maintained.
[2018-12-06] MEDS: CENTRAL TPN FORMULA 1 BAG IV SCH (20:56)
[2018-12-06] MEDS: INSULIN GLARGINE 100 UNITS/ML VIAL SQ SCH (21:15)
[2018-12-07] VITALS (8 sets, daily range): BP systolic 110–129; BP diastolic 73–81
[2018-12-07] MEDS: MORPHINE SULFATE INJ 4 MG/ML INJ 1ML IV PRN ×5 (00:01→22:43)
[2018-12-07] MEDS: MEROPENEM 1GM 100 ML IV SCH ×3 (00:51→17:23)
[2018-12-07] MEDS: INSULIN LISPRO 100 UNIT/1 ML 3ML VIAL SQ SCH ×6 (02:00→22:00)
[2018-12-07] MEDS: SODIUM CHLORIDE 0.9% 250ML IRRIG IR SCH ×6 (03:00→22:58)
[2018-12-07] MEDS: METOCLOPRAMIDE HCL 10 MG/2ML VIAL IV SCH ×4 (04:28→21:00)
[2018-12-07] MEDS: DEXTROSE 5% 1,000 ML IV SCH (04:45)
[2018-12-07 05:17] LABS: BASOPHILS # (AUTO) 0.1 (0.0-0.1); BASOPHILS % 0.1 % (0.0-1.0); EOSINOPHILS # (AUTO) 0.2 (0.0-0.4); EOSINOPHILS % 0.2 % (0.0-6.0); HEMATOCRIT 28.6 % (38.2-49.6); LYMPHOCYTES # (AUTO) 109.6 (1.0-3.2); LYMPHOCYTES % 94.7 % (18.0-39.1); MEAN CORPUSCULAR HEMOGLOBIN 28.3 pg (28-32); MEAN CORPUSCULAR VOLUME 101.1 fL (81-99); MONOCYTES # (AUTO) 0.5 (0.2-0.8); MONOCYTES % 0.4 % (4.4-11.3); NEUTROPHILS # (AUTO) 5.3 (2.1-6.9); NEUTROPHILS % 4.5 % (38.7-80.0); PLATELET COUNT 253 x10e3/uL (140-360); RED BLOOD COUNT 2.83 x10e6/uL (4.3-5.7); RED CELL DISTRIBUTION WIDTH 14.9 % (11.7-14.4)
[2018-12-07 05:26] LABS: INR 1.11; PROTHROMBIN TIME 14.8 seconds (11.9-14.5)
[2018-12-07 05:27] LABS: PARTIAL THROMBOPLASTIN TIME 39.6 seconds (23.8-35.5)
[2018-12-07 05:39] LABS: ANION GAP 12.1 mmol/L (8-16); BLOOD UREA NITROGEN 19 mg/dL (7-26); BUN/CREATININE RATIO 25 (6-25); CALCIUM 7.5 mg/dL (8.4-10.2); CARBON DIOXIDE 22 mmol/L (22-29); CHLORIDE 111 mmol/L (98-107); CREATININE, SERUM 0.75 mg/dL (0.72-1.25); EST GLOMERULAR FILTRATION RATE > 60 ML/MIN (60-); GLUCOSE 141 mg/dL (74-118); POTASSIUM 3.1 mmol/L (3.5-5.1); SODIUM 142 mmol/L (136-145)
--- NOTE | 2018-12-07 06:29 | NUR ---
Dr. Neumann made aware of WBC levels, also made aware that picc line does not look right, she ordered for xray.
[2018-12-07 06:50] LABS: CLARITY,URINE CLOUDY (CLEAR); COLOR,URINE YELLOW (YELLOW)
[2018-12-07 06:52] LABS: LEUKOCYTE ESTERASE ,URINE MODERATE (NEGATIVE); NITRITE,URINE NEGATIVE (NEGATIVE); PROTEIN,URINE DIPSTICK 2+ (NEGATIVE)
[2018-12-07 06:53] LABS: KETONES,URINE NEGATIVE (NEGATIVE)
[2018-12-07 06:54] LABS: BILIRUBIN,URINE NEGATIVE (NEGATIVE); URINE UROBILINOGEN 0.2 mg/dL (0.2 - 1)
--- NOTE | 2018-12-07 06:57 | NUR ---
patient endorsed to next shift for continuity of care.
--- NOTE | 2018-12-07 07:17 | Diagnostic Imaging Report ---
EXAMINATION: CHEST SINGLE (PORTABLE) INDICATION: ^verify picc line status ^[id number] ^[id number] ^Y COMPARISON: 11/30/2018 FINDINGS: AP view TUBES and LINES: Right PICC in place with tip projecting over superior SVC. Nasogastric tube in place. LUNGS: Limited by slight rotation. Lungs are well inflated. Central peribronchovascular thickening/cuffing. PLEURA: No significant pleural effusion or pneumothorax. HEART AND MEDIASTINUM: The cardiomediastinal silhouette is enlarged. Thickening of the right paratracheal stripe is again seen. Aorta is tortuous. BONES AND SOFT TISSUES: No acute osseous lesion. Partially seen left shoulder prosthesis and cervical spine fusion hardware. Soft tissues are unremarkable. UPPER ABDOMEN: No free air under the diaphragm. IMPRESSION: Right PICC in place with tip projecting over superior SVC. No pneumothorax. Enlarged cardiomediastinal silhouette, accentuated by slight rotation. Central peribronchovascular thickening/cuffing. Underlying pneumonia cannot be excluded in the appropriate clinical context. Signed by: Dr. Babar Schaeffer MD on 12/07/2018 7:13 AM
[2018-12-07] MEDS: ALBUTEROL SULF 0.083% NEB SOLN 3 ML NEB NEB PRN (07:20)
[2018-12-07 07:37] LABS: BACTERIA,URINE RARE /HPF; RBC,URINE 0-5 /HPF (0-5); WBC,URINE (MAN) 0-5 /HPF (0-5)
[2018-12-07 07:38] LABS: EPITHELIAL CELLS,URINE FEW /LPF
[2018-12-07 07:56] LABS: HYPOCHROMASIA SLIGHT
[2018-12-07] MEDS: METOPROLOL TARTRATE 50 MG TAB PO SCH ×2 (09:00→17:23)
[2018-12-07] MEDS: DOCUSATE SODIUM LIQD 100 MG/10 ML UDC NG SCH ×2 (09:00→17:23)
[2018-12-07] MEDS: PANTOPRAZOLE 40 MG 10ML VIAL IV SCH (09:00)
--- NOTE | 2018-12-07 09:27 | NUR ---
PT GIVEN MG CITRATE AND MOM VIA NG TUBE YESTERDAY DOCUMENTED [address] Mariposa YODER SPOKE WITH DR BURNS YESTERDAY AND STATES PT HAS A PARALYTIC ILEUS FROM NARCOTICS; RECOMMENDS NARCOTICS BE DECREASED CM SPOKE WITH DR BURNS THIS AM ABOUT DECREASING NARCOTIC DOSAGE STILL GETTING 4MG OF MORPHINE Q 4 HRS
[2018-12-07] MEDS: POTASSIUM CHLORIDE 20MEQ/100ML 100 ML IV SCH ×2 (11:41→14:19)
--- NOTE | 2018-12-07 12:26 | NUR ---
pt refused tx today due to severe pain Addendum: 12/07/18 at 1227 by He Harris PTA Amended: Links added.
--- NOTE | 2018-12-07 12:53 | NUR ---
Nutrition Intervention Note RD Recommendation(s) for Physician: - TPN rec's via PICC: Increase TPN rate to at 60 ml/hr, 1440 ml/day, Dextrose 20% 500 ml/day (144 g/day), AA10% 500 ml (72 g/day), Lipids 25 g/day, K Acetate 30 mEq/L, K Phos 12 mEq/L, Ca Gluconate 5 mEq/L, Mg Sulfate 5 mEq/L. Continue MVI, trace, thiamine, folic acid. Insulin 30 units in TPN bag per MD. (to provide 1028 kcal) - Additional IVF/fluid management per MD - BG and insulin management per MD - Please monitor BMP with Mg and Phos daily and replace low lytes as needed. -Check TG and LFTs weekly- draw LFTs, Mg, Phos with next am labs. Plan of Care: RD following, monitoring for tolerance and adequacy, TPN rec's Nutrition reason for involvement: Follow up RD Assessment 12/07: Pt sleeping at time of visit and no family present, TPN infusing at 42 ml/hr. Chart reviewed and pt discussed during am rounds, pt with paralytic ileus 2/2 narcotic use- no surgical intervention at this time. NGT remains in place, RN reports 100 ml output this shift. Pt on bowel regimen, 3 BMs today. TPN rec's provided- MD managing, current TPN not meeting estimated needs. 12/05: Provided new TPN recommendation above .Yesterday the MD and [employer] Sander took out the Na Acetate and placed 26 units on insulin in the TPN bag instead of 20 units. Pt was also placed on D5W at 80 ml/hr providing the pt with an additional 96 gram of dex and 326 kcal d/t his high Na levels. Na level today was 145. Mg was also high per [facility] standards- decreased Mg by half in the bag. Recommended rate of 42 ml/hr and advancement soon once D5W is decreased or removed to provide the pt with more calories and protein. TGs were also high, lipids are okay to order, lipids are only not recommended when TGs are higher than 400. Kept recommendation of 26 units of insulin d/t pt still having high BS and the additional of 96 grams of dex. Provided recommendations and TPN order sheet to nurse. Spoke about pt in rounds, possibility of the pt receiving colostomy. K is still low, per EMR pt is being replaced as directed (20 mEq/100 ml) Will continue to monitor. 12/04: Follow up: Pt was seen resting in bed, NGT still in place and is suctioning. Pt has been having BMs per nurse but is still experiencing abdominal pain. Observed the pt only on the TPN at 42 ml/hr today within his room, no other IVF. Insulin drip has been d/c. Labs were drawn today but appeared to be a bad draw, new labs were drawn. Provided TPN recommendations above and an order sheet for MD to sign, kept recommendations the same for now. Will re evaluate tmrw, 12/05 to determine if advancing the rate to 60 ml/hr, lipids every day, and placing mg in the bag is appropriate. Recommend another TG, Mg and Phos draw tmrw to ensure the pt has the correct TPN order in place. KUB was done yesterday which showed nothing has changed-pt still has severely dilated loops of the colon which may represent a large bowel obstruction or non-obstructive ileus. No edema noted, pts has gained 7 lbs since 11/24 per EMR. BS still somewhat high-insulin management per MD. Will continue to monitor. 12/01: Follow up: Pt was seen resting in bed, TPN running and NGT still in place. Pt was on NS at 125 ml/hr of IVF, MD told nurse to decrease the rate of the NS. Pt still has insulin drip. Provided TPN recommendations, MD signed off on new recommendations; changed Sodium chloride to sodium acetate d/t pts high chloride. Discussed pt in rounds, pt is having very little stool output and has a distended stomach. Per case management-d/c planning will start after surgery has seen the pt. Will continue to monitor. 11/30: Pt re-evaluated today per TPN consult and follow up. Pt now with an ileus with plan to start TPN this evening. Pt discussed during am rounds, code status palliative care vs cancer treatment discussion on going. NGT to LIWs in place, 1200 ml output as of yesterday and pt refused rectal tube placement. Pt with elevated anion gap, started on insulin drip. Pt with PICC in place. TPN rec's and additional RD rec's discussed with RN on unit. Will monitor and continue to follow. (11/24) 78 YOM admitted for DKA, chronic leukemia with PMH listed above. Pt was observed very fatigued and within the ICU, pt is off of the insulin drip. Pt reported he has been tolerating his full liquid diet and he does have a good appetite. Pt denied N/V/C/D/chewing or swallowing issues as well as denied any food allergies. Pt was unsure if he had lost any weight recently. No past weights within his EMR. A1c: 8.6, POC GM: 214. Chart reviewed. Labs and meds reviewed. Will continue to monitor. Principal Problems/Diagnoses: chronic leukemia, DKA PMH: 1. Diabetes mellitus, insulin therapy. 2. Hypertension. 3. Diabetic complication with neuropathy. 4. Chronic kidney disease. 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 GI: LBM 12/07 x 3. NGT gastric drainage from 12/07- 100 ml q shift, noted 700 ml in canister Skin: R hip wound-not pressure ulcer related Labs: 12/07: Na 12/05: Na 145, K 3.2, Cl 109, CO2 27, BUN 32, Creat 1.10, Gluc 153, POC GM 153-163, Ca 8.4, Phos 3.1, Mg 2.4, TG 238 12/04: Na 150, K 3.7, Cl 115, CO2 23, BUN 33, Creat 1.13, Gluc 180, POC GM 156, Ca 8.6, Mg 2.5, TG 396, tbili 0.5 12/01: Na 145, K 3.1, Cl 112, CO2 21, BUN 22, Creat 1.14, Gluc 196, POC GM 181, Ca 8.6, Phos 1.7, Mg 2.1 11/30: Na 142, K 3.1, Cl 109, CO2 23, BUN 18, Cr 1.04, Gluc 152, POC Gluc 149-151 Meds: colace, zofran, protonix, abx, reglan, KCl IVPB, milk of magnesia, insulin, magnesium citrate, lispro, lantus, dulcolax IVF/Drips: TPN at 42 ml/hr, NS at 30 ml/hr- KVO Ht: 69 in Wt: 166 lb 12/03: 173 lbs BMI: 24.5 kg/m2 IBW: 160 lb Malnutrition Evaluation (11/30) The patient does not meet criteria for a specified degree of malnutrition at this time. Will re-evaluate at follow-up as appropriate. Energy intake: <50% of estimated energy requirements for >5 days Weight loss: none Muslce loss: Mild-temporal, clavicle Fat loss: none Supporting Evidence: Fluid accumulation: none Functional Status: unable to evaluate Nutrition Prescription (Diet Order): NPO Estimated Nutritional Needs: 1875 -2626 calories/day (25-35 kcal/kg DBW)- per 166 lb (75 kg) 75- 112 g protein/day (1-1.5 g pro/kg DBW) (75 kg) Diet Adequacy: Not meeting calorie needs, Not meeting protein needs, Not meeting fluid needs Diet Tolerance: tolerating TPN Diet Education Needs Assessment: Diet education not indicated, patient on temporary/transition diet. Nutrition Care Level: High- TPN, still not meeting needs Nutrition Diagnosis: Inadequate energy and protein intake related to ileus as evidenced by NPO and requiring parenteral nutrition. Goal: Patient will meet 75-100% of estimated needs by follow up Progress: progressing Interventions: TPN- Composition, Rate, Route, IVF, Prescription medications, Recommended Modifications, Collaboration with other providers Monitoring/Evaluation: Total energy intake, Total protein intake, Formula/Solution, IVF, Prescription medication Signed: Rajani Velasco RD, DEDE, [facility]
[2018-12-07] MEDS ORDERED: POTASSIUM CHLORIDE 20MEQ/100ML 100 ML IV ONE (14:15)
[2018-12-07] MEDS ORDERED: CITRATE OF MAGNESIA 300ML BOTTLE NG NR (19:05)
--- NOTE | 2018-12-07 19:55 | NUR ---
Received change of shift report from nurse. Rounds completed.
[2018-12-07] MEDS: CENTRAL TPN FORMULA 1 BAG IV SCH (20:00)
[2018-12-07] MEDS: INSULIN GLARGINE 100 UNITS/ML VIAL SQ SCH (21:00)
--- NOTE | 2018-12-07 21:30 | NUR ---
Received a call from radiology Dr Tirado states not able to due central line to night. Informed Dr Mooney and dulce sup. Latonia Chacon. Also patient . Consent has been signed. Addendum: 12/07/18 at 2133 by Kamille Saini RN Error wrong patient.
[2018-12-07] MEDS: ONDANSETRON HCL INJ 2MG/ML 2ML 2 MG/ML VIAL IV PRN (22:44)
[2018-12-08] VITALS (7 sets, daily range): BP systolic 111–155; BP diastolic 54–85
[2018-12-08] MEDS: MEROPENEM 1GM 100 ML IV SCH ×3 (00:46→16:39)
[2018-12-08] MEDS: INSULIN LISPRO 100 UNIT/1 ML 3ML VIAL SQ SCH ×6 (02:00→20:40)
[2018-12-08] MEDS: ONDANSETRON HCL INJ 2MG/ML 2ML 2 MG/ML VIAL IV PRN ×3 (02:40→23:50)
[2018-12-08] MEDS: SODIUM CHLORIDE 0.9% 250ML IRRIG IR SCH ×8 (02:40→23:00)
[2018-12-08] MEDS: MORPHINE SULFATE INJ 4 MG/ML INJ 1ML IV PRN ×2 (02:40→09:40)
[2018-12-08] MEDS: METOCLOPRAMIDE HCL 10 MG/2ML VIAL IV SCH ×2 (02:40→09:00)
--- NOTE | 2018-12-08 04:18 | NUR ---
Patient refuse to turn in bed and refused a bath this AM.
--- NOTE | 2018-12-08 06:18 | NUR ---
Patient received bath. Consent completed. Blood drawn from picc and flushed with 10cc flush.
[2018-12-08] MEDS: METOPROLOL TARTRATE 50 MG TAB PO SCH ×2 (09:00→16:22)
[2018-12-08] MEDS: DOCUSATE SODIUM LIQD 100 MG/10 ML UDC NG SCH (09:00)
[2018-12-08] MEDS: PANTOPRAZOLE 40 MG 10ML VIAL IV SCH (09:00)
[2018-12-08 09:06] LABS: ANION GAP 12.9 mmol/L (8-16); BLOOD UREA NITROGEN 20 mg/dL (7-26); BUN/CREATININE RATIO 22 (6-25); CALCIUM 8.7 mg/dL (8.4-10.2); CARBON DIOXIDE 26 mmol/L (22-29); CHLORIDE 100 mmol/L (98-107); CREATININE, SERUM 0.93 mg/dL (0.72-1.25); EST GLOMERULAR FILTRATION RATE > 60 ML/MIN (60-); GLUCOSE 186 mg/dL (74-118); POTASSIUM 3.9 mmol/L (3.5-5.1); SODIUM 135 mmol/L (136-145)
[2018-12-08 09:25] LABS: MAGNESIUM 2.1 MG/DL (1.3-2.1); PHOSPHORUS 2.3 MG/DL (2.3-4.7)
--- NOTE | 2018-12-08 09:58 | NUR ---
ASSESSMENT: Spiritual concern Pt & quietly waiting for procedure. Pt states he is scheduled for a procedure later in the day. Pt's at bedside. Pt saying little. Intervention: Provided empathic listening and pastoral presence. Provided prayer and reminded pt of availability of spiritual care services. Outcome: Will continue to follow. MARY VELOZ Water Fabricator Operator Spiritual Care Department O: [phone] Pager: [phone] ([phone] number calling from)
[2018-12-08] MEDS ORDERED: SODIUM CHLORIDE 0.9% 250ML 250 ML ONE (10:14)
--- NOTE | 2018-12-08 12:15 | NUR ---
OR here to take patient to Surgery. V/S are stable. Patient has been NPO
[2018-12-08] MEDS ORDERED: FENTANYL CITRATE/PF 100MCG/2 ML INJ ONE (12:55)
[2018-12-08] MEDS: SODIUM CHLORIDE 0.9% 1000ML 1,000 ML IV SCH (15:00)
[2018-12-08] MEDS ORDERED: MEPERIDINE HCL INJ 25 MG/ML VIAL ONE (15:41)
[2018-12-08] MEDS ORDERED: ROCURONIUM BROMIDE 10 MG/ML 5ML VIAL ONE (16:02)
[2018-12-08] MEDS ORDERED: SEVOFLURANE INHAL SOLN 250 ML PEN BTL ONE (16:02)
[2018-12-08] MEDS ORDERED: NEOSTIGMINE 5 MG/5ML SYR ONE (16:02)
[2018-12-08] MEDS ORDERED: ONDANSETRON HCL INJ 2MG/ML 2ML 2 MG/ML VIAL ONE (16:02)
[2018-12-08] MEDS ORDERED: LIDOCAINE HCL 2% LOCAL INJ 5 ML SDV VIAL INJ ONE (16:02)
[2018-12-08] MEDS ORDERED: DEXAMETHASONE SOD PHOS INJ 4 MG/ML VIAL ONE (16:02)
[2018-12-08] MEDS ORDERED: GLYCOPYRROLATE INJ 1MG/ 5 ML SYR ONE (16:02)
[2018-12-08] MEDS ORDERED: PROPOFOL IV EMULSION 10 MG/ML 20 ML VIAL ONE (16:02)
[2018-12-08] MEDS ORDERED: SUCCINYLCHOLINE 200 MG/10 ML SYR ONE (16:02)
[2018-12-08] MEDS: HYDROMORPHONE 1MG/1ML INJ IV PRN ×2 (19:15→23:50)
--- NOTE | 2018-12-08 19:15 | NUR ---
patient received awake, alert, lying quietly in bed. vss. patient medicated with dilaudid 0.5mg and zofran 4mg ivp for c/o abd pain at this time per patients request. tpn/ivf continue to infuse without difficulty. ngt remains to liws per orders. attempted to turn patient at this time but refuses to turn at this time. pm assessment complete. call alcala placed within reach. patient instructed to call for assistance when needed.
[2018-12-08] MEDS ORDERED: CENTRAL TPN FORMULA 1 BAG IV SCH (20:00)
[2018-12-08] MEDS: INSULIN GLARGINE 100 UNITS/ML VIAL SQ SCH (21:00)
--- NOTE | 2018-12-08 21:02 | Operative Report ---
DATE OF PROCEDURE: 12/08/2018 SURGEON: Jorge Foster MD PREOPERATIVE DIAGNOSIS: Colonic pseudo-obstruction. POSTOPERATIVE DIAGNOSIS: Colonic pseudo-obstruction. OPERATION PERFORMED: Laparoscopic colostomy. ANESTHESIA: General. COMPLICATIONS: None. ESTIMATED BLOOD LOSS: Minimal. DESCRIPTION OF PROCEDURE: With the patient lying in bed in the supine position under good general endotracheal anesthesia, the abdomen was prepped with Betadine solution and draped in the usual manner. A Veress needle was introduced into the umbilicus and pneumoperitoneum was established without any difficulty. A 12 mm trocar was placed into the umbilicus and a 10 mm video laparoscope was placed into the intraabdominal cavity. Under direct vision, a 5 mm trocar was placed in the right lower abdomen and another 5 mm trocar was placed in the right upper abdomen. Video laparoscopy at this point revealed a very distended cecum, transverse colon, and all the way down into the junction of the sigmoid and descending colon. There was no sign of any tumor or lesion. There was no sign also of any colovesical fistula. We decided to go ahead and do the colostomy at the level of the junction of the sigmoid and descending colon. The left colon was then mobilized of the lateral gutter and freed up without any difficulty. A mesenteric rent was then placed in the distal descending colon and the colon was then divided with 2 applications of the [place] stapler. The mesentery of the colon was then further mobilized and we make sure that the colon would easily reach to the anterior abdominal wall. Once this was done, a nipple of skin was then removed in the left mid abdomen and a cruciate incision was made in the rectus sheath and the posterior rectus sheath was opened and the abdomen was entered. The previously divided colon was then brought out for a colostomy without any difficulty and without any tension. Once this was done, the colostomy was then prepared by cleaning at all the way around. The excess was resected with another application of the [place] stapler and the staple line was then removed and the colostomy was performed with interrupted sutures of 3-0 Vicryl. This gives a satisfactory colostomy without any tension. Gloves and instruments were then changed. The midline fascia at the umbilicus was then closed with a [id number] of 0 Vicryl. The subcutaneous tissue was approximated with 3-0 Vicryl and all the puncture wounds were closed with subcuticular 5-0 Vicryl. Benzoin, Steri-Strips, and Band-Aids were applied. The colostomy appliance was placed. The sponge, lap, and needle count was correct. The patient tolerated the procedure well and returned to the recovery room in stable condition. MD VI Montgomery/MALLIKA /[id number]
--- NOTE | 2018-12-08 23:00 | NUR ---
ngt irrigated per orders without difficulty.
--- NOTE | 2018-12-08 23:45 | NUR ---
patient medicated with dilaudid 0.5mg and zofran 4mg ivp for c/o abd pain 08/30 at this time per request.
[2018-12-09] VITALS (8 sets, daily range): BP systolic 121–142; BP diastolic 75–85
[2018-12-09] MEDS: SODIUM CHLORIDE 0.9% 1000ML 1,000 ML IV SCH
[2018-12-09] MEDS: MEROPENEM 1GM 100 ML IV SCH ×3 (00:10→16:00)
[2018-12-09] MEDS: INSULIN LISPRO 100 UNIT/1 ML 3ML VIAL SQ SCH ×6 (02:00→21:30)
--- NOTE | 2018-12-09 02:00 | NUR ---
Patient appears to be resting quietly. no c/o pain noted at this time.
[2018-12-09] MEDS: SODIUM CHLORIDE 0.9% 250ML IRRIG IR SCH ×4 (03:00→10:01)
[2018-12-09] MEDS: ONDANSETRON HCL INJ 2MG/ML 2ML 2 MG/ML VIAL IV PRN ×2 (04:00→11:18)
[2018-12-09] MEDS: HYDROMORPHONE 1MG/1ML INJ IV PRN ×6 (04:00→22:29)
--- NOTE | 2018-12-09 04:00 | NUR ---
patient medicated for c/o abd pain 08/30 at this time per patients request. patient turned and repositioned for comfort q 2hrs.
[2018-12-09 05:23] LABS: BASOPHILS # (AUTO) 0.1 (0.0-0.1); EOSINOPHILS # (AUTO) 0.1 (0.0-0.4); EOSINOPHILS % 0.1 % (0.0-6.0); HEMOGLOBIN 8.6 g/dL (14.0-18.0); LYMPHOCYTES # (AUTO) 135.2 (1.0-3.2); LYMPHOCYTES % 93.9 % (18.0-39.1); MEAN CORPUSCULAR HEMOGLOBIN 28.5 pg (28-32); MEAN CORPUSCULAR HGB CONC 27.7 g/dL (31-35); MEAN CORPUSCULAR VOLUME 102.6 fL (81-99); MONOCYTES # (AUTO) 0.5 (0.2-0.8); MONOCYTES % 0.4 % (4.4-11.3); NEUTROPHILS # (AUTO) 7.8 (2.1-6.9); NEUTROPHILS % 5.4 % (38.7-80.0); PLATELET COUNT 297 x10e3/uL (140-360); RED BLOOD COUNT 3.02 x10e6/uL (4.3-5.7)
[2018-12-09 05:48] LABS: ALANINE AMINOTRANSFERASE 49 IU/L (0-55); ALBUMIN/GLOBULIN RATIO 0.5 (0.8-2.0); ALKALINE PHOSPHATASE 255 IU/L (40-150); ANION GAP 14.6 mmol/L (8-16); BLOOD UREA NITROGEN 22 mg/dL (7-26); BUN/CREATININE RATIO 24 (6-25); CALCIUM 8.6 mg/dL (8.4-10.2); CARBON DIOXIDE 22 mmol/L (22-29); CHLORIDE 106 mmol/L (98-107); CREATININE, SERUM 0.92 mg/dL (0.72-1.25); EST GLOMERULAR FILTRATION RATE > 60 ML/MIN (60-); GLUCOSE 168 mg/dL (74-118); MAGNESIUM 2.1 MG/DL (1.3-2.1); PHOSPHORUS 2.9 MG/DL (2.3-4.7); POTASSIUM 3.6 mmol/L (3.5-5.1); SODIUM 139 mmol/L (136-145)
[2018-12-09] MEDS: METOPROLOL TARTRATE 50 MG TAB PO SCH ×2 (08:33→16:00)
[2018-12-09] MEDS: PANTOPRAZOLE 40 MG 10ML VIAL IV SCH (08:35)
[2018-12-09 08:40] LABS: LYMPHOCYTES % (MANUAL) 93 % (19-48); NEUTROPHILS % (MANUAL) 7 % (40-74); RBC MORPHOLOGY COMMENT ABNORMAL
[2018-12-09 08:43] LABS: PLATELET ESTIMATE ADEQUATE; PLATELET MORPHOLOGY COMMENT FEW EDTA CLUMPING; SMUDGE CELLS MANY
[2018-12-09] MEDS: ALBUTEROL SULF 0.083% NEB SOLN 3 ML NEB NEB PRN ×2 (13:38→19:50)
--- NOTE | 2018-12-09 14:15 | Progress Note ---
DATE: 12/09/2018 Cardiology Progress Note SUBJECTIVE: The patient denies shortness of breath, however, he is reporting chest pain and abdominal pain. OBJECTIVE: VITAL SIGNS: Temperature 95.9 degrees, pulse 102, respiratory rate 20, blood pressure 134/83, and oxygen saturation 98% on room air. GENERAL: Awake, alert, elderly man, chronically ill appearing. CARDIOVASCULAR: Normal rate, regular rhythm. No murmur. Normal S1, S2. LUNGS: Diminished breath sounds. ABDOMEN: Soft, nontender. EXTREMITIES: No edema. CARDIAC MEDICATIONS: Metoprolol tartrate 50 mg p.o. b.i.d. LABORATORY DATA: WBC 144, hemoglobin 8.6, hematocrit 31, platelets 297. Sodium 139, potassium 3.6, chloride 106, CO2 of 22, BUN 20, creatinine 0.92. TELEMETRY: Normal sinus rhythm. IMPRESSION: 1. Chest pain. 2. Abdominal pain. 3. Ileus. 4. Diabetes mellitus with diabetic ketoacidosis. 5. Chronic myeloid leukemia. 6. Chronic kidney disease. 7. Hypertension. 8. Hyperlipidemia. 9. Sepsis. RECOMMENDATIONS: The patient ruled out for myocardial infarction with serial cardiac biomarkers. He has been stable from a cardiac standpoint. Continue metoprolol tartrate. Thank you for this consult. We will continue to follow. Renu Vitale MD ABS/MODL /[id number]
[2018-12-09] MEDS ORDERED: FLUCONAZOLE 100 MG/NS 50 ML 50 ML IV SCH (16:00)
--- NOTE | 2018-12-09 17:27 | NUR ---
Pt has been refusing PT stating that he has severe stomach pain. On the days he participates, pt has been limiting what he can and cannot do. The most he has done this week was sit on EOB for few minutes. Will hold PT services until pain appropriately controlled so pt can participate more. Re-evshahzad PRN. Will need MD order to resume PT. Pt can safely sit with Min(A) on the EOB with nursing staff 1-2x/day as tolerated. Addendum: 12/09/18 at 1732 by Alvaro Johnston PT Amended: Links added.
[2018-12-09] MEDS ORDERED: MICAFUNGIN SODIUM 50 MG/50 ML BAG IV STA (19:36)
[2018-12-09] MEDS ORDERED: MICAFUNGIN SODIUM 100 ML IV ONE (19:45)
[2018-12-09] MEDS ORDERED: CENTRAL TPN FORMULA 1 BAG IV SCH (20:00)
[2018-12-09] MEDS: INSULIN GLARGINE 100 UNITS/ML VIAL SQ SCH (21:27)
[2018-12-10] VITALS (11 sets, daily range): BP systolic 121–167; BP diastolic 73–91
[2018-12-10] MEDS: MEROPENEM 1GM 100 ML IV SCH ×2 (01:52→08:52)
[2018-12-10] MEDS: INSULIN LISPRO 100 UNIT/1 ML 3ML VIAL SQ SCH ×7 (01:52→22:00)
[2018-12-10] MEDS ORDERED: ACETAMINOPHEN 1000 MG/100 ML IV STA (03:48)
[2018-12-10] MEDS ORDERED: ACETAMINOPHEN 1000 MG/100 ML IV PRN (04:00)
[2018-12-10] MEDS: HYDROMORPHONE 1MG/1ML INJ IV PRN ×5 (07:46→23:38)
[2018-12-10] MEDS: METOPROLOL TARTRATE 50 MG TAB PO SCH ×2 (08:51→17:00)
[2018-12-10] MEDS: PANTOPRAZOLE 40 MG 10ML VIAL IV SCH (08:52)
[2018-12-10 09:00] LABS: EOSINOPHILS # (AUTO) 0.1 (0.0-0.4); EOSINOPHILS % 0.1 % (0.0-6.0); HEMATOCRIT 30.2 % (38.2-49.6); HEMOGLOBIN 8.2 g/dL (14.0-18.0); LYMPHOCYTES # (AUTO) 117.2 (1.0-3.2); MEAN CORPUSCULAR HEMOGLOBIN 28.7 pg (28-32); MEAN CORPUSCULAR HGB CONC 27.2 g/dL (31-35); MEAN CORPUSCULAR VOLUME 105.6 fL (81-99); MONOCYTES # (AUTO) 0.5 (0.2-0.8); MONOCYTES % 0.4 % (4.4-11.3); NEUTROPHILS # (AUTO) 9.3 (2.1-6.9); NEUTROPHILS % 7.3 % (38.7-80.0); PLATELET COUNT 298 x10e3/uL (140-360); RED BLOOD COUNT 2.86 x10e6/uL (4.3-5.7); RED CELL DISTRIBUTION WIDTH 15.3 % (11.7-14.4)
[2018-12-10 09:10] LABS: ALANINE AMINOTRANSFERASE 43 IU/L (0-55); ALBUMIN 1.9 g/dL (3.5-5.0); ALBUMIN/GLOBULIN RATIO 0.5 (0.8-2.0); ALKALINE PHOSPHATASE 290 IU/L (40-150); ANION GAP 16.1 mmol/L (8-16); BLOOD UREA NITROGEN 23 mg/dL (7-26); BUN/CREATININE RATIO 23 (6-25); CALCIUM 8.6 mg/dL (8.4-10.2); CARBON DIOXIDE 21 mmol/L (22-29); CHLORIDE 106 mmol/L (98-107); CREATININE, SERUM 0.98 mg/dL (0.72-1.25); EST GLOMERULAR FILTRATION RATE > 60 ML/MIN (60-); GLUCOSE 221 mg/dL (74-118); POTASSIUM 3.1 mmol/L (3.5-5.1); SODIUM 140 mmol/L (136-145)
[2018-12-10] MEDS: SODIUM CHLORIDE 0.9% 1000ML 1,000 ML IV SCH (09:15)
[2018-12-10] MEDS ORDERED: FLUCONAZOLE 200 MG/100 ML 100 ML IV SCH ×3 (12:00→14:30)
[2018-12-10] MEDS ORDERED: POTASSIUM CHLORIDE 20MEQ/100ML 200 ML IV ONE (13:00)
[2018-12-10] MEDS: ONDANSETRON HCL INJ 2MG/ML 2ML 2 MG/ML VIAL IV PRN ×2 (14:15→21:12)
--- NOTE | 2018-12-10 14:20 | NUR ---
Visit made by the Spiritual Care Department Pastoral Visitor, Sebastien Duncan. PV provided pastoral presence, hospitality, and supportive listening. Pastoral Visitor informed pt/family of the scope of [employer] and availability. MARY VELOZ Batt Machine Operator Spiritual Care Department O: [phone] Pager: [phone] ([phone] calling from)
--- NOTE | 2018-12-10 15:56 | Progress Note ---
DATE: 12/10/2018 Cardiology Progress Note SUBJECTIVE: The patient denies chest pain or shortness of breath. He is complaining of headaches. OBJECTIVE: VITAL SIGNS: Temperature 99.8 degrees, pulse 111, respiratory rate 24, blood pressure 155/79, oxygen saturation 88% on 1 L nasal cannula. GENERAL: Elderly man, chronically ill appearing, in no acute distress, awake and alert. LUNGS: Diminished breath sounds. No wheezes or crackles. CARDIOVASCULAR: Normal rate, regular rhythm. No murmur. Normal S1, S2. ABDOMEN: Soft, nontender. EXTREMITIES: No edema. CARDIAC MEDICATIONS: Metoprolol 50 mg p.o. b.i.d. LABORATORY DATA: WBC 127.32, hemoglobin 8.2, hematocrit 30.2, platelets 298. Sodium 140, potassium 3.1, chloride 106, CO2 of 21, BUN 23, creatinine 0.98. TELEMETRY: Normal sinus rhythm. IMPRESSION: 1. Chest pain. 2. Abdominal pain. 3. Fever. 4. Ileus. 5. Diabetes mellitus with diabetic ketoacidosis, improved. 6. Chronic myeloid leukemia. 7. Chronic kidney disease. 8. Hypertension. 9. Hyperlipidemia. 10. Sepsis. RECOMMENDATIONS: The patient ruled out for myocardial infarction with serial cardiac biomarkers. He is stable from a cardiac standpoint. Continue to monitor on telemetry. Antibiotics per primary service. Thank you for this consult. We will continue to follow. Renu Vitale MD ABS/MODL /[id number]
--- NOTE | 2018-12-10 17:20 | NUR ---
patient given water earlier and vomitted after. pt instructed to take sips of water and was given one cup of water. pt then drank most of water in short period of time prior to vomitting. instructed pt to not drink any more water at this time. will attempt again tomorrow or later when patient feeling better
[2018-12-10] MEDS: INSULIN GLARGINE 100 UNITS/ML VIAL SQ SCH (22:00)
--- NOTE | 2018-12-10 22:08 | Consultation ---
DATE OF CONSULTATION: 12/10/2018 REASON FOR CONSULTATION: Concerned about sepsis. HISTORY OF PRESENT ILLNESS: This patient, who is a 78-year-old white male, he originally was admitted to the hospital. He has history of CML, not on any treatment, comes to the emergency room with lethargy, fatigue, atypical chest pain. He has been seen by Cardiology. He has been seen by Hematology Oncology. He also has history of diabetes ketoacidosis, leukocytosis, chronic myeloid leukemia, dehydration, [id number] kidney disease, hypertension, hyperlipidemia, diabetes mellitus. I was contacted yesterday because he was not doing well and abnormal urine culture. The urine looked quite pus. He does have in the urine a species, which we do not identify yet. His white count is going up to 144. I had a long discussion with his labor training manager oncologist yesterday. The patient is currently alert, does not really provide any further information, and the history was taken mainly from the chart. PAST MEDICAL HISTORY: As above. PAST SURGICAL HISTORY: As above. ALLERGIES: NKA. SOCIAL HISTORY: There is no smoking, drug abuse, or alcohol abuse. FAMILY HISTORY: Otherwise noncontributory. REVIEW OF SYSTEMS: He is weak, could not be obtained. His blood cultures negative. His urine showing as mentioned above yeast species. PHYSICAL EXAMINATION: GENERAL: Alert. VITAL SIGNS: Temperature 102, heart rate of 107. HEENT: Normocephalic. NECK: Supple. CHEST: Few crackles bilateral. HEART: S1, S2. No murmur. ABDOMEN: Soft. Bowel sounds present. No tenderness. EXTREMITIES: No edema. : He had a Maldonado catheter, but there is pus in the urine. IMPRESSION: Sepsis, concerned about pyelonephritis. Concerned about fungal infection. He is currently on fluconazole, meropenem, metoprolol. LABORATORY DATA: As mentioned above. His sodium 140, potassium 3.1, creatinine 0.98. IMPRESSION: 1. Sepsis, pyelonephritis, fungal infection. I would recommend to do Diflucan at 400 daily. Change Maldonado catheter. Discontinue meropenem. Recheck CBC. Recheck Chem panel. 2. Chronic myeloid leukemia. 3. We will follow. Other medical problems as above. MD KATIE Cid/MALLIKA /[id number]
--- NOTE | 2018-12-10 23:10 | Diagnostic Imaging Report ---
EXAMINATION: CHEST XRAY LINE PLACEMENT INDICATION: ^PICC placement ^[id number] ^2235 ^Y COMPARISON: 12/07/2018 FINDINGS: AP view TUBES and LINES: Right PICC in place with tip projecting over mid to inferior SVC. LUNGS: Lungs are well inflated. Mild central vascular congestion. Biapical scarring. PLEURA: No pleural effusion or pneumothorax. HEART AND MEDIASTINUM: The cardiomediastinal silhouette is unremarkable. Aorta is tortuous. BONES AND SOFT TISSUES: No acute osseous lesion. Left shoulder arthroplasty. Soft tissues are unremarkable. UPPER ABDOMEN: No free air under the diaphragm. IMPRESSION: Right PICC in place with tip projecting over inferior SVC. No pneumothorax. Signed by: Dr. Babar Schaeffer MD on 12/10/2018 11:07 PM
--- NOTE | 2018-12-10 23:48 | NUR ---
X-RAY RESULTS REVIEWED BY DR THOMPSON, ER PHYSICIAN, PICC LINE IN PROPER POSITION AND OK TO USE
[2018-12-11] MEDS: INSULIN LISPRO 100 UNIT/1 ML 3ML VIAL SQ SCH ×6 (02:00→22:06)
[2018-12-11] MEDS: HYDROMORPHONE 1MG/1ML INJ IV PRN ×3 (03:03→17:58)
[2018-12-11] MEDS: SODIUM CHLORIDE 0.9% 1000ML 1,000 ML IV SCH (03:27)
[2018-12-11 04:01] VITALS: BP 146/76
[2018-12-11 06:42] LABS: BASOPHILS # (AUTO) 0.1 (0.0-0.1); HEMATOCRIT 28.2 % (38.2-49.6); LYMPHOCYTES % 91.7 % (18.0-39.1); MEAN CORPUSCULAR HEMOGLOBIN 28.7 pg (28-32); MEAN CORPUSCULAR HGB CONC 28.4 g/dL (31-35); MEAN CORPUSCULAR VOLUME 101.1 fL (81-99); MONOCYTES # (AUTO) 0.5 (0.2-0.8); MONOCYTES % 0.3 % (4.4-11.3); NEUTROPHILS # (AUTO) 11.4 (2.1-6.9); NEUTROPHILS % 7.7 % (38.7-80.0); PLATELET COUNT 358 x10e3/uL (140-360); RED BLOOD COUNT 2.79 x10e6/uL (4.3-5.7); RED CELL DISTRIBUTION WIDTH 15.1 % (11.7-14.4)
[2018-12-11 06:58] LABS: ANION GAP 15.7 mmol/L (8-16); BLOOD UREA NITROGEN 24 mg/dL (7-26); BUN/CREATININE RATIO 28 (6-25); CALCIUM 8.6 mg/dL (8.4-10.2); CARBON DIOXIDE 21 mmol/L (22-29); CHLORIDE 108 mmol/L (98-107); CREATININE, SERUM 0.86 mg/dL (0.72-1.25); EST GLOMERULAR FILTRATION RATE > 60 ML/MIN (60-); GLUCOSE 149 mg/dL (74-118); SODIUM 142 mmol/L (136-145)
--- NOTE | 2018-12-11 07:01 | NUR ---
Critical Potassium called by lab 2.7. AM nurse to call Dr. Mooney.
[2018-12-11 07:02] LABS: POTASSIUM 2.7 mmol/L (3.5-5.1)
--- NOTE | 2018-12-11 07:10 | NUR ---
Walking rounds done and report given. Call alcala within reach.
[2018-12-11 08:07] VITALS: BP 155/82
[2018-12-11] MEDS: PANTOPRAZOLE 40 MG 10ML VIAL IV SCH (08:30)
[2018-12-11] MEDS ORDERED: POTASSIUM CHLORIDE 20MEQ/100ML 100 ML IV ONE ×2 (08:30→10:30)
[2018-12-11] MEDS: SODIUM CHLORIDE FLUSH 10 ML SYR INJ PRN ×4 (08:31→17:58)
[2018-12-11] MEDS: ONDANSETRON HCL INJ 2MG/ML 2ML 2 MG/ML VIAL IV PRN ×2 (08:41→17:58)
[2018-12-11 08:57] LABS: PHOSPHORUS 2.2 MG/DL (2.3-4.7)
[2018-12-11 09:00] VITALS: BP 155/82
[2018-12-11] MEDS: METOPROLOL TARTRATE 50 MG TAB PO SCH ×3 (09:05→18:24)
[2018-12-11] MEDS ORDERED: METOPROLOL TARTRATE INJ 1 MG/ML VIAL IV PRN (09:45)
[2018-12-11] MEDS ORDERED: HYDRALAZINE HCL 20 MG/ML VIAL IV PRN (09:45)
[2018-12-11] MEDS: SOD CHL 0.45%/POT CHL 20MEQ 1,000 ML IV SCH ×3 (09:45→23:05)
[2018-12-11] MEDS: METOCLOPRAMIDE HCL 10 MG/2ML VIAL IV SCH ×3 (10:14→22:05)
[2018-12-11 10:42] LABS: HEMATOCRIT 30.7 % (38.2-49.6); HEMOGLOBIN 8.6 g/dL (14.0-18.0); LYMPHOCYTES # (AUTO) 148.1 (1.0-3.2); LYMPHOCYTES % 91.6 % (18.0-39.1); MEAN CORPUSCULAR HEMOGLOBIN 27.8 pg (28-32); MEAN CORPUSCULAR VOLUME 99.4 fL (81-99); MONOCYTES # (AUTO) 0.5 (0.2-0.8); MONOCYTES % 0.3 % (4.4-11.3); NEUTROPHILS # (AUTO) 12.5 (2.1-6.9); NEUTROPHILS % 7.7 % (38.7-80.0); PLATELET COUNT 354 x10e3/uL (140-360); RED BLOOD COUNT 3.09 x10e6/uL (4.3-5.7); RED CELL DISTRIBUTION WIDTH 15.4 % (11.7-14.4)
[2018-12-11 11:08] LABS: ALANINE AMINOTRANSFERASE 54 IU/L (0-55); ALBUMIN 1.9 g/dL (3.5-5.0); ALBUMIN/GLOBULIN RATIO 0.5 (0.8-2.0); ALKALINE PHOSPHATASE 285 IU/L (40-150); ANION GAP 16.1 mmol/L (8-16); BLOOD UREA NITROGEN 25 mg/dL (7-26); BUN/CREATININE RATIO 26 (6-25); CALCIUM 8.7 mg/dL (8.4-10.2); CARBON DIOXIDE 21 mmol/L (22-29); CHLORIDE 110 mmol/L (98-107); CREATININE, SERUM 0.98 mg/dL (0.72-1.25); EST GLOMERULAR FILTRATION RATE > 60 ML/MIN (60-); GLUCOSE 187 mg/dL (74-118); POTASSIUM 3.1 mmol/L (3.5-5.1); SODIUM 144 mmol/L (136-145)
--- NOTE | 2018-12-11 11:12 | Diagnostic Imaging Report ---
Exam: KUB - 2 views Indication: Postoperative Comparison: KUB of 12/05/2018 Findings: Distended stomach filled with air. Otherwise, general paucity of bowel gas with no obstructive pattern. No free air. Prominent degenerative changes of the visualized spine. Old right pubic fracture. Status post cholecystectomy. Partially visualized lung bases are clear. Impression: Distended air-filled stomach. Nonobstructive bowel gas pattern. Signed by: Hoa Borden MD on 12/11/2018 11:08 AM
[2018-12-11 11:51] VITALS: BP 172/77
[2018-12-11] MEDS: VANCOMYCIN 250MG/5ML ORAL SOLN PO SCH ×2 (12:00→17:42)
--- NOTE | 2018-12-11 14:19 | NUR ---
Nutrition Intervention Note RD Recommendation(s) for Physician: - TPN rec's via PICC: Increase TPN rate to at 60 ml/hr, 1440 ml/day, Dextrose 30% 500 ml/day (216 g/day), AA10% 500 ml (72 g/day), Lipids 25 g/day, K Acetate 35 mEq/L, K Phos 15 mEq/L, Ca Gluconate 5 mEq/L, Mg Sulfate 5 mEq/L. Continue MVI, trace, thiamine, folic acid. Insulin 30 units in TPN bag per MD. (to provide 1272 kcal) - Additional IVF/fluid management per MD - BG and insulin management per MD - Please monitor BMP with Mg and Phos daily and replace low lytes as needed. -Check TG and LFTs weekly- draw LFTs, Mg, Phos with next am labs. Plan of Care: RD following, monitoring for tolerance and adequacy, TPN rec's Nutrition reason for involvement: Follow up RD Assessment 12/11: Pt seen for f/u, continues on TPN at 42 ml/hr. NGT D/C'd, K replaced today. Pt denies any nausea or abdominal pain. Noted WBC continue to trend up. TPN rec's provided in chart, RN to call MD for order. Pt not meeting kcal and protein needs. Will monitor and continue to follow. 12/07: Pt sleeping at time of visit and no family present, TPN infusing at 42 ml/hr. Chart reviewed and pt discussed during am rounds, pt with paralytic ileus 2/2 narcotic use- no surgical intervention at this time. NGT remains in place, RN reports 100 ml output this shift. Pt on bowel regimen, 3 BMs today. TPN rec's provided- MD managing, current TPN not meeting estimated needs. 12/05: Provided new TPN recommendation above .Yesterday the MD and Manager Servicing took out the Na Acetate and placed 26 units on insulin in the TPN bag instead of 20 units. Pt was also placed on D5W at 80 ml/hr providing the pt with an additional 96 gram of dex and 326 kcal d/t his high Na levels. Na level today was 145. Mg was also high per Vinja standards- decreased Mg by half in the bag. Recommended rate of 42 ml/hr and advancement soon once D5W is decreased or removed to provide the pt with more calories and protein. TGs were also high, lipids are okay to order, lipids are only not recommended when TGs are higher than 400. Kept recommendation of 26 units of insulin d/t pt still having high BS and the additional of 96 grams of dex. Provided recommendations and TPN order sheet to nurse. Spoke about pt in rounds, possibility of the pt receiving colostomy. K is still low, per EMR pt is being replaced as directed (20 mEq/100 ml) Will continue to monitor. 12/04: Follow up: Pt was seen resting in bed, NGT still in place and is suctioning. Pt has been having BMs per nurse but is still experiencing abdominal pain. Observed the pt only on the TPN at 42 ml/hr today within his room, no other IVF. Insulin drip has been d/c. Labs were drawn today but appeared to be a bad draw, new labs were drawn. Provided TPN recommendations above and an order sheet for MD to sign, kept recommendations the same for now. Will re evaluate tmrw, 12/05 to determine if advancing the rate to 60 ml/hr, lipids every day, and placing mg in the bag is appropriate. Recommend another TG, Mg and Phos draw tmrw to ensure the pt has the correct TPN order in place. KUB was done yesterday which showed nothing has changed-pt still has severely dilated loops of the colon which may represent a large bowel obstruction or non-obstructive ileus. No edema noted, pts has gained 7 lbs since 11/24 per EMR. BS still somewhat high-insulin management per MD. Will continue to monitor. 12/01: Follow up: Pt was seen resting in bed, TPN running and NGT still in place. Pt was on NS at 125 ml/hr of IVF, MD told nurse to decrease the rate of the NS. Pt still has insulin drip. Provided TPN recommendations, MD signed off on new recommendations; changed Sodium chloride to sodium acetate d/t pts high chloride. Discussed pt in rounds, pt is having very little stool output and has a distended stomach. Per case management-d/c planning will start after surgery has seen the pt. Will continue to monitor. 11/30: Pt re-evaluated today per TPN consult and follow up. Pt now with an ileus with plan to start TPN this evening. Pt discussed during am rounds, code status palliative care vs cancer treatment discussion on going. NGT to LIWs in place, 1200 ml output as of yesterday and pt refused rectal tube placement. Pt with elevated anion gap, started on insulin drip. Pt with PICC in place. TPN rec's and additional RD rec's discussed with RN on unit. Will monitor and continue to follow. (11/24) 78 YOM admitted for DKA, chronic leukemia with PMH listed above. Pt was observed very fatigued and within the ICU, pt is off of the insulin drip. Pt reported he has been tolerating his full liquid diet and he does have a good appetite. Pt denied N/V/C/D/chewing or swallowing issues as well as denied any food allergies. Pt was unsure if he had lost any weight recently. No past weights within his EMR. A1c: 8.6, POC GM: 214. Chart reviewed. Labs and meds reviewed. Will continue to monitor. Principal Problems/Diagnoses: chronic leukemia, DKA PMH: 1. Diabetes mellitus, insulin therapy. 2. Hypertension. 3. Diabetic complication with neuropathy. 4. Chronic kidney disease. 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 GI: LBM 12/07 x 3 per chart Skin: R hip wound-not pressure ulcer related Labs: 12/11: Na 142, K 2.7, Cl 108, Co2 21, BUN 24, Cr 0.86, Gluc 149, POC gluc 148-157, Phos 2.2, Mg 2, Ca 8.7 12/07: Na 137, K 3.9, Cl 100, CO2 26, BUN 20, Cr 0.93, Gluc 186, Ca 8.7, Phos 2.3, Mg 2.1 12/05: Na 145, K 3.2, Cl 109, CO2 27, BUN 32, Creat 1.10, Gluc 153, POC GM 153-163, Ca 8.4, Phos 3.1, Mg 2.4, TG 238 12/04: Na 150, K 3.7, Cl 115, CO2 23, BUN 33, Creat 1.13, Gluc 180, POC GM 156, Ca 8.6, Mg 2.5, TG 396, tbili 0.5 12/01: Na 145, K 3.1, Cl 112, CO2 21, BUN 22, Creat 1.14, Gluc 196, POC GM 181, Ca 8.6, Phos 1.7, Mg 2.1 11/30: Na 142, K 3.1, Cl 109, CO2 23, BUN 18, Cr 1.04, Gluc 152, POC Gluc 149-151 Meds: colace, zofran, protonix, abx, reglan, KCl IVPB, milk of magnesia, insulin, magnesium citrate, lispro, lantus, dulcolax IVF/Drips: TPN at 42 ml/hr 1/2 NS + KCl 20 mEq/L at 75 ml/hr Ht: 69 in Wt: 166 lb 12/03: 173 lbs BMI: 24.5 kg/m2 IBW: 160 lb Malnutrition Evaluation (11/30) The patient does not meet criteria for a specified degree of malnutrition at this time. Will re-evaluate at follow-up as appropriate. Energy intake: <50% of estimated energy requirements for >5 days Weight loss: none Muslce loss: Mild-temporal, clavicle Fat loss: none Supporting Evidence: Fluid accumulation: none Functional Status: unable to evaluate Nutrition Prescription (Diet Order): NPO Estimated Nutritional Needs: 1875 -2626 calories/day (25-35 kcal/kg DBW)- per 166 lb (75 kg) 75- 112 g protein/day (1-1.5 g pro/kg DBW) (75 kg) Diet Adequacy: Not meeting calorie needs, Not meeting protein needs, Not meeting fluid needs Diet Tolerance: tolerating TPN Diet Education Needs Assessment: Diet education not indicated, patient on temporary/transition diet. Nutrition Care Level: High- TPN, still not meeting needs Nutrition Diagnosis: Inadequate energy and protein intake related to ileus as evidenced by NPO and requiring parenteral nutrition. Goal: Patient will meet 75-100% of estimated needs by follow up Progress: progressing Interventions: TPN- Composition, Rate, Route, IVF, Prescription medications, Recommended Modifications, Collaboration with other providers Monitoring/Evaluation: Total energy intake, Total protein intake, Formula/Solution, IVF, Prescription medication Signed: Rajani Velasco RD, LD, [facility]
[2018-12-11] MEDS: FLUCONAZOLE 400MG/200ML BAG 200 ML IV SCH (15:08)
[2018-12-11 15:33] VITALS: BP 189/90
[2018-12-11] MEDS: ACETAMINOPHEN 325 MG SUPP PR PRN (19:30)
--- NOTE | 2018-12-11 19:34 | NUR ---
reports received, patient is resting in bed, no distress noted at this time, will continue to monitor.
[2018-12-11 20:00] VITALS: BP 153/85
[2018-12-11] MEDS ORDERED: CENTRAL TPN FORMULA 1 BAG IV SCH (20:00)
[2018-12-11] MEDS: CENTRAL TPN FORMULA 1 BAG IV SCH ×2 (20:32)
[2018-12-11] MEDS: MORPHINE SULFATE INJ 4 MG/ML INJ 1ML IV PRN (22:05)
[2018-12-11] MEDS: INSULIN GLARGINE 100 UNITS/ML VIAL SQ SCH (22:06)
[2018-12-12] VITALS (9 sets, daily range): BP systolic 122–152; BP diastolic 69–89
[2018-12-12] MEDS: VANCOMYCIN 250MG/5ML ORAL SOLN PO SCH ×2 (00:09→05:49)
[2018-12-12] MEDS: INSULIN LISPRO 100 UNIT/1 ML 3ML VIAL SQ SCH ×6 (02:00→22:30)
[2018-12-12] MEDS: METOCLOPRAMIDE HCL 10 MG/2ML VIAL IV SCH ×4 (03:52→21:00)
[2018-12-12] MEDS: MORPHINE SULFATE INJ 4 MG/ML INJ 1ML IV PRN ×3 (04:35→20:34)
[2018-12-12] MEDS: ACETAMINOPHEN 325 MG SUPP PR PRN (05:33)
[2018-12-12] MEDS: ALBUTEROL SULF 0.083% NEB SOLN 3 ML NEB NEB PRN (07:30)
[2018-12-12 07:49] LABS: ANION GAP 14.9 mmol/L (8-16); BLOOD UREA NITROGEN 28 mg/dL (7-26); BUN/CREATININE RATIO 27 (6-25); CALCIUM 8.6 mg/dL (8.4-10.2); CARBON DIOXIDE 19 mmol/L (22-29); CHLORIDE 111 mmol/L (98-107); CREATININE, SERUM 1.04 mg/dL (0.72-1.25); EST GLOMERULAR FILTRATION RATE > 60 ML/MIN (60-); GLUCOSE 182 mg/dL (74-118); SODIUM 142 mmol/L (136-145)
[2018-12-12 07:51] LABS: MAGNESIUM 1.9 MG/DL (1.3-2.1); PHOSPHORUS 2.2 MG/DL (2.3-4.7)
[2018-12-12 07:58] LABS: POTASSIUM 2.9 mmol/L (3.5-5.1)
[2018-12-12] MEDS ORDERED: POTASSIUM CHLORIDE 20MEQ/100ML 100 ML IV ONE ×2 (08:15→10:30)
[2018-12-12] MEDS ORDERED: MAGNESIUM SULF 1GRAM/DEXTROSE 100 ML IV ONE (09:30)
[2018-12-12] MEDS ORDERED: POTASSIUM PHOSPHATE 20 MM in SODIUM CHLORIDE 0.9% 250ML 250 ML IV ONE (09:45)
[2018-12-12] MEDS: PANTOPRAZOLE 40 MG 10ML VIAL IV SCH (10:16)
[2018-12-12] MEDS: METOPROLOL TARTRATE 50 MG TAB PO SCH ×2 (10:17→18:11)
--- NOTE | 2018-12-12 11:51 | NUR ---
SPOKE WITH DR BURNS YESTERDAY REGARDING DC PLAN HE STATES HE WILL ORDER LTAC BUT NEEDS TO SPEAK WITH DR Immanuel FERGUSON FIRST AND MAKE SURE HE IS NOT PLANNING SURGERY CM TO FOLLOW PT SPIKED 102 TEMP TODAY BC ORDERED
--- NOTE | 2018-12-12 12:25 | Progress Note ---
DATE: 12/12/2018 Cardiology Progress Note SUBJECTIVE: No chest pain or shortness of breath. OBJECTIVE: VITAL SIGNS: Temperature is currently 98.5, maximal temperature is 102.8, heart rate is 94, respirations are 20, blood pressure is 122/69, ox saturation is 98% on 2 L nasal cannula. GENERAL: He is a chronically ill-appearing man, in no apparent distress. CARDIOVASCULAR: Regular rate and rhythm. No murmurs. LUNGS: Diminished breath sounds at bases. ABDOMEN: Soft, nontender, nondistended. EXTREMITIES: No edema. CARDIOVASCULAR MEDICATIONS: Reviewed, include metoprolol 50 mg p.o. b.i.d. LABORATORY DATA: Reviewed. Potassium is 2.9. IMPRESSION: 1. Precordial pain, resolved. 2. Fever. 3. Ileus. 4. Diabetes mellitus. 5. Chronic myeloid leukemia. 6. Chronic kidney disease. 7. Hypokalemia. RECOMMENDATIONS: Continue current cardiovascular medications and monitor on telemetry. Replace his potassium. He is stable from a cardiovascular standpoint. All other treatment per primary team. Richie Chung DO BM/MODL /[id number]
[2018-12-12] MEDS: FLUCONAZOLE 400MG/200ML BAG 200 ML IV SCH (15:04)
[2018-12-12] MEDS: POTASSIUM CHLORIDE 60 MEQ in SODIUM CHLORIDE 0.45% 1,000 ML IV SCH (18:03)
[2018-12-12 18:34] LABS: ANION GAP 17.5 mmol/L (8-16); BLOOD UREA NITROGEN 27 mg/dL (7-26); BUN/CREATININE RATIO 24 (6-25); CALCIUM 8.7 mg/dL (8.4-10.2); CARBON DIOXIDE 18 mmol/L (22-29); CHLORIDE 109 mmol/L (98-107); CREATININE, SERUM 1.11 mg/dL (0.72-1.25); EST GLOMERULAR FILTRATION RATE > 60 ML/MIN (60-); GLUCOSE 295 mg/dL (74-118); POTASSIUM 3.5 mmol/L (3.5-5.1); SODIUM 141 mmol/L (136-145)
--- NOTE | 2018-12-12 19:00 | NUR ---
Handoff report to oncoming nurse ALLEN Hernandez made aware patient to be weaned off TPN, every two hours, needing to collect a urine culture, and be sent to lab. Patient colostomy bag changed, patient also bathed. Patient potassium 2.9 this am and received 2 K riders total of 40MEQ, he was also give 1 gram of Magnesium Sulfate, and 1 bag, to potassium phosphate today.
[2018-12-12] MEDS: INSULIN GLARGINE 100 UNITS/ML VIAL SQ SCH (20:47)
[2018-12-12] MEDS: ONDANSETRON HCL INJ 2MG/ML 2ML 2 MG/ML VIAL IV PRN (21:00)
[2018-12-13] VITALS (9 sets, daily range): BP systolic 113–146; BP diastolic 67–87
[2018-12-13] MEDS: INSULIN LISPRO 100 UNIT/1 ML 3ML VIAL SQ SCH ×6 (02:00→20:39)
[2018-12-13] MEDS: MORPHINE SULFATE INJ 4 MG/ML INJ 1ML IV PRN ×4 (02:59→23:04)
[2018-12-13] MEDS: METOCLOPRAMIDE HCL 10 MG/2ML VIAL IV SCH ×4 (04:45→22:07)
[2018-12-13 05:01] LABS: EOSINOPHILS # (AUTO) 0.2 (0.0-0.4); EOSINOPHILS % 0.1 % (0.0-6.0); HEMATOCRIT 25.5 % (38.2-49.6); HEMOGLOBIN 7.1 g/dL (14.0-18.0); LYMPHOCYTES # (AUTO) 112.5 (1.0-3.2); LYMPHOCYTES % 92.3 % (18.0-39.1); MEAN CORPUSCULAR HEMOGLOBIN 27.8 pg (28-32); MEAN CORPUSCULAR HGB CONC 27.8 g/dL (31-35); MONOCYTES # (AUTO) 0.4 (0.2-0.8); MONOCYTES % 0.4 % (4.4-11.3); NEUTROPHILS # (AUTO) 8.4 (2.1-6.9); PLATELET COUNT 237 x10e3/uL (140-360); RED BLOOD COUNT 2.55 x10e6/uL (4.3-5.7); RED CELL DISTRIBUTION WIDTH 15.6 % (11.7-14.4)
[2018-12-13 05:42] LABS: HYPOCHROMASIA SLIGHT; PLATELET ESTIMATE ADEQUATE
[2018-12-13 05:51] LABS: ANION GAP 13.4 mmol/L (8-16); BLOOD UREA NITROGEN 19 mg/dL (7-26); BUN/CREATININE RATIO 28 (6-25); CALCIUM 8.3 mg/dL (8.4-10.2); CARBON DIOXIDE 17 mmol/L (22-29); CHLORIDE 111 mmol/L (98-107); CREATININE, SERUM 0.68 mg/dL (0.72-1.25); EST GLOMERULAR FILTRATION RATE > 60 ML/MIN (60-); GLUCOSE 122 mg/dL (74-118); POTASSIUM 3.4 mmol/L (3.5-5.1); SODIUM 138 mmol/L (136-145)
[2018-12-13] MEDS: POTASSIUM CHLORIDE 60 MEQ in SODIUM CHLORIDE 0.45% 1,000 ML IV SCH ×3 (05:51→20:12)
[2018-12-13] MEDS: METOPROLOL TARTRATE 50 MG TAB PO SCH ×2 (08:52→17:14)
[2018-12-13] MEDS: PANTOPRAZOLE 40 MG 10ML VIAL IV SCH (08:52)
--- NOTE | 2018-12-13 10:00 | NUR ---
PATIENT AGREED TO PHYSICAL THERAPY IF HE CAN HAVE PAIN MEDICATION
--- NOTE | 2018-12-13 10:13 | NUR ---
COLOSTOMY BAG LEAKING. CHANGED WITH NEW SETUP. APPLIED STOMA PASTE TO HELP SEAL.
[2018-12-13] MEDS: ALBUTEROL SULF 0.083% NEB SOLN 3 ML NEB NEB PRN (12:11)
[2018-12-13] MEDS: FLUCONAZOLE 400MG/200ML BAG 200 ML IV SCH (14:57)
[2018-12-13] MEDS ORDERED: FUROSEMIDE INJ 10 MG/ML 2 ML VIAL IV PRN (16:30)
[2018-12-13] MEDS ORDERED: SODIUM CHLORIDE 0.9% 250ML 250 ML IV ONE (18:00)
[2018-12-13] MEDS: INSULIN GLARGINE 100 UNITS/ML VIAL SQ SCH (20:40)
[2018-12-13] MEDS: ONDANSETRON HCL INJ 2MG/ML 2ML 2 MG/ML VIAL IV PRN (23:03)
[2018-12-13] MEDS ORDERED: SODIUM CHLORIDE 0.9% 250ML 250 ML ONE (23:55)
[2018-12-14] VITALS (8 sets, daily range): BP systolic 123–154; BP diastolic 75–90
[2018-12-14] MEDS ORDERED: FUROSEMIDE INJ 10 MG/ML 2 ML VIAL IV PRN (02:15)
[2018-12-14] MEDS: METOCLOPRAMIDE HCL 10 MG/2ML VIAL IV SCH ×4 (05:05→21:22)
[2018-12-14] MEDS: MORPHINE SULFATE INJ 4 MG/ML INJ 1ML IV PRN ×4 (05:22→23:35)
[2018-12-14] MEDS: ALBUTEROL SULF 0.083% NEB SOLN 3 ML NEB NEB PRN (07:27)
[2018-12-14] MEDS: INSULIN LISPRO 100 UNIT/1 ML 3ML VIAL SQ SCH ×4 (07:30→21:21)
[2018-12-14 08:18] LABS: BASOPHILS # (AUTO) 0.1 (0.0-0.1); BASOPHILS % 0.1 % (0.0-1.0); EOSINOPHILS # (AUTO) 0.2 (0.0-0.4); EOSINOPHILS % 0.2 % (0.0-6.0); HEMATOCRIT 32.1 % (38.2-49.6); HEMOGLOBIN 9.5 g/dL (14.0-18.0); LYMPHOCYTES # (AUTO) 117.8 (1.0-3.2); LYMPHOCYTES % 93.7 % (18.0-39.1); MEAN CORPUSCULAR HEMOGLOBIN 27.9 pg (28-32); MEAN CORPUSCULAR HGB CONC 29.6 g/dL (31-35); MEAN CORPUSCULAR VOLUME 94.4 fL (81-99); MONOCYTES # (AUTO) 0.5 (0.2-0.8); MONOCYTES % 0.4 % (4.4-11.3); NEUTROPHILS # (AUTO) 6.8 (2.1-6.9); NEUTROPHILS % 5.4 % (38.7-80.0); PLATELET COUNT 204 x10e3/uL (140-360); RED CELL DISTRIBUTION WIDTH 17.3 % (11.7-14.4)
[2018-12-14] MEDS: PANTOPRAZOLE 40 MG 10ML VIAL IV SCH (09:16)
[2018-12-14] MEDS: METOPROLOL TARTRATE 50 MG TAB PO SCH ×2 (09:17→17:00)
[2018-12-14 10:16] LABS: BLOOD UREA NITROGEN 16 mg/dL (7-26); BUN/CREATININE RATIO 18 (6-25); CALCIUM 8.4 mg/dL (8.4-10.2); CARBON DIOXIDE 17 mmol/L (22-29); CHLORIDE 106 mmol/L (98-107); CREATININE, SERUM 0.89 mg/dL (0.72-1.25); EST GLOMERULAR FILTRATION RATE > 60 ML/MIN (60-); GLUCOSE 179 mg/dL (74-118); SODIUM 135 mmol/L (136-145)
--- NOTE | 2018-12-14 13:15 | NUR ---
Nutrition Intervention Note RD Recommendation(s) for Physician: - When feasible, ADAT to goal of 2000 ADA, GI Soft - Recommend Glucerna shake TID for adequacy - BG and insulin management per MD - Please monitor BMP with Mg and Phos daily and replace low lytes as needed. Pt meets criteria for mild protein calorie malnutrition. Plan of Care: RD following, monitoring for tolerance and adequacy, Diet and ONS rec's Nutrition reason for involvement: Follow up RD Assessment 12/14: Follow up. TPN D/C'd, diet advanced to full liquids. Pt tolerating full liquid diet, 50-75% of meals as of yesterday. Pt with colostomy output, LBM today. Pt pending discharge to SNF. Will monitor and continue to follow. 12/11: Pt seen for f/u, continues on TPN at 42 ml/hr. NGT D/C'd, K replaced today. Pt denies any nausea or abdominal pain. Noted WBC continue to trend up. TPN rec's provided in chart, RN to call MD for order. Pt not meeting kcal and protein needs. Will monitor and continue to follow. 12/07: Pt sleeping at time of visit and no family present, TPN infusing at 42 ml/hr. Chart reviewed and pt discussed during am rounds, pt with paralytic ileus 2/2 narcotic use- no surgical intervention at this time. NGT remains in place, RN reports 100 ml output this shift. Pt on bowel regimen, 3 BMs today. TPN rec's provided- MD managing, current TPN not meeting estimated needs. 12/05: Provided new TPN recommendation above .Yesterday the MD and Neurology Specialist took out the Na Acetate and placed 26 units on insulin in the TPN bag instead of 20 units. Pt was also placed on D5W at 80 ml/hr providing the pt with an additional 96 gram of dex and 326 kcal d/t his high Na levels. Na level today was 145. Mg was also high per [employer] standards- decreased Mg by half in the bag. Recommended rate of 42 ml/hr and advancement soon once D5W is decreased or removed to provide the pt with more calories and protein. TGs were also high, lipids are okay to order, lipids are only not recommended when TGs are higher than 400. Kept recommendation of 26 units of insulin d/t pt still having high BS and the additional of 96 grams of dex. Provided recommendations and TPN order sheet to nurse. Spoke about pt in rounds, possibility of the pt receiving colostomy. K is still low, per EMR pt is being replaced as directed (20 mEq/100 ml) Will continue to monitor. 12/04: Follow up: Pt was seen resting in bed, NGT still in place and is suctioning. Pt has been having BMs per nurse but is still experiencing abdominal pain. Observed the pt only on the TPN at 42 ml/hr today within his room, no other IVF. Insulin drip has been d/c. Labs were drawn today but appeared to be a bad draw, new labs were drawn. Provided TPN recommendations above and an order sheet for MD to sign, kept recommendations the same for now. Will re evaluate tmrw, 12/05 to determine if advancing the rate to 60 ml/hr, lipids every day, and placing mg in the bag is appropriate. Recommend another TG, Mg and Phos draw tmrw to ensure the pt has the correct TPN order in place. KUB was done yesterday which showed nothing has changed-pt still has severely dilated loops of the colon which may represent a large bowel obstruction or non-obstructive ileus. No edema noted, pts has gained 7 lbs since 11/24 per EMR. BS still somewhat high-insulin management per MD. Will continue to monitor. 12/01: Follow up: Pt was seen resting in bed, TPN running and NGT still in place. Pt was on NS at 125 ml/hr of IVF, MD told nurse to decrease the rate of the NS. Pt still has insulin drip. Provided TPN recommendations, MD signed off on new recommendations; changed Sodium chloride to sodium acetate d/t pts high chloride. Discussed pt in rounds, pt is having very little stool output and has a distended stomach. Per case management-d/c planning will start after surgery has seen the pt. Will continue to monitor. 11/30: Pt re-evaluated today per TPN consult and follow up. Pt now with an ileus with plan to start TPN this evening. Pt discussed during am rounds, code status palliative care vs cancer treatment discussion on going. NGT to LIWs in place, 1200 ml output as of yesterday and pt refused rectal tube placement. Pt with elevated anion gap, started on insulin drip. Pt with PICC in place. TPN rec's and additional RD rec's discussed with RN on unit. Will monitor and continue to follow. (11/24) 78 YOM admitted for DKA, chronic leukemia with PMH listed above. Pt was observed very fatigued and within the ICU, pt is off of the insulin drip. Pt reported he has been tolerating his full liquid diet and he does have a good appetite. Pt denied N/V/C/D/chewing or swallowing issues as well as denied any food allergies. Pt was unsure if he had lost any weight recently. No past weights within his EMR. A1c: 8.6, POC GM: 214. Chart reviewed. Labs and meds reviewed. Will continue to monitor. Principal Problems/Diagnoses: chronic leukemia, DKA PMH: 1. Diabetes mellitus, insulin therapy. 2. Hypertension. 3. Diabetic complication with neuropathy. 4. Chronic kidney disease. 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 GI: LBM 12/14- colostomy Skin: R hip wound-not pressure ulcer related Labs: 12/11: Na 142, K 2.7, Cl 108, Co2 21, BUN 24, Cr 0.86, Gluc 149, POC gluc 148-157, Phos 2.2, Mg 2, Ca 8.7 12/07: Na 137, K 3.9, Cl 100, CO2 26, BUN 20, Cr 0.93, Gluc 186, Ca 8.7, Phos 2.3, Mg 2.1 Meds: colace, zofran, protonix, abx, reglan, KCl IVPB, milk of magnesia, insulin, lispro, lantus, dulcolax IVF/Drips: -- Ht: 69 in Wt: 166 lb 12/03: 173 lbs, 12/14: 172lb BMI: 24.5 kg/m2 IBW: 160 lb Malnutrition Evaluation (11/30) The patient does not meet criteria for a specified degree of malnutrition at this time. Will re-evaluate at follow-up as appropriate. Energy intake: <50% of estimated energy requirements for >5 days Weight loss: none Muslce loss: Mild-temporal, clavicle Fat loss: none Supporting Evidence: Fluid accumulation: none Functional Status: unable to evaluate Nutrition Prescription (Diet Order): Full liquids Estimated Nutritional Needs: 1875 -2626 calories/day (25-35 kcal/kg DBW)- per 166 lb (75 kg) 75- 112 g protein/day (1-1.5 g pro/kg DBW) (75 kg) Diet Adequacy: Not meeting calorie needs, Not meeting protein needs, Not meeting fluid needs Diet Tolerance: tolerating PO Diet Education Needs Assessment: Diet education not indicated, patient on temporary/transition diet. Nutrition Care Level: Mod Nutrition Diagnosis: Inadequate energy and protein intake related to ileus as evidenced by NPO and requiring parenteral nutrition.- RESOLVED Goal: Patient will meet 75-100% of estimated needs by follow up Progress: progressing Interventions: Modified diet- carb, fiber, Liquid supplement, Prescription medications, Recommended Modifications, Collaboration with other providers Monitoring/Evaluation: Total energy intake, Total protein intake, Modified diet, Liquid supplement Signed: Rajani Velasco RD, LD, [facility]
--- NOTE | 2018-12-14 13:27 | NUR ---
SPOKE WITH PT HE SIGNED CHOICE FOR [facility]. FAXED CLINICALS COMPLETED PASRR FILED IN CHART AND PUT WITH PACKET, COMPLETED RTF AND PUT ON PACKET TO BE FILLED OUT UPON AUTH.
[2018-12-14] MEDS: FLUCONAZOLE 400MG/200ML BAG 200 ML IV SCH (14:30)
--- NOTE | 2018-12-14 15:31 | NUR ---
CONTACTED BY FACILITY NEED THERAPY NOTES FAXED TO [phone] ALSO STATES DIET MUST BE UPGRADED CANNOT TAKE WHILE ON FULL LIQUID.
[2018-12-14] MEDS: POTASSIUM CHLORIDE 60 MEQ in SODIUM CHLORIDE 0.45% 1,000 ML IV SCH (18:20)
[2018-12-14] MEDS: INSULIN GLARGINE 100 UNITS/ML VIAL SQ SCH (21:22)
[2018-12-14] MEDS: ONDANSETRON HCL INJ 2MG/ML 2ML 2 MG/ML VIAL IV PRN (23:35)
[2018-12-15] VITALS (7 sets, daily range): BP systolic 129–141; BP diastolic 77–97
[2018-12-15] MEDS: POTASSIUM CHLORIDE 60 MEQ in SODIUM CHLORIDE 0.45% 1,000 ML IV SCH (01:57)
[2018-12-15] MEDS: ALBUTEROL SULF 0.083% NEB SOLN 3 ML NEB NEB PRN ×3 (02:05→19:30)
[2018-12-15] MEDS: METOCLOPRAMIDE HCL 10 MG/2ML VIAL IV SCH (04:25)
--- NOTE | 2018-12-15 04:28 | NUR ---
Dressing changed on right upper arm triple lumen PICC line at this time. Patient tolerated well. Will continue to monitor.
[2018-12-15] MEDS: MORPHINE SULFATE INJ 4 MG/ML INJ 1ML IV PRN ×3 (05:29→19:29)
[2018-12-15] MEDS: ONDANSETRON HCL INJ 2MG/ML 2ML 2 MG/ML VIAL IV PRN ×2 (05:29→19:31)
[2018-12-15] MEDS: INSULIN LISPRO 100 UNIT/1 ML 3ML VIAL SQ SCH ×4 (08:38→20:54)
[2018-12-15] MEDS: PANTOPRAZOLE 40 MG 10ML VIAL IV SCH (08:40)
[2018-12-15] MEDS: METOPROLOL TARTRATE 50 MG TAB PO SCH ×2 (08:49→17:30)
[2018-12-15] MEDS: HYDROCODONE/APAP 7.5MG-325MG 1 EA TAB PO PRN ×3 (10:02→23:01)
[2018-12-15] MEDS: METOCLOPRAMIDE HCL 10 MG TAB PO SCH ×3 (12:03→20:53)
[2018-12-15] MEDS: FLUCONAZOLE 400MG/200ML BAG 200 ML IV SCH (14:53)
--- NOTE | 2018-12-15 16:06 | NUR ---
Attempted multiple times throughout the day to convince patient to attempt to get out of bed. PT also reinforced the need to get up out of bed. He adamantly refuses.
[2018-12-15] MEDS: INSULIN GLARGINE 100 UNITS/ML VIAL SQ SCH (20:54)
--- NOTE | 2018-12-15 23:00 | Progress Note ---
DATE: 12/15/2018 Cardiology Progress Note. SUBJECTIVE: The patient denies chest pain or shortness of breath. OBJECTIVE: VITAL SIGNS: Temperature 97.9 degrees, pulse 84, respiratory rate 24, blood pressure 135/85, and oxygen saturation 97% on nasal cannula. GENERAL: Chronically ill-appearing man, no acute distress. Awake and alert. LUNGS: Diminished breath sounds at the bases. CARDIOVASCULAR: Normal rate, regular rhythm. No murmur. Normal S1, S2. ABDOMEN: Soft, nontender. EXTREMITIES: No edema. CARDIAC MEDICATIONS: Metoprolol tartrate 50 mg p.o. b.i.d. LABORATORY DATA: None today. TELEMETRY: Normal sinus rhythm IMPRESSION: 1. Chest pain. 2. Abdominal pain. 3. Ileus. 4. Diabetes mellitus with diabetic ketoacidosis. 5. Chronic myeloid leukemia. 6. Chronic kidney disease. 7. Hypertension with hyperlipidemia. 8. Sepsis. RECOMMENDATIONS: 1. The patient ruled out for myocardial infarction with serial cardiac biomarkers. He has been stable from a cardiac standpoint. Continue metoprolol succinate. Monitor patient on telemetry. Replete electrolytes. 2. No further cardiac evaluation is indicated at this time. Thank you for this consult. We will continue to follow. Renu Vitale MD ABS/MODL /[id number]
[2018-12-16] VITALS (7 sets, daily range): BP systolic 109–123; BP diastolic 69–89
[2018-12-16] MEDS: ALBUTEROL SULF 0.083% NEB SOLN 3 ML NEB NEB PRN (01:40)
[2018-12-16] MEDS: ONDANSETRON HCL INJ 2MG/ML 2ML 2 MG/ML VIAL IV PRN (02:04)
[2018-12-16] MEDS: MORPHINE SULFATE INJ 4 MG/ML INJ 1ML IV PRN ×3 (02:04→17:25)
[2018-12-16 05:22] LABS: BASOPHILS # (AUTO) 0.1 (0.0-0.1); BASOPHILS % 0.1 % (0.0-1.0); EOSINOPHILS # (AUTO) 0.3 (0.0-0.4); EOSINOPHILS % 0.2 % (0.0-6.0); HEMATOCRIT 31.8 % (38.2-49.6); HEMOGLOBIN 9.1 g/dL (14.0-18.0); LYMPHOCYTES # (AUTO) 106.2 (1.0-3.2); LYMPHOCYTES % 93.3 % (18.0-39.1); MEAN CORPUSCULAR HEMOGLOBIN 27.7 pg (28-32); MEAN CORPUSCULAR HGB CONC 28.6 g/dL (31-35); MEAN CORPUSCULAR VOLUME 96.7 fL (81-99); MONOCYTES # (AUTO) 0.3 (0.2-0.8); MONOCYTES % 0.2 % (4.4-11.3); NEUTROPHILS # (AUTO) 6.8 (2.1-6.9); PLATELET COUNT 179 x10e3/uL (140-360); RED BLOOD COUNT 3.29 x10e6/uL (4.3-5.7); RED CELL DISTRIBUTION WIDTH 16.5 % (11.7-14.4)
[2018-12-16 05:32] LABS: INR 1.14; PROTHROMBIN TIME 15.2 seconds (11.9-14.5)
[2018-12-16 05:33] LABS: PARTIAL THROMBOPLASTIN TIME 36.3 seconds (23.8-35.5)
[2018-12-16 05:46] LABS: ANION GAP 14.7 mmol/L (8-16); BLOOD UREA NITROGEN 12 mg/dL (7-26); BUN/CREATININE RATIO 16 (6-25); CALCIUM 8.1 mg/dL (8.4-10.2); CARBON DIOXIDE 17 mmol/L (22-29); CHLORIDE 107 mmol/L (98-107); CREATININE, SERUM 0.76 mg/dL (0.72-1.25); EST GLOMERULAR FILTRATION RATE > 60 ML/MIN (60-); GLUCOSE 158 mg/dL (74-118); POTASSIUM 4.7 mmol/L (3.5-5.1); SODIUM 134 mmol/L (136-145)
--- NOTE | 2018-12-16 06:29 | NUR ---
Colostomy bag changed at this time. Patient tolerated well. Will continue to monitor.
[2018-12-16] MEDS: INSULIN LISPRO 100 UNIT/1 ML 3ML VIAL SQ SCH ×4 (07:30→21:07)
[2018-12-16 07:42] LABS: LYMPHOCYTES % (MANUAL) 95 % (19-48); MONOCYTES % (MANUAL) 1 % (3.4-9.0); NEUTROPHILS % (MANUAL) 4 % (40-74)
[2018-12-16 07:43] LABS: HYPOCHROMASIA SLIGHT; SMUDGE CELLS MANY
[2018-12-16 07:44] LABS: PLATELET ESTIMATE ADEQUATE; PLATELET MORPHOLOGY COMMENT FEW LARGE
[2018-12-16] MEDS: PANTOPRAZOLE SOD 40 MG TABEC PO SCH (08:14)
[2018-12-16] MEDS: METOCLOPRAMIDE HCL 10 MG TAB PO SCH ×4 (08:14→21:08)
[2018-12-16] MEDS: METOPROLOL TARTRATE 50 MG TAB PO SCH ×2 (08:27→17:10)
--- NOTE | 2018-12-16 12:00 | NUR ---
Open wound at circumcision posterior border. Dr Rodriguez notified and evaluated. Nursing to perform wet to dry dressing Q shift.
--- NOTE | 2018-12-16 13:09 | Progress Note ---
DATE: 12/16/2018 Cardiology Progress Note SUBJECTIVE: The patient is without any new complaints. He denies any chest pain or shortness of breath. He does endorse some fatigue. OBJECTIVE: VITAL SIGNS: Temperature 97.7, pulse 90, respiratory rate 19, blood pressure 114/72, and oxygen saturation 99% on 1 L nasal cannula. General: Chronically ill-appearing man, appears to be fatigued. Awake and alert and oriented x3. NECK: Supple. No JVD noted. LUNGS: Diminished breath sounds throughout. No wheezing. No rhonchi or crackles. CARDIOVASCULAR: Normal rate and rhythm. No murmurs, no gallops. Normal S1, S2. No S3 or S4 auscultated. ABDOMEN: Soft nontender. Bag in place. EXTREMITIES: Lower extremity, no edema. CARDIOVASCULAR MEDICATIONS: Metoprolol tartrate 50 mg p.o. b.i.d., furosemide 40 mg IV post transfusion. LABORATORY DATA: WBC 113.85, hemoglobin 9.1, hematocrit 31.8, platelets 179. Sodium 134, potassium 4.7, BUN 12, creatinine 0.76. GFR greater than 60. PT 15.2, INR 1.14, PTT 36.3. TELEMETRY: Normal sinus rhythm. IMPRESSION: 1. Chest pain. 2. Abdominal pain. 3. Ileus. 4. Diabetes mellitus, status post diabetic ketoacidosis. 5. Chronic myeloid leukemia. 6. Chronic kidney disease. 7. Hypertension. 8. Hyperlipidemia. 9. Sepsis. RECOMMENDATIONS: Acute coronary syndrome has been ruled out with serial biomarkers. The patient has been stable from a cardiac standpoint, has not had any recurrence of complaints. We will continue to monitor this patient on telemetry. Continue the above-listed cardiac medications. Continue to replete electrolytes as needed. At this time, there is no further cardiac evaluation that is indicated. We will continue to follow this patient. Dictated by Sherie Funes, CLASSIFIED ADVERTISING MANAGER MD RICARDO AndersonV/MALLIKA /[id number]
[2018-12-16] MEDS: HYDROCODONE/APAP 7.5MG-325MG 1 EA TAB PO PRN ×2 (14:38→21:08)
[2018-12-16] MEDS: FLUCONAZOLE 400MG/200ML BAG 200 ML IV SCH (14:39)
--- NOTE | 2018-12-16 14:59 | Progress Note ---
DATE: 12/16/2018 SUBJECTIVE: Mr. Rivera is lying in bed comfortably. He said he is feeling much better overall. No new complaints. REVIEW OF SYSTEMS: At the present time: HEENT: Negative. PULMONARY: Negative. CARDIAC: Negative. : Negative. NEUROLOGIC: He remains weak, but overall a lot better. PHYSICAL EXAMINATION: HEART: S1, S2. No S3, S4, or murmur. ABDOMEN: Soft, bowel sounds present. No tenderness. EXTREMITIES: No edema. LABORATORY DATA: His lab data reviewed. His white count continues to trend down. WBC is down to 113,000, hemoglobin 9.1, platelets 179. Sodium 134, potassium 4.7 with creatinine 0.76, glucose is 235. His urine showed Tabatha glabrata, but blood cultures are negative and the urine cultures on December 12 is negative. MEDICATION LIST: He is on Lopressor, morphine p.r.n., Protonix, Zofran, fluconazole, Lasix. IMPRESSION: 1. Urinary tract infection seems to be better with fluconazole fungal infection. 2. History of CML. 3. Diabetes with diabetic ketoacidosis. 4. Chronic myeloid leukemia. 5. Dehydration. 6. Diabetes mellitus. 7. Chronic kidney disease. 8. Debility. From Infectious Disease point of view, the patient remains stable to finish 14 days of fluconazole, can switch to oral. Continue with PT/OT. Discussed with the medical team. Continue with IV fluid. Hematology oncology is following. MD KATIE Cid/MALLIKA /[id number]
--- NOTE | 2018-12-16 15:28 | NUR ---
Pt refusing care. Pt stating "dont touch me", "leave me alone". Was able to do some am hygeine and wound care, but afternoon care is being refused.
[2018-12-16] MEDS: INSULIN GLARGINE 100 UNITS/ML VIAL SQ SCH (21:08)
[2018-12-17] VITALS (7 sets, daily range): BP systolic 115–147; BP diastolic 79–103
[2018-12-17] MEDS: MORPHINE SULFATE INJ 4 MG/ML INJ 1ML IV PRN ×4 (00:06→22:48)
--- NOTE | 2018-12-17 06:12 | NUR ---
patient just got PRN morphine. he let nurse to clean and change dressing to his penis this time, but he refused to be turned. he is awake alert oriented.
[2018-12-17] MEDS: INSULIN LISPRO 100 UNIT/1 ML 3ML VIAL SQ SCH ×5 (07:30→20:49)
[2018-12-17] MEDS: PANTOPRAZOLE SOD 40 MG TABEC PO SCH (08:08)
[2018-12-17] MEDS: METOCLOPRAMIDE HCL 10 MG TAB PO SCH ×4 (08:08→20:59)
[2018-12-17] MEDS: METOPROLOL TARTRATE 50 MG TAB PO SCH ×2 (08:16→18:04)
[2018-12-17] MEDS: HYDROCODONE/APAP 7.5MG-325MG 1 EA TAB PO PRN (08:17)
--- NOTE | 2018-12-17 13:08 | Progress Note ---
DATE: 12/17/2018 Cardiology Progress Note SUBJECTIVE: The patient is without any new complaints this morning. He feels okay, however, he continues to have abdominal cramping once he eats. OBJECTIVE: VITAL SIGNS: Temperature 98.5, pulse 89, respiratory rate 18, blood pressure 144/98, and oxygen saturation 98% on 2 L nasal cannula. GENERAL: Alert and oriented x3. Resting comfortably in bed. NECK: Supple. No JVD noted. LUNGS: Diminished breath sounds throughout. No wheezing. No rhonchi or crackles. CARDIOVASCULAR: Normal rate and rhythm. No murmurs. No gallops. ABDOMEN: Soft and nontender. EXTREMITIES: Lower extremities, no edema. CARDIOVASCULAR MEDICATIONS: Metoprolol 50 mg p.o. b.i.d. LABORATORY STUDIES: No new labs this morning. TELEMETRY: Normal sinus rhythm. IMPRESSION: 1. Chest pain. 2. Abdominal pain. 3. Ileus. 4. Diabetes mellitus, status post diabetic ketoacidosis. 5. Chronic myeloid leukemia. 6. Chronic kidney disease. 7. Hypertension. 8. Hyperlipidemia. 9. Sepsis. RECOMMENDATIONS: The patient is stable from a cardiac standpoint. Acute coronary syndrome was ruled out with serial biomarkers. Continue to monitor for any recurrence of symptoms. Continue to monitor on telemetry. Continue the above-listed cardiac medication. Continue to replete electrolytes as needed. No further cardiac evaluation is indicated at this time. We will continue to follow. Dictated by Sherie Funes NP MD KYM Anderson/MALLIKA /[id number]
[2018-12-17] MEDS: FLUCONAZOLE 400MG/200ML BAG 200 ML IV SCH (14:09)
[2018-12-17] MEDS: SODIUM CHLORIDE FLUSH 10 ML SYR INJ PRN (14:12)
--- NOTE | 2018-12-17 14:30 | NUR ---
Visit made by the Spiritual Care Department Pastoral Visitor, Sebastien Duncan. PV provided pastoral presence and supportive listening. Pastoral Visitor reminded pt and of the scope of [employer] and availability. MARY VELOZ Inclusion Specialist Spiritual Care Department O: [phone] Pager: [phone] ([phone] calling from)
--- NOTE | 2018-12-17 19:55 | NUR ---
Received change of shift report from AM nurse. Walking rounds completed.
[2018-12-17] MEDS: INSULIN GLARGINE 100 UNITS/ML VIAL SQ SCH (20:52)
--- NOTE | 2018-12-17 21:33 | NUR ---
Patient in bed. AAOx3. Denies pain at this time. Repositioned patient in bed. Patient given fluids with no sighns of aspiration. Continue monitor.
[2018-12-17] MEDS: ONDANSETRON HCL INJ 2MG/ML 2ML 2 MG/ML VIAL IV PRN (22:48)
[2018-12-18] VITALS (8 sets, daily range): BP systolic 103–136; BP diastolic 74–91
--- NOTE | 2018-12-18 00:38 | NUR ---
Patient repositioned [id number] and PRN.
[2018-12-18] MEDS: HYDROCODONE/APAP 7.5MG-325MG 1 EA TAB PO PRN (01:25)
--- NOTE | 2018-12-18 04:24 | NUR ---
Patient received a bath and dressing change to penis.
[2018-12-18] MEDS: INSULIN LISPRO 100 UNIT/1 ML 3ML VIAL SQ SCH ×7 (07:30→20:40)
[2018-12-18] MEDS: PANTOPRAZOLE SOD 40 MG TABEC PO SCH (08:30)
[2018-12-18] MEDS: METOCLOPRAMIDE HCL 10 MG TAB PO SCH ×4 (08:30→20:40)
[2018-12-18] MEDS: METOPROLOL TARTRATE 50 MG TAB PO SCH ×2 (08:30→17:04)
[2018-12-18] MEDS: MORPHINE SULFATE INJ 4 MG/ML INJ 1ML IV PRN ×3 (10:56→23:30)
[2018-12-18] MEDS: ONDANSETRON HCL INJ 2MG/ML 2ML 2 MG/ML VIAL IV PRN ×3 (10:56→23:30)
--- NOTE | 2018-12-18 10:56 | NUR ---
[id number] late entery 12/17/18
[2018-12-18] MEDS: CEFEPIME 1GM/NS 0.9% 50 ML 50 ML IV SCH ×2 (11:45→23:30)
--- NOTE | 2018-12-18 11:58 | Progress Note ---
DATE: 12/17/2018 SUBJECTIVE: Mr. Rivera is lying in bed comfortably. There is no new complaint. The patient who is currently comfortable, weak, but no complaints. REVIEW OF SYSTEMS: HEENT: Negative. PULMONARY: Negative. CARDIAC: Negative. PHYSICAL EXAMINATION: GENERAL: He is currently alert, oriented, does not seem to be in acute distress. VITAL SIGNS: Stable, afebrile. Temperature 98.5, heart rate 89, respirations 18, and blood pressure 144/98, O2 saturation 98% on 2 L. HEENT: Normocephalic. Not icteric. NECK: Supple. No JVD. No lymphadenopathy. No thyromegaly. CHEST: Few crackles at the bases. No rhonchi. HEART: S1, S2. No S3, S4, or murmur. ABDOMEN: Soft. Bowel sounds present. No tenderness. No hepatosplenomegaly. EXTREMITIES: No edema. SKIN: There is no rash. LABORATORY DATA: Reviewed. There is nothing new at present time. MEDICATIONS: Medication list also reviewed. He is currently on Reglan, Protonix, Lopressor Zofran, fluconazole, furosemide. IMPRESSION: 1. Urinary tract infection, doing better with fluconazole. 2. History of chronic myeloid leukemia. 3. History of diabetic ketoacidosis with diabetes mellitus, seems to be stable now. 4. Dehydration, but also better. 5. Chronic kidney disease. 6. Hypertension. 7. Hyperlipidemia. 8. Chest pain. PLAN: Recommend to finish 14 days of oral fluconazole, IV fluid as ordered. Hematology/Oncology is following. We will continue to follow with you. MD KATIE Cid/MODLeann /[id number]
--- NOTE | 2018-12-18 12:59 | Progress Note ---
DATE: 12/18/2018 SUBJECTIVE: Mr. Rivera who is currently lying in bed comfortably, but weak. Feeling a little bit tired. There is some cough and feeling short of breath, today a little bit worse than before. REVIEW OF SYSTEMS: Besides the cough and shortness of breath, he has been feeling just weaker today. LABORATORY DATA: Reviewed. His chart reviewed. PHYSICAL EXAMINATION: GENERAL: He is currently alert, does not seem in acute distress. VITAL SIGNS: Stable. Temperature 98, heart rate 78, respiration 20, and blood pressure 115/79. HEENT: Normocephalic. Not icteric. NECK: Supple. CHEST: Few crackles bilateral. COR: S1 and S2. No S3, S4, or murmur. ABDOMEN: Soft. Bowel sounds present. No tenderness. No hepatosplenomegaly. EXTREMITIES: No edema. LABORATORY DATA: There is nothing new today, but the last WBC was 113 and his last sodium 134 with creatinine 0.76. IMPRESSION: 1. Shortness of breath and cough. Concerned about pneumonia. We will get chest x-ray. We will put the patient on cefepime. 2. Encourage PT, OT. Encourage mobility. Agree with SNF evaluation. 3. CML. 4. urinary tract infection with yeast, on fluconazole to finish 14 days. 5. Diabetes mellitus with diabetic ketoacidosis. 6. Debility from dehydration. 7. Chronic kidney disease. 8. Agree with benefit to finish the course of his antibiotic as well as PT, OT. We will follow. MD KATIE Cid/MALLIKA /[id number]
--- NOTE | 2018-12-18 13:17 | NUR ---
CALLED CLAUDIA AT [facility] SHE STATES STILL PENDING AUTH NEW MED SHEETS FAXED TO HER AT [phone]; CONFIRMATION REC'D ADDITIONAL ABX ADDED TODAY BY DR WRAY FOR PT'S COUGH PLAN TRANSFER WHEN ACCEPTED
[2018-12-18] MEDS: FLUCONAZOLE 400MG/200ML BAG 200 ML IV SCH (14:41)
--- NOTE | 2018-12-18 16:11 | Progress Note ---
DATE: 12/18/2018 Cardiology Progress Note SUBJECTIVE: The patient denies chest pain or shortness of breath. OBJECTIVE: VITAL SIGNS: Temperature 98 degrees, pulse 76, respiratory rate 14, blood pressure 121/75, oxygen saturation 97% on 2 L nasal cannula. GENERAL: Elderly man, chronically ill appearing, in no acute distress, awake and alert. LUNGS: Diminished breath sounds at the bases, otherwise clear to auscultation. CARDIOVASCULAR: Normal rate, regular rhythm. No murmur. Normal S1, S2. ABDOMEN: Soft, nontender. EXTREMITIES: No edema. CARDIAC MEDICATIONS: Metoprolol tartrate 50 mg p.o. b.i.d. LABORATORY DATA: None today. TELEMETRY: Normal sinus rhythm IMPRESSION: 1. Chest pain. 2. Abdominal pain. 3. Ileus. 4. Diabetes mellitus with diabetic ketoacidosis, resolved. 5. Chronic myeloid leukemia. 6. Chronic kidney disease. 7. Hypertension. 8. Hyperlipidemia. 9. Sepsis. RECOMMENDATIONS: The patient ruled out for myocardial infarction. Serial cardiac biomarkers. He has been stable from a cardiac standpoint. Continue current cardiac medications. Monitor on telemetry. No further cardiac evaluation is indicated at this time. Thank you for this consult. We will continue to follow. Renu Vitale MD ABS/MODL /[id number]
--- NOTE | 2018-12-18 17:36 | Diagnostic Imaging Report ---
EXAMINATION: CHEST SINGLE (PORTABLE) INDICATION: Shortness of breath, cough COMPARISON: Chest radiograph of 12/10/2018 FINDINGS: LINES/TUBES:EKG leads overlie the chest. Right PICC line terminates in the superior vena cava. LUNGS:The lungs are well-inflated. New subtle airspace opacity at the right midlung zone, not previously seen on 12/10/2018. PLEURA:No pleural effusion or pneumothorax. MEDIASTINUM:The cardiomediastinal silhouette appears unchanged in size and shape. BONES/SOFT TISSUES:No acute osseous injury. Status post left shoulder arthroplasty. Partially visualized cervical spine fusion hardware. ABDOMEN:No free air under the diaphragm. IMPRESSION: New subtle airspace opacity at the right midlung zone may represent aspiration or pneumonia in the proper clinical setting. Signed by: Hoa Borden MD on 12/18/2018 5:33 PM
[2018-12-18] MEDS: INSULIN GLARGINE 100 UNITS/ML VIAL SQ SCH (20:40)
[2018-12-18] MEDS ORDERED: SODIUM CHLORIDE 0.9% 250ML 250 ML ONE (23:30)
--- NOTE | 2018-12-19 00:02 | NUR ---
Patient refused to turned at this time. Patient stated that " I am so comfortable how I am right now turn me tomorrow". Will continue to monitor.
--- NOTE | 2018-12-19 03:54 | Progress Note ---
DATE: 12/18/2018 Cardiology Progress Note The patient denies chest pain or shortness of breath. OBJECTIVE: VITAL SIGNS: Temperature 98 degrees, pulse 76, respiratory rate 14, blood pressure 121/75, oxygen saturation 97%. GENERAL: Chronically ill-appearing elderly man, no acute distress, awake and alert. LUNGS: DICTATION ENDS HERE eRnu Vitale MD ABS/MODL /[id number]
[2018-12-19 04:33] VITALS: BP 135/81
[2018-12-19] MEDS: MORPHINE SULFATE INJ 4 MG/ML INJ 1ML IV PRN ×4 (05:41→23:38)
[2018-12-19] MEDS: ONDANSETRON HCL INJ 2MG/ML 2ML 2 MG/ML VIAL IV PRN (05:41)
[2018-12-19 07:33] VITALS: BP 135/81
[2018-12-19 07:41] VITALS: BP 135/81
[2018-12-19] MEDS: INSULIN LISPRO 100 UNIT/1 ML 3ML VIAL SQ SCH ×7 (07:41→20:27)
[2018-12-19] MEDS: METOCLOPRAMIDE HCL 10 MG TAB PO SCH ×4 (08:45→20:21)
[2018-12-19] MEDS: PANTOPRAZOLE SOD 40 MG TABEC PO SCH (08:45)
[2018-12-19] MEDS: METOPROLOL TARTRATE 50 MG TAB PO SCH ×2 (08:50→17:12)
[2018-12-19 11:17] VITALS: BP 116/71
--- NOTE | 2018-12-19 11:40 | Progress Note ---
DATE: 12/19/2018 Cardiology Progress Note SUBJECTIVE: The patient denies chest pain or shortness of breath. OBJECTIVE: VITAL SIGNS: Temperature 98.1 degrees, pulse 104, respiratory rate 15, blood pressure 135/81, and oxygen saturation 94% on room air. GENERAL: Chronically ill-appearing elderly man, no acute distress. Awake and alert. LUNGS: Diminished breath sounds at the bases, otherwise clear to auscultation. CARDIOVASCULAR: Normal rate. Regular rhythm. No murmur. Normal S1 and S2. ABDOMEN: Soft and nontender. EXTREMITIES: No edema. CARDIAC MEDICATIONS: Metoprolol tartrate 50 mg p.o. b.i.d. LABORATORY DATA: None today. TELEMETRY: Sinus tachycardia. IMPRESSION: 1. Chest pain. 2. Abdominal pain. 3. Ileus. 4. Diabetes mellitus with diabetic ketoacidosis, resolved. 5. Chronic myeloid leukemia. 6. Chronic kidney disease. 7. Hypertension. 8. Hyperlipidemia. 9. Sepsis. RECOMMENDATIONS: The patient ruled out for myocardial infarction with serial cardiac biomarkers. He has been stable from a cardiac standpoint. Continue current cardiac medications. Monitor on telemetry. Sinus tachycardia is likely a physiologic response to his current illness. No further cardiac evaluation is indicated at this time. Thank you for this consult. We will continue to follow. Renu Vitale MD ABS/MODL /[id number]
[2018-12-19] MEDS: CEFEPIME 1GM/NS 0.9% 50 ML 50 ML IV SCH ×2 (12:06→22:46)
--- NOTE | 2018-12-19 13:00 | NUR ---
FAXED PT NOTES TO [phone]
[2018-12-19] MEDS: FLUCONAZOLE 400MG/200ML BAG 200 ML IV SCH (15:19)
[2018-12-19 15:33] VITALS: BP 116/76
--- NOTE | 2018-12-19 17:03 | Progress Note ---
DATE: 12/19/2018 SUBJECTIVE: Mr. Rivera is comfortably lying in bed. No new complaint. His shortness of breath is better. His cough is better. There is no new data. REVIEW OF SYSTEMS: Otherwise just weakness. He is currently on fluconazole and cefepime in addition to his other medication. Cultures reviewed. There is no new data. PHYSICAL EXAMINATION: GENERAL: He is currently alert, comfortable. VITAL SIGNS: Stable, currently afebrile. Temperature 98.1. HEENT: Normocephalic. NECK: Supple. CHEST: Few crackles. COR: S1 and S2. No S3, S4, or murmur. ABDOMEN: Soft. Bowel sounds present. Obese. EXTREMITIES: No edema. SKIN: There is no rash. IMPRESSION: 1. Diabetes mellitus with diabetic ketoacidosis. 2. Urinary tract infection. 3. Pneumonia healthcare-associated, on cefepime day 2 to finish his 7 days. 4. Chronic myeloid leukemia. 5. Chronic kidney disease. 6. Debility. 7. From Infectious Disease point of view, he seems to be doing well. 8. Urinary tract infection with yeast also improving. To finish 14 days of Diflucan. MD KATIE Cid/MALLIKA /[id number]
--- NOTE | 2018-12-19 17:12 | NUR ---
Follow up -Nutrition Intervention Note RD Recommendation(s) for Physician: - Recommend 2000 kcal diabetic diet. Continue mechanical soft diet per ST - Glucerna nutrition supplement BID Plan of Care: RD following, monitoring for tolerance and adequacy, Diet and ONS rec's Nutrition reason for involvement: Follow up RD Assessment 12/19: Follow up. ST evaluated pt and pt is now on a mechanical soft diet with thin liquids. Pt reports a good appetite and has been consuming 50% of meals. Per documentation in chart, pt consumed 50-75% of meals since 12/16. Pt was interested in Glucerna nutrition supplement. Will provide 2x/day. 12/14: Follow up. TPN D/C'd, diet advanced to full liquids. Pt tolerating full liquid diet, 50-75% of meals as of yesterday. Pt with colostomy output, LBM today. Pt pending discharge to SNF. Will monitor and continue to follow. 12/11: Pt seen for f/u, continues on TPN at 42 ml/hr. NGT D/C'd, K replaced today. Pt denies any nausea or abdominal pain. Noted WBC continue to trend up. TPN rec's provided in chart, RN to call MD for order. Pt not meeting kcal and protein needs. Will monitor and continue to follow. 12/07: Pt sleeping at time of visit and no family present, TPN infusing at 42 ml/hr. Chart reviewed and pt discussed during am rounds, pt with paralytic ileus 2/2 narcotic use- no surgical intervention at this time. NGT remains in place, RN reports 100 ml output this shift. Pt on bowel regimen, 3 BMs today. TPN rec's provided- MD managing, current TPN not meeting estimated needs. 12/05: Provided new TPN recommendation above .Yesterday the MD and Waitstaff Captain took out the Na Acetate and placed 26 units on insulin in the TPN bag instead of 20 units. Pt was also placed on D5W at 80 ml/hr providing the pt with an additional 96 gram of dex and 326 kcal d/t his high Na levels. Na level today was 145. Mg was also high per [employer] standards- decreased Mg by half in the bag. Recommended rate of 42 ml/hr and advancement soon once D5W is decreased or removed to provide the pt with more calories and protein. TGs were also high, lipids are okay to order, lipids are only not recommended when TGs are higher than 400. Kept recommendation of 26 units of insulin d/t pt still having high BS and the additional of 96 grams of dex. Provided recommendations and TPN order sheet to nurse. Spoke about pt in rounds, possibility of the pt receiving colostomy. K is still low, per EMR pt is being replaced as directed (20 mEq/100 ml) Will continue to monitor. 12/04: Follow up: Pt was seen resting in bed, NGT still in place and is suctioning. Pt has been having BMs per nurse but is still experiencing abdominal pain. Observed the pt only on the TPN at 42 ml/hr today within his room, no other IVF. Insulin drip has been d/c. Labs were drawn today but appeared to be a bad draw, new labs were drawn. Provided TPN recommendations above and an order sheet for MD to sign, kept recommendations the same for now. Will re evaluate tmrw, 12/05 to determine if advancing the rate to 60 ml/hr, lipids every day, and placing mg in the bag is appropriate. Recommend another TG, Mg and Phos draw tmrw to ensure the pt has the correct TPN order in place. KUB was done yesterday which showed nothing has changed-pt still has severely dilated loops of the colon which may represent a large bowel obstruction or non-obstructive ileus. No edema noted, pts has gained 7 lbs since 11/24 per EMR. BS still somewhat high-insulin management per MD. Will continue to monitor. 12/01: Follow up: Pt was seen resting in bed, TPN running and NGT still in place. Pt was on NS at 125 ml/hr of IVF, MD told nurse to decrease the rate of the NS. Pt still has insulin drip. Provided TPN recommendations, MD signed off on new recommendations; changed Sodium chloride to sodium acetate d/t pts high chloride. Discussed pt in rounds, pt is having very little stool output and has a distended stomach. Per case management-d/c planning will start after surgery has seen the pt. Will continue to monitor. 11/30: Pt re-evaluated today per TPN consult and follow up. Pt now with an ileus with plan to start TPN this evening. Pt discussed during am rounds, code status palliative care vs cancer treatment discussion on going. NGT to LIWs in place, 1200 ml output as of yesterday and pt refused rectal tube placement. Pt with elevated anion gap, started on insulin drip. Pt with PICC in place. TPN rec's and additional RD rec's discussed with RN on unit. Will monitor and continue to follow. (11/24) 78 YOM admitted for DKA, chronic leukemia with PMH listed above. Pt was observed very fatigued and within the ICU, pt is off of the insulin drip. Pt reported he has been tolerating his full liquid diet and he does have a good appetite. Pt denied N/V/C/D/chewing or swallowing issues as well as denied any food allergies. Pt was unsure if he had lost any weight recently. No past weights within his EMR. A1c: 8.6, POC GM: 214. Chart reviewed. Labs and meds reviewed. Will continue to monitor. Principal Problems/Diagnoses: chronic leukemia, DKA PMH: 1. Diabetes mellitus, insulin therapy. 2. Hypertension. 3. Diabetic complication with neuropathy. 4. Chronic kidney disease. 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 GI: last recorded BM 12/19- colostomy Skin: no pressure related wounds Labs: Na 134 (12/16), Glu 158 (12/16), Ca 8.1 (12/16), Phos 2.0 (12/13), Mg 4.0 (12/13) 12/11: Na 142, K 2.7, Cl 108, Co2 21, BUN 24, Cr 0.86, Gluc 149, POC gluc 148-157, Phos 2.2, Mg 2, Ca 8.7 12/07: Na 137, K 3.9, Cl 100, CO2 26, BUN 20, Cr 0.93, Gluc 186, Ca 8.7, Phos 2.3, Mg 2.1 Meds: insulin lispro, raglan, metroprolol, protonix, zofran, insulin lantus, hydralazine, NaCl Ht: 69 in Wt: 166 lb 12/03: 173 lbs, 12/14: 172lb 12/17: 172 lbs, 12/19: 159 lbs BMI: 24.5 kg/m2 IBW: 160 lb Malnutrition Evaluation (12/19) The patient does not meet criteria for a specified degree of malnutrition at this time. Will re-evaluate at follow-up as appropriate. Energy intake: Per documentation in chart, pt consumed 50-75% of meals since 12/16. Weight loss: none Muslce loss: Mild-temporal, clavicle Fat loss: none Supporting Evidence: Fluid accumulation: none Functional Status: unable to evaluate Nutrition Prescription (Diet Order):1800 Kcal diabetic diet with mechanical soft diet consistency Estimated Nutritional Needs: 1875 -2626 calories/day (25-35 kcal/kg DBW)- per 166 lb (75 kg) 75- 112 g protein/day (1-1.5 g pro/kg DBW) (75 kg) Diet Adequacy: Progressing towards meeting calorie, protein, and fluid needs Diet Tolerance: tolerating PO Diet Education Needs Assessment:Diet education not indicated Nutrition Care Level: Low. Pt is eating 50-75% of meals per chart Nutrition Diagnosis: Swallowing difficulty related to dysphagia as evidenced by need for modified consistency diet. Goal: Patient will meet 75-100% of estimated needs by follow up Progress: progressing Interventions: Modified diet- carb, Liquid supplement, Recommended Modifications Monitoring/Evaluation: Total energy intake, Total protein intake, Modified diet, Liquid supplement Signed: Merari Gomez RD, LD
[2018-12-19 19:19] VITALS: BP 112/69
[2018-12-19] MEDS: INSULIN GLARGINE 100 UNITS/ML VIAL SQ SCH (20:27)
[2018-12-20 02:44] VITALS: BP 112/69
[2018-12-20 05:35] LABS: BASOPHILS # (AUTO) 0.1 (0.0-0.1); BASOPHILS % 0.1 % (0.0-1.0); EOSINOPHILS # (AUTO) 0.4 (0.0-0.4); EOSINOPHILS % 0.3 % (0.0-6.0); HEMATOCRIT 33.2 % (38.2-49.6); HEMOGLOBIN 9.7 g/dL (14.0-18.0); LYMPHOCYTES # (AUTO) 113.4 (1.0-3.2); LYMPHOCYTES % 94.3 % (18.0-39.1); MEAN CORPUSCULAR HEMOGLOBIN 28.1 pg (28-32); MEAN CORPUSCULAR HGB CONC 29.2 g/dL (31-35); MEAN CORPUSCULAR VOLUME 96.2 fL (81-99); MONOCYTES # (AUTO) 0.4 (0.2-0.8); MONOCYTES % 0.3 % (4.4-11.3); NEUTROPHILS # (AUTO) 5.8 (2.1-6.9); NEUTROPHILS % 4.8 % (38.7-80.0); PLATELET COUNT 241 x10e3/uL (140-360); RED BLOOD COUNT 3.45 x10e6/uL (4.3-5.7); RED CELL DISTRIBUTION WIDTH 16.6 % (11.7-14.4)
[2018-12-20 05:51] LABS: ANION GAP 17.1 mmol/L (8-16); BLOOD UREA NITROGEN 12 mg/dL (7-26); BUN/CREATININE RATIO 12 (6-25); CALCIUM 8.8 mg/dL (8.4-10.2); CARBON DIOXIDE 19 mmol/L (22-29); CHLORIDE 102 mmol/L (98-107); CREATININE, SERUM 1.02 mg/dL (0.72-1.25); EST GLOMERULAR FILTRATION RATE > 60 ML/MIN (60-); GLUCOSE 176 mg/dL (74-118); POTASSIUM 4.1 mmol/L (3.5-5.1); SODIUM 134 mmol/L (136-145)
[2018-12-20 07:41] VITALS: BP 102/67
[2018-12-20 07:42] VITALS: BP 102/67
[2018-12-20] MEDS: PANTOPRAZOLE SOD 40 MG TABEC PO SCH (08:04)
[2018-12-20] MEDS: METOCLOPRAMIDE HCL 10 MG TAB PO SCH ×4 (08:04→20:42)
[2018-12-20] MEDS: INSULIN LISPRO 100 UNIT/1 ML 3ML VIAL SQ SCH ×7 (08:05→20:36)
[2018-12-20] MEDS: METOPROLOL TARTRATE 50 MG TAB PO SCH ×2 (08:05→16:38)
--- NOTE | 2018-12-20 09:02 | NUR ---
CALLED ANGIE DINERO AT [facility] WHO STATES SHE HAS NOT REC'D REQUEST FOR SNF FROM [facility] YET Gordon CALLED [facility] WHO STATES THEY WILL EMAIL THIRD [facility] AND FIND OUT WHY THEY HAVEN'T SENT CLINICAL TO [facility]
[2018-12-20] MEDS: MORPHINE SULFATE INJ 4 MG/ML INJ 1ML IV PRN ×3 (09:20→22:35)
--- NOTE | 2018-12-20 11:20 | NUR ---
Visit made by the Spiritual Care Department Pastoral Visitor, Abi Valdivia. Pt sleeping soundly and no family present. MARY Diazlain Spiritual Care Department O: [phone] Pager: [phone] ([phone] number calling from)
[2018-12-20 11:35] VITALS: BP 129/77
[2018-12-20] MEDS: CEFEPIME 1GM/NS 0.9% 50 ML 50 ML IV SCH ×2 (11:59→23:32)
[2018-12-20] MEDS: FLUCONAZOLE 400MG/200ML BAG 200 ML IV SCH (13:45)
[2018-12-20 16:37] VITALS: BP 109/72
--- NOTE | 2018-12-20 16:47 | NUR ---
DR FERGUSON WANTING FC CHANGED OUT, TO 18FR. PT REFUSING AT THIS TIME "CANT THIS BE DONE TOMORROW, IM NOT GOING ANYWHERE SOON"
[2018-12-20 19:51] VITALS: BP 129/73
[2018-12-20] MEDS: INSULIN GLARGINE 100 UNITS/ML VIAL SQ SCH (20:36)
--- NOTE | 2018-12-20 21:39 | NUR ---
patient is awake alert, asking for snacks, he is agreed to have his Maldonado catheter changed after he gets his pain medicine later. will continue to monitor.
--- NOTE | 2018-12-20 23:34 | NUR ---
patient agreed to have bernal catheter changed. bernal inserted, one attempt, size 18 fr, with 10cc water. patient tolerated well. will continue to monitor.
[2018-12-21 00:20] VITALS: BP 117/73
[2018-12-21 04:18] VITALS: BP 132/87
[2018-12-21] MEDS: MORPHINE SULFATE INJ 4 MG/ML INJ 1ML IV PRN ×2 (05:05→11:21)
--- NOTE | 2018-12-21 06:45 | Progress Note ---
DATE: 12/20/2018 Cardiology Progress Note. SUBJECTIVE: The patient denies chest pain or shortness of breath. OBJECTIVE: VITAL SIGNS: Temperature 98 degrees, pulse 85, respiratory rate 20, blood pressure 129/77, and oxygen saturation 98% on room air. GENERAL: Chronically ill-appearing man, elderly, in no acute distress. Awake and alert. LUNGS: Diminished breath sounds at the bases, otherwise clear to auscultation. CARDIOVASCULAR: Normal rate. Regular rhythm. No murmur. Normal S1 and S2. ABDOMEN: Soft and nontender. EXTREMITIES: No edema. CHRONIC MEDICATIONS: Metoprolol 150 mg p.o. b.i.d. LABORATORY DATA: WBC 120.2, hemoglobin 9.7, hematocrit 33.2, and platelets 241. Sodium 134, potassium 4.1, chloride 102, CO2 of 19, BUN 12, and creatinine 1.02. TELEMETRY: Normal sinus rhythm. IMPRESSION: 1. Chest pain. 2. Abdominal pain. 3. Ileus. 4. Diabetes mellitus with diabetic ketoacidosis, resolved. 5. Chronic myeloid leukemia. 6. Chronic kidney disease. 7. Hypertension. 8. Hyperlipidemia. 9. Sepsis. RECOMMENDATIONS: The patient ruled out for myocardial infarction with serial cardiac biomarkers. He has been stable from a cardiac standpoint. Continue current cardiac medications. Monitor on telemetry. No further cardiac evaluation is indicated at this time next. Thank you for this consult. We will continue to follow. Renu Vitale MD ABS/MODL /[id number]
[2018-12-21] MEDS: PANTOPRAZOLE SOD 40 MG TABEC PO SCH (07:36)
[2018-12-21] MEDS: HYDROCODONE/APAP 7.5MG-325MG 1 EA TAB PO PRN ×2 (07:36→13:44)
[2018-12-21] MEDS: METOCLOPRAMIDE HCL 10 MG TAB PO SCH ×2 (07:36→11:21)
[2018-12-21 08:00] VITALS: BP 134/75
[2018-12-21] MEDS: INSULIN LISPRO 100 UNIT/1 ML 3ML VIAL SQ SCH ×4 (08:00→11:39)
[2018-12-21] MEDS: METOPROLOL TARTRATE 50 MG TAB PO SCH (08:08)
[2018-12-21] MEDS: CEFEPIME 1GM/NS 0.9% 50 ML 50 ML IV SCH (11:21)
--- NOTE | 2018-12-21 11:48 | NUR ---
REC'D CALL FROM [facility] STATING PT HAS BEEN APPROVED FOR TRANSFER BY INSURANCE SIGNED PAPERS THIS AM PT APPROVED TO GO TO ROOM 45 [address] AT [facility] UNDER DR CLEMENTE RTF IN PACKET WITH NUMBER TO CALL REPORT NURSE NEGRETE NOTIFIED IMM EXPLAINED TO PT, SIGNED BY PT AND PLACED IN CHART COPY OF IMM TO PT IN CARE TRANSITIONS FOLDER
[2018-12-21 12:00] VITALS: BP 112/75
--- NOTE | 2018-12-21 14:23 | NUR ---
PATIENT SENT TO SNF, COLOSTOMY AND MATHIS EMPTIED, RN AT [facility] AWARE OF HEMATURIA AND AWARE. BELONGINGS SENT WITH PATIENT CUSTOMER EXPERIENCE INTERN AND CELL PHONE IN PATIENT BELONGING BAG PT AWARE.
--- NOTE | 2018-12-22 01:56 | Progress Note ---
DATE: 12/21/2018 Cardiology Progress Note SUBJECTIVE: The patient denies chest pain or shortness of breath. OBJECTIVE: VITAL SIGNS: Temperature 97.8 degrees, pulse 76, respiratory rate 13, blood pressure 112/75, oxygen saturation 100% on 1 L nasal cannula. GENERAL: Elderly chronically ill-appearing man, no acute distress, awake, alert. LUNGS: Diminished breath sounds at the bases, otherwise clear to auscultation. CARDIOVASCULAR: Normal rate. Regular rhythm. No murmur. Normal S1, S2. ABDOMEN: Soft, nontender. EXTREMITIES: No edema. CARDIAC MEDICATIONS: Metoprolol tartrate 50 mg p.o. b.i.d. LABORATORY DATA: None today. TELEMETRY: Normal sinus rhythm IMPRESSION: 1. Chest pain. 2. Abdominal pain. 3. Ileus. 4. Diabetes mellitus with diabetic ketoacidosis, resolved. 5. Chronic myeloid leukemia. 6. Chronic kidney disease. 7. Hypertension. 8. Hyperlipidemia. 9. Sepsis. RECOMMENDATIONS: The patient ruled out for myocardial infarction. Serial cardiac biomarkers. He has had no further chest pain and has been stable from a cardiac standpoint. Continue current cardiac medications. Monitor on telemetry while admitted. No further cardiac evaluation is indicated at this time. Blood pressure has been acceptable. Thank you for this consult. We will continue to follow. Renu Vitale MD ABS/MODL /[id number]
--- NOTE | 2018-12-26 02:23 | Operative Report ---
DATE OF PROCEDURE: 11/28/2018 SURGEON: Dionicio Porter MD PREOPERATIVE DIAGNOSES: 1. Severe phimosis. 2. Gross hematuria. POSTOPERATIVE DIAGNOSES: 1. Severe phimosis. 2. Gross hematuria. 3. Large bladder diverticulum. OPERATIONS PERFORMED: 1. Circumcision. 2. Dorsal slit (separate additional procedure in order to allow the completion of the circumcision). 3. Regional nerve block (separate procedure performed for postoperative pain and not required for the actual performance of the surgery, which was done under general anesthesia. 4. Cystourethroscopy with right ureteral catheterization and retrograde ureterography (separate procedure performed for the hematuria). 5. Interpretation of retrograde ureteropyelography. 6. Supervision of fluoroscopy, no radiologist present. 7. Cystography with interpretation, no radiologist present. ANESTHESIA: General. COMPLICATIONS: None. CLINICAL SUMMARY: Please refer to the information in the chart. The patient was brought to the operating room for the above procedures. He is aware of the risks of bleeding, infection, injury to adjacent structures, need for additional procedures and elected to proceed. OPERATIVE PROCEDURE IN DETAIL: Informed consent was verified. Meet Rivera was properly identified and taken to the operating room, placed on the cystoscopy table in the supine position. Anesthesia was uneventfully begun. The patient's genitalia were shaved, prepared, and draped in usual sterile fashion. Marcaine without epinephrine was then utilized to infiltrate circumferentially subcutaneously at the base of the penis as well as in the region of the dorsal penile nerves. This was done for postoperative pain control and not required for the actual performance of the surgery, which was done under general anesthesia. A circumferential incision was then made overlying the arevalo of the glans penis. The foreskin could not be retracted. Therefore, a crushing straight clamp was used to crush the phimotic band in the midline. We then incised across the crushed region in completing the dorsal slit. This allowed retraction of the foreskin and exposure of the glans penis and urethral meatus. We re-prepared the penis with Betadine and then made a secondary incision 5 mm away from the arevalo of the glans penis along the inner preputial skin. A sleeve circumcision was then performed. The foreskin was removed and sent for histopathological analysis. After verifying hemostasis, the patient's incision was then approximated with 4-0 chromic suture in running fashion for an excellent cosmetic result. We gently repositioned dorsal lithotomy position with all pressure points well padded. His genitalia were redraped. The cystoscope sheath with the visual obturator in place was atraumatically inserted into the patient's urethra, it was guided unremarkable. Distal urethra to the bulbar region, where there was a lot of inflammation and friability of the urethral mucosa. We went through the normal sphincteric region and through the prostate bed, which was significant for prostatic hypertrophy. We entered the patient's bladder, we found erythema, but no suspicious lesions. There were diverticula noted. The right ureteral orifice was identified. A ureteral catheter was used to cannulate and retrograde ureteropyelograms were performed. However, the patient had hydroureteronephrosis and we could only help passive by the very distal ureter. The left ureteral orifice was not located. Indigo carmine and methylene blue were both unavailable due to national shortages of this medication. Due to the fact that we could not find the left ureter, retrograde pyelograms were not performed. The cystoscope was withdrawn. Maldonado catheter was placed. It was irrigated to and fro to ensure it worked properly and contrast was injected and performed cystography. Interpretation of retrograde ureteropyelography contrast was instilled in retrograde fashion on the right-hand side. The very distal several centimeters of ureter were opacified. The ureter was very dilated at least 1 cm in diameter and this may be from either chronic retention or from severely the patient's bladder. Some of the drainage was noted from the right ureter across the thickened bladder wall. Interpretation of cystography: The bladder wall was heavily trabeculated. Diverticular formation was identified. Belladonna and opium suppository were placed following dressing of the penis and the patient was uneventfully reversed from anesthesia and sent to recovery room in stable condition. There were no complications to the procedure. The patient tolerated procedure well. Sponge, needle, and instrument counts were of course correct x2 at the end of the case. Estimated blood loss was minimal. Explicit postoperative instructions were left on the chart. We will follow the patient. Once the patient is better, we will need to decide whether he could physically undergo urodynamics testing in order to provide adequate evaluation of bladder function. Dionicio Porter MD OH/MODL /[id number] cc: Lane Vela MD
== END 2018-12-21 14:23 | DRG 853 ==
LOC: ER 15:42 → ERHOLD 17:51 → ICU 23:10 → IMCU 11-25 16:19
PROVIDERS: ADMIT Internal Medicine; ATTEND Internal Medicine
PROC: 0VTTXZZ Resection of Prepuce, External Approach (ICD-10-PCS; 2018-11-28)
PROC: BT1D1ZZ Fluoroscopy of Right Kidney, Ureter and Bladder using Low Osmolar Contrast (ICD-10-PCS; 2018-11-28)
PROC: 0D1N4Z4 Bypass Sigmoid Colon to Cutaneous, Percutaneous Endoscopic Approach (ICD-10-PCS; principal; 2018-12-08 12:44)
DX: A41.9 Sepsis, unspecified organism (principal); E11.10 Type 2 diabetes mellitus with ketoacidosis without coma; J80 Acute respiratory distress syndrome; R65.21 Severe sepsis with septic shock; C92.10 Chronic myeloid leukemia, BCR/ABL-positive, not having achieved remission; N17.9 Acute kidney failure, unspecified; B37.49 Other urogenital candidiasis; K56.7 Ileus, unspecified; N13.30 Unspecified hydronephrosis; E86.0 Dehydration; Z91.19 Patient's noncompliance with other medical treatment and regimen; I12.9 Hypertensive chronic kidney disease with stage 1 through stage 4 chronic kidney disease, or unspecified chronic kidney disease; N47.1 Phimosis; Z91.14 Patient's other noncompliance with medication regimen; Z79.4 Long term (current) use of insulin; E11.42 Type 2 diabetes mellitus with diabetic polyneuropathy; N18.9 Chronic kidney disease, unspecified; D64.9 Anemia, unspecified; R07.89 Other chest pain; E11.22 Type 2 diabetes mellitus with diabetic chronic kidney disease; J44.9 Chronic obstructive pulmonary disease, unspecified; L98.8 Other specified disorders of the skin and subcutaneous tissue; F17.210 Nicotine dependence, cigarettes, uncomplicated; N40.0 Benign prostatic hyperplasia without lower urinary tract symptoms; R31.0 Gross hematuria; N32.3 Diverticulum of bladder
CPT/HCPCS: 36415; 36569; 36600; 71045; 71250; 72193; 74018; 74176; 74420; 74470; 80048; 80053; 81001; 82140; 82150; 82550; 82553; 82607; 82728; 82746; 82805; 82948; 83036; 83540; 83605; 83690; 83735; 83880; 84100; 84132; 84134; 84439; 84443; 84466; 84478; 84484; 84630; 85025; 85610; 85730; 86850; 86900; 86920; 87040; 87045; 87086; 87493; 88304; 88305; 88307; 88312; 93005; 93306; 94640; 94660; 96361; 96365; 96366; 96372; 97139; 99284; J0360; J0692; J1100; J1170; J1450; J1815; J1817; J1940; J2001; J2060; J2175; J2248; J2270; J2405; J2710; J2765; J3010; J3475; J3480; J7030; J7040; J7050; J7070; J7799; P9016